=== PATIENT | male | born 1960 | race Caucasian/White ===

== ENCOUNTER 2018-03-15 01:06 | Inpatient (IN) | payer BC ==
[2018-03-15 01:34] LABS: HCT 42.2 % (39.0-53.0); HGB 14.7 gm/dL (13.0-17.5); MCH 30.5 pg (25.0-35.0); MCHC 34.9 g/dL (31.0-37.0); MCV 87.5 fL (80.0-100.0); Mean Platelet Volume 7.8; Platelet Count 114 k/uL (150-450); RBC 4.83 m/uL (4.30-5.90); RDW 13.6 % (11.5-15.5); WBC 3.3 k/uL (3.8-10.6)
--- NOTE | 2018-03-15 01:39 | ED ---
Chest Pain HPI - General Chief Complaint: Chest Pain Stated Complaint: chest pain Time Seen by Provider: 03/15/18 01:14 Source: patient Mode of arrival: ambulatory Limitations: no limitations - History of Present Illness MD Complaint: chest pain Onset/Timin -: week(s) Onset: during rest Pain Location: left chest Pain Radiation: back Severity: moderate Quality: other (Burning) Consistency: constant Improves With: nothing Worsens With: nothing Treatments Prior to Arrival: none - Related Data Previous Rx's Medication Instructions Recorded Acetaminophen Tab [Tylenol] 650 mg PO Q6HR PRN tab 03/17/18 Allergies Allergy/AdvReac Type Severity Reaction Status Date / Time No Known Allergies Allergy Verified 03/15/18 08:39 Review of Systems ROS Statement: Those systems with pertinent positive or pertinent negative responses have been documented in the HPI. ROS Other: All systems not noted in ROS Statement are negative. Constitutional: Denies: fever, chills Respiratory: Denies: cough, dyspnea, hemoptysis Cardiovascular: Reports: as per HPI, chest pain. Denies: palpitations, orthopnea, edema, syncope Gastrointestinal: Denies: abdominal pain, nausea, vomiting Musculoskeletal: Denies: back pain Skin: Denies: rash Neurological: Denies: headache, weakness, numbness EKG Findings - EKG Results: EKG: interpreted by TED VICENTE, sinus rhythm (Rate 72 bpm), normal axis, normal QRS, normal ST/T, no acute changes - [place], Pacemaker, Normal: Normal tracing: normal tracing Past Medical History Past Medical History: No Reported History History of Any Multi-Drug Resistant Organisms: None Reported Past Surgical History: No Surgical Hx Reported Past Psychological History: No Psychological Hx Reported Smoking Status: Never smoker Past Alcohol Use History: Daily Past Drug Use History: None Reported - Past Family History Father Additional Family Medical History / Comment(s): liver issue Mother Family Medical History: Cancer Additional Family Medical History / Comment(s): skin CA, kidney issues General Exam Limitations: no limitations General appearance: alert, in no apparent distress Head exam: Present: atraumatic, normocephalic Eye exam: Present: normal appearance. Absent: scleral icterus, conjunctival injection Respiratory exam: Present: normal lung sounds bilaterally. Absent: respiratory distress, wheezes, rales, rhonchi, stridor, chest wall tenderness Cardiovascular Exam: Present: regular rate, normal rhythm, normal heart sounds. Absent: systolic murmur, diastolic murmur, rubs, gallop GI/Abdominal exam: Present: soft. Absent: distended, tenderness, guarding, rebound, rigid, mass Extremities exam: Present: normal inspection, normal capillary refill. Absent: pedal edema, calf tenderness Back exam: Present: normal inspection. Absent: CVA tenderness (R), CVA tenderness (L) Skin exam: Present: warm, dry, intact, normal color. Absent: rash Course Vital Signs 03/15/18 03/15/18 03/15/18 01:08 02:18 03:03 Temperature 97.9 F 97.4 F L Pulse Rate 76 73 70 Pulse Rate [ Pulse Oximetery ] Respiratory 18 18 18 Rate Blood Pressure 133/79 122/83 114/78 Blood Pressure [Right Arm] O2 Sat by Pulse 95 99 99 Oximetry 03/15/18 04:00 Temperature 97.9 F Pulse Rate Pulse Rate [ 71 Pulse Oximetery ] Respiratory 16 Rate Blood Pressure Blood Pressure 128/80 [Right Arm] O2 Sat by Pulse 96 Oximetry Disposition Clinical Impression: Left adrenal mass, Chest pain, Mediastinal lymphadenopathy Disposition: ADMITTED IP TO THIS HOSP Condition: Good Is patient prescribed a controlled substance at d/c from ED?: No
[2018-03-15 01:45] LABS: ALT 33 U/L (21-72); AST 23 U/L (17-59); Alkaline Phosphatase 50 U/L (38-126); Anion Gap 14 mmol/L; Blood Urea Nitrogen 16 mg/dL (9-20); Calcium 8.8 mg/dL (8.4-10.2); Carbon Dioxide 23 mmol/L (22-30); Chloride 105 mmol/L (98-107); Glucose 92 mg/dL (74-99); Potassium 3.9 mmol/L (3.5-5.1); Sodium 142 mmol/L (137-145); Total Bilirubin 0.7 mg/dL (0.2-1.3); Total Protein 6.4 g/dL (6.3-8.2)
--- NOTE | 2018-03-15 01:52 | XR ---
EXAMINATION TYPE: XR chest 1V portable DATE OF EXAM: 03/15/2018 COMPARISON: NONE HISTORY: Chest pain TECHNIQUE: Single frontal view of the chest is obtained. FINDINGS: Heart and mediastinum are normal. Lungs are clear. Diaphragm is normal. There are chest le ads. IMPRESSION: Normal chest
[2018-03-15] MEDS ORDERED: RX INFO: IV CONTRAST WAS GIVEN 1 EACH MISC MISCELLANE PRN ×2 (01:55→09:33)
[2018-03-15 02:02] LABS: Lymphocytes # (M) 0.79 k/uL (1.0-4.8); Monocytes # (M) 0.46 k/uL (0-1.0); Neutrophils # (M) 2.05 k/uL (1.3-7.7); Neutrophils % (M) 62 %; Nucleated Red Blood Cells 0 /100 WBC (0-0); Total Cells Counted 100
--- NOTE | 2018-03-15 02:35 | CT ---
EXAMINATION TYPE: CT chest angio for PE DATE OF EXAM: 03/15/2018 COMPARISON: NONE HISTORY: chest pain; elevated D-dimer CT DLP: 448.50 mGycm Automated exposure control for dose reduction was used. CONTRAST: CT Chest for pulmonary embolism performed with with IV Contrast, patient injected with 80 mL of Isovu e 370. FINDINGS: There are 3-D post processed images. The lungs are clear of consolidation. There is no pleural effusion. There is normal contrast opacific ation of the pulmonary arteries. I see no filling defects. There is no evidence of aortic aneurysm or dissection. There is extensive mediastinal and bronchial adenopathy. There are numerous lymph nodes that measure up to 2.5 cm. There is no pericardial effusion. There is no pleural effusion. The bony thorax is inta ct. IMPRESSION: No evidence of pulmonary embolism. Extensive mediastinal and bronchial adenopathy raises the possibil ity of lymphoma. There is no evidence of any significant lung disease to suggest sarcoidosis.
[2018-03-15] MEDS ORDERED: NITROGLYCERIN SL TABS 0.4 MG TAB SUBLINGUAL PRN (03:06)
[2018-03-15] MEDS ORDERED: MORPHINE SULFATE 4 MG/ML SYRINGE IV PRN (03:40)
[2018-03-15 04:06] VITALS: BMI 29.5
[2018-03-15 08:25] LABS: Creatine Kinase 38 U/L (55-170)
[2018-03-15 08:36] LABS: Creatine Kinase MB 0.3 ng/mL (0.0-2.4); Troponin I <0.012 ng/mL (0.000-0.034)
[2018-03-15] MEDS ORDERED: ASPIRIN 325 MG TAB PO SCH (09:00)
[2018-03-15 11:50] LABS: Prothrombin Time 9.7 sec (9.0-12.0)
[2018-03-15] MEDS ORDERED: ONDANSETRON 4 MG/2 ML VIAL IVP PRN (11:58)
[2018-03-15] MEDS ORDERED: MELATONIN 3 MG TABLET PO PRN (11:58)
[2018-03-15] MEDS ORDERED: NALOXONE 0.4 MG/ML 1 ML VIAL IV PRN (11:58)
[2018-03-15] MEDS ORDERED: ACETAMINOPHEN TAB 325 MG TAB PO PRN (11:58)
[2018-03-15] MEDS ORDERED: ALPRAZolam 0.25 MG TAB PO PRN (11:58)
--- NOTE | 2018-03-15 12:10 | P.CRDCN ---
History of Present Illness Consult date: 03/15/18 History of present illness: Mr. Alaniz is a pleasant 58-year-old male with no significant past medical history. He denies history of coronary artery disease, hypertension, dyslipidemia or diabetes mellitus. We have been asked to see him in consultation for chest pain. He states he has had a pain that starts in the left mid-back region and radiates around to the left anterior chest wall. It feels like a strained muscle described as a dull ache. This has been going on for approximately 1 week, waxing and waning with no specific aggravating or alleviating factors. No radiation to arm, neck or jaw. No sob, palpitations, nausea, vomiting, diaphoresis, dizziness or exertional dyspnea. CT angio was performed in ED secondary to elevated D-dimer and reveals no evidence for PE, lungs clear consolidation, no evidence of aortic aneurysm or dissection, extensive mediastinal and bronchial adenopathy with numerous lymph nodes that measure up to 2.5 cm raising the possibility of lymphoma. EKG on arrival reveals normal sinus mechanism with no acute ST or T-wave abnormalities. Chest x-ray is negative for an acute cardiopulmonary process. Laboratory data reviewed, d-dimer 1.46, WBC 3.3, hemoglobin 14.7, platelets 114 , sodium 142, potassium 3.9, magnesium 2.0, cardiac enzymes negative 2. He takes no daily medications. Review of Systems At the time of my exam: CONSTITUTIONAL: Denies fever. Denies chills. EYES: Denies blurred vision. Denies vision changes. Denies eye pain. EARS, NOSE, MOUTH & THROAT: Denies headache. Denies sore throat. Denies ear pain. CARDIOVASCULAR: Denies chest pain. Denies shortness of breath. Denies orthopnea. Denies PND. Denies palpitations. RESPIRATORY: Denies cough. GASTROINTESTINAL: Denies abdominal pain. Denies diarrhea. Denies constipation. Denies nausea. Denies vomiting. MUSCULOSKELETAL: Denies myalgias. INTEGUMENTARY: Denies pruitis. Denies rash. NEUROLOGIC: Denies numbness. Denies tingling. Denies weakness. PSYCHIATRIC: Denies anxiety. Denies depression. ENDOCRINE: Denies fatigue. Denies weight change. Denies polydipsia. Denies polyurina. GENITOURINARY: Denies burning, hematuria or urgency with micturation. HEMATOLOGIC: Denies history of anemia. Denies bleeding. Past Medical History Past Medical History: No Reported History History of Any Multi-Drug Resistant Organisms: None Reported Past Surgical History: Tonsillectomy Smoking Status: Never smoker - Past Family History Father Additional Family Medical History / Comment(s): liver issue Mother Family Medical History: Cancer Additional Family Medical History / Comment(s): skin CA, kidney issues Medications and Allergies Home Medications Medication Instructions Recorded Confirmed Type No Known Home Medications [No 03/15/18 03/15/18 History Known Home Medications] Allergies Allergy/AdvReac Type Severity Reaction Status Date / Time No Known Allergies Allergy Verified 03/15/18 08:39 Physical Exam Vitals: Vital Signs Temp Pulse Pulse Resp BP BP Pulse Ox 03/15/18 07:59 97.6 F 71 16 110/62 96 03/15/18 04:00 97.9 F 71 16 128/80 96 03/15/18 03:03 97.4 F L 70 18 114/78 99 03/15/18 02:18 73 18 122/83 99 03/15/18 01:08 97.9 F 76 18 133/79 95 Intake and Output 03/14/18 03/15/18 03/15/18 22:59 06:59 14:59 Other: # Voids 1 Weight 90.7 kg Blood pressure 110/62 heart rate 71 afebrile maintaining oxygen saturation on room air GENERAL: This is a 58-year-old male in no apparent distress at the time of my examination. HEENT: Head is atraumatic, normocephalic. Pupils are equal, round. Sclerae anicteric. Conjunctivae are clear. Mucous membranes of the mouth are moist. Neck is supple. There is no jugular venous distention. No carotid bruit is heard. LUNGS: Clear to auscultation no wheezes, rales or rhonchi. No chest wall tenderness is noted on palpation or with deep breathing. HEART: Regular rate and rhythm without murmurs, rubs or gallops. S1 and S2 heard. ABDOMEN: Soft, nontender. Bowel sounds are heard. No organomegaly noted. EXTREMITIES: No evidence of peripheral edema and no calf tenderness noted. VASCULAR: Radial and dorsalis pedis pulses palpated, no evidence of clubbing. NEUROLOGIC: Patient is awake, alert and oriented x3. Results 03/15/18 01:16 03/15/18 01:16 Cardiac Enzymes 03/15/18 03/15/18 03/15/18 Range/Units 01:16 01:16 07:20 AST 23 (17-59) U/L CK-MB (CK-2) 0.3 (0.0-2.4) ng/mL Troponin I <0.012 <0.012 (0.000-0.034) ng/mL CBC 03/15/18 Range/Units 01:16 WBC 3.3 L (3.8-10.6) k/uL RBC 4.83 (4.30-5.90) m/uL Hgb 14.7 (13.0-17.5) gm/dL Hct 42.2 (39.0-53.0) % Plt Count 114 L (150-450) k/uL Comprehensive Metabolic Panel 03/15/18 Range/Units 01:16 Sodium 142 (137-145) mmol/L Potassium 3.9 (3.5-5.1) mmol/L Chloride 105 (98-107) mmol/L Carbon Dioxide 23 (22-30) mmol/L BUN 16 (9-20) mg/dL Creatinine 0.80 (0.66-1.25) mg/dL Glucose 92 (74-99) mg/dL Calcium 8.8 (8.4-10.2) mg/dL AST 23 (17-59) U/L ALT 33 (21-72) U/L Alkaline Phosphatase 50 (38-126) U/L Total Protein 6.4 (6.3-8.2) g/dL Albumin 4.0 (3.5-5.0) g/dL Current Medications Generic Name Dose Route Start Last Admin Trade Name Freq PRN Reason Stop Dose Admin Aspirin 325 mg 03/15/18 09:00 Aspirin PO DAILY LAUREANO Heparin Sodium (Porcine) 5,000 unit 03/15/18 08:00 Heparin SQ Q8HR [facility] Miscellaneous Information 1 each 03/15/18 01:55 03/15/18 02:19 Rx Info: Iv Contrast Was Given MISCELLANE 03/17/18 01:55 1 each DAILY PRN Administration Per Protocol Morphine Sulfate 4 mg 03/15/18 03:40 03/15/18 04:09 Morphine Sulfate (Inj) IV 4 mg Q4H PRN Administration Pain Nitroglycerin 0.4 mg 03/15/18 03:06 Nitrostat SUBLINGUAL Q5M PRN Chest Pain Intake and Output 03/14/18 03/15/18 03/15/18 22:59 06:59 14:59 Other: # Voids 1 Weight 90.7 kg 03/15/18 01:16 03/15/18 01:16 Assessment and Plan Assessment: ASSESSMENT 1. Chest pain, atypical. An acute coronary event has been ruled out with no EKG evidence of ischemia and negative cardiac enzymes. 2. Mediastinal and bronchial adenopathy PLAN Obtain 2D echocardiogram and doppler study to assess cardiac structure and function. Perform Cardiolyte stress test to assess for reversible cardiac ischemia. Ongoing medical management of lymphadenopathy. If stress testing is negative for reversible ischemia he is stable from a cardiac perspective. Thank you kindly for this consultation. Nurse Practitioner note has been reviewed, I agree with a documented findings and plan of care. Patient was seen and examined.
--- NOTE | 2018-03-15 12:29 | ECHOF ---
Referral Reason: MEASUREMENTS -------- HEIGHT: 175.3 cm WEIGHT: 90.3 kg BP: 110/62 IVSd: 1.3 cm (0.6 - 1.1) LVIDd: 3.4 cm (3.9 - 5.3) LVPWd: 1.4 cm (0.6 - 1.1) IVSs: 1.8 cm LVIDs: 2.0 cm LVPWs: 1.9 cm LAESV Index (A-L): 24.23 ml/m Ao Diam: 3.8 cm (2.0 - 3.7) AV Cusp: 2.4 cm (1.5 - 2.6) LA Diam: 3.5 cm (2.7 - 3.8) MV EXCURSION: 14.230 mm (> 18.000) MV EF SLOPE: 74 mm/s (70 - 150) EPSS: 0.7 cm MV E Corky: 0.62 m/s MV DecT: 202 ms MV A Corky: 0.65 m/s MV E/A Ratio: 0.96 RAP: 5.00 mmHg RVSP: 19.40 mmHg FINDINGS -------- Sinus rhythm. This was a technically good study. LV size, wall thickness and systolic function are normal, with an EF greater than 55%. The left ariadna tricular size is normal. There is mild concentric left ventricular hypertrophy. The right ventricle is normal in size. The left atrium is normal in size. The right atrium is normal in size. The aortic valve is trileaflet, and appears structurally normal. No aortic stenosis or regurgitation. The mitral valve is normal. There is trace mitral regurgitation. Trace tricuspid regurgitation present. The right ventricular systolic pressure, as measured by Dopp ler, is 19.40mmHg. There is no pulmonic regurgitation present. The aortic root is mildy dilated. Normal inferior vena cava with normal inspiratory collapse consistent with estimated right atrial pre ssure of 5 mmHg. There is no pericardial effusion. CONCLUSIONS -------- 1. Sinus rhythm. 2. This was a technically good study. 3. LV size, wall thickness and systolic function are normal, with an EF greater than 55%. 4. The left ventricular size is normal. 5. There is mild concentric left ventricular hypertrophy. 6. The left atrium is normal in size. 7. The aortic valve is trileaflet, and appears structurally normal. No aortic stenosis or regurgitati on. 8. There is trace mitral regurgitation. 9. Trace tricuspid regurgitation present. 10. The right ventricular systolic pressure, as measured by Doppler, is 19.40mmHg. 11. There is no pulmonic regurgitation present. 12. The aortic root is mildy dilated measuring 3.8 cm 13. Normal inferior vena cava with normal inspiratory collapse consistent with estimated right atrial pressure of 5 mmHg. 14. There is no pericardial effusion. RELISH MAKER: Audra Agee RDCS
[2018-03-15] MEDS: ASPIRIN 81 MG PO SCH (12:33)
--- NOTE | 2018-03-15 12:33 | NM ---
EXAMINATION TYPE: NM stress cardiolite complete DATE OF EXAM: 03/15/2018 COMPARISON: NONE HISTORY: Chest pain TECHNIQUE: After the intravenous administration of 10 mCi Tc 99m Sestamibi - Rest images obtained 45 minutes post injection. The patient exercised using a ANNA protocol and 1 minute prior to peak ex ercise was injected with 25 mCi Tc 99m Sestamibi - Stress images obtained 30 minutes post injection. FINDINGS: Targeted heart rate was achieved during performance of the study. Review of stress and rest SPECT jean claude ges demonstrates no distinct perfusion abnormality. The small defect in the lateral wall on the compu ter generated images is not reproduced on scintigraphic raw data Gated analysis shows normal wall mot ion with an estimated left ventricular ejection fraction of 58 %. TID is be 0.85. IMPRESSION: No scintigraphic evidence for reversible ischemia
[2018-03-15] MEDS: HEPARIN SODIUM,PORCINE 5,000 UNIT/ML 1 ML VIAL SQ SCH ×2 (12:34→16:44)
--- NOTE | 2018-03-15 13:28 | EST ---
EXERCISE STRESS DATE OF SERVICE: 03/15/2018 AGE: 58 SEX: Male HT: 69" WT: 199 pounds PROTOCOL: CARDIOLITE STAGE: III DURATION OF EXERCISE: 8 minutes HEART RATE REST: 85 BLOOD PRESSURE REST: 114/84 MAXIMUM HEART RATE ACHIEVED: 147 MAXIMUM BLOOD PRESSURE: 160/98 85% MPHR: 139 100% MPHR: 164 METS: 9.7 INDICATIONS: Chest pain. CLINICAL INFORMATION: Baseline rhythm is sinus mechanism, rate of 85, normal axis and intervals, poor R wave progression. Baseline blood pressure 114/84 mmHg. Patient exercise on Anshul protocol for 8 minutes reaching peak rate of 147 beats per minute, which is equal to 89% maximum predicted heart rate. Peak blood pressure was 160/98 mmHg. Test was terminated secondary to fatigue. There is no chest pain. Electrocardiograph monitoring revealed no evidence diagnostic ischemic ST deviation. Cardiolite was injected at peak exercise. CONCLUSION: 1. Good exercise tolerance with normal electrocardiograph response to exercise. 2. Nuclear images will be reported separately. MMODL / IJN: [id number] / KIA
--- NOTE | 2018-03-15 15:10 | P.CONS ---
History of Present Illness - Reason for Consult Consult date: 03/15/18 adreanal mass, medistinal adenopathy Requesting physician: Dino Moran - Chief Complaint LUQ/rib pain - History of Present Illness Mr. Alaniz is a very pleasant 58-year-old male with a unremarkable PMH who was experiencing what he called chest pain 1 week, on clarification pain was described to be localized to the left upper quadrant, lower rib area and straight through to the back, fairly constant, pain was worse when he was sitting, denied relationship to eating, ibuprofen worked for pain initially but , then it stopped helping, the pain was restricting his ability to be active, he denied shortness of breath, cough, dysphagia, voice changes, nausea, vomiting , dizziness, near syncopy, night sweats, lymph node swellings or weight loss, no recent illnesses. 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 Review of Systems 14 point review of systems is as stated in HPI Past Medical History Past Medical History: No Reported History History of Any Multi-Drug Resistant Organisms: None Reported Past Surgical History: Tonsillectomy Smoking Status: Never smoker - Past Family History Father Additional Family Medical History / Comment(s): liver issue Mother Family Medical History: Cancer Additional Family Medical History / Comment(s): skin CA, kidney issues Medications and Allergies Home Medications Medication Instructions Recorded Confirmed Type No Known Home Medications [No 03/15/18 03/15/18 History Known Home Medications] Allergies Allergy/AdvReac Type Severity Reaction Status Date / Time No Known Allergies Allergy Verified 03/15/18 08:39 Physical Exam Vitals: Vital Signs Temp Pulse Pulse Resp BP BP Pulse Ox 03/15/18 11:46 98 F 96 16 141/96 95 03/15/18 07:59 97.6 F 71 16 110/62 96 03/15/18 04:00 97.9 F 71 16 128/80 96 03/15/18 03:03 97.4 F L 70 18 114/78 99 03/15/18 02:18 73 18 122/83 99 03/15/18 01:08 97.9 F 76 18 133/79 95 Intake and Output 03/14/18 03/15/18 03/15/18 22:59 06:59 14:59 Intake Total 236 Balance 236 Intake: Oral 236 Other: # Voids 1 Weight 90.7 kg - Constitutional General appearance: average body habitus, cooperative, no acute distress - EENT Eyes: anicteric sclerae, EOMI, PERRLA, normal appearance ENT: hearing grossly normal, normal oropharynx - Neck Neck: no lymphadenopathy - Respiratory Respiratory: bilateral: CTA - Cardiovascular Rhythm: regular Heart sounds: normal: S1, S2 Abnormal Heart Sounds: no systolic murmur, no diastolic murmur, no rub, no S3 Gallop, no S4 Gallop, no click, no other leg Peripheral Edema: bilateral: None - Gastrointestinal General gastrointestinal: soft, tenderness Localized gastrointestinal: tender: LUQ (solid mass palpated) - Integumentary Integumentary: normal - Neurologic Neurologic: CNII-XII intact - Musculoskeletal Musculoskeletal: strength equal bilaterally - Psychiatric Psychiatric: A&O x's 3, appropriate affect, intact judgment & insight Results CBC & Chem 7: 03/15/18 01:16 03/15/18 01:16 Labs: Abnormal Lab Results - Last 24 Hours (Table) 03/15/18 03/15/18 03/15/18 Range/Units 01:16 01:16 07:20 WBC 3.3 L (3.8-10.6) k/uL Plt Count 114 L (150-450) k/uL Lymphocytes # (Manual) 0.79 L (1.0-4.8) k/uL D-Dimer 1.46 H (<0.60) mg/L FEU Lactate Dehydrogenase (313-618) U/L Total Creatine Kinase 38 L (55-170) U/L 03/15/18 Range/Units 07:20 WBC (3.8-10.6) k/uL Plt Count (150-450) k/uL Lymphocytes # (Manual) (1.0-4.8) k/uL D-Dimer (<0.60) mg/L FEU Lactate Dehydrogenase 810 H (313-618) U/L Total Creatine Kinase (55-170) U/L Chest x-ray: report reviewed CT scan - chest: report reviewed, image reviewed Assessment and Plan (1) Left adrenal mass Current Visit: Yes Status: Acute Priority: High Code(s): E27.9 - DISORDER OF ADRENAL GLAND, UNSPECIFIED SNOMED Code(s): 363062402 (2) Mediastinal lymphadenopathy Current Visit: Yes Status: Acute Priority: High Code(s): R59.0 - LOCALIZED ENLARGED LYMPH NODES SNOMED Code(s): 99196794 Plan: Dr. Olson discussed with patient concerning findings on CT including left adrenal mass and mediastinal lymphadenopathy. He was explained to patient and biopsy is necessary for tissue diagnosis as the findings could represent a primary adrenal malignancy, metastatic disease from another primary, possibly lymphoma and there is the possibility of metastatic disease or rare, but possible, benign condition. They verbalized understanding and are willing to proceed. Consult placed for Interventional Radiology and core biopsy. CT of the abdomen and pelvis ordered to complete imaging. Additional labs have been ordered for evaluation.
--- NOTE | 2018-03-15 17:10 | HP ---
HISTORY AND PHYSICAL DATE OF SERVICE: 03/15/18 PRESENTING COMPLAINT: Below left rib pain. HISTORY OF PRESENTING COMPLAINT: This is a very pleasant 58 -year-old patient of Dr. Brizuela. Unremarkable past medical history. The patient has been having pain and what he describes as below the ribcage going around and getting localized below the left rib. Has been coming on and off. The patient denies any fever. No chest pain or shortness of breath. The patient's pain became rather severe yesterday and decided to come in. CT scan of the chest with contrast showed multiple lymph nodes in the lungs, prominent. The patient is rather active and in fact works for [employer] and normally does not get any exertional chest pain or shortness of breath. Given there was a lower chest wall involvement, cardiology was consulted from the ER who did order a stress test. REVIEW OF SYSTEMS: Constitutional none. No weight loss. Appetite is fair. HEENT none. RESPIRATORY: None. Cardiovascular: No precordial pain. Gastrointestinal none. Genitourinary: None. Musculoskeletal: Some left lower ribcage pain. DERMATOLOGICAL, HEMATOLOGIC, LYMPHATIC: none. Psychiatry none. Neurological none. PAST MEDICAL HISTORY: None. SURGICAL HISTORY: Tonsillectomy. SOCIAL HISTORY: Has one drink a day and works for [employer]. Does not smoke. . FAMILY HISTORY: Of cancer, possibly liver. HOME MEDICATIONS: None. ALLERGIES: None. PHYSICAL EXAMINATION: Temperature 98, pulse 96, respiration 16, blood pressure 141/96, pulse ox 95% on room air. General appearance: Average built, sitting up, comfortable. Eyes: Pupils equal. Conjunctivae normal. HEENT: External appearance of nose and ears normal. Oral cavity normal. Neck JVD not raised. Mass not palpable. Respiratory effort lungs fair entry. Cardiovascular 1st and second sounds no edema. ABDOMEN: Soft, nontender. Liver and spleen not palpable. Lymphatics: No lymph nodes palpable in neck or axillae. Psychiatry: Alert and oriented x3. Mood and affect normal. Neurological: Pupils equal. Cranial nerves grossly intact. Power and sensation grossly intact. INVESTIGATIONS: White count 3.3, hemoglobin 14.7, platelets 114, decreased lymphocytes in the differential. Potassium 3.9, BUN 16, creatinine 0.80. LDH is 810. Troponin times two negative. 2D echocardiogram EF 55%. Cardiolite stress test, no evidence of ischemia. EKG normal sinus rhythm. ASSESSMENT: 1. Atypical chest pain, noncardiac sounding and there was a concern about a cardiac cause and hence cardiology was consulted. The stress test has come back negative. 2. Multiple mediastinal lymphadenopathy. Differential of course includes lymphoma for which oncology was consulted. PLAN: Patient's stress test was negative. The patient was seen by Dr. Olson's service. They have ordered interventional Radiology for core biopsy of the left renal mass and also CT abdomen and pelvis with contrast and some other workup for multiple myeloma including has been sent off including immunofixation. Copy to Dr. Brizuela. MMODL / IJN: [id number] /
[2018-03-16] MEDS: HEPARIN SODIUM,PORCINE 5,000 UNIT/ML 1 ML VIAL SQ SCH ×3 (01:46→15:36)
[2018-03-16 03:29] LABS: Cholesterol 85 mg/dL (<200); HDL Cholesterol 8 mg/dL (40-60); Triglycerides 344 mg/dL (<150)
[2018-03-16] MEDS: IOPAMIDOL-300 CONTRAST 30 ML VIAL (ORAL USE) PO PRN ×2 (08:31→09:33)
--- NOTE | 2018-03-16 09:54 | P.PN ---
Subjective Progress Note Date: 03/16/18 Mr. Alaniz is seen and examined this morning resting comfortably in bed with at the bedside. Stress echocardiogram performed yesterday negative for stress induced cardiac ischemia. Echocardiogram revealed a normal systolic function with ejection fraction 55%. No evidence of valvular heart disease. He has been seen in consultation by oncology and they are planning for a biopsy of a left adrenal mass. He continues to complain of discomfort in the left thoracic region. Denies shortness of breath, nausea, vomiting, diaphoresis, dizziness or palpitations. Telemetry tracings have been unremarkable. Blood pressure 142/80 heart rate 84 afebrile and maintaining oxygen saturation on room air. Objective - Vital Signs Vital signs: Vital Signs Temp 97.5 F L 03/16/18 07:30 Pulse 84 03/16/18 07:30 Resp 16 03/16/18 04:00 BP 142/80 03/16/18 07:30 Pulse Ox 93 L 03/16/18 07:30 Intake & Output 03/15/18 03/16/18 03/16/18 18:59 06:59 18:59 Intake Total 916 240 Balance 916 240 Intake: Oral 916 240 Other: # Voids 2 - Exam GENERAL: Well-appearing, well-nourished and in no acute distress. NECK: Supple without JVD or thyromegaly. LUNGS: Breath sounds clear to auscultation bilaterally. Respiration equal and unlabored. No wheezes, rales or rhonchi. HEART: Regular rate and rhythm without murmurs, rubs or gallops. S1 and S2 heard. EXTREMITIES: Normal range of motion, no edema. No clubbing or cyanosis. Peripheral pulses intact and strong. - Labs CBC & Chem 7: 03/15/18 01:16 03/15/18 01:16 Labs: Abnormal Lab Results - Last 24 Hours (Table) 03/15/18 03/15/18 Range/Units 01:16 07:20 Lactate Dehydrogenase 810 H (313-618) U/L Triglycerides 344 H (<150) mg/dL HDL Cholesterol 8 L (40-60) mg/dL Assessment and Plan Assessment: ASSESSMENT 1. Chest pain, atypical. An acute coronary event has been ruled out with no EKG evidence of ischemia and negative cardiac enzymes. 2. Mediastinal and bronchial adenopathy PLAN Stable from a cardiac perspective. Test results have been explained to the patient and his . Nurse Practitioner note has been reviewed, I agree with a documented findings and plan of care. Patient was seen and examined.
[2018-03-16] MEDS ORDERED: MORPHINE ORAL SOLN 10 MG/5 ML CUP PO PRN (10:03)
[2018-03-16] MEDS ORDERED: MORPHINE SULFATE 4 MG/ML SYRINGE IVP STA (10:44)
[2018-03-16] MEDS: ASPIRIN 81 MG PO SCH (11:25)
--- NOTE | 2018-03-16 13:24 | CT ---
EXAMINATION TYPE: CT abdomen wo con, CT abdomen pelvis w con DATE OF EXAM: 03/16/2018 HISTORY: Adrenal mass CT DLP: 571.54 (accession [id number]), 1440.01 (accession [id number]) mGycm. Automated Exposure Control for Dose Reduction was Utilized. TECHNIQUE: CT scan of the abdomen is performed with oral but without IV contrast. Follow-up CT scan of the abdomen and pelvis is performed with both oral and IV contrast. COMPARISON: CTA chest from yesterday. FINDINGS: Within the limitations of a non-contrast study, the following observations are made. LUNG BASES: There is partial visualization of known right hilar adenopathy from CT one day earlier. LIVER/GB: No significant abnormality is appreciated. PANCREAS: No significant abnormality is seen. SPLEEN: Spleen is enlarged in size measuring 14.5 cm long axis axial image 25. ADRENALS: There is redemonstration of markedly enlarged left adrenal mass that is oval in shape with some lobulated and ill-defined margins, Hounsfield units average 40-[address] one day earlier and 35-[address] today. Postcontrast images show enhancement up to 50-51 units. 15 minute delayed images show only washout down to 48 units. Mass measures approximately 10.3 x 5.1 cm series 4 axial i mage 29. Right adrenal gland is unremarkable. KIDNEYS: No significant abnormality is seen. BOWEL: The oral contrast nearly reaches level of hepatic flexure. Evaluation of distal bowel is thus slightly suboptimal. There is no suspicious small or large bowel dilatation. There is mild wall thick ening proximal to mid transverse colon. Sigmoid colonic diverticulosis is present without convincing CT evidence for acute diverticulitis. There is single prominent small bowel loop in the right mid abd omen with moderate eccentric wall thickening seen best series 8 image 53. GENITAL ORGANS: Prostate gland is slightly enlarged in size bulging on bladder base, Central zone massimo cifications are present. Underlying BPH is suspected. Correlate clinically. LYMPH NODES: No greater than 1cm abdominal or pelvic lymph nodes are appreciated. OSSEOUS STRUCTURES: Moderate disc space narrowing L4-L5 and L5-S1 levels is present. OTHER: No significant additional abnormality is seen. IMPRESSION: 1. Large left adrenal mass has Hounsfield units greater than 10 on noncontrast study, only mild postc ontrast enhancement without significant washout. Malignant etiology cannot be excluded. Correlate wit h same day biopsy results. 2. Splenomegaly noted. No suspicious adenopathy below diaphragm identified. 3. Possible mild colitis proximal to mid transverse colon versus product of poor distention. No bowel obstruction is seen. Single dilated small bowel loop in the right midabdomen with moderate eccentric wall thickening. Correlate clinically if there is been prior bowel surgery in this is site of reanas tomosis no distinct sutures are not clearly seen. Atypical mass or neoplasm is in differential.
[2018-03-16 16:02] LABS: Glucose,Whole Blood 90 mg/dL (75-99)
--- NOTE | 2018-03-16 16:33 | XR ---
EXAMINATION TYPE: XR chest 1V DATE OF EXAM: 03/16/2018 CLINICAL HISTORY: Shortness of breath. TECHNIQUE: Single AP portable upright view of the chest is obtained. COMPARISON: Chest x-ray and CTA chest from one day earlier. FINDINGS: Lungs are grossly clear without pleural effusion or pneumothorax seen bilaterally. Hilar p rominence and/or adenopathy is redemonstrated seen better on CT. Cardiac silhouette size is stable an d within normal limits. Osseous structures are intact. Contrast from recent CT is noted in bowel loop s in the visualized abdomen. IMPRESSION: No new suspicious acute pulmonary process.
[2018-03-16 16:45] LABS: HCT 44.5 % (39.0-53.0); HGB 15.1 gm/dL (13.0-17.5); MCV 88.3 fL (80.0-100.0); Mean Platelet Volume 7.7; Platelet Count 117 k/uL (150-450); RBC 5.04 m/uL (4.30-5.90); RDW 13.4 % (11.5-15.5); WBC 3.9 k/uL (3.8-10.6)
[2018-03-16 16:51] LABS: ALT 32 U/L (21-72); AST 23 U/L (17-59); Albumin 4.2 g/dL (3.5-5.0); Alkaline Phosphatase 43 U/L (38-126); Anion Gap 15 mmol/L; Blood Urea Nitrogen 15 mg/dL (9-20); Carbon Dioxide 26 mmol/L (22-30); Chloride 101 mmol/L (98-107); Glucose 108 mg/dL (74-99); Sodium 142 mmol/L (137-145); Total Bilirubin 1.3 mg/dL (0.2-1.3); Total Protein 6.7 g/dL (6.3-8.2)
[2018-03-16] MEDS ORDERED: MORPHINE SULFATE 4 MG/ML SYRINGE IVP PRN (17:08)
[2018-03-16] MEDS ORDERED: RX INFO: IV CONTRAST WAS GIVEN 1 EACH MISC MISCELLANE PRN (17:09)
[2018-03-16] MEDS: LACTATED RINGERS 1,000 ML IV SCH (17:27)
--- NOTE | 2018-03-16 17:50 | XR ---
EXAMINATION TYPE: XR abdomen 2V DATE OF EXAM: 03/16/2018 HISTORY: Pain. Technique: 3 views of the abdomen are submitted. Comparison: None. Findings: Residual intracolonic contrast. There is no convincing evidence of pneumoperitoneum. The Bowel gas pattern is nonspecific and nonobstructive. No sizable air-fluid levels are seen. No mass effects are noted. No renal calcifications are identified. IMPRESSION: 1. Nonspecific nonobstructive bowel gas pattern
[2018-03-16 17:57] LABS: Band Neutrophils % 1 %; Eosinophils # (M) 0.08 k/uL (0-0.7); Lymphocytes # (M) 0.66 k/uL (1.0-4.8); Metamyelocytes # (M) 0.04 k/uL (0); Metamyelocytes % 1 %; Monocytes # (M) 0.62 k/uL (0-1.0); Neutrophils % (M) 64 %; Nucleated Red Blood Cells 0 /100 WBC (0-0); Polychromasia Present; Promyelocytes # (M) 0.04 k/uL (0); Promyelocytes % 1 %; Total Cells Counted 200
--- NOTE | 2018-03-16 18:30 | CT ---
EXAMINATION TYPE: CT chest angio for PE DATE OF EXAM: 03/16/2018 COMPARISON: 03/15/2018 HISTORY: Back pain post Adrenal biopsy today CT DLP: 425.4 mGycm CONTRAST: CT chest with contrast and 3D reconstruction with MIP imaging is performed with IV Contrast, patient injected with 100 mL of Isovue 370. Contrast-enhanced CT of the chest was performed through the course of the pulmonary arteries with dipak g and mediastinal window settings submitted. 3D reconstruction with MIP imaging was also performed. PULMONARY ARTERIES: The pulmonary arteries and their major tributaries are patent. I do not see driss dence for sizable filling defect to suggest pulmonary embolic process. LUNGS: The lungs are clear and free of infiltrate. No evidence for atelectasis. No pulmonary nodule or mass is detected. No pleural effusion. MEDIASTINUM: Thoracic aorta is of normal caliber,however, evaluation is limited given timing of the contrast bolus. If there is concern for thoracic aortic pathology consider CLIF. Correlate clinicall y . The heart is not enlarged. No evidence for mediastinal mass. Mediastinal adenopathy. HILAR STRUCTURES: No evidence for mass. Stable hilar adenopathy. UPPER ABDOMEN: Partially imaged left adrenal mass. IMPRESSION: 1. No evidence for Pulmonary embolism at this time.
[2018-03-16] MEDS ORDERED: CALCIUM CARBONATE LIQUID 500 MG/5 ML CUP PO PRN (20:40)
[2018-03-17] MEDS: HEPARIN SODIUM,PORCINE 5,000 UNIT/ML 1 ML VIAL SQ SCH ×2 (02:02→08:40)
[2018-03-17] MEDS: LACTATED RINGERS 1,000 ML IV SCH ×2 (02:05→08:40)
--- NOTE | 2018-03-17 07:03 | PN ---
PROGRESS NOTE DATE OF SERVICE: 03/16/2018 PRESENTING COMPLAINT: Abdominal pain. INTERVAL HISTORY: This patient was seen by me yesterday evening. The patient presented with chest pain. Cardiac workup was negative. Patient was found to have multiple lymph nodes and enlarged adrenal gland. Patient had just come back from the biopsy of the adrenal gland and developed significant abdominal pain. There was no nausea, vomiting. Patient's vital signs essentially stable. The patient's was present. REVIEW OF SYSTEMS: Review of system done for constitutional, cardiovascular, GI, pulmonary; relevant findings as above. CURRENT MEDICATIONS: Current medications are reviewed. PHYSICAL EXAMINATION: On examination, temperature 97.6, pulse 77, respiratory 20, blood pressure 111/77, pulse ox 96% on room air. GENERAL APPEARANCE: Lying in bed, somewhat uncomfortable appearing. EYES: Pupils equal. Conjunctivae normal. The patient was not cold and clammy. HENT: External appearance of the nose and ears normal. Oral cavity normal. NECK: JVD not raised. Mass not palpable. RESPIRATORY: Effort normal. LUNGS: Clear. CARDIOVASCULAR: First and second sounds normal. No edema. ABDOMEN: Soft, minimal tenderness on the left side. No tenderness in the renal angle. No bruising . PSYCHIATRY: Alert and oriented x3. Mood and affect normal. INVESTIGATIONS: Abdominal x-ray did not show any free air. Chest CT was negative for PE. ASSESSMENT: 1. Multiple mediastinal lymphadenopathy with involvement of the adrenal gland, status post biopsy. 2. Patient had acute abdominal pain, probably gassiness pain. Pulmonary embolism was ruled out. No free air was noted. PLAN: Continue current medication and treatment plan. Later on, patient's nurse did check back again. The patient was doing much better and had settled down. Will follow. MMODL / IJN: [id number] /
[2018-03-17 08:30] VITALS: BP 106/73; PULSE 66; RESP 20; TEMP 97.5
[2018-03-17] MEDS: ASPIRIN 81 MG PO SCH (08:40)
[2018-03-17 09:35] LABS: Albumin 3.62 g/dL (3.80-4.90)
--- NOTE | 2018-03-18 07:19 | DS ---
DISCHARGE SUMMARY DATE OF ADMISSION: 03/15/18. DATE OF DISCHARGE: March 17, 2018. FINAL DIAGNOSES: Multiple mediastinal lymphadenopathy with involvement and a and a left adrenal gland mass. HOSPITAL COURSE: This patient presented with left abdominal pain, left lower chest pain. Initially seen by Cardiology who did a Cardiolite stress test that was unremarkable and 2-D echo was unremarkable. Chest CTA did not show any evidence of PE but did show extensive mediastinal and bronchial adenopathy. The patient was seen by interventional radiologist who did a biopsy of the left adrenal gland. Pathology was pending. Patient also seen by Dr. Olson who will follow up the patient in the office. The patient doing better today. PHYSICAL EXAMINATION: Lungs are clear. Cardiovascular 1st and second sounds are normal. ABDOMEN: Soft, nontender. CONSULTATION: Dr. Rodrigez from Cardiology and Dr. Olson from Oncology. DISCHARGE MEDICATIONS: Tylenol 650 mg q.6h p.r.n. FOLLOWUP: Follow up with Dr. Olson on April 06, 2018, follow Dr. Brizuela on March 24, 2018. Adrenal gland biopsy was done and the results of which are pending. Care was today discussed with the patient and and okayed by Oncology to be discharged. MMODL / IJN: [id number] /
--- NOTE | 2018-03-18 09:18 | CT ---
EXAMINATION TYPE: CT core biopsy adrenal gland DATE OF EXAM: 03/16/2018 HISTORY: Adrenal mass COMPARISON: CT dated 03/15/2018 Maximal barrier technique was utilized. The skin overlying a suitable path to the lesion was localiz ed using CT and the overlying skin was prepped and draped. Lidocaine used for local anesthesia. A s kin dyan made with a scalpel. Using CT guidance, access was gained to the lesion with a 17-gauge braulio de needle, coaxial passage of the 22-gauge and subsequently 18-gauge core biopsy needle performed. A spirated and core specimen submitted to cytology. 2 passes were performed in all. Following the pro cedure no immediate complications. The patient is discharged in stable condition. Hemostasis achie alex. IMPRESSION: SUCCESSFUL CT GUIDED CORE BIOPSY. PATHOLOGY PENDING. THIS PROCEDURE WAS PERFORMED BY THE EVER Shankar
== END 2018-03-17 14:30 | disposition home or self-care (01) | DRG 204 ==
LOC: EC 01:06 → 3OBS 03:06 → OBSVTOIN 14:50 → 5ONC 03-16 10:15
PROVIDERS: ADMIT Hospitalist; ATTEND Hospitalist
PROC: 0G923ZX Drainage of Left Adrenal Gland, Percutaneous Approach, Diagnostic (ICD-10-PCS; principal; 2018-03-17)
DX: R07.81 Pleurodynia (principal); R59.0 Localized enlarged lymph nodes; E27.9 Disorder of adrenal gland, unspecified; R79.1 Abnormal coagulation profile; Z90.89 Acquired absence of other organs; Z79.899 Other long term (current) drug therapy
CPT/HCPCS: 10022; 36415; 60699; 71045; 71275; 74019; 74150; 74177; 77012; 78452; 80053; 80061; 82550; 82553; 83615; 83735; 83883; 84165; 84484; 85025; 85379; 85610; 86334; 93005; 93017; 93306; 94760; 99285

== ENCOUNTER → 2018-03-26 | Outpatient (CLI) | payer BC ==
--- NOTE | 2018-03-29 12:07 | PE ---
Nuclear medicine PET/CT HISTORY: B-cell lymphoma, C 83.38, initial Patient received 13.5 mCi F-18 G intravenously in delayed scanning was performed from the skull base to the mid thighs. Localization and attenuation correction CT scan was performed. Exam is correlated prior CT chest 03/16/2018, CT abdomen pelvis 03/16/2018 Neck and chest: There is hypermetabolic uptake present involving the shotty mediastinal and hilar nod es, SUV values range approximately 5-7.4. No evident hilar or cervical adenopathy. No evident lung ma ss. Coronary artery calcifications are present. Heart is enlarged. Abdomen pelvis: The spleen is enlarged, there is some fluid present adjacent to the posterior spleen. Large left adrenal mass measures 10 cm in size, there is associated hypermetabolic uptake, SUV 32. T here is a loop of bowel present in the right lower quadrant as noted on CT with a thickened wall and abnormal hypermetabolic uptake, possible diverticulum or bowel with secondary involvement with SUV 20 . Suspect a retroperitoneal node on axial image 183, there is associated hypermetabolic uptake, SUV 2 1. Extensive calcified diverticula noted within the descending and sigmoid colon. Prostatic calcifications are present. Urinary bladder shows a thickened wall possibly due to chronic outlet obstruction. No pelvic adenopathy. Osseous structures: The right proximal humerus shows hypermetabolic uptake, SUV approximately 3.9. IMPRESSION: Findings compatible with patient's history of lymphoma in the distribution described. Spl enomegaly and additional findings above.
== END | disposition home or self-care (01) ==
LOC: RADPETMAIN 12:26
PROVIDERS: ATTEND Internal Medicine Hematology & Oncology
DX: C83.38 Diffuse large B-cell lymphoma, lymph nodes of multiple sites (principal); R16.1 Splenomegaly, not elsewhere classified
CPT/HCPCS: 78815; A9552

== ENCOUNTER → 2018-04-05 | Outpatient (CLI) | payer BC | LOC: RADECHMAIN 13:22 | PROVIDERS: ATTEND Internal Medicine Hematology & Oncology | DX: Z53.9 Procedure and treatment not carried out, unspecified reason (principal) ==

== ENCOUNTER 2018-04-08 05:42 | Day surgery (SDC) | payer BC ==
[2018-04-06 10:55] VITALS: BMI 28.8
[~2018-04-08 05:42] MED LIST: LACTATED RINGERS 1,000 ML IV SCH; Pre Op ABX Message 1 EACH MISC MISCELLANE ONE
[2018-04-08 06:16] VITALS: RESP 16; TEMP 97.2
[2018-04-08] MEDS ORDERED: LIDOCAINE 1% 20 ML VIAL (10MG/ML) FOR IV START INTRADERMA ONE (06:23)
[2018-04-08] MEDS ORDERED: ONDANSETRON 4 MG/2 ML VIAL IVP ONE (06:24)
[2018-04-08] MEDS ORDERED: DEXAMETHASONE SOD PHOS (MDV) 100 MG/10 ML VIAL IV ONE (06:24)
--- NOTE | 2018-04-08 06:29 | P.GSHP ---
History of Present Illness H&P Date: 04/08/18 CHIEF COMPLAINT: Lymphoma. HISTORY OF PRESENT ILLNESS: The patient is a 58-year-old male diagnosed with lymphoma. He needs a Mediport placement for chemotherapy. PAST MEDICAL HISTORY: See list PAST SURGICAL HISTORY: See list CURRENT MEDICATIONS: See list. ALLERGIES: See list. SOCIAL HISTORY: No active tobacco or alcohol use. FAMILY HISTORY: Noncontributory. REVIEW OF ORGAN SYSTEMS: CONSTITUTIONAL: No fevers or chills. PHYSICAL EXAMINATION: Vital signs: Stable GENERAL: Well developed and in no acute distress. Pleasant. HEENT: No sclera icterus. Extraocular movements grossly intact. Moist buccal mucosa. Head is atraumatic, normocephalic. Hears conversational speech. No nasal drainage. NECK: Supple without lymphadenopathy. No JV distention. CHEST: Non-labored respirations and equal bilateral excursions. CARDIOVASCULAR: Regular rate and rhythm. Palpable 2+ radial pulses. ABDOMEN: Nontender. MUSCULOSKELETAL: No clubbing, cyanosis or edema. NEUROLOGIC: No focal or lateralizing signs. PSYCH: Appropriate affect. Alert and oriented to person, place and time. ASSESSMENT: 1. Lymphoma. 2. Need for chemotherapeutic access. PLAN: 1. Agree with Port-A-Cath placement. Past Medical History Past Medical History: Cancer Additional Past Medical History / Comment(s): non-hodgkins lymphoma History of Any Multi-Drug Resistant Organisms: None Reported Past Surgical History: Tonsillectomy Additional Past Surgical History / Comment(s): colonoscopy Past Anesthesia/Blood Transfusion Reactions: No Reported Reaction Smoking Status: Never smoker - Past Family History Father Additional Family Medical History / Comment(s): liver issue Mother Family Medical History: Cancer Additional Family Medical History / Comment(s): skin CA, kidney issues Medications and Allergies Home Medications Medication Instructions Recorded Confirmed Type Acetaminophen Tab [Tylenol] 650 mg PO Q6HR PRN tab 03/17/18 04/08/18 Rx HYDROcodone/APAP 10-325MG [[place] 1 tab PO DAILY PRN 04/06/18 04/08/18 History 10-325] Allergies Allergy/AdvReac Type Severity Reaction Status Date / Time No Known Allergies Allergy Verified 04/06/18 10:49 Surgical - Exam Vital Signs Temp Pulse Resp BP Pulse Ox 97.2 F L 81 16 116/80 97 04/08/18 06:12 04/08/18 06:12 04/08/18 06:12 04/08/18 06:12 04/08/18 06:12
[2018-04-08] MEDS ORDERED: LIDOCAINE 1% INJ 10MG/ML (20 ML MDV) ONE (07:00)
[2018-04-08] MEDS ORDERED: ceFAZolin IN SWFI 2 GM/20 ML SYRINGE IVP ONE (07:00)
[2018-04-08] MEDS ORDERED: PROPOFOL 10 MG/ML 20 ML VIAL IV ONE (07:00)
[2018-04-08] MEDS ORDERED: MIDAZOLAM 2 MG/2 ML VIAL ONE (07:00)
[2018-04-08] MEDS ORDERED: fentaNYL (PF) 50 MCG/ML 2 ML AMP ONE (07:00)
[2018-04-08] MEDS ORDERED: HEPARIN SODIUM,PORCINE 100 UNIT/ML 5 ML VIAL IV ONE (07:27)
[2018-04-08] MEDS ORDERED: HEPARIN SODIUM,PORCINE 10,000 UNIT/ML 1 ML VIAL IV ONE (07:27)
[2018-04-08] MEDS ORDERED: BUPIVACAINE (PF) 0.5% 30 ML VIAL SQ ONE (07:28)
--- NOTE | 2018-04-08 07:55 | P.PCN ---
Date of Procedure: 04/08/18 Description of Procedure: SURGEON: INNA HILLS MD LAP GRINDER: None. PREOPERATIVE DIAGNOSES: 1. Non-Hodgkin's lymphoma 2. Need for chemotherapeutic access. POSTOPERATIVE DIAGNOSES: 1. Non-Hodgkin's lymphoma 2. Need for chemotherapeutic access. PROCEDURES PERFORMED: 1. Ultrasound guided central venous access of the right internal jugular venous vein. 2. Fluoroscopic guidance for central venous access right internal jugular vein, 1 second. 3. Placement of right internal jugular power port 6 Bengali by [employer]. ANESTHESIA: IV sedation with local. ESTIMATED BLOOD LOSS: 10 mL. SPECIMENS REMOVED: None. COMPLICATIONS: None. INDICATIONS: The patient is a 58-year-old male recently diagnosed with non-Hodgkin's lymphoma. He presents for chemotherapeutic access. Benefits and risks of surgical intervention were described including bleeding, infection, mechanical problems with his port. Informed consent was obtained. DESCRIPTION OR PROCEDURE: Patient was brought into the operating room, laid in supine position. After adequate IV sedation, the chest and right neck were prepped and draped in a standard sterile fashion including the shoulder with ChloraPrep. Timeout protocol was confirmed with the surgical team regarding the patient's name, procedure to be performed including preoperative medications for which she received IV antibiotics. Bilateral SCDs were placed. An ultrasound was used to capture views of the right internal jugular vein including right carotid artery, which was patent and without thrombus along its course. The right IJ was then localized using anesthetic for the skin. A 16 Bengali needle was used to access the IJ. A guidewire was advanced into the IJ with dark nonpulsatile venous blood. Two fingerbreadths distal to the clavicle, on the lateral third, a transverse 1.5 to 2 cm incision was deepened into the skin after localizing the skin. A pocket was created for the port. The port on the back table was flushed with heparinized saline and then attached to the catheter tubing. An adapter was fastened to the actual port site over the tubing. The port easily had fit snug into the pocket. A subcutaneous tunneler was placed along the open end of the tubing and brought out through the separate stab incision. Fluoroscopic guidance confirmed no kinking along the tubing and the port site. Next, the J-wire was exchanged for a catheter sheath for which the tubing was cut to 18 cm and then advanced through the catheter sheath. The Peel-away sheath was then removed and the tubing was secured at the junction of the superior vena cava as well as the right atrium. The tubing was found to be crossed however functional. This was all done under fluoroscopic guidance 1 second. Easy pullback as well as return and aspiration was obtained of the port site. The skin incision was closed using layers using 3-0 Vicryl for the subcu followed by 4-0 Monocryl in a running subcuticular fashion. At the stick site this was also reapproximated using 4-0 Monocryl. The incisions were covered with Optifoam, The skin was cleansed and liquid glue was applied. A total of 20 mL of local anesthetic was placed. At the end of the procedure, needle, sponge, and instrument count was verified correct by surgical assist. Heparin lock of 5 mL was placed. The patient was awoken and pain free and taken to the second stage postanesthesia care unit. The patient tolerated the procedure well. FINDINGS: 1. No thrombus encountered along the right carotid artery or internal jugular vein. 2. Access of the right internal jugular vein under ultrasound guidance. 3. Fluoroscopy of 1 second. Plan - Discharge Summary New Discharge Prescriptions: No Action Acetaminophen Tab [Tylenol] 650 mg PO Q6HR PRN tab PRN Reason: Mild Pain Or Fever > 100.5 HYDROcodone/APAP 10-325MG [[place] 10-325] 1 tab PO DAILY PRN PRN Reason: Pain Discharge Medication List Acetaminophen Tab [Tylenol] 650 mg PO Q6HR PRN tab 03/17/18 [Rx] HYDROcodone/APAP 10-325MG [[place] 10-325] 1 tab PO DAILY PRN 04/06/18 [History]
--- NOTE | 2018-04-08 08:26 | XR ---
EXAMINATION TYPE: XR chest 1V confirm line [facility] DATE OF EXAM: 04/08/2018 COMPARISON: 03/16/2018 INDICATION: Line placement TECHNIQUE: Single frontal view of the chest is obtained. FINDINGS: The heart size is normal. The pulmonary vasculature is normal. The lungs are clear. No pneumothorax is present. There is a port present on the right with the tip in the mid superior ariadna a cava region. IMPRESSION: 1. No pneumothorax post line placement. Catheter tip is in the region of the superior vena cava.
[2018-04-08 09:04] VITALS: BP 104/62; PULSE 78
--- NOTE | 2018-04-08 09:40 | FL ---
EXAMINATION TYPE: FL guided central line placemt HISTORY: Fluoroscopy time Impression: 1. Fluoroscopy support provided to the referring physician. 1 seconds of fluoroscopy time utilized.
== END 2018-04-08 09:09 | disposition home or self-care (01) ==
LOC: OR 05:42
PROVIDERS: ATTEND Surgery Plastic and Reconstructive Surgery
DX: C85.90 Non-Hodgkin lymphoma, unspecified, unspecified site (principal)
CPT/HCPCS: 77001; 36561; C1788; J2250; J1644; J1642; J2405; J2001; J3010; J1100; J2704; J0690

== ENCOUNTER → 2018-05-14 | Outpatient (CLI) | payer BC ==
--- NOTE | 2018-05-14 15:01 | PE ---
EXAMINATION TYPE: PET CT fusion skull to thigh DATE OF EXAM: 05/14/2018 COMPARISON: CT chest abdomen and pelvis March 16, 2018 HISTORY: Lymphoma initial diagnosis on biopsy April 15, 2018 with surgery on May 06 per patient. On c hemotherapy per patient. TECHNIQUE: Following the intravenous administration of 13.13 mCi of F-18 FDG, whole body images are performed from the skull base to the midthigh. Images are reviewed on the computer in the coronal, a xial, and sagittal planes. Reconstructed rotating images are created on independent workstation and reviewed on the computer. A noncontrast CT is performed in conjunction with the PET scan. SCAN: Initial Scan FINDINGS: MEDIASTINUM MEAN SUV: 1.47 LIVER MEAN SUV: 2.01 SKULL BASE AND NECK: No suspicious areas of hypermetabolic adenopathy are identified. CHEST, MEDIASTINUM, AND HILAR REGION: There are innumerable bilateral hilar and mediastinal hypermeta bolic slightly enlarged lymph nodes. Max SUV is right infrahilar/subcarinal level axial image 105, ma x SUV is 6.92. There is extension to the anterior superior mediastinum. No definitive supraclavicular hypermetabolic adenopathy or axillary adenopathy is seen. ABDOMEN AND PELVIS: There is redemonstration of left adrenal mass measuring roughly 4.5 x 2.1 cm axia l image 150, there is single focus of abnormal hypermetabolic uptake near anterior aspect axial image 148, max SUV is 4.84. No additional areas of suspicious hypermetabolic uptake are present. OSSEOUS STRUCTURES: Mild diffuse osseous uptake is identified presumed treatment response. No suspici ous areas of more focal abnormal increased hypermetabolic uptake is present. OTHER CT: There is right internal jugular Mediport catheter terminating in SVC. There is mild coronary artery calcification which is noted marker for coronary artery disease. Spleen remains mildly enlarged in size at 14.1 cm long axis axial image 142. Liver is normal in size. Some scattered diverticula are seen throughout the colon most prominent in the left and sigmoid colon . There is facet arthropathy lower lumbar spine. IMPRESSION: Abnormal thoracic adenopathy and left adrenal gland.
== END | disposition home or self-care (01) ==
LOC: RADPETMAIN 09:59
PROVIDERS: ATTEND Internal Medicine Hematology & Oncology
DX: C83.38 Diffuse large B-cell lymphoma, lymph nodes of multiple sites (principal); R93.5 Abnormal findings on diagnostic imaging of other abdominal regions, including retroperitoneum
CPT/HCPCS: 78815; A9552

== ENCOUNTER 2018-05-30 07:57 | Inpatient (IN) | payer BC ==
[2018-05-30] MEDS ORDERED: methylPREDNISolone SOD SUCCI 125 MG/2 ML VIAL IVP ONE (09:00)
[2018-05-30] MEDS ORDERED: diphenhydrAMINE 50 MG/ML 1 ML VIAL IVP ONE (09:00)
[2018-05-30] MEDS ORDERED: ACETAMINOPHEN TAB 325 MG TAB PO ONE (09:00)
[2018-05-30] MEDS: SODIUM CHLORIDE 0.9% 1,000 ML IV SCH ×2 (10:50→20:19)
[2018-05-30] MEDS: predniSONE 10 MG TAB PO SCH ×2 (10:51→19:57)
[2018-05-30] MEDS: predniSONE 50 MG TAB PO SCH ×2 (10:51→19:57)
[2018-05-30] MEDS ORDERED: riTUXimab 800 MG in SODIUM CHLORIDE 0.9% 500 ML IV ONE (12:00)
[2018-05-30 12:44] LABS: Anisocytosis Slight; Basophils # (A) 0.1 k/uL (0-0.2); Basophils % (A) 1 %; Eosinophils # (A) 0.1 k/uL (0-0.7); Eosinophils % (A) 1 %; HCT 41.5 % (39.0-53.0); HGB 14.1 gm/dL (13.0-17.5); Lymphocytes # (A) 0.6 k/uL (1.0-4.8); Lymphocytes % (A) 10 %; MCH 30.5 pg (25.0-35.0); MCHC 34.1 g/dL (31.0-37.0); MCV 89.4 fL (80.0-100.0); Mean Platelet Volume 8.2; Monocytes # (A) 0.6 k/uL (0-1.0); Monocytes % (A) 9 %; Neutrophils # (A) 4.6 k/uL (1.3-7.7); Neutrophils % (A) 76 %; Platelet Count 222 k/uL (150-450); Poikilocytosis Slight; RBC 4.64 m/uL (4.30-5.90); RDW 16.4 % (11.5-15.5); WBC 6.1 k/uL (3.8-10.6)
[2018-05-30 13:07] LABS: ALT 41 U/L (21-72); AST 24 U/L (17-59); Albumin 4.3 g/dL (3.5-5.0); Alkaline Phosphatase 49 U/L (38-126); Anion Gap 10 mmol/L; Blood Urea Nitrogen 12 mg/dL (9-20); Calcium 9.4 mg/dL (8.4-10.2); Carbon Dioxide 28 mmol/L (22-30); Chloride 103 mmol/L (98-107); Glucose 96 mg/dL (74-99); Potassium 4.5 mmol/L (3.5-5.1); Sodium 141 mmol/L (137-145); Total Bilirubin 0.4 mg/dL (0.2-1.3); Total Protein 6.8 g/dL (6.3-8.2)
--- NOTE | 2018-05-30 13:32 | P.HPIM ---
History of Present Illness H&P Date: 05/30/18 Chief Complaint: Diffuse Large B cell Lymphoma, admitted for high dose infusional chemo Mr Alaniz is a 58 yr old white male, initially seen in consult at [facility] on 03/15/18. The patient is fairly healthy at baseline, and had come into the ER complaining of "chest pain" in 1 week, progressive in nature. One further clarification the patient was actually described to be localized to the left upper quadrant and left lower rib cage area with penetration straight through to the back. The pain was quite constant and worsened while sitting. There were no other associated aggravating or relieving factors. on exam the patient was felt to have a palpable left upper quadrant mass. CT scan of the abdomen and pelvis had shown a markedly enlarged left adrenal mass, 10.3 x 5.1 cm. That appeared mild colon wall thickening proximal to the mid transverse colon. Splenomegaly was seen. CTA of the chest was negative for PE but showed some borderline mediastinal and hilar adenopathy. The patient underwent a CT-guided adrenal biopsy on 03/16/18. Fine-needle aspirate showed severely atypical cells consistent with diffuse large B-cell lymphoma. Core biopsy was also consistent with high-grade B-cell non-Hodgkin lymphoma consistent with diffuse large B-cell lymphoma. She was sent for "double hit" testing but material on the cell block was not enough to wish further testing was not possible. Patient had a PET scan on 03/26/18 revealing hypermetabolic uptake in shotty mediastinal and hilar nodes with SUV in the 5-7.4 range. 10 cm left adrenal mass had an SUV of 22. There was a loop of bowel in the right lower quadrant with thickened wall with SUV of 20. There was possibility of a retroperitoneal node with SUV of 21. Right proximal humerus shows uptake with SUV of 3.9. The patient was seen for his first office visit on 03/31/18. The pt thus appeared to have stage IV disease. 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 He decided for R -CHOP, with a plan for reevaluation after 2 cycles. He started chemo on 04/14/18 and is s/p 2 cycles. PET scan post cycle 2 showed a partial, suboptimal response. It was thus decided to change his chemo regimen to the infusional R - EPOCH. He is being admitted for C1 He denied any specific complaint, other than mild fatigue and constipation, the latter causing some irritation with his known hemorrhoids. Review of Systems Constitutional: Reports fatigue Eyes: denies blurred vision, denies pain Ears: deny: decreased hearing, ear discharge, earache, tinnitus Ears, nose, mouth and throat: Denies headache, Denies sore throat Cardiovascular: Denies chest pain, Denies shortness of breath Respiratory: Denies cough Gastrointestinal: Reports constipation, Denies abdominal pain, Denies diarrhea, Denies nausea, Denies vomiting Genitourinary: Reports as per HPI Musculoskeletal: Denies myalgias Integumentary: Denies pruritus, Denies rash Neurological: Denies numbness, Denies weakness Psychiatric: Denies anxiety, Denies depression Endocrine: Denies fatigue, Denies weight change Hematologic/Lymphatic: Reports as per HPI Past Medical History Past Medical History: Cancer Additional Past Medical History / Comment(s): non-hodgkins lymphoma History of Any Multi-Drug Resistant Organisms: None Reported Past Surgical History: Tonsillectomy Additional Past Surgical History / Comment(s): colonoscopy Past Anesthesia/Blood Transfusion Reactions: No Reported Reaction Smoking Status: Never smoker - Past Family History Father Additional Family Medical History / Comment(s): liver issue Mother Family Medical History: Cancer Additional Family Medical History / Comment(s): skin CA, kidney issues Medications and Allergies Home Medications Medication Instructions Recorded Confirmed Type No Known Home Medications 05/30/18 05/30/18 History Allergies Allergy/AdvReac Type Severity Reaction Status Date / Time No Known Allergies Allergy Verified 05/30/18 08:30 Physical Exam - Constitutional General appearance: no acute distress - EENT Eyes: EOMI, PERRLA ENT: hearing grossly normal, normal oropharynx - Neck Neck: no lymphadenopathy Thyroid: bilateral: normal size - Respiratory Respiratory: bilateral: CTA - Cardiovascular Rhythm: regular Heart sounds: normal: S1, S2 - Gastrointestinal General gastrointestinal: normal bowel sounds, soft - Integumentary Integumentary: normal - Neurologic Neurologic: CNII-XII intact - Musculoskeletal Musculoskeletal: strength equal bilaterally - Psychiatric Psychiatric: A&O x's 3, appropriate affect Results CBC & Chem 7: 05/30/18 12:27 05/30/18 12:27 Thrombosis Risk Factor Assmnt - DVT/VTE Prophylaxis DVT/VTE Prophylaxis: Pharmacologic Prophylaxis ordered Assessment and Plan (1) Diffuse large B cell lymphoma Narrative/Plan: Diagnostic and therapeutic circumstances so far have been described in the HPI. The patient tolerated 2 cycles of RCHOP well, and did have some improvement in symptoms. However PET scan did not show the desired optimal response. Therefore his chemotherapy regimen has been changed to the high-dose infusional REPO CH. He is being admitted for cycle 1 of the same. The patient has no major symptoms at this time and has a normal physical exam. Labs were reviewed and were normal. She will proceed with treatment per protocol. He'll be monitored with clinical exams, as well as serial labs, which have been ordered Current Visit: Yes Status: Acute Code(s): C83.30 - DIFFUSE LARGE B-CELL LYMPHOMA, UNSPECIFIED SITE SNOMED Code(s): 879735270 Plan: DVT prophylaxis
[2018-05-30] MEDS: ENOXAPARIN 40 MG/0.4 ML SYRINGE SQ SCH (14:56)
[2018-05-30] MEDS: FAMOTIDINE 20 MG/2 ML VIAL IVP SCH (19:57)
[2018-05-30] MEDS: ONDANSETRON 16 MG in SODIUM CHLORIDE 0.9% 50 ML IVPB SCH (20:19)
[2018-05-30] MEDS: SODIUM CHLORIDE 0.9% IV SCH ×2 (20:30)
[2018-05-30] MEDS: ETOPOSIDE 100 MG in SODIUM CHLORIDE 0.9% 500 ML IV SCH (20:30)
[2018-05-30] MEDS: VINCRISTINE SULFATE IV SCH (20:30)
[2018-05-30] MEDS: DOXORUBICIN HCL IV SCH (20:30)
[2018-05-31] MEDS: ACETAMINOPHEN TAB 325 MG TAB PO PRN (05:18)
[2018-05-31] MEDS: SODIUM CHLORIDE 0.9% 1,000 ML IV SCH ×3 (05:20→17:45)
[2018-05-31] MEDS: ONDANSETRON 4 MG/2 ML VIAL IVP PRN (06:16)
[2018-05-31 07:55] LABS: ALT 33 U/L (21-72); AST 22 U/L (17-59); Albumin 3.8 g/dL (3.5-5.0); Alkaline Phosphatase 37 U/L (38-126); Anion Gap 9 mmol/L; Blood Urea Nitrogen 10 mg/dL (9-20); Calcium 8.8 mg/dL (8.4-10.2); Carbon Dioxide 22 mmol/L (22-30); Chloride 109 mmol/L (98-107); Glucose 128 mg/dL (74-99); Potassium 4.6 mmol/L (3.5-5.1); Sodium 140 mmol/L (137-145); Total Bilirubin 0.3 mg/dL (0.2-1.3); Total Protein 6.1 g/dL (6.3-8.2)
[2018-05-31 07:58] LABS: Anisocytosis Slight; Basophils % (A) 0 %; Eosinophils % (A) 0 %; HCT 38.6 % (39.0-53.0); HGB 13.2 gm/dL (13.0-17.5); Lymphocytes # (A) 0.4 k/uL (1.0-4.8); Lymphocytes % (A) 4 %; MCH 31.2 pg (25.0-35.0); MCHC 34.2 g/dL (31.0-37.0); MCV 91.2 fL (80.0-100.0); Mean Platelet Volume 7.2; Monocytes # (A) 0.2 k/uL (0-1.0); Monocytes % (A) 2 %; Neutrophils # (A) 11.2 k/uL (1.3-7.7); Neutrophils % (A) 95 %; Platelet Count 213 k/uL (150-450); Poikilocytosis Slight; RBC 4.23 m/uL (4.30-5.90); RDW 16.7 % (11.5-15.5); WBC 11.8 k/uL (3.8-10.6)
[2018-05-31] MEDS: predniSONE 50 MG TAB PO SCH ×2 (09:52→21:55)
[2018-05-31] MEDS: ENOXAPARIN 40 MG/0.4 ML SYRINGE SQ SCH (09:52)
[2018-05-31] MEDS: predniSONE 10 MG TAB PO SCH ×2 (09:52→21:56)
[2018-05-31] MEDS: SALT AND SODA MOUTHWASH 1,000 ML PO SCH ×3 (12:24→20:56)
[2018-05-31] MEDS: ONDANSETRON 16 MG in SODIUM CHLORIDE 0.9% 50 ML IVPB SCH ×2 (12:27→21:57)
[2018-05-31] MEDS: FAMOTIDINE 20 MG/2 ML VIAL IVP SCH ×2 (12:27→21:56)
--- NOTE | 2018-05-31 17:03 | P.PN ---
Subjective Progress Note Date: 05/31/18 Principal diagnosis: Large B Cell Lymphoma Status Post Day One Of First cycle of R-EPOCH, No Acute complaints. No nausea or vomiting, fevers, or chills. Objective - Vital Signs Vital signs: Vital Signs Temp 97.9 F 05/31/18 15:50 Pulse 99 05/31/18 15:50 Resp 16 05/31/18 15:50 BP 134/91 05/31/18 15:50 Pulse Ox 93 L 05/31/18 15:50 Intake & Output 05/30/18 05/31/18 05/31/18 18:59 06:59 18:59 Intake Total 829.2 1858.4 1088.0 Balance 829.2 1858.4 1088.0 Weight 93 kg 94.5 kg Intake: Intake, IV Titration 829.2 1018.4 1088.0 Amount DOXOrubicin HCL 20 mg In 86.4 91.2 Sodium Chloride 0.9% 250 ml @ 10.833 mls/hr IV Q24H [facility] Rx#:[id number] Etoposide 100 mg In 166 179.2 Sodium Chloride 0.9% 500 ml @ 21.042 mls/hr IV Q24H [facility] Rx#:[id number] Ondansetron 16 mg In 50 Sodium Chloride 0.9% 50 ml @ 100 mls/hr IVPB Q24H [facility] Rx#:[id number] Sodium Chloride 0.9% 1, 300 700 800 000 ml @ 100 mls/hr IV . Q10H [facility] Rx#:[id number] riTUXimab 800 mg In 529.2 Sodium Chloride 0.9% 500 ml @ Titrate IV .Q0M [facility] Rx#:[id number] vinCRIStine SULFATE 0.8 16 17.6 mg In Sodium Chloride 0.9 % 50 ml @ 2.117 mls/hr IV Q24H [facility] Rx#:[id number] Oral 840 Other: Voiding Method Toilet Toilet Toilet # Voids 3 5 - Constitutional General appearance: Present: cooperative, no acute distress - EENT Eyes: Present: EOMI, PERRLA, dentition normal ENT: Present: NA/AT, normal oropharynx - Neck Details: Supple, Trachea [place] Neck: Present: normal ROM - Respiratory Respiratory: bilateral: CTA - Cardiovascular Rhythm: regular Heart sounds: normal: S1, S2 - Gastrointestinal General gastrointestinal: Present: normal bowel sounds, soft - Integumentary Integumentary: Present: normal - Neurologic Neurologic: Present: CNII-XII intact - Musculoskeletal Musculoskeletal: Present: gait normal, strength equal bilaterally - Psychiatric Psychiatric: Present: A&O x's 3, appropriate affect, intact judgment & insight - Labs CBC & Chem 7: 05/31/18 06:55 05/31/18 06:55 Labs: Abnormal Lab Results - Last 24 Hours (Table) 05/31/18 05/31/18 Range/Units 06:55 06:55 WBC 11.8 H (3.8-10.6) k/uL RBC 4.23 L (4.30-5.90) m/uL Hct 38.6 L (39.0-53.0) % RDW 16.7 H (11.5-15.5) % Neutrophils # 11.2 H (1.3-7.7) k/uL Lymphocytes # 0.4 L (1.0-4.8) k/uL Chloride 109 H (98-107) mmol/L Glucose 128 H (74-99) mg/dL Alkaline Phosphatase 37 L (38-126) U/L Total Protein 6.1 L (6.3-8.2) g/dL Assessment and Plan Plan: Assessment and Plan (1) Diffuse large B cell lymphoma Narrative/Plan: Diagnostic and therapeutic circumstances so far have been described in the HPI. The patient tolerated 2 cycles of RCHOP well, and did have some improvement in symptoms. However PET scan did not show the desired optimal response. Therefore his chemotherapy regimen has been changed to the high-dose infusional REPO CH. He is being admitted for cycle 1 of the same. The patient has no major symptoms at this time and has a normal physical exam. - Will continue to monitor daily CBC and CMP - Monitor for risk of infection. Tumor Lysis Current Visit: Yes Status: Acute Code(s): C83.30 - DIFFUSE LARGE B-CELL LYMPHOMA, UNSPECIFIED SITE SNOMED Code(s): 558584524
[2018-05-31] MEDS: ETOPOSIDE 100 MG in SODIUM CHLORIDE 0.9% 500 ML IV SCH (22:02)
[2018-05-31] MEDS: SODIUM CHLORIDE 0.9% IV SCH ×2 (22:03)
[2018-05-31] MEDS: VINCRISTINE SULFATE IV SCH (22:03)
[2018-05-31] MEDS: DOXORUBICIN HCL IV SCH (22:03)
[2018-06-01] MEDS: SALT AND SODA MOUTHWASH 1,000 ML PO SCH ×6 (00:16→21:09)
[2018-06-01] MEDS: SODIUM CHLORIDE 0.9% 1,000 ML IV SCH ×2 (05:15→22:29)
[2018-06-01] MEDS: ACETAMINOPHEN TAB 325 MG TAB PO PRN (05:44)
[2018-06-01] MEDS: ONDANSETRON 4 MG/2 ML VIAL IVP PRN ×2 (08:11→17:11)
[2018-06-01] MEDS: predniSONE 50 MG TAB PO SCH ×2 (08:12→21:05)
[2018-06-01] MEDS: predniSONE 10 MG TAB PO SCH ×2 (08:13→21:04)
[2018-06-01] MEDS: ENOXAPARIN 40 MG/0.4 ML SYRINGE SQ SCH (08:13)
[2018-06-01 08:30] LABS: Anisocytosis Slight; Basophils % (A) 0 %; Eosinophils # (A) 0.1 k/uL (0-0.7); Eosinophils % (A) 0 %; HCT 37.4 % (39.0-53.0); HGB 12.6 gm/dL (13.0-17.5); Lymphocytes # (A) 0.4 k/uL (1.0-4.8); Lymphocytes % (A) 2 %; MCH 30.8 pg (25.0-35.0); MCHC 33.7 g/dL (31.0-37.0); MCV 91.2 fL (80.0-100.0); Mean Platelet Volume 7.4; Monocytes # (A) 0.6 k/uL (0-1.0); Monocytes % (A) 3 %; Neutrophils # (A) 16.5 k/uL (1.3-7.7); Neutrophils % (A) 94 %; Platelet Count 200 k/uL (150-450); Poikilocytosis Slight; RBC 4.11 m/uL (4.30-5.90); RDW 16.7 % (11.5-15.5); WBC 17.6 k/uL (3.8-10.6)
[2018-06-01 08:45] LABS: ALT 33 U/L (21-72); AST 20 U/L (17-59); Albumin 3.4 g/dL (3.5-5.0); Alkaline Phosphatase 33 U/L (38-126); Anion Gap 9 mmol/L; Blood Urea Nitrogen 12 mg/dL (9-20); Calcium 8.6 mg/dL (8.4-10.2); Carbon Dioxide 24 mmol/L (22-30); Chloride 108 mmol/L (98-107); Glucose 114 mg/dL (74-99); Sodium 141 mmol/L (137-145); Total Bilirubin 0.2 mg/dL (0.2-1.3); Total Protein 5.6 g/dL (6.3-8.2)
--- NOTE | 2018-06-01 14:38 | P.PN ---
Subjective Progress Note Date: 06/01/18 Principal diagnosis: Large B Cell Lymphoma Status Post Day 2 Of First cycle of R-EPOCH, No Acute complaints. No nausea or vomiting, fevers, or chills. Gas pain, seems to feel better with passing flatulence. hard for him to take deep breath Objective - Vital Signs Vital signs: Vital Signs Temp 97.6 F 06/01/18 08:00 Pulse 85 06/01/18 08:00 Resp 16 06/01/18 08:00 BP 125/81 06/01/18 08:00 Pulse Ox 96 06/01/18 08:00 Intake & Output 05/31/18 06/01/18 06/01/18 18:59 06:59 18:59 Intake Total 1088.0 2819.3 Balance 1088.0 2819.3 Weight 95 kg Intake: IV 600 Sodium Chloride 0.9% 1, 600 000 ml @ 100 mls/hr IV . Q10H [facility] Rx#:[id number] Intake, IV Titration 1088.0 259.3 Amount DOXOrubicin HCL 20 mg In 91.2 68 Sodium Chloride 0.9% 250 ml @ 10.833 mls/hr IV Q24H [facility] Rx#:[id number] Etoposide 100 mg In 179.2 128.5 Sodium Chloride 0.9% 500 ml @ 21.042 mls/hr IV Q24H [facility] Rx#:[id number] Ondansetron 16 mg In 50 Sodium Chloride 0.9% 50 ml @ 100 mls/hr IVPB Q24H [facility] Rx#:[id number] Sodium Chloride 0.9% 1, 800 000 ml @ 100 mls/hr IV . Q10H [facility] Rx#:[id number] vinCRIStine SULFATE 0.8 17.6 12.8 mg In Sodium Chloride 0.9 % 50 ml @ 2.117 mls/hr IV Q24H [facility] Rx#:[id number] Oral 1960 Other: Voiding Method Toilet Toilet Toilet # Voids 5 2 - Constitutional General appearance: Present: cooperative, no acute distress - EENT Eyes: Present: EOMI, dentition normal ENT: Present: NA/AT, normal oropharynx - Neck Details: supple, trachea midline Neck: Present: normal ROM - Respiratory Respiratory: bilateral: CTA (No increased effort) - Cardiovascular Rhythm: regular Heart sounds: normal: S1, S2 - Gastrointestinal Gastrointestinal Comment(s): TEnderness to palpation upper diaphargmatic area. General gastrointestinal: Present: normal bowel sounds, soft, tenderness - Integumentary Integumentary: Present: normal - Neurologic Neurologic Comment(s): non focal deficits Neurologic: Present: CNII-XII intact - Musculoskeletal Musculoskeletal: Present: gait normal, generalized weakness, strength equal bilaterally - Psychiatric Psychiatric: Present: A&O x's 3, appropriate affect, intact judgment & insight - Labs CBC & Chem 7: 06/01/18 08:11 06/01/18 08:11 Labs: Abnormal Lab Results - Last 24 Hours (Table) 06/01/18 06/01/18 Range/Units 08:11 08:11 WBC 17.6 H (3.8-10.6) k/uL RBC 4.11 L (4.30-5.90) m/uL Hgb 12.6 L (13.0-17.5) gm/dL Hct 37.4 L (39.0-53.0) % RDW 16.7 H (11.5-15.5) % Neutrophils # 16.5 H (1.3-7.7) k/uL Lymphocytes # 0.4 L (1.0-4.8) k/uL Chloride 108 H (98-107) mmol/L Glucose 114 H (74-99) mg/dL Alkaline Phosphatase 33 L (38-126) U/L Total Protein 5.6 L (6.3-8.2) g/dL Albumin 3.4 L (3.5-5.0) g/dL Assessment and Plan Plan: Assessment and Plan (1) Diffuse large B cell lymphoma Narrative/Plan: Diagnostic and therapeutic circumstances so far have been described in the HPI. The patient tolerated 2 cycles of RCHOP well, and did have some improvement in symptoms. However PET scan did not show the desired optimal response. Therefore his chemotherapy regimen has been changed to the high-dose infusional R - EPOCH. He is being admitted for cycle 1 of the same. The patient has no major symptoms at this time and has a normal physical exam. - Will continue to monitor daily CBC and CMP - Monitor for risk of infection. Tumor Lysis - Day Two R-EPOCH Current Visit: Yes Status: Acute Code(s): C83.30 - DIFFUSE LARGE B-CELL LYMPHOMA, UNSPECIFIED SITE SNOMED Code(s): 715822521 (2)GI Discomfort: - Changed Pepcid to PPI BID - Vincristine will cause continpation with patients history of constipation and hemhorroids I will add Senna S BID and Miralax every am PRN - Simethicone Tabs PRN - Difficult to take deep breath and pain is 5/10 so will add PRN 5/325 [place] severe pain and obtain Acute Abdominal Series
[2018-06-01] MEDS ORDERED: SIMETHICONE 80 MG CHEWABLE PO PRN (15:16)
[2018-06-01] MEDS ORDERED: HYDROcodone/APAP 5-325MG 1 EACH TAB PO PRN (15:17)
--- NOTE | 2018-06-01 15:52 | XR ---
EXAMINATION TYPE: XR abdomen acute w cxr DATE OF EXAM: 06/01/2018 COMPARISON: 04/08/2018 HISTORY: Pain TECHNIQUE: Supine, upright, and left side down lateral decubitus views of the abdomen are obtained. FINDINGS: Mediport catheter is seen. Heart is prominent. Upper mediastinum is prominent but stable. N o acute consolidation. No pneumothorax. The bowel gas pattern nonspecific. There are couple prominent small bowel loops in the left abdomen. Calcifications the pelvis are likely vascular. IMPRESSION: Nonspecific abdomen. A few prominent small bowel loops in left abdomen could relate to an enteritis o r ileus correlate clinically.
[2018-06-01] MEDS: SENNOSIDES-DOCUSATE SODIUM 1 EACH TAB PO SCH (16:29)
[2018-06-01] MEDS: PANTOPRAZOLE 40 MG TABLET PO SCH (16:30)
[2018-06-01] MEDS: ONDANSETRON 16 MG in SODIUM CHLORIDE 0.9% 50 ML IVPB SCH (21:04)
[2018-06-01] MEDS: FAMOTIDINE 20 MG/2 ML VIAL IVP SCH (21:04)
[2018-06-01] MEDS: ETOPOSIDE 100 MG in SODIUM CHLORIDE 0.9% 500 ML IV SCH (22:28)
[2018-06-01] MEDS: SODIUM CHLORIDE 0.9% IV SCH ×2 (22:28)
[2018-06-01] MEDS: DOXORUBICIN HCL IV SCH (22:28)
[2018-06-01] MEDS: VINCRISTINE SULFATE IV SCH (22:28)
[2018-06-02] MEDS: SALT AND SODA MOUTHWASH 1,000 ML PO SCH ×7 (02:42→22:25)
[2018-06-02] MEDS: ONDANSETRON 4 MG/2 ML VIAL IVP PRN (03:28)
[2018-06-02 07:36] LABS: Anisocytosis Slight; Basophils % (A) 0 %; Eosinophils % (A) 0 %; HCT 36.7 % (39.0-53.0); HGB 12.6 gm/dL (13.0-17.5); Lymphocytes # (A) 0.3 k/uL (1.0-4.8); Lymphocytes % (A) 2 %; MCH 31.2 pg (25.0-35.0); MCHC 34.3 g/dL (31.0-37.0); MCV 90.9 fL (80.0-100.0); Monocytes # (A) 0.7 k/uL (0-1.0); Monocytes % (A) 4 %; Neutrophils # (A) 15.9 k/uL (1.3-7.7); Neutrophils % (A) 94 %; Platelet Count 202 k/uL (150-450); Poikilocytosis Slight; RBC 4.04 m/uL (4.30-5.90); RDW 16.6 % (11.5-15.5)
[2018-06-02 07:43] LABS: ALT 36 U/L (21-72); AST 18 U/L (17-59); Albumin 3.3 g/dL (3.5-5.0); Alkaline Phosphatase 27 U/L (38-126); Anion Gap 7 mmol/L; Blood Urea Nitrogen 13 mg/dL (9-20); Calcium 8.5 mg/dL (8.4-10.2); Carbon Dioxide 27 mmol/L (22-30); Chloride 107 mmol/L (98-107); Glucose 100 mg/dL (74-99); Potassium 4.1 mmol/L (3.5-5.1); Sodium 141 mmol/L (137-145); Total Bilirubin 0.4 mg/dL (0.2-1.3); Total Protein 5.4 g/dL (6.3-8.2); Uric Acid 5.9 mg/dL (3.5-8.5)
[2018-06-02] MEDS: SODIUM CHLORIDE 0.9% 1,000 ML IV SCH ×3 (09:41→17:37)
[2018-06-02] MEDS: ENOXAPARIN 40 MG/0.4 ML SYRINGE SQ SCH (09:43)
[2018-06-02] MEDS: predniSONE 10 MG TAB PO SCH ×2 (09:43→19:05)
[2018-06-02] MEDS: PANTOPRAZOLE 40 MG TABLET PO SCH (09:46)
[2018-06-02] MEDS: predniSONE 50 MG TAB PO SCH ×2 (09:49→19:05)
[2018-06-02] MEDS: POLYETHYLENE GLYCOL 3350 17 GM POWD.PACK PO SCH (09:49)
[2018-06-02] MEDS: SENNOSIDES-DOCUSATE SODIUM 1 EACH TAB PO SCH ×2 (09:50→19:05)
[2018-06-02] MEDS ORDERED: LORazepam 2 MG/ML INJ IV STA (10:34)
[2018-06-02] MEDS ORDERED: LORazepam 2 MG/ML INJ IV PRN (10:51)
[2018-06-02] MEDS ORDERED: HYDROmorphone 1 MG/ML 1 ML SYRINGE IM PRN (10:51)
[2018-06-02] MEDS ORDERED: PROCHLORPERAZINE 10 MG TAB PO PRN (10:57)
[2018-06-02] MEDS: PANTOPRAZOLE 40 MG/10 ML VIAL IVP SCH ×2 (12:10→22:17)
--- NOTE | 2018-06-02 12:33 | P.CONS ---
History of Present Illness - Reason for Consult Consult date: 06/02/18 Abdominal pain Requesting physician: Arnie Olson - History of Present Illness 58-year-old male with a history of B-cell lymphoma admitted for high-dose chemotherapy. Consult requested for abdominal pain. Patient states yesterday around noon he developed increased burning type pain in the upper abdomen extending down midline with bloatedness. Last bowel movement a few days ago. Intermittent burning without hematemesis hematochezia or melena. A few emesis. No history of peptic ulcer disease gastric or bowel surgeries. No history of EGD. Presently receiving intravenous chemo. White count 17. Hemoglobin 12.6. Platelet 202. No aspirin or NSAIDs but has been receiving high-dose steroids. Acute abdominal series nonspecific abdomen few prominent loops in the left abdomen could relate to an enteritis or ileus. Review of Systems Constitutional: Denies fever, chills, sweats, weight gain, or loss. HEENT: Negative for migraines, blurred vision or loss, earaches, drainage, tinnitus, oral mucosal lesions, dysphagia, or odynophagia. Cardiac: Negative for chest pain, arrhythmias, or palpitation. Respiratory: Negative for shortness of breath, hemoptysis, cough, or sputum production. Gastrointestinal: See HPI for pertinent findings. Genitourinary: Negative for hematuria, urgency, frequency, polyuria, dysuria, or penile discharge. Musculoskeletal: Negative for muscle aches, swelling, arthritis, and arthralgias. Neurologic: Negative for stroke or TIA. Endocrine: Negative for thyroid problems. Skin: Negative for rash or itching. Psychiatric: Negative history for depression and anxiety Past Medical History Past Medical History: Cancer Additional Past Medical History / Comment(s): non-hodgkins lymphoma History of Any Multi-Drug Resistant Organisms: None Reported Past Surgical History: Tonsillectomy Additional Past Surgical History / Comment(s): colonoscopy Past Anesthesia/Blood Transfusion Reactions: No Reported Reaction Smoking Status: Never smoker - Past Family History Father Additional Family Medical History / Comment(s): liver issue Mother Family Medical History: Cancer Additional Family Medical History / Comment(s): skin CA, kidney issues Medications and Allergies Home Medications Medication Instructions Recorded Confirmed Type No Known Home Medications 05/30/18 05/30/18 History Allergies Allergy/AdvReac Type Severity Reaction Status Date / Time No Known Allergies Allergy Verified 06/02/18 15:04 Physical Exam Vitals: Vital Signs Temp Pulse Resp BP Pulse Ox 06/02/18 08:12 98.1 F 87 16 98/66 96 06/02/18 01:44 97.4 F L 111 H 16 97/66 95 06/01/18 21:51 97.6 F 71 16 111/76 96 06/01/18 15:35 97.8 F 72 16 136/81 98 Intake and Output 06/01/18 06/02/18 06/02/18 22:59 06:59 14:59 Intake Total 837.6 1096.8 Balance 837.6 1096.8 Intake: IV 400 800 Sodium Chloride 0.9% 1, 400 800 000 ml @ 100 mls/hr IV . Q10H [facility] Rx#:[id number] Intake, IV Titration 197.6 296.8 Amount DOXOrubicin HCL 20 mg In 46.4 94.4 Sodium Chloride 0.9% 250 ml @ 10.833 mls/hr IV Q24H [facility] Rx#:[id number] Etoposide 100 mg In 92 184 Sodium Chloride 0.9% 500 ml @ 21.042 mls/hr IV Q24H [facility] Rx#:[id number] Ondansetron 16 mg In 50 Sodium Chloride 0.9% 50 ml @ 100 mls/hr IVPB Q24H [facility] Rx#:[id number] vinCRIStine SULFATE 0.8 9.2 18.4 mg In Sodium Chloride 0.9 % 50 ml @ 2.117 mls/hr IV Q24H [facility] Rx#:[id number] Oral 240 Other: Voiding Method Toilet Toilet Weight 95.5 kg General appearance: The patient is alert, oriented, in no acute distress. HET: Head is normocephalic and atraumatic. Pupils are equal and reactive. Oropharynx is clear without lesions. Neck: Supple without lymphadenopathy. Trachea midline. Heart: S1 S2. Regular rate and rhythm. Lungs: No crackles or wheezes are heard. Abdomen: Soft, some mild tenderness to the midepigastric midabdomen mildly bloated with bowel sounds. No peritoneal signs. No palpable organomegaly or masses. Extremities: Normal skin color and turgor. No cyanosis, rash, ulceration, clubbing, or edema. Radial and pedal pulses are 2/4 bilaterally. Neurological: No focal deficits. Strength and sensation are grossly intact. Results CBC & Chem 7: 06/02/18 07:04 06/02/18 07:04 Labs: Abnormal Lab Results - Last 24 Hours (Table) 06/02/18 06/02/18 Range/Units 07:04 07:04 WBC 17.0 H (3.8-10.6) k/uL RBC 4.04 L (4.30-5.90) m/uL Hgb 12.6 L (13.0-17.5) gm/dL Hct 36.7 L (39.0-53.0) % RDW 16.6 H (11.5-15.5) % Neutrophils # 15.9 H (1.3-7.7) k/uL Lymphocytes # 0.3 L (1.0-4.8) k/uL Glucose 100 H (74-99) mg/dL Alkaline Phosphatase 27 L (38-126) U/L Total Protein 5.4 L (6.3-8.2) g/dL Albumin 3.3 L (3.5-5.0) g/dL Abdominal x-ray: report reviewed (Dr. Martin) Assessment and Plan (1) Epigastric abdominal pain Narrative/Plan: Suspect gastritis possible esophagitis with recent usage of high-dose steroids Current Visit: Yes Status: Acute Code(s): R10.13 - EPIGASTRIC PAIN SNOMED Code(s): 96597159 (2) Diffuse large B cell lymphoma Current Visit: Yes Status: Acute Code(s): C83.30 - DIFFUSE LARGE B-CELL LYMPHOMA, UNSPECIFIED SITE SNOMED Code(s): 476157355 Plan: 1. Protonix 40 mg IV twice daily. 2. Carafate 1 g before meals 3 times a day. 3. Clear liquids as tolerated. 4. Daily stool softeners. 5. Inpatient upper endoscopy if clinical symptoms do not improve. We'll follow closely with you. Thank you for this kind referral and the opportunity to participate in the care of your patient. This consultation was discussed with Dr. Martin. The impression and plan of care have been directed as dictated.
--- NOTE | 2018-06-02 14:34 | P.PN ---
Subjective Progress Note Date: 06/02/18 Principal diagnosis: Large B Cell Lymphoma Status Post Day 3 Of First cycle of R-EPOCH On 06/01/18 he complained of mid epigastric pain, relieved with flatulence. He had not had a BM in 2 days and stated it was hard to take deep breath with pain. Yesterday we added a PPI with high dose Steroids, PRN Simethicone, Bowel regimen and obtained abdominal Series. The abdomen xray was nonspecific and showed possibility of enteritis versus ileus. He was re-evaluated yesterday and was complaining of nausea and vomiting as well. With uncertainty of an ileus he was placed on bowel rest with ok for minimal clear liquids. GI was consulted. TOday, 06/02/18, he has not improved. He is experiencing more nausea and vomiting and unable to hold anything down. PO Protonix has been changed to IV. Discussed with Dr. ribeiro and will stop IV Chemo until after a CT of abdomen and Consult with Surgery. He was unable to tolerate low dose norco for pain. Ativan IV (low dose 0.5mg) and Dilaudid (0.5mg) was ordered for him for nausea and pain. He was tearful during this mornings assessment. His at bedside. Will Await CT scan and surgical consult prior to proceeding with chemo at this time Objective - Vital Signs Vital signs: Vital Signs Temp 97.7 F 06/02/18 12:00 Pulse 83 06/02/18 12:00 Resp 14 06/02/18 12:00 BP 115/76 06/02/18 12:00 Pulse Ox 95 06/02/18 12:00 Intake & Output 06/01/18 06/02/18 06/02/18 18:59 06:59 18:59 Intake Total 1671.84 1934.4 Balance 1671.84 1934.4 Weight 95.5 kg Intake: IV 800 1200 Sodium Chloride 0.9% 1, 800 1200 000 ml @ 100 mls/hr IV . Q10H [facility] Rx#:[id number] Intake, IV Titration 271.84 494.4 Amount DOXOrubicin HCL 20 mg In 86.64 140.8 Sodium Chloride 0.9% 250 ml @ 10.833 mls/hr IV Q24H [facility] Rx#:[id number] Etoposide 100 mg In 168.3 276 Sodium Chloride 0.9% 500 ml @ 21.042 mls/hr IV Q24H [facility] Rx#:[id number] Ondansetron 16 mg In 50 Sodium Chloride 0.9% 50 ml @ 100 mls/hr IVPB Q24H [facility] Rx#:[id number] vinCRIStine SULFATE 0.8 16.9 27.6 mg In Sodium Chloride 0.9 % 50 ml @ 2.117 mls/hr IV Q24H [facility] Rx#:[id number] Oral 600 240 Other: Voiding Method Toilet Toilet Toilet # Voids 3 - Constitutional Constitutional Comment(s): Tearful and in pain this am General appearance: Present: cooperative, mild distress - EENT Eyes: Present: EOMI, dentition normal ENT: Present: NA/AT, normal oropharynx - Neck Details: supple, Trachea Midline Neck: Present: normal ROM - Respiratory Details: Short rapid breaths difficult to take full inhalation with pain Respiratory: bilateral: diminished (bibasilar) - Cardiovascular Heart rate: 106 Heart sounds: normal: S1, S2 - Gastrointestinal Gastrointestinal Comment(s): Patient knees up because of pain, abdomen is tender to palpate. General gastrointestinal: Present: decreased bowel sounds, tenderness - Integumentary Integumentary: Present: pale - Neurologic Neurologic Comment(s): No focal defects Neurologic: Present: CNII-XII intact - Musculoskeletal Musculoskeletal: Present: gait normal, generalized weakness, strength equal bilaterally - Psychiatric Psychiatric: Present: A&O x's 3, appropriate affect, intact judgment & insight - Labs CBC & Chem 7: 06/02/18 07:04 06/02/18 07:04 Labs: Abnormal Lab Results - Last 24 Hours (Table) 06/02/18 06/02/18 Range/Units 07:04 07:04 WBC 17.0 H (3.8-10.6) k/uL RBC 4.04 L (4.30-5.90) m/uL Hgb 12.6 L (13.0-17.5) gm/dL Hct 36.7 L (39.0-53.0) % RDW 16.6 H (11.5-15.5) % Neutrophils # 15.9 H (1.3-7.7) k/uL Lymphocytes # 0.3 L (1.0-4.8) k/uL Glucose 100 H (74-99) mg/dL Alkaline Phosphatase 27 L (38-126) U/L Total Protein 5.4 L (6.3-8.2) g/dL Albumin 3.3 L (3.5-5.0) g/dL Assessment and Plan Plan: Assessment and Plan (1) Diffuse large B cell lymphoma Narrative/Plan: Diagnostic and therapeutic circumstances so far have been described in the HPI. The patient tolerated 2 cycles of RCHOP well, and did have some improvement in symptoms. However PET scan did not show the desired optimal response. Therefore his chemotherapy regimen has been changed to the high-dose infusional R - EPOCH. He is being admitted for cycle 1 of the same. The patient has no major symptoms at this time and has a normal physical exam. - Will continue to monitor daily CBC and CMP - Monitor for risk of infection. Tumor Lysis - Day Two R-EPOCH - HOLD CHEMO AND evaluate acute abdominal pain and nausea prior to proceeding Current Visit: Yes Status: Acute Code(s): C83.30 - DIFFUSE LARGE B-CELL LYMPHOMA, UNSPECIFIED SITE SNOMED Code(s): 040697893 (2)GI Discomfort: - Acute Abdominal Series - 06/01/18 - non specific for gastritis versus ileus. He was placed on bowel rest and PPI was added, GI Consult - 06/02/18 pain worsened and now with associated nausea - Surgery consult placed and STat CT abdomen ordered, hold chemo until after surgical evaluation and CT results. Ativan IV x1 now for nausea and pain.
--- NOTE | 2018-06-02 14:41 | P.GSCN ---
History of Present Illness Consult date: 06/02/18 Reason for Consult: Abdominal pain History of present illness: Patient admitted for chemotherapy with a history of Hodgkin's lymphoma. We were consulted today because of increasing abdominal pain. Patient states the pain began yesterday around noon and has been increasing since that time. Abdominal x-rays were nonspecific. CAT scan does show small foci of pneumoperitoneum. He has had episodes of vomiting. Abdominal pain is diffuse. Currently white blood cell count 17. Platelets are in normal range. Previous radiologic studies show involvement we believe of the small intestine. Recent CAT scan does not show thickening of the small bowel however. Review of Systems The patient denies any acute changes in vision or hearing, no dysphagia or odynophagia, no chest pain or shortness of breath, no dysuria or hematuria, no headache, no runny nose, no rectal bleeding or melena, no unexplained weight loss Past Medical History Past Medical History: Cancer Additional Past Medical History / Comment(s): non-hodgkins lymphoma History of Any Multi-Drug Resistant Organisms: None Reported Past Surgical History: Tonsillectomy Additional Past Surgical History / Comment(s): colonoscopy Past Anesthesia/Blood Transfusion Reactions: No Reported Reaction Smoking Status: Never smoker - Past Family History Father Additional Family Medical History / Comment(s): liver issue Mother Family Medical History: Cancer Additional Family Medical History / Comment(s): skin CA, kidney issues Medications and Allergies Home Medications Medication Instructions Recorded Confirmed Type No Known Home Medications 05/30/18 05/30/18 History Allergies Allergy/AdvReac Type Severity Reaction Status Date / Time No Known Allergies Allergy Verified 05/30/18 08:30 Surgical - Exam Vital Signs Temp Pulse Resp BP Pulse Ox 96.7 F L 97 16 113/73 93 L 05/30/18 00:00 05/30/18 00:00 05/30/18 00:00 05/30/18 00:00 05/30/18 00:00 Physical exam: General: Well-developed, well-nourished HEENT: Normocephalic, sclerae nonicteric Abdomen: Mild distention, diffuse tenderness with rebound Extremities: No edema Neuro: Alert and oriented Results - Labs 06/02/18 07:04 06/02/18 07:04 Abnormal Lab Results - Last 24 Hours (Table) 06/02/18 06/02/18 Range/Units 07:04 07:04 WBC 17.0 H (3.8-10.6) k/uL RBC 4.04 L (4.30-5.90) m/uL Hgb 12.6 L (13.0-17.5) gm/dL Hct 36.7 L (39.0-53.0) % RDW 16.6 H (11.5-15.5) % Neutrophils # 15.9 H (1.3-7.7) k/uL Lymphocytes # 0.3 L (1.0-4.8) k/uL Glucose 100 H (74-99) mg/dL Alkaline Phosphatase 27 L (38-126) U/L Total Protein 5.4 L (6.3-8.2) g/dL Albumin 3.3 L (3.5-5.0) g/dL Diabetes panel 06/02/18 Range/Units 07:04 Sodium 141 (137-145) mmol/L Potassium 4.1 (3.5-5.1) mmol/L Chloride 107 (98-107) mmol/L Carbon Dioxide 27 (22-30) mmol/L BUN 13 (9-20) mg/dL Creatinine 0.78 (0.66-1.25) mg/dL Glucose 100 H (74-99) mg/dL Calcium 8.5 (8.4-10.2) mg/dL AST 18 (17-59) U/L ALT 36 (21-72) U/L Alkaline Phosphatase 27 L (38-126) U/L Total Protein 5.4 L (6.3-8.2) g/dL Albumin 3.3 L (3.5-5.0) g/dL Calcium panel 06/02/18 Range/Units 07:04 Calcium 8.5 (8.4-10.2) mg/dL Albumin 3.3 L (3.5-5.0) g/dL Pituitary panel 06/02/18 Range/Units 07:04 Sodium 141 (137-145) mmol/L Potassium 4.1 (3.5-5.1) mmol/L Chloride 107 (98-107) mmol/L Carbon Dioxide 27 (22-30) mmol/L BUN 13 (9-20) mg/dL Creatinine 0.78 (0.66-1.25) mg/dL Glucose 100 H (74-99) mg/dL Calcium 8.5 (8.4-10.2) mg/dL Adrenal panel 06/02/18 Range/Units 07:04 Sodium 141 (137-145) mmol/L Potassium 4.1 (3.5-5.1) mmol/L Chloride 107 (98-107) mmol/L Carbon Dioxide 27 (22-30) mmol/L BUN 13 (9-20) mg/dL Creatinine 0.78 (0.66-1.25) mg/dL Glucose 100 H (74-99) mg/dL Calcium 8.5 (8.4-10.2) mg/dL Total Bilirubin 0.4 (0.2-1.3) mg/dL AST 18 (17-59) U/L ALT 36 (21-72) U/L Alkaline Phosphatase 27 L (38-126) U/L Total Protein 5.4 L (6.3-8.2) g/dL Albumin 3.3 L (3.5-5.0) g/dL Assessment and Plan Assessment: 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 Other etiologies including diverticulitis and ulcer disease reviewed. Options discussed in detail with the patient. Plan at this time is to proceed with diagnostic laparoscopy to see if the site of small bowel perforation can be identified in which case a small bowel resection can take placed through a small incision. If we cannot identify the source of the perforation or if it is not mobile Will proceed with laparotomy. Need for probable bowel resection was discussed. Need for possible ostomy was also reviewed. Risks of bleeding, infection, leak, abscess, fistula, peritonitis, hernia, anesthesia related complications were reviewed. He understands and wishes to proceed.
[2018-06-02] MEDS: SODIUM CHLORIDE 0.9% IV SCH ×2 (15:00)
[2018-06-02] MEDS: DOXORUBICIN HCL IV SCH (15:00)
[2018-06-02] MEDS: ONDANSETRON 16 MG in SODIUM CHLORIDE 0.9% 50 ML IVPB SCH (15:00)
[2018-06-02] MEDS: ETOPOSIDE 100 MG in SODIUM CHLORIDE 0.9% 500 ML IV SCH (15:00)
[2018-06-02] MEDS: VINCRISTINE SULFATE IV SCH (15:00)
[2018-06-02] MEDS: SUCRALFATE 1 GM TAB PO SCH (15:01)
--- NOTE | 2018-06-02 15:09 | CT ---
EXAMINATION TYPE: CT abdomen pelvis w con DATE OF EXAM: 06/02/2018 COMPARISON: PET CT 05/14/2018 HISTORY: 58-year-old male persistent nausea TECHNIQUE: Contiguous axial scanning of the abdomen and pelvis following administration of 100 ml Iso geraldine 300 IV contrast. Delayed images through the kidneys and coronal/sagittal reconstructions perform ed. CT DLP: 1278.6 mGycm Automated exposure control for dose reduction was used. FINDINGS: Heart upper limits of normal in size. Some lymphadenopathy noted at the right infrahilar region measu ring 2.0 x 2.5 cm as seen on PET scan. Prominent dependent atelectasis at the basilar lower lobes. No pleural effusion. Liver mildly enlarged at 19.4 cm. No focal liver lesion. No biliary ductal dilatation. Portal venous system is patent. Gallbladder, right adrenal gland, kidneys, and pancreas appear within normal limits. Mild splenomegaly at 14.3 cm on axial series. Abnormal enlargement of the left adrenal gland redemonstrated measuring 2.5 x 5.1 cm, similar to 05/14. There are slight differences and the weight at the adrenal gland lesion is measured. Moderate stool in the ascending colon. Left side of the colon is collapsed. Mild left-sided colonic d iverticulosis. No pericolonic inflammatory change. Distal small bowel loops are collapsed. Dilated proximal to mid small bowel loops measuring up to 4.0 cm with air-fluid levels or dilated loo ps of bowel are present in the anterior upper to mid abdomen. Proximal bowel loops are nondilated. Poe ggestion of 2 transition points proximally and distally. Some mild wall thickening of some of the sma ll bowel loops and central mesenteric edema and some small foci of free intraperitoneal air noted her e. Trace foci of free air also noted anterior upper abdomen, axial images 18 and 19. Bladder partially distended. Prostate gland measures 5.0 cm wide. Mild pelvic free fluid. Pelvic phle bolith. Bones: Degenerative changes lower lumbar spine. IMPRESSION: 1. MID ABDOMINAL SMALL BOWEL LOOPS ARE DILATED UP TO 4.0 CM WITH AIR-FLUID LEVELS. THERE ARE 2 TRANSI TION POINTS WITH PROXIMAL AND DISTAL SMALL BOWEL LOOPS COLLAPSED. THESE FEATURES CAN BE SEEN WITH A C LOSED LOOP OBSTRUCTION. 2. SOME REACTIVE WALL THICKENING OF SOME OF THE INVOLVED SMALL BOWEL LOOPS. THERE IS MESENTERIC EDEMA , FREE FLUID, AND TRACE INTRAPERITONEAL FREE AIR SUGGESTING HOLLOW VISCUS PERFORATION. 3. KNOWN ABNORMAL NEOPLASTIC INVOLVEMENT OF THE LEFT ADRENAL GLAND AND PARTIALLY VISUALIZED RIGHT INF RAHILAR LYMPHADENOPATHY. Critical findings called to nurse Kern on 5-ONC at 3:04pm. Patient was already taken to the OR.
[2018-06-02] MEDS ORDERED: IV FLUID CONTINUATION 1,000 ML IV ONE (15:10)
[2018-06-02] MEDS ORDERED: fentaNYL (PF) 50 MCG/ML 2 ML AMP IV ONE (15:22)
[2018-06-02] MEDS ORDERED: PROPOFOL 10 MG/ML 20 ML VIAL IV ONE (15:32)
[2018-06-02] MEDS ORDERED: SUCCINYLCHOLINE CHLORIDE 100 MG/5 ML SYR IV ONE (15:32)
[2018-06-02] MEDS ORDERED: MIDAZOLAM 2 MG/2 ML VIAL ONE (15:32)
[2018-06-02] MEDS ORDERED: LIDOCAINE 1% INJ 10MG/ML (20 ML MDV) ONE (15:32)
[2018-06-02] MEDS ORDERED: PHENYLEPHRINE-0.9% NACL SYG 1 MG/10 ML SYRINGE ONE (15:32)
[2018-06-02] MEDS ORDERED: ROCURONIUM BROMIDE 10 MG/ML 10 ML VIAL IV ONE (15:32)
[2018-06-02] MEDS ORDERED: ePHEDrine SULFATE/0.9% NACL/PF 50 MG/5 ML SYRINGE IV ONE (15:32)
[2018-06-02] MEDS ORDERED: GLYCOPYRROLATE 0.2 MG/ML 2 ML VIAL ONE (15:32)
[2018-06-02] MEDS ORDERED: fentaNYL (PF) 50 MCG/ML 2 ML AMP ONE (15:32)
[2018-06-02] MEDS ORDERED: NEOSTIGMINE 1 MG/ML 10 ML VIAL ONE (15:32)
[2018-06-02] MEDS ORDERED: BUPIVACAIN-EPI 0.5%-1:200,000 30 ML VIAL SQ ONE ×2 (15:57)
[2018-06-02] MEDS ORDERED: SODIUM CHLORIDE 0.9% 50 ML with ceFAZolin 2,000 MG IV ONE ×2 (15:58)
[2018-06-02] MEDS ORDERED: metroNIDAZOLE-NS PMX 500 MG in SALINE 1 100ML.BAG IVPB STA (15:58)
[2018-06-02] MEDS ORDERED: LACTATED RINGERS 1,000 ML IV ONE (17:10)
[2018-06-02] MEDS: FAMOTIDINE 20 MG/2 ML VIAL IVP SCH (17:38)
--- NOTE | 2018-06-02 18:22 | P.OP ---
Date of Procedure: 06/02/18 Procedure(s) Performed: PREOPERATIVE DIAGNOSIS: Pneumoperitoneum POSTOPERATIVE DIAGNOSIS: Small bowel perforation PROCEDURE: Diagnostic laparoscopy with small bowel resection SURGEON: Nicol EBL: Minimal ANESTHESIA: General COMPLICATIONS: None OPERATIVE PROCEDURE: The patient was brought and placed on the operating table in the supine position. The patient was placed under general anesthesia. The abdomen was prepped and draped in the usual sterile fashion. A small vertical supraumbilical incision was made. The fascia was retracted anteriorly with Overton forceps. The Veress needle was advanced into the peritoneal cavity. The saline drop test was normal. Insufflation took place to 15 mmHg. A 5 mm trocar was then placed. An additional 5 mm suprapubic trocar was placed under direct visualization as well as a 5 mm left lower quadrant trocar under direct visualization. There was a small amount of seropurulent fluid in the peritoneal cavity. This was suctioned. The cecum and ascending and visualized portions of the transverse colon appeared normal. The terminal ileum was grasped and the bowel was run from the terminal ileum all the way to the ligament of Treitz. There was an adhesive band between the omentum and the small bowel creating a degree of small bowel obstruction with proximal small bowel dilation noted. When we got to the area of acute inflammatory changes there was noted to be a small less than 5 mm perforation of the bowel. The bowel was somewhat matted together in that area. No additional abnormalities throughout the small bowel was seen. The small bowel was grasped. The supraumbilical incision was lengthened. The fascia was divided. The small bowel was brought out through that incision site. The bowel was divided proximal and distal to that section using a linear 75 stapler. The mesentery was divided using the LigaSure device. As I inspected the bowel more distally there was one area of scarring from the adhesive band and I decided to remove that additional small section of small bowel. The proximal small bowel was somewhat edematous and slightly distended. The antimesenteric portion of the staple line was removed and the suction device was used to decompress a portion of the proximal small bowel. The antimesenteric portion of the distal small bowel table line was also removed. A [id number] anastomosis then took place using a linear 75 stapler. The defect was closed using a TX 60 device. A TX 60 device staple line was imbricated using interrupted 3-0 GI silk sutures. A 3 -0 GI silk crotch stitch was also placed. The area was then irrigated. No bleeding was seen. The midline fascia was reapproximated using a running #1 PDS suture. The skin was closed somewhat loosely using ramesh. Skin at the 5 mm trocar sites was closed using 4-0 Monocryl sutures. Sterile dressings were applied. DISPOSITION: Stable to recovery room
[2018-06-02] MEDS: HYDROmorphone 1 MG/ML 1 ML SYRINGE IVP PRN ×2 (19:08→22:31)
[2018-06-02] MEDS ORDERED: FOSAPREPITANT DIMEGLUMINE 150 MG in SODIUM CHLORIDE 0.9% 145 ML IV ONE (21:00)
[2018-06-02] MEDS: PIPERACILLIN-TAZOBACTAM 3.375 GM in DEXTROSE/WATER 1 50ML.BAG IVPB SCH (22:18)
[2018-06-03] MEDS: HYDROmorphone 1 MG/ML 1 ML SYRINGE IVP PRN ×6 (01:52→20:12)
[2018-06-03] MEDS: SALT AND SODA MOUTHWASH 1,000 ML PO SCH ×5 (01:53→20:34)
[2018-06-03] MEDS: SODIUM CHLORIDE 0.9% 1,000 ML IV SCH ×2 (01:53→12:06)
[2018-06-03] MEDS: SUCRALFATE 1 GM TAB PO SCH ×3 (01:53→15:59)
[2018-06-03 06:27] LABS: Anisocytosis Slight; Basophils % (A) 0 %; Eosinophils % (A) 0 %; HCT 35.9 % (39.0-53.0); HGB 12.1 gm/dL (13.0-17.5); Lymphocytes # (A) 0.3 k/uL (1.0-4.8); Lymphocytes % (A) 3 %; MCH 30.8 pg (25.0-35.0); MCHC 33.7 g/dL (31.0-37.0); MCV 91.5 fL (80.0-100.0); Monocytes # (A) 0.2 k/uL (0-1.0); Monocytes % (A) 2 %; Neutrophils # (A) 8.5 k/uL (1.3-7.7); Neutrophils % (A) 94 %; Platelet Count 157 k/uL (150-450); Poikilocytosis Slight; RBC 3.93 m/uL (4.30-5.90); RDW 16.3 % (11.5-15.5)
[2018-06-03 06:40] LABS: ALT 31 U/L (21-72); AST 15 U/L (17-59); Alkaline Phosphatase 26 U/L (38-126); Anion Gap 7 mmol/L; Blood Urea Nitrogen 12 mg/dL (9-20); Calcium 7.9 mg/dL (8.4-10.2); Carbon Dioxide 25 mmol/L (22-30); Chloride 102 mmol/L (98-107); Glucose 92 mg/dL (74-99); Potassium 3.5 mmol/L (3.5-5.1); Sodium 134 mmol/L (137-145); Total Bilirubin 0.7 mg/dL (0.2-1.3); Total Protein 5.1 g/dL (6.3-8.2)
[2018-06-03] MEDS: predniSONE 50 MG TAB PO SCH ×2 (08:05→20:34)
[2018-06-03] MEDS: POLYETHYLENE GLYCOL 3350 17 GM POWD.PACK PO SCH (08:05)
[2018-06-03] MEDS: predniSONE 10 MG TAB PO SCH ×2 (08:06→20:34)
[2018-06-03] MEDS: SENNOSIDES-DOCUSATE SODIUM 1 EACH TAB PO SCH (08:06)
[2018-06-03] MEDS: PIPERACILLIN-TAZOBACTAM 3.375 GM in DEXTROSE/WATER 1 50ML.BAG IVPB SCH ×2 (09:18→15:55)
--- NOTE | 2018-06-03 09:23 | P.CRDCN ---
History of Present Illness Consult date: 06/03/18 Requesting physician: Arnie Olson Consult reason: atrial fibrillation Chief complaint: Large B-cell lymphoma History of present illness: This is a pleasant 58-year-old gentleman with history of diffuse large B-cell lymphoma, he was admitted to the hospital for high-dose infusional chemotherapy. Patient had initially been admitted to the hospital in March of this year with symptoms of left upper quadrant pain, he was noted to have a mass , CT of the abdomen and pelvis revealed a markedly enlarged left adrenal mass. Splenomegaly was also noted, no PE at that time, borderline mediastinal and hilar adenopathy noted. He underwent a CT-guided adrenal biopsy following that which revealed severely atypical cells consistent with diffuse large B-cell lymphoma, core biopsy was also consistent with high-grade B-cell non-Hodgkin's lymphoma, consistent with diffuse large B-cell lymphoma. Patient then went for a PET scan which revealed hypermetabolic uptake and mediastinotomy on hilar, 10 cm left adrenal mass, loop of bowel in the right lower quadrant with significant. He was diagnosed with stage IV disease. He was admitted to the hospital on this occasion for high-dose infusional chemo. While in the hospital , patient developed significant abdominal pain and was seen in consultation by surgery. CAT scan showed small foci of pneumoperitoneum. The patient subsequently underwent diagnostic laparoscopic with small bowel resection by Dr. bull. On the , admission here patient was noted to have atrial fibrillation on his initial EKG and for this reason a cardiology consultation have been requested. Repeat EKG was performed which showed a normal sinus rhythm and patient continues to be in a normal sinus rhythm at this time. Patient denies any history of coronary artery disease, no hyperlipidemia, no diabetes, no hypertension. Blood pressure 128/80 with a heart rate in the 90s this morning, 94% on 3 L of oxygen. He is afebrile. Patient does currently have an NG tube in place. White blood cell count this morning 9.0, hemoglobin 12.1, platelet count 157. Sodium 134, potassium 3.5, BUN 12, creatinine 0.7. AST 15, ALT 31, alk phos 26. Examination this morning, patient states he generally just does not feel well. He does NG tube placed. Past Medical History Past Medical History: Cancer Additional Past Medical History / Comment(s): non-hodgkins lymphoma History of Any Multi-Drug Resistant Organisms: None Reported Past Surgical History: Tonsillectomy Additional Past Surgical History / Comment(s): colonoscopy Past Anesthesia/Blood Transfusion Reactions: No Reported Reaction Smoking Status: Never smoker - Past Family History Father Additional Family Medical History / Comment(s): liver issue Mother Family Medical History: Cancer Additional Family Medical History / Comment(s): skin CA, kidney issues Medications and Allergies Home Medications Medication Instructions Recorded Confirmed Type No Known Home Medications 05/30/18 05/30/18 History Allergies Allergy/AdvReac Type Severity Reaction Status Date / Time No Known Allergies Allergy Verified 06/02/18 15:04 Physical Exam Vitals: Vital Signs Temp Pulse Pulse Pulse Resp BP Pulse Ox 06/03/18 04:00 98.0 F 100 18 129/89 94 L 06/03/18 00:00 100 18 06/02/18 22:53 98.1 F 100 18 118/80 94 L 06/02/18 19:53 98.2 F 90 16 126/75 93 L 06/02/18 19:52 98.0 F 95 16 117/80 92 L 06/02/18 18:30 92 16 125/78 93 L 06/02/18 18:15 87 16 124/79 97 06/02/18 18:00 88 16 130/86 99 06/02/18 17:45 97 16 128/78 100 06/02/18 17:29 97.3 F L 83 24 117/72 97 06/02/18 15:08 97.8 F 109 H 16 117/82 97 06/02/18 12:00 97.7 F 83 14 115/76 95 Intake and Output 06/02/18 06/03/18 06/03/18 22:59 06:59 14:59 Intake Total 1950 Output Total 595 150 Balance 1355 -150 Intake: IV 1500 Intake, IV Titration 450 Amount Piperacillin-Tazobactam 3 50 .375 gm In Dextrose/Water 1 50ml.bag @ 12.5 mls/hr IVPB Q8HR [facility] Rx#: [id number] Sodium Chloride 0.9% 1, 400 000 ml @ 100 mls/hr IV . Q10H [facility] Rx#:[id number] Output: Urine 575 150 Estimated Blood Loss 20 Other: Voiding Method Indwelling Catheter Weight 99 kg PHYSICAL EXAMINATION: GENERAL: 58-year-old gentleman in no acute distress at the time of my examination HEENT: Head is atraumatic, normocephalic. Pupils equal, round. Sclera anicteric. Conjunctiva are clear. Mucous membranes of the mouth are moist. Neck is supple. NG tube in place There is no elevated jugular venous pressure. No carotid bruit is heard. HEART EXAMINATION: Heart S1, S2 normal. No murmur or gallop heard. CHEST EXAMINATION: Lungs are clear to auscultation and precussion. No chest wall tenderness is noted on palpation or with deep breathing. ABDOMEN: Distended, generalized tenderness . Bowel sounds are absent . No organomegaly noted. EXTREMITIES: 2+ peripheral pulses with trace evidence of peripheral edema noted in his bilateral feet , no calf tenderness noted. NEUROLOGIC patient is awake, alert and oriented X3. . Results 06/03/18 05:55 06/03/18 05:55 Cardiac Enzymes 06/02/18 06/03/18 Range/Units 07:04 05:55 AST 15 L (17-59) U/L Lactate Dehydrogenase 482 (313-618) U/L CBC 06/03/18 Range/Units 05:55 WBC 9.0 (3.8-10.6) k/uL RBC 3.93 L (4.30-5.90) m/uL Hgb 12.1 L (13.0-17.5) gm/dL Hct 35.9 L (39.0-53.0) % Plt Count 157 (150-450) k/uL Comprehensive Metabolic Panel 06/03/18 Range/Units 05:55 Sodium 134 L (137-145) mmol/L Potassium 3.5 (3.5-5.1) mmol/L Chloride 102 (98-107) mmol/L Carbon Dioxide 25 (22-30) mmol/L BUN 12 (9-20) mg/dL Creatinine 0.70 (0.66-1.25) mg/dL Glucose 92 (74-99) mg/dL Calcium 7.9 L (8.4-10.2) mg/dL AST 15 L (17-59) U/L ALT 31 (21-72) U/L Alkaline Phosphatase 26 L (38-126) U/L Total Protein 5.1 L (6.3-8.2) g/dL Albumin 3.0 L (3.5-5.0) g/dL Current Medications Generic Name Dose Route Start Last Admin Trade Name Freq PRN Reason Stop Dose Admin Acetaminophen 650 mg 05/31/18 04:53 06/01/18 05:44 Tylenol Tab PO 650 mg Q4HR PRN Administration Fever and/ or Pain Hydrocodone Bitart/Acetaminophen 1 each 06/01/18 15:17 06/01/18 16:34 Hale 5-325 PO 1 each Q6HR PRN Administration MODERATE Pain Enoxaparin Sodium 40 mg 05/30/18 13:45 06/02/18 09:43 Lovenox SQ 40 mg DAILY [facility] Administration Famotidine 20 mg 05/31/18 19:00 06/02/18 17:38 Pepcid IVP 06/03/18 19:01 Not Given Q24H [facility] Hydromorphone HCl 0.5 mg 06/02/18 10:51 Dilaudid IM Q6HR PRN SEVERE Pain Hydromorphone HCl 1 mg 06/02/18 19:04 06/03/18 06:21 Dilaudid IVP 1 mg Q2HR PRN Administration Pain Sodium Chloride 1,000 mls @ 100 mls/hr 05/30/18 09:00 06/03/18 01:53 Saline 0.9% IV 100 mls/hr .Q10H [facility] Administration Etoposide 100 mg/ Sodium 505 mls @ 21.042 mls/hr 05/30/18 16:00 06/02/18 15: 00 Chloride IV 06/03/18 15:59 Not Given Q24H [facility] Doxorubicin HCl 20 mg/ Sodium 260 mls @ 10.833 mls/hr 05/30/18 16:00 15:00 Chloride IV 06/03/18 15:59 Not Given Q24H [facility] Vincristine Sulfate 0.8 mg/ 50.8 mls @ 2.117 mls/hr 05/30/18 16:00 06/02/18 15:00 Sodium Chloride IV 06/03/18 15:59 Not Given Q24H [facility] Cyclophosphamide 1,600 mg/ 580 mls @ 1,160 mls/hr 06/03/18 16:00 Sodium Chloride IV 06/03/18 16:29 ONCE ONE Ondansetron HCl 16 mg/ Sodium 58 mls @ 100 mls/hr 05/31/18 17:00 06/02/18 15: 00 Chloride IVPB 06/03/18 17:35 Not Given Q24H [facility] Piperacillin/Tazobactam/ 50 mls @ 12.5 mls/hr 06/03/18 00:00 06/02/18 22:18 Dextrose 3.375 gm/ IV Solution IVPB 12.5 mls/hr Q8HR [facility] Administration Lorazepam 0.5 mg 06/02/18 10:51 Ativan IV Q6HR PRN Anxiety Ondansetron HCl 8 mg 06/02/18 10:57 Zofran IVP Q8HR PRN Nausea Pantoprazole Sodium 40 mg 06/02/18 11:00 06/02/18 22:17 Protonix IVP 40 mg BID [facility] Administration Polyethylene Glycol 17 gm 06/02/18 09:00 06/03/18 08:05 Miralax PO Not Given DAILY [facility] Prednisone 100 mg 05/30/18 09:00 06/03/18 08:05 PO 06/03/18 21:01 Not Given BID [facility] Prednisone 30 mg 05/30/18 09:00 06/03/18 08:06 PO 06/03/18 21:01 Not Given BID [facility] Prochlorperazine Maleate 10 mg 06/02/18 10:57 Compazine PO Q6HR PRN Nausea And Vomiting Senna/Docusate Sodium 1 each 06/01/18 21:00 06/03/18 08:06 Senokot-S PO Not Given BID [facility] Simethicone 80 mg 06/01/18 15:16 06/01/18 17:10 Mylicon Chew PO 80 mg QID PRN Administration Bloating Sodium Bicarbonate 5 ml 05/31/18 12:00 06/03/18 08:06 PO Not Given Q4HR [facility] Sucralfate 1 gm 06/02/18 17:30 06/03/18 01:53 Carafate PO Not Given AC-TID [facility] Intake and Output 06/02/18 06/03/18 06/03/18 22:59 06:59 14:59 Intake Total 1950 Output Total 595 150 Balance 1355 -150 Intake: IV 1500 Intake, IV Titration 450 Amount Piperacillin-Tazobactam 3 50 .375 gm In Dextrose/Water 1 50ml.bag @ 12.5 mls/hr IVPB Q8HR [facility] Rx#: [id number] Sodium Chloride 0.9% 1, 400 000 ml @ 100 mls/hr IV . Q10H [facility] Rx#:[id number] Output: Urine 575 150 Estimated Blood Loss 20 Other: Voiding Method Indwelling Catheter Weight 99 kg 06/03/18 05:55 06/03/18 05:55 EKG Interpretations (text) Initial EKG showed atrial fibrillation with moderately rapid ventricular response, subsequent EKG shows a normal sinus rhythm. Assessment and Plan Plan: Assessment and plan #1 paroxysmal atrial fibrillation, patient in normal sinus rhythm. Patient appears to have had just one brief episode of A. fib. #2 status post diagnostic laparoscopy with small bowel resection #3 diffuse large B-cell lymphoma Plan We will replace the patient's potassium. Obtain echocardiogram with Doppler study. Check free T4 and TSH level. Further recommendations to follow. DNP note has been reviewed, I agree with a documented findings and plan of care. Patient was seen and examined.
[2018-06-03] MEDS: PANTOPRAZOLE 40 MG/10 ML VIAL IVP SCH ×2 (09:43→20:34)
[2018-06-03] MEDS: ENOXAPARIN 40 MG/0.4 ML SYRINGE SQ SCH (09:43)
--- NOTE | 2018-06-03 09:45 | ECHOF ---
Referral Reason:New afib MEASUREMENTS -------- HEIGHT: 175.3 cm WEIGHT: 98.9 kg BP: 129/89 IVSd: 1.2 cm (0.6 - 1.1) LVIDd: 3.4 cm (3.9 - 5.3) LVPWd: 1.2 cm (0.6 - 1.1) IVSs: 1.7 cm LVIDs: 2.1 cm LVPWs: 1.7 cm Ao Diam: 3.8 cm (2.0 - 3.7) AV Cusp: 2.4 cm (1.5 - 2.6) LA Diam: 3.7 cm (2.7 - 3.8) MV EXCURSION: 16.659 mm (> 18.000) MV EF SLOPE: 79 mm/s (70 - 150) EPSS: 1.1 cm MV E Corky: 0.70 m/s MV DecT: 183 ms MV A Corky: 0.89 m/s MV E/A Ratio: 0.79 RAP: 5.00 mmHg RVSP: 24.79 mmHg FINDINGS -------- Sinus rhythm. This was a technically good study. The left ventricular size is normal. There is mild concentric left ventricular hypertrophy. Overa ll left ventricular systolic function is normal with, an EF between 55 - 60 %. The right ventricle is normal in size and function. The left atrium is normal in size. The right atrium is normal in size. The aortic valve is trileaflet, and appears structurally normal. No aortic stenosis or regurgitation. There is trace mitral regurgitation. Trace tricuspid regurgitation present. The right ventricular systolic pressure, as measured by Dopp ler, is 24.79mmHg. Pulmonic valve appears structurally normal. The aortic root is dilated measuring 3.8cm CONCLUSIONS -------- 1. Sinus rhythm. 2. This was a technically good study. 3. The left ventricular size is normal. 4. There is mild concentric left ventricular hypertrophy. 5. Overall left ventricular systolic function is normal with, an EF between 55 - 60 %. 6. The right ventricle is normal in size and function. 7. The left atrium is normal in size. 8. The right atrium is normal in size. 9. The aortic valve is trileaflet, and appears structurally normal. No aortic stenosis or regurgitati on. 10. There is trace mitral regurgitation. 11. Trace tricuspid regurgitation present. 12. The right ventricular systolic pressure, as measured by Doppler, is 24.79mmHg. 13. Pulmonic valve appears structurally normal. 14. The aortic root is dilated measuring 3.8 cm INFORMATION SYSTEMS SECURITY OFFICER: Audra Agee RDCS
--- NOTE | 2018-06-03 10:02 | P.PN ---
Subjective Progress Note Date: 06/03/18 Principal diagnosis: Perforated small bowel History of B-cell lymphoma admitted for high-dose chemotherapy receiving high- dose steroids developed worsening abdominal pain yesterday CT reported free air status post exploratory laparotomy with small bowel resection. Developed A. fib with RVR. Afebrile. Chemotherapy presently on hold. White count 9. Hemoglobin 12.1. Objective - Vital Signs Vital signs: Vital Signs Temp 98.5 F 06/03/18 08:00 Pulse 95 06/03/18 08:00 Resp 18 06/03/18 08:00 BP 143/99 06/03/18 08:00 Pulse Ox 95 06/03/18 08:00 Intake & Output 06/02/18 06/03/18 06/03/18 18:59 06:59 18:59 Intake Total 2485.5 450 Output Total 295 450 Balance 2190.5 0 Weight 99 kg Intake: IV 2300 Sodium Chloride 0.9% 1, 800 000 ml @ 100 mls/hr IV . Q10H [facility] Rx#:[id number] Intake, IV Titration 185.5 450 Amount DOXOrubicin HCL 20 mg In 59 Sodium Chloride 0.9% 250 ml @ 10.833 mls/hr IV Q24H [facility] Rx#:[id number] Etoposide 100 mg In 115 Sodium Chloride 0.9% 500 ml @ 21.042 mls/hr IV Q24H [facility] Rx#:[id number] Piperacillin-Tazobactam 3 50 .375 gm In Dextrose/Water 1 50ml.bag @ 12.5 mls/hr IVPB Q8HR [facility] Rx#: [id number] Sodium Chloride 0.9% 1, 400 000 ml @ 100 mls/hr IV . Q10H [facility] Rx#:[id number] vinCRIStine SULFATE 0.8 11.5 mg In Sodium Chloride 0.9 % 50 ml @ 2.117 mls/hr IV Q24H [facility] Rx#:[id number] Output: Urine 275 450 Estimated Blood Loss 20 Other: Voiding Method Toilet Indwelling Catheter - Exam General appearance: The patient is alert, oriented, in no acute distress. HET: Head is normocephalic and atraumatic. Pupils are equal and reactive. Oropharynx is clear without lesions. NG tube bilious fluid. Neck: Supple without lymphadenopathy. Trachea midline. Heart: S1 S2. Regular rate and rhythm. Lungs: No crackles or wheezes are heard. Abdomen: Soft, incisional tenderness surgical dressings clean with hypoactive bowel sounds. No peritoneal signs. No palpable organomegaly or masses. Extremities: Normal skin color and turgor. No cyanosis, rash, ulceration, clubbing, or edema. Radial and pedal pulses are 2/4 bilaterally. Neurological: No focal deficits. Strength and sensation are grossly intact. - Labs CBC & Chem 7: 06/03/18 05:55 06/03/18 05:55 Labs: Abnormal Lab Results - Last 24 Hours (Table) 06/03/18 06/03/18 Range/Units 05:55 05:55 RBC 3.93 L (4.30-5.90) m/uL Hgb 12.1 L (13.0-17.5) gm/dL Hct 35.9 L (39.0-53.0) % RDW 16.3 H (11.5-15.5) % Neutrophils # 8.5 H (1.3-7.7) k/uL Lymphocytes # 0.3 L (1.0-4.8) k/uL Sodium 134 L (137-145) mmol/L Calcium 7.9 L (8.4-10.2) mg/dL AST 15 L (17-59) U/L Alkaline Phosphatase 26 L (38-126) U/L Total Protein 5.1 L (6.3-8.2) g/dL Albumin 3.0 L (3.5-5.0) g/dL Assessment and Plan (1) Epigastric abdominal pain Current Visit: Yes Status: Acute Code(s): R10.13 - EPIGASTRIC PAIN SNOMED Code(s): 24276725 (2) Diffuse large B cell lymphoma Current Visit: Yes Status: Acute Code(s): C83.30 - DIFFUSE LARGE B-CELL LYMPHOMA, UNSPECIFIED SITE SNOMED Code(s): 704859999 (3) Pneumoperitoneum Current Visit: Yes Status: Acute Code(s): K66.8 - OTHER SPECIFIED DISORDERS OF PERITONEUM SNOMED Code(s): 18953598 (4) S/P exploratory laparotomy Current Visit: Yes Status: Acute Code(s): Z98.890 - OTHER SPECIFIED POSTPROCEDURAL STATES SNOMED Code(s): 218543592 Plan: 1. GI prophylaxis. Supportive measures. We'll defer to general surgery for further recommendations. Will follow as needed. Assessment and plan a care discussed with Dr. Martin
--- NOTE | 2018-06-03 11:09 | P.PN ---
Subjective Progress Note Date: 06/03/18 Principal diagnosis: Large B Cell Lymphoma Status Post Day 3 Of First cycle of R-EPOCH On 06/01/18 he complained of mid epigastric pain, relieved with flatulence. He had not had a BM in 2 days and stated it was hard to take deep breath with pain. Yesterday we added a PPI with high dose Steroids, PRN Simethicone, Bowel regimen and obtained abdominal Series. The abdomen xray was nonspecific and showed possibility of enteritis versus ileus. He was re-evaluated yesterday and was complaining of nausea and vomiting as well. With uncertainty of an ileus he was placed on bowel rest with ok for minimal clear liquids. GI was consulted. On 06/02/18, he had not improved. He was experiencing nausea and vomiting and unable to hold anything down. PO Protonix has been changed to IV. Discussed with Dr. ribeiro and will stop IV Chemo until after a CT of abdomen and Consult with Surgery. He was unable to tolerate low dose norco for pain. Ativan IV (low dose 0.5mg) and Dilaudid (0.5mg) was ordered for him for nausea and pain. He was tearful during this mornings assessment. His at bedside. Will Await CT scan and surgical consult prior to proceeding with chemo at this time CT of the abdomen was concerning for small bowel obstruction, mesenteric edema, free fluid, and trace of intraperitoneal free air suggestive of hollow viscus perforation, Mr. Alaniz was taken to surgery. Per surgical note there was an adhesive band between the omentum and the small bowel creating a degree of small bowel obstruction with proximal small bowel dilation noted. The area of acute inflammatory changes was noted to be a small less than 5 mm perforation of the bowel. He is now status post diagnostic larparoscopic small bowel resection. During this time he has also developed atrial fibrillation RVR. He is resting comfortably, recovering from surgical intervention. Cardiology has been consulted regarding new onset atrial fibrillation. Objective - Vital Signs Vital signs: Vital Signs Temp 98.5 F 06/03/18 08:00 Pulse 95 06/03/18 08:00 Resp 18 06/03/18 08:00 BP 143/99 06/03/18 08:00 Pulse Ox 95 06/03/18 08:00 Intake & Output 06/02/18 06/03/18 06/03/18 18:59 06:59 18:59 Intake Total 2485.5 450 Output Total 295 450 Balance 2190.5 0 Weight 99 kg Intake: IV 2300 Sodium Chloride 0.9% 1, 800 000 ml @ 100 mls/hr IV . Q10H [facility] Rx#:[id number] Intake, IV Titration 185.5 450 Amount DOXOrubicin HCL 20 mg In 59 Sodium Chloride 0.9% 250 ml @ 10.833 mls/hr IV Q24H [facility] Rx#:[id number] Etoposide 100 mg In 115 Sodium Chloride 0.9% 500 ml @ 21.042 mls/hr IV Q24H [facility] Rx#:[id number] Piperacillin-Tazobactam 3 50 .375 gm In Dextrose/Water 1 50ml.bag @ 12.5 mls/hr IVPB Q8HR [facility] Rx#: [id number] Sodium Chloride 0.9% 1, 400 000 ml @ 100 mls/hr IV . Q10H [facility] Rx#:[id number] vinCRIStine SULFATE 0.8 11.5 mg In Sodium Chloride 0.9 % 50 ml @ 2.117 mls/hr IV Q24H [facility] Rx#:[id number] Output: Urine 275 450 Estimated Blood Loss 20 Other: Voiding Method Toilet Indwelling Catheter Indwelling Catheter - Constitutional General appearance: Present: cooperative, no acute distress - EENT EENT Comment(s): NG tube LIS Eyes: Present: EOMI, PERRLA, dentition normal ENT: Present: NA/AT, normal oropharynx - Neck Details: supple, Trachea Midline Neck: Present: normal ROM - Respiratory Respiratory: bilateral: CTA (No increased effort) - Cardiovascular Details: New onset Afib with RVR Rhythm: irregularly irregular - Gastrointestinal Gastrointestinal Comment(s): Evidence of surgerical intervention, Dressing CDI General gastrointestinal: Present: soft - Integumentary Integumentary: Present: normal - Neurologic Neurologic Comment(s): No focal Defects Neurologic: Present: CNII-XII intact - Musculoskeletal Musculoskeletal: Present: generalized weakness, strength equal bilaterally - Psychiatric Psychiatric: Present: A&O x's 3, appropriate affect, intact judgment & insight - Labs CBC & Chem 7: 06/03/18 05:55 06/03/18 05:55 Labs: Abnormal Lab Results - Last 24 Hours (Table) 06/03/18 06/03/18 Range/Units 05:55 05:55 RBC 3.93 L (4.30-5.90) m/uL Hgb 12.1 L (13.0-17.5) gm/dL Hct 35.9 L (39.0-53.0) % RDW 16.3 H (11.5-15.5) % Neutrophils # 8.5 H (1.3-7.7) k/uL Lymphocytes # 0.3 L (1.0-4.8) k/uL Sodium 134 L (137-145) mmol/L Calcium 7.9 L (8.4-10.2) mg/dL AST 15 L (17-59) U/L Alkaline Phosphatase 26 L (38-126) U/L Total Protein 5.1 L (6.3-8.2) g/dL Albumin 3.0 L (3.5-5.0) g/dL Assessment and Plan Plan: Assessment and Plan (1) Diffuse large B cell lymphoma Narrative/Plan: Diagnostic and therapeutic circumstances so far have been described in the HPI. The patient tolerated 2 cycles of RCHOP well, and did have some improvement in symptoms. However PET scan did not show the desired optimal response. Therefore his chemotherapy regimen has been changed to the high-dose infusional R - EPOCH. He is being admitted for cycle 1 of the same. The patient has no major symptoms at this time and has a normal physical exam. - Will continue to monitor daily CBC and CMP - Monitor for risk of infection. Tumor Lysis - Day Two R-EPOCH - HOLD CHEMO AND evaluate acute abdominal pain and nausea prior to proceeding - Continue to Hold Chemotherapy to allow time to recover from recent surgery, will need clearance from surgery prior to proceeding, likely 3-4 weeks Current Visit: Yes Status: Acute Code(s): C83.30 - DIFFUSE LARGE B-CELL LYMPHOMA, UNSPECIFIED SITE SNOMED Code(s): 125900637 (2)GI Discomfort: - Acute Abdominal Series - 06/01/18 - non specific for gastritis versus ileus. He was placed on bowel rest and PPI was added, GI Consult - 06/02/18 pain worsened and now with associated nausea - Surgery consult placed and STAT CT abdomen ordered, Chemo on hold - Small Bowel Obstruction with concern for perforation identified and patient taken to surgery on 06/02/18 - Continue dilaudid and ativan prn - Discontinue bowel stimulants and restart bowel protocol per surgery team (3)Small Bowel Obstruction with Small Perforation: - Status Post Diagnostic Laparoscopy with Small Bowel Resection (4) New Onset Atrial Fibrillation with RVR - Cardiology Consulted.
[2018-06-03 11:50] LABS: Glucose,Whole Blood 98 mg/dL (75-99)
[2018-06-03] MEDS: ONDANSETRON 4 MG/2 ML VIAL IVP PRN (12:05)
--- NOTE | 2018-06-03 14:17 | P.PN ---
Subjective Progress Note Date: 06/03/18 Principal diagnosis: Intestinal perforation Patient doing better today. He states his pain is better than it was preoperatively yesterday. Mild tachycardia. White blood cell count 9. No flatus. Nasogastric tube bilious. Objective - Vital Signs Vital signs: Vital Signs Temp 98.1 F 06/03/18 11:28 Pulse 101 H 06/03/18 11:46 Resp 16 06/03/18 11:28 BP 146/102 06/03/18 11:28 Pulse Ox 95 06/03/18 11:28 Intake & Output 06/02/18 06/03/18 06/03/18 18:59 06:59 18:59 Intake Total 2485.5 450 Output Total 295 450 80 Balance 2190.5 0 -80 Weight 99 kg Intake: IV 2300 Sodium Chloride 0.9% 1, 800 000 ml @ 100 mls/hr IV . Q10H [facility] Rx#:[id number] Intake, IV Titration 185.5 450 Amount DOXOrubicin HCL 20 mg In 59 Sodium Chloride 0.9% 250 ml @ 10.833 mls/hr IV Q24H [facility] Rx#:[id number] Etoposide 100 mg In 115 Sodium Chloride 0.9% 500 ml @ 21.042 mls/hr IV Q24H [facility] Rx#:[id number] Piperacillin-Tazobactam 3 50 .375 gm In Dextrose/Water 1 50ml.bag @ 12.5 mls/hr IVPB Q8HR [facility] Rx#: [id number] Sodium Chloride 0.9% 1, 400 000 ml @ 100 mls/hr IV . Q10H [facility] Rx#:[id number] vinCRIStine SULFATE 0.8 11.5 mg In Sodium Chloride 0.9 % 50 ml @ 2.117 mls/hr IV Q24H [facility] Rx#:[id number] Output: Gastric Drainage 80 Urine 275 450 Estimated Blood Loss 20 Other: Voiding Method Toilet Indwelling Catheter Indwelling Catheter - Exam Abdomen: Soft, mild distention, mild incisional tenderness, dressings clean and dry - Labs CBC & Chem 7: 06/03/18 05:55 06/03/18 05:55 Labs: Abnormal Lab Results - Last 24 Hours (Table) 06/03/18 06/03/18 Range/Units 05:55 05:55 RBC 3.93 L (4.30-5.90) m/uL Hgb 12.1 L (13.0-17.5) gm/dL Hct 35.9 L (39.0-53.0) % RDW 16.3 H (11.5-15.5) % Neutrophils # 8.5 H (1.3-7.7) k/uL Lymphocytes # 0.3 L (1.0-4.8) k/uL Sodium 134 L (137-145) mmol/L Calcium 7.9 L (8.4-10.2) mg/dL AST 15 L (17-59) U/L Alkaline Phosphatase 26 L (38-126) U/L Total Protein 5.1 L (6.3-8.2) g/dL Albumin 3.0 L (3.5-5.0) g/dL Assessment and Plan (1) Small bowel perforation Narrative/Plan: Patient doing better today. Continue antibiotics. Await infectious disease evaluation. Continue nothing by mouth. Current Visit: Yes Status: Acute Code(s): K63.1 - PERFORATION OF INTESTINE ( NONTRAUMATIC) SNOMED Code(s): 825016621
[2018-06-03] MEDS: ONDANSETRON 16 MG in SODIUM CHLORIDE 0.9% 50 ML IVPB SCH (15:58)
[2018-06-03] MEDS ORDERED: CYCLOPHOSPHAMIDE IV ONE (16:00)
[2018-06-03] MEDS ORDERED: SODIUM CHLORIDE 0.9% IV ONE (16:00)
[2018-06-03 16:59] LABS: Glucose,Whole Blood 89 mg/dL (75-99)
[2018-06-03] MEDS: FAMOTIDINE 20 MG/2 ML VIAL IVP SCH (17:17)
[2018-06-03 21:10] LABS: Glucose,Whole Blood 91 mg/dL (75-99)
[2018-06-04] MEDS: SODIUM CHLORIDE 0.9% 1,000 ML IV SCH ×3 (00:15→20:30)
[2018-06-04] MEDS: SALT AND SODA MOUTHWASH 1,000 ML PO SCH ×7 (00:15→23:16)
[2018-06-04] MEDS: PIPERACILLIN-TAZOBACTAM 3.375 GM in DEXTROSE/WATER 1 50ML.BAG IVPB SCH ×4 (00:17→23:16)
--- NOTE | 2018-06-04 01:35 | CONS ---
CONSULTATION DATE OF SERVICE: 06/03/2018. REASON FOR CONSULTATION: Perforated bowel. HISTORY OF PRESENT ILLNESS: The patient is a 58-year-old male with a past medical history significant for diffuse large B-cell lymphoma diagnosed 03/15/2018. The patient has been admitted to the hospital 05/30/2018 for induction of high dose chemotherapy. The patient was started on chemotherapy. The patient did not have any abdominal pain or any fever on admission. However, on June 01 the patient started having abdominal pain. Pain has been mostly in the epigastric area, described to be more of a sharp in nature. At times, colicky with intensity almost 7 to 8/10. The patient has been nauseated and an episode of vomiting but no diarrhea or any constipation. For the same reason, the patient did have an acute abdominal series completed which shows nonspecific abdomen. A few prominent small bowel loops in the left abdomen could relate to either enteritis or ileus. Subsequently, the next day with the pain persistent, a CT of abdominal and pelvis was performed which shows mild abdominal small bowel loops are dilated up to 4 cm. An air-fluid level to wall thickening of some of the involved small bowel loops. The patient subsequently has been seen by General Surgery. The patient was taken to the OR the same evening that is last night. The patient did have diagnostic laparoscopy. The patient did have small bowel perforation. The patient is status post resection of the portion of small bowel and anterior anastomosis. The patient who has been afebrile, did have elevated white count. No oral ulcer. The patient was started on Zosyn. Infectious Disease was consulted for further recommendations regarding antibiotic therapy. REVIEW OF SYSTEMS: Constitutional: Positive for weakness but no high-grade fever. Eyes: No complaint. ENT no complaint. Respiratory: No complaint. Cardiovascular no complaint. ENT no complaint. Genitourinary: No complaint. Gastrointestinal: As per HPI. Musculoskeletal no complaint. Integumentary: No complaint. Psychological no complaint. Endocrine no complaint. Neurologic no complaint. PAST MEDICAL HISTORY: Significant for diffuse large B-cell lymphoma. PAST SURGICAL HISTORY: Tonsillectomy, colonoscopy and biopsy. SOCIAL HISTORY: No history of smoking, drinking or drug use. FAMILY HISTORY: Mother with history of skin cancer and kidney issues. ALLERGIES: No known drug allergies. MEDICATIONS: Include the patient is currently on Tylenol, [place], Lovenox, Dilaudid, Ativan, and Zofran, Protonix, Zosyn, MiraLAX, Omeprazole, sodium bicarbonate and Carafate. EXAMINATION: Blood pressure is 134/87 with a pulse of 96, temperature 97. He is 97% on 3 L nasal cannula. General description is a middle-aged male lying in bed in no distress. No tachypnea or accessory muscles of respiration use. HEENT: Shows pallor with no scleral icterus. Oral mucosal membranes are dry and no significant erythema or thrush. Neck: Trachea central. No thyromegaly. Lungs unlabored breathing. Clear to auscultation anteriorly. No wheeze or crackles. Heart S1, S2. Regular rate and rhythm. ABDOMEN: Soft, mildly distended. Minimal tenderness. No guarding or rigidity. EXTREMITIES: No edema of the feet. SKIN examination: No rash or mass palpable. Neurological: Patient is awake, alert, and oriented x3. Mood and affect normal. LABS: Hemoglobin is 12.1, white count 10696, BUN of 12, creatinine 0.70. Liver enzymes are normal. No cultures. DIAGNOSTIC IMPRESSION AND PLAN: Patient with secondary peritonitis from perforation of the small bowel. Status post laparoscopic resection of the perforated bowel and anastomosis. The likely organism need to cover enteric gram-negative both aerobes and anaerobes. PLAN: 1. Zosyn 3.375 g IV Q 8 hours. 2. If the patient spikes any fever, or any change in clinical condition, to re- culture him and adjust antibiotic further. 3. We will follow his clinical condition and cultures to further adjust medication if needed. Thank you for this consultation. We will follow this patient along with you. MMODL / IJN: [id number] /
[2018-06-04] MEDS: HYDROmorphone 1 MG/ML 1 ML SYRINGE IVP PRN ×8 (01:44→23:27)
[2018-06-04 06:02] LABS: Glucose,Whole Blood 85 mg/dL (75-99)
[2018-06-04] MEDS: SUCRALFATE 1 GM TAB PO SCH ×4 (06:03→14:06)
[2018-06-04 06:47] LABS: ALT 29 U/L (21-72); AST 13 U/L (17-59); Albumin 2.8 g/dL (3.5-5.0); Alkaline Phosphatase 24 U/L (38-126); Anion Gap 9 mmol/L; Basophils % (A) 0 %; Blood Urea Nitrogen 12 mg/dL (9-20); Calcium 7.7 mg/dL (8.4-10.2); Carbon Dioxide 26 mmol/L (22-30); Chloride 99 mmol/L (98-107); Eosinophils # (A) 0.1 k/uL (0-0.7); Eosinophils % (A) 2 %; Glucose 76 mg/dL (74-99); HCT 35.5 % (39.0-53.0); HGB 12.1 gm/dL (13.0-17.5); Lymphocytes # (A) 0.3 k/uL (1.0-4.8); Lymphocytes % (A) 3 %; MCH 30.1 pg (25.0-35.0); MCV 88.6 fL (80.0-100.0); Monocytes # (A) 0.1 k/uL (0-1.0); Monocytes % (A) 1 %; Neutrophils # (A) 7.1 k/uL (1.3-7.7); Neutrophils % (A) 93 %; Platelet Count 159 k/uL (150-450); Poikilocytosis Slight; Potassium 3.5 mmol/L (3.5-5.1); RBC 4.01 m/uL (4.30-5.90); RDW 15.8 % (11.5-15.5); Sodium 134 mmol/L (137-145); Total Bilirubin 1.1 mg/dL (0.2-1.3); Total Protein 4.8 g/dL (6.3-8.2); WBC 7.6 k/uL (3.8-10.6)
[2018-06-04] MEDS: POLYETHYLENE GLYCOL 3350 17 GM POWD.PACK PO SCH (07:36)
[2018-06-04] MEDS: ENOXAPARIN 40 MG/0.4 ML SYRINGE SQ SCH (09:04)
[2018-06-04] MEDS: PANTOPRAZOLE 40 MG/10 ML VIAL IVP SCH ×2 (09:05→21:16)
--- NOTE | 2018-06-04 09:59 | P.PN ---
Subjective Progress Note Date: 06/04/18 Principal diagnosis: Intestinal perforation Patient doing fairly well. He is complaining of hiccups and some belching. Still having abdominal discomfort with movement. He states his pain is "definitely" improved from preoperatively. No bowel function. No tachycardia. White blood cell count normal. He is afebrile. Objective - Vital Signs Vital signs: Vital Signs Temp 98.6 F 06/04/18 08:00 Pulse 91 06/04/18 08:00 Resp 18 06/04/18 08:00 BP 133/84 06/04/18 08:00 Pulse Ox 97 06/04/18 08:00 Intake & Output 06/03/18 06/04/18 06/04/18 18:59 06:59 18:59 Intake Total 0 Output Total 150 420 Balance -150 -420 Weight 99.1 kg Intake: Oral 0 Output: Gastric Drainage 150 120 Urine 300 Other: Voiding Method Indwelling Catheter Indwelling Catheter Indwelling Catheter - Exam Abdomen: Soft, mild distention, mild diffuse tenderness increased at incision site, incisions clean and dry - Labs CBC & Chem 7: 06/04/18 05:40 06/04/18 05:40 Labs: Abnormal Lab Results - Last 24 Hours (Table) 06/04/18 06/04/18 Range/Units 05:40 05:40 RBC 4.01 L (4.30-5.90) m/uL Hgb 12.1 L (13.0-17.5) gm/dL Hct 35.5 L (39.0-53.0) % RDW 15.8 H (11.5-15.5) % Lymphocytes # 0.3 L (1.0-4.8) k/uL Sodium 134 L (137-145) mmol/L Calcium 7.7 L (8.4-10.2) mg/dL AST 13 L (17-59) U/L Alkaline Phosphatase 24 L (38-126) U/L Total Protein 4.8 L (6.3-8.2) g/dL Albumin 2.8 L (3.5-5.0) g/dL Assessment and Plan (1) Small bowel perforation Narrative/Plan: Continue nasogastric tube and bowel rest. Continue IV antibiotics. Ambulate. Will follow. Current Visit: Yes Status: Acute Code(s): K63.1 - PERFORATION OF INTESTINE ( NONTRAUMATIC) SNOMED Code(s): 511318013
[2018-06-04 11:59] LABS: Glucose,Whole Blood 81 mg/dL (75-99)
--- NOTE | 2018-06-04 14:35 | P.PN ---
Subjective Progress Note Date: 06/04/18 Principal diagnosis: Large B Cell Lymphoma Status Post intestinal perforation and repair NG tube in place, complaints of hiccups this am, nausea. Pain improved from previously. Chemo will remain on hold. Objective - Vital Signs Vital signs: Vital Signs Temp 97.2 F L 06/04/18 11:24 Pulse 94 06/04/18 11:24 Resp 18 06/04/18 11:24 BP 129/80 06/04/18 11:24 Pulse Ox 95 06/04/18 11:24 Intake & Output 06/03/18 06/04/18 06/04/18 18:59 06:59 18:59 Intake Total 0 Output Total 150 420 600 Balance -150 -420 -600 Weight 99.1 kg Intake: Oral 0 Output: Gastric Drainage 150 120 Urine 300 600 Other: Voiding Method Indwelling Catheter Indwelling Catheter Indwelling Catheter - Constitutional General appearance: Present: cooperative, no acute distress - EENT EENT Comment(s): NG tube to LIS Eyes: Present: EOMI, dentition normal ENT: Present: NA/AT, normal oropharynx - Neck Details: supple, trachea midline Neck: Present: normal ROM - Respiratory Respiratory: bilateral: CTA (No increased effort) - Cardiovascular Rhythm: regular Heart sounds: normal: S1, S2 - Gastrointestinal General gastrointestinal: Present: absent bowel sounds - Integumentary Integumentary: Present: pale - Neurologic Neurologic Comment(s): no focal defects Neurologic: Present: CNII-XII intact - Musculoskeletal Musculoskeletal: Present: generalized weakness, strength equal bilaterally - Psychiatric Psychiatric: Present: A&O x's 3, appropriate affect, intact judgment & insight - Labs CBC & Chem 7: 06/04/18 05:40 06/04/18 05:40 Labs: Abnormal Lab Results - Last 24 Hours (Table) 06/04/18 06/04/18 Range/Units 05:40 05:40 RBC 4.01 L (4.30-5.90) m/uL Hgb 12.1 L (13.0-17.5) gm/dL Hct 35.5 L (39.0-53.0) % RDW 15.8 H (11.5-15.5) % Lymphocytes # 0.3 L (1.0-4.8) k/uL Sodium 134 L (137-145) mmol/L Calcium 7.7 L (8.4-10.2) mg/dL AST 13 L (17-59) U/L Alkaline Phosphatase 24 L (38-126) U/L Total Protein 4.8 L (6.3-8.2) g/dL Albumin 2.8 L (3.5-5.0) g/dL Assessment and Plan Plan: Assessment and Plan (1) Diffuse large B cell lymphoma Narrative/Plan: Diagnostic and therapeutic circumstances so far have been described in the HPI. The patient tolerated 2 cycles of RCHOP well, and did have some improvement in symptoms. However PET scan did not show the desired optimal response. Therefore his chemotherapy regimen has been changed to the high-dose infusional R - EPOCH. He is being admitted for cycle 1 of the same. The patient has no major symptoms at this time and has a normal physical exam. - Will continue to monitor daily CBC and CMP - Monitor for risk of infection. Tumor Lysis - Day Two R-EPOCH - HOLD CHEMO AND evaluate acute abdominal pain and nausea prior to proceeding - Continue to Hold Chemotherapy to allow time to recover from recent surgery, will need clearance from surgery prior to proceeding, likely 3-4 weeks Current Visit: Yes Status: Acute Code(s): C83.30 - DIFFUSE LARGE B-CELL LYMPHOMA, UNSPECIFIED SITE SNOMED Code(s): 626207319 (2)GI Discomfort Secondary to Intestinal Perforation: - Acute Abdominal Series - 06/01/18 - non specific for gastritis versus ileus. He was placed on bowel rest and PPI was added, GI Consult - 06/02/18 pain worsened and now with associated nausea - Surgery consult placed and STAT CT abdomen ordered, Chemo on hold - Small Bowel Obstruction with concern for perforation identified and patient taken to surgery on 06/02/18 - Continue dilaudid and ativan prn - Discontinue bowel stimulants and restart bowel protocol per surgery team (3)Small Bowel Obstruction with Small Perforation: - Status Post Diagnostic Laparoscopy with Small Bowel Resection - NG Tube to LIS and Bowel rest continued per surgery (4) New Onset Atrial Fibrillation with RVR - Cardiology Following Delicia Fuentes [employer] Medical Oncology
[2018-06-04 17:28] LABS: Glucose,Whole Blood 82 mg/dL (75-99)
--- NOTE | 2018-06-04 19:12 | PN ---
PROGRESS NOTE DATE OF SERVICE: 06/04/2018 REASON FOR FOLLOWUP: Secondary peritonitis from perforated small bowel. INTERVAL HISTORY: The patient is afebrile. His abdominal pain is currently controlled with pain medication. Still has the NG in. No nausea, no vomiting and did not have any bowel movement or passing any gas. EXAMINATION: Blood pressure 124/84 with a pulse of 88, temperature is 97.6. He is 96% on 3L nasal cannula. General description is a middle-aged male lying in bed in no distress. RESPIRATORY SYSTEM: Unlabored breathing. Clear to auscultation anteriorly. HEART: S1, S2. Regular rate and rhythm. ABDOMEN: Soft. Incision is currently intact with no evidence of any redness. Mildly distended. No guarding, rigidity. EXTREMITIES: No edema of feet. LABS: Hemoglobin is 12.9, white count 7.6, BUN of 12, creatinine 0.69. DIAGNOSTIC IMPRESSION AND PLAN: Patient with secondary peritonitis from perforated small-bowel, status post resection of the perforated portion of anastomosis. The patient is currently covered with Zosyn, will be continued while watching his clinical course and culture closely. Continue with supportive care. MMODL / IJN: [id number] /
--- NOTE | 2018-06-04 20:42 | PN ---
PROGRESS NOTE This patient has a history of B-cell lymphoma. Patient while in the hospital, developed acute perforated bowel and underwent surgery. Patient had a brief episode of atrial fibrillation. Currently patient is in normal sinus rhythm, without any respiratory distress. Blood pressure is 124/84 mmHg. Respiratory rate is 18, first and second heart sounds are normal. Lungs are fairly clear to auscultation and percussion. We will start the patient on metoprolol 25 mg b.i.d. MMODL / IJN: [id number] /
[2018-06-04 20:56] LABS: Glucose,Whole Blood 86 mg/dL (75-99)
[2018-06-04] MEDS: METOPROLOL TARTRATE 25 MG TAB PO SCH (21:11)
[2018-06-05] MEDS: HYDROmorphone 1 MG/ML 1 ML SYRINGE IVP PRN ×6 (02:48→17:33)
[2018-06-05] MEDS: SALT AND SODA MOUTHWASH 1,000 ML PO SCH ×5 (03:19→20:09)
[2018-06-05] MEDS: SODIUM CHLORIDE 0.9% 1,000 ML IV SCH ×2 (04:24→13:20)
[2018-06-05 05:57] LABS: Glucose,Whole Blood 84 mg/dL (75-99)
[2018-06-05] MEDS: SUCRALFATE 1 GM TAB PO SCH ×3 (06:08→13:20)
[2018-06-05 06:41] LABS: Basophils % (A) 0 %; Eosinophils # (A) 0.2 k/uL (0-0.7); Eosinophils % (A) 2 %; HCT 36.5 % (39.0-53.0); HGB 12.5 gm/dL (13.0-17.5); Lymphocytes # (A) 0.2 k/uL (1.0-4.8); Lymphocytes % (A) 3 %; MCH 30.5 pg (25.0-35.0); MCHC 34.2 g/dL (31.0-37.0); MCV 89.2 fL (80.0-100.0); Mean Platelet Volume 7.3; Monocytes # (A) 0.1 k/uL (0-1.0); Monocytes % (A) 1 %; Neutrophils # (A) 7.8 k/uL (1.3-7.7); Neutrophils % (A) 93 %; Platelet Count 167 k/uL (150-450); Poikilocytosis Slight; RBC 4.09 m/uL (4.30-5.90); RDW 15.7 % (11.5-15.5); WBC 8.4 k/uL (3.8-10.6)
[2018-06-05 06:56] LABS: ALT 26 U/L (21-72); AST 13 U/L (17-59); Albumin 2.7 g/dL (3.5-5.0); Alkaline Phosphatase 24 U/L (38-126); Anion Gap 8 mmol/L; Blood Urea Nitrogen 11 mg/dL (9-20); Calcium 7.9 mg/dL (8.4-10.2); Carbon Dioxide 25 mmol/L (22-30); Chloride 99 mmol/L (98-107); Glucose 82 mg/dL (74-99); Potassium 3.7 mmol/L (3.5-5.1); Sodium 132 mmol/L (137-145); Total Protein 4.9 g/dL (6.3-8.2)
[2018-06-05] MEDS: METOPROLOL TARTRATE 25 MG TAB PO SCH ×2 (08:22→20:09)
[2018-06-05] MEDS: POLYETHYLENE GLYCOL 3350 17 GM POWD.PACK PO SCH (08:23)
[2018-06-05] MEDS: PANTOPRAZOLE 40 MG/10 ML VIAL IVP SCH ×2 (08:25→20:09)
[2018-06-05] MEDS: ENOXAPARIN 40 MG/0.4 ML SYRINGE SQ SCH (08:25)
[2018-06-05] MEDS: PIPERACILLIN-TAZOBACTAM 3.375 GM in DEXTROSE/WATER 1 50ML.BAG IVPB SCH ×2 (08:48→17:33)
--- NOTE | 2018-06-05 09:41 | P.PN ---
Subjective Progress Note Date: 06/05/18 Principal diagnosis: Intestinal perforation Patient is doing better today. He was ambulating yesterday. agree that he is doing much better than preoperatively and yesterday. No flatus or bowel movement. Nasogastric tube ileus. White blood cell count 8.4. He is afebrile. Heart rate this morning 102. Objective - Vital Signs Vital signs: Vital Signs Temp 97.8 F 06/05/18 08:00 Pulse 102 H 06/05/18 08:00 Resp 18 06/05/18 08:00 BP 131/88 06/05/18 08:00 Pulse Ox 95 06/05/18 08:00 Intake & Output 06/04/18 06/05/18 06/05/18 18:59 06:59 18:59 Output Total 600 725 Balance -600 -725 Weight 90 kg Output: Gastric Drainage 175 Urine 600 550 Other: Voiding Method Indwelling Catheter Indwelling Catheter Indwelling Catheter - Exam Abdomen: Soft, mild distention, mild tenderness diffusely increased around the incision site, incision clean and dry - Labs CBC & Chem 7: 06/05/18 05:46 06/05/18 05:46 Labs: Abnormal Lab Results - Last 24 Hours (Table) 06/05/18 06/05/18 Range/Units 05:46 05:46 RBC 4.09 L (4.30-5.90) m/uL Hgb 12.5 L (13.0-17.5) gm/dL Hct 36.5 L (39.0-53.0) % RDW 15.7 H (11.5-15.5) % Neutrophils # 7.8 H (1.3-7.7) k/uL Lymphocytes # 0.2 L (1.0-4.8) k/uL Sodium 132 L (137-145) mmol/L Creatinine 0.60 L (0.66-1.25) mg/dL Calcium 7.9 L (8.4-10.2) mg/dL AST 13 L (17-59) U/L Alkaline Phosphatase 24 L (38-126) U/L Total Protein 4.9 L (6.3-8.2) g/dL Albumin 2.7 L (3.5-5.0) g/dL Assessment and Plan (1) Small bowel perforation Narrative/Plan: Keep nothing by mouth with nasogastric tube to suction. Continue IV antibiotics. Increase activity. Possibly remove Gibbs catheter today. Current Visit: Yes Status: Acute Code(s): K63.1 - PERFORATION OF INTESTINE ( NONTRAUMATIC) SNOMED Code(s): 187400871
[2018-06-05 11:46] LABS: Glucose,Whole Blood 84 mg/dL (75-99)
--- NOTE | 2018-06-05 12:14 | P.PN ---
Subjective Progress Note Date: 06/05/18 Principal diagnosis: Large B Cell Lymphoma Status Post intestinal perforation and repair NG tube in place,up in chair, complaints of increasing abdominal swelling and lower extremity swelling Objective - Vital Signs Vital signs: Vital Signs Temp 97.8 F 06/05/18 08:00 Pulse 102 H 06/05/18 08:00 Resp 18 06/05/18 08:00 BP 131/88 06/05/18 08:00 Pulse Ox 95 06/05/18 08:00 Intake & Output 06/04/18 06/05/18 06/05/18 18:59 06:59 18:59 Output Total 600 725 Balance -600 -725 Weight 90 kg Output: Gastric Drainage 175 Urine 600 550 Other: Voiding Method Indwelling Catheter Indwelling Catheter Indwelling Catheter - Exam NG tube LIS - Constitutional General appearance: Present: cooperative, no acute distress - EENT Eyes: Present: EOMI, dentition normal ENT: Present: NA/AT, normal oropharynx - Neck Details: Supple trachea midlline Neck: Present: normal ROM - Respiratory Respiratory: bilateral: CTA (no increase in respiratory status ) - Cardiovascular Heart rate: 102 Rhythm: regular Heart sounds: normal: S1, S2 - Peripheral edema foot Peripheral Edema: bilateral: 1+ leg Peripheral Edema: bilateral: 1+ - Gastrointestinal General gastrointestinal: Present: distended, soft, tenderness - Neurologic Neurologic Comment(s): no focal defects Neurologic: Present: CNII-XII intact - Musculoskeletal Musculoskeletal: Present: gait normal, generalized weakness, strength equal bilaterally - Psychiatric Psychiatric: Present: A&O x's 3, appropriate affect, intact judgment & insight - Labs CBC & Chem 7: 06/05/18 05:46 06/05/18 05:46 Labs: Abnormal Lab Results - Last 24 Hours (Table) 06/05/18 06/05/18 Range/Units 05:46 05:46 RBC 4.09 L (4.30-5.90) m/uL Hgb 12.5 L (13.0-17.5) gm/dL Hct 36.5 L (39.0-53.0) % RDW 15.7 H (11.5-15.5) % Neutrophils # 7.8 H (1.3-7.7) k/uL Lymphocytes # 0.2 L (1.0-4.8) k/uL Sodium 132 L (137-145) mmol/L Creatinine 0.60 L (0.66-1.25) mg/dL Calcium 7.9 L (8.4-10.2) mg/dL AST 13 L (17-59) U/L Alkaline Phosphatase 24 L (38-126) U/L Total Protein 4.9 L (6.3-8.2) g/dL Albumin 2.7 L (3.5-5.0) g/dL Assessment and Plan Plan: Assessment and Plan (1) Diffuse large B cell lymphoma Narrative/Plan: Diagnostic and therapeutic circumstances so far have been described in the HPI. The patient tolerated 2 cycles of RCHOP well, and did have some improvement in symptoms. However PET scan did not show the desired optimal response. Therefore his chemotherapy regimen has been changed to the high-dose infusional R - EPOCH. He is being admitted for cycle 1 of the same. The patient has no major symptoms at this time and has a normal physical exam. - Will continue to monitor daily CBC and CMP - Monitor for risk of infection. Tumor Lysis - Received 2 and half days of R-EPOCH - HOLD CHEMO AND evaluate acute abdominal pain and nausea prior to proceeding - Continue to Hold Chemotherapy to allow time to recover from recent surgery, will need clearance from surgery prior to proceeding, likely 3-4 weeks - Add granix per Dr garrett Current Visit: Yes Status: Acute Code(s): C83.30 - DIFFUSE LARGE B-CELL LYMPHOMA, UNSPECIFIED SITE SNOMED Code(s): 787602976 (2)GI Discomfort Secondary to Intestinal Perforation: - Acute Abdominal Series - 06/01/18 - non specific for gastritis versus ileus. He was placed on bowel rest and PPI was added, GI Consult - 06/02/18 pain worsened and now with associated nausea - Surgery consult placed and STAT CT abdomen ordered, Chemo on hold - Small Bowel Obstruction with concern for perforation identified and patient taken to surgery on 06/02/18 - Continue dilaudid and ativan prn - Discontinue bowel stimulants and restart bowel protocol per surgery team (3)Small Bowel Obstruction with Small Perforation: - Status Post Diagnostic Laparoscopy with Small Bowel Resection - NG Tube to LIS and Bowel rest continued per surgery (4) New Onset Atrial Fibrillation with RVR - Cardiology Following Delicia Fuentes [employer] Medical Oncology
[2018-06-05 16:41] LABS: Glucose,Whole Blood 92 mg/dL (75-99)
[2018-06-05] MEDS: ONDANSETRON 4 MG/2 ML VIAL IVP PRN (20:08)
[2018-06-05] MEDS: ACETAMINOPHEN TAB 325 MG TAB PO PRN (20:09)
[2018-06-05 21:03] LABS: Glucose,Whole Blood 111 mg/dL (75-99)
--- NOTE | 2018-06-05 23:16 | PN ---
PROGRESS NOTE DATE OF SERVICE: 06/05/2018. REASON FOR FOLLOWUP: Secondary peritonitis from perforated small bowel. INTERVAL HISTORY: The patient is afebrile. He is currently feeling better. Breathing comfortably. Pain is currently controlled with pain medication. Still has the NG and has not passed any gas. EXAMINATION: Blood pressure 137/81 with a pulse of 107, temperature 97.2, he is 94% on room air. General description is a middle-aged male lying in bed in no distress. RESPIRATORY SYSTEM: Unlabored breathing. Clear to auscultation anteriorly. HEART: S1, S2. Regular rate and rhythm. ABDOMEN: Soft, mildly distended. No guarding or rigidity. EXTREMITIES: No edema of the feet. LABS: Hemoglobin is 12.5, white count 8.4, BUN of 11, creatinine 0.60. DIAGNOSTIC IMPRESSION AND PLAN: Patient with secondary peritonitis in a patient who did have a small bowel perforation status post operative repair, currently afebrile. White count is normal. We will keep the patient on Zosyn. Waiting for resumption of his oral activity, to transition to oral antibiotics. Continue supportive care. MMODL / IJN: [id number] /
[2018-06-06] MEDS: SALT AND SODA MOUTHWASH 1,000 ML PO SCH ×6 (00:57→21:45)
[2018-06-06] MEDS: PIPERACILLIN-TAZOBACTAM 3.375 GM in DEXTROSE/WATER 1 50ML.BAG IVPB SCH ×3 (00:57→17:12)
[2018-06-06] MEDS: SODIUM CHLORIDE 0.9% 1,000 ML IV SCH ×3 (00:58→20:36)
[2018-06-06 06:18] LABS: Glucose,Whole Blood 103 mg/dL (75-99)
[2018-06-06 06:35] LABS: Basophils % (A) 0 %; Eosinophils # (A) 0.3 k/uL (0-0.7); Eosinophils % (A) 4 %; HCT 35.8 % (39.0-53.0); HGB 12.3 gm/dL (13.0-17.5); Lymphocytes # (A) 0.2 k/uL (1.0-4.8); Lymphocytes % (A) 3 %; MCH 29.9 pg (25.0-35.0); MCHC 34.3 g/dL (31.0-37.0); Mean Platelet Volume 7.5; Monocytes # (A) 0.1 k/uL (0-1.0); Monocytes % (A) 2 %; Neutrophils # (A) 7.3 k/uL (1.3-7.7); Neutrophils % (A) 92 %; Platelet Count 196 k/uL (150-450); RBC 4.11 m/uL (4.30-5.90); RDW 14.9 % (11.5-15.5); WBC 7.9 k/uL (3.8-10.6)
[2018-06-06 06:38] LABS: Anion Gap 6 mmol/L; Blood Urea Nitrogen 11 mg/dL (9-20); Carbon Dioxide 29 mmol/L (22-30); Chloride 99 mmol/L (98-107); Glucose 100 mg/dL (74-99); Potassium 3.5 mmol/L (3.5-5.1); Sodium 134 mmol/L (137-145)
[2018-06-06] MEDS: SUCRALFATE 1 GM TAB PO SCH ×3 (08:00→16:56)
[2018-06-06] MEDS: POLYETHYLENE GLYCOL 3350 17 GM POWD.PACK PO SCH (08:01)
[2018-06-06] MEDS: METOPROLOL TARTRATE 25 MG TAB PO SCH ×2 (08:30→20:35)
[2018-06-06] MEDS: PANTOPRAZOLE 40 MG/10 ML VIAL IVP SCH ×2 (08:30→20:36)
[2018-06-06] MEDS: ENOXAPARIN 40 MG/0.4 ML SYRINGE SQ SCH (08:31)
[2018-06-06] MEDS: FILGRASTIM-SNDZ 480 MCG/0.8 ML SYRINGE SQ SCH (08:31)
[2018-06-06 11:10] LABS: Glucose,Whole Blood 101 mg/dL (75-99)
--- NOTE | 2018-06-06 11:56 | P.PN ---
Subjective Progress Note Date: 06/06/18 Principal diagnosis: Large B Cell Lymphoma Status Post intestinal perforation and repair NG tube in place,up in chair, Still not passing gas or BM, NG tube is currently clamped and he denies nausea Objective - Vital Signs Vital signs: Vital Signs Temp 98 F 06/06/18 04:00 Pulse 103 H 06/06/18 04:00 Resp 18 06/06/18 04:00 BP 125/58 06/06/18 04:00 Pulse Ox 100 06/06/18 04:00 Intake & Output 06/05/18 06/06/18 06/06/18 18:59 06:59 18:59 Intake Total 530 Output Total 1000 200 Balance -1000 330 Weight 92.7 kg 92.7 kg Intake: Oral 530 Output: Urine 1000 200 Other: Voiding Method Indwelling Catheter Urinal # Voids 2 - Exam NG tube Clamped - Constitutional General appearance: Present: cooperative, no acute distress - EENT Eyes: Present: EOMI, dentition normal ENT: Present: NA/AT, normal oropharynx - Neck Details: Supple, Trachea midline Neck: Present: normal ROM - Respiratory Respiratory: bilateral: CTA (No increased Respiratory Effort) - Cardiovascular Heart rate: 108 Rhythm: regular - Peripheral edema leg Peripheral Edema: bilateral: Trace - Gastrointestinal General gastrointestinal: Present: distended, normal bowel sounds, soft - Integumentary Integumentary: Present: pale - Neurologic Neurologic Comment(s): No focal Defects Neurologic: Present: CNII-XII intact - Musculoskeletal Musculoskeletal: Present: gait normal, generalized weakness, strength equal bilaterally - Psychiatric Psychiatric: Present: A&O x's 3, appropriate affect, intact judgment & insight - Labs CBC & Chem 7: 06/06/18 06:08 06/06/18 06:08 Labs: Abnormal Lab Results - Last 24 Hours (Table) 06/05/18 06/06/18 06/06/18 Range/Units 21:01 06:08 06:08 RBC 4.11 L (4.30-5.90) m/uL Hgb 12.3 L (13.0-17.5) gm/dL Hct 35.8 L (39.0-53.0) % Lymphocytes # 0.2 L (1.0-4.8) k/uL Sodium 134 L (137-145) mmol/L Creatinine 0.60 L (0.66-1.25) mg/dL Glucose 100 H (74-99) mg/dL POC Glucose (mg/dL) 111 H (75-99) mg/dL Calcium 8.0 L (8.4-10.2) mg/dL 06/06/18 06/06/18 Range/Units 06:17 11:08 RBC (4.30-5.90) m/uL Hgb (13.0-17.5) gm/dL Hct (39.0-53.0) % Lymphocytes # (1.0-4.8) k/uL Sodium (137-145) mmol/L Creatinine (0.66-1.25) mg/dL Glucose (74-99) mg/dL POC Glucose (mg/dL) 103 H 101 H (75-99) mg/dL Calcium (8.4-10.2) mg/dL Assessment and Plan Plan: Assessment and Plan (1) Diffuse large B cell lymphoma Narrative/Plan: Diagnostic and therapeutic circumstances so far have been described in the HPI. The patient tolerated 2 cycles of RCHOP well, and did have some improvement in symptoms. However PET scan did not show the desired optimal response. Therefore his chemotherapy regimen has been changed to the high-dose infusional R - EPOCH. He is being admitted for cycle 1 of the same. The patient has no major symptoms at this time and has a normal physical exam. - Will continue to monitor daily CBC and CMP - Monitor for risk of infection. Tumor Lysis - Received 2 and half days of R-EPOCH - HOLD CHEMO AND evaluate acute abdominal pain and nausea prior to proceeding - Continue to Hold Chemotherapy to allow time to recover from recent surgery, will need clearance from surgery prior to proceeding, likely 3-4 weeks - Add granix daily per Dr garrett Current Visit: Yes Status: Acute Code(s): C83.30 - DIFFUSE LARGE B-CELL LYMPHOMA, UNSPECIFIED SITE SNOMED Code(s): 507591378 (2)GI Discomfort Secondary to Intestinal Perforation: - Acute Abdominal Series - 06/01/18 - non specific for gastritis versus ileus. He was placed on bowel rest and PPI was added, GI Consult - 06/02/18 pain worsened and now with associated nausea - Surgery consult placed and STAT CT abdomen ordered, Chemo on hold - Small Bowel Obstruction with concern for perforation identified and patient taken to surgery on 06/02/18 - Continue dilaudid and ativan prn - Discontinue bowel stimulants and restart bowel protocol per surgery team - NG tube, Surgery management (3)Small Bowel Obstruction with Small Perforation: - Status Post Diagnostic Laparoscopy with Small Bowel Resection - NG Tube to LIS and Bowel rest continued per surgery (4) New Onset Atrial Fibrillation with RVR - Cardiology Following Delicia Fuentes [employer] Medical Oncology
[2018-06-06] MEDS: ONDANSETRON 4 MG/2 ML VIAL IVP PRN (12:40)
--- NOTE | 2018-06-06 14:38 | P.PN ---
Subjective Progress Note Date: 06/06/18 Principal diagnosis: Intestinal perforation Patient doing better today. He states he is now feeling some of the side effects from the recent chemotherapy treatment. He says he feels flulike symptoms with mild nausea and generalized malaise. He does have soreness in his throat from the nasogastric tube. He says his abdominal pain is improving daily. He is not taking any pain medicine since yesterday afternoon at 4 PM. He is afebrile. Mild tachycardia. White blood cell count 7.9. Objective - Vital Signs Vital signs: Vital Signs Temp 97.0 F L 06/06/18 12:00 Pulse 98 06/06/18 12:00 Resp 16 06/06/18 12:00 BP 125/79 06/06/18 12:00 Pulse Ox 93 L 06/06/18 12:00 Intake & Output 06/05/18 06/06/18 06/06/18 18:59 06:59 18:59 Intake Total 530 Output Total 1000 200 Balance -1000 330 Weight 92.7 kg 92.7 kg Intake: Oral 530 Output: Urine 1000 200 Other: Voiding Method Indwelling Catheter Urinal Urinal # Voids 2 1 - Exam Abdomen: Soft, mild distention, mild incisional tenderness, incisions clean and dry, bowel sounds sluggish - Labs CBC & Chem 7: 06/06/18 06:08 06/06/18 06:08 Labs: Abnormal Lab Results - Last 24 Hours (Table) 06/05/18 06/06/18 06/06/18 Range/Units 21:01 06:08 06:08 RBC 4.11 L (4.30-5.90) m/uL Hgb 12.3 L (13.0-17.5) gm/dL Hct 35.8 L (39.0-53.0) % Lymphocytes # 0.2 L (1.0-4.8) k/uL Sodium 134 L (137-145) mmol/L Creatinine 0.60 L (0.66-1.25) mg/dL Glucose 100 H (74-99) mg/dL POC Glucose (mg/dL) 111 H (75-99) mg/dL Calcium 8.0 L (8.4-10.2) mg/dL 06/06/18 06/06/18 Range/Units 06:17 11:08 RBC (4.30-5.90) m/uL Hgb (13.0-17.5) gm/dL Hct (39.0-53.0) % Lymphocytes # (1.0-4.8) k/uL Sodium (137-145) mmol/L Creatinine (0.66-1.25) mg/dL Glucose (74-99) mg/dL POC Glucose (mg/dL) 103 H 101 H (75-99) mg/dL Calcium (8.4-10.2) mg/dL Assessment and Plan (1) Small bowel perforation Narrative/Plan: Continue antibiotics. Keep nasogastric tube. Hopefully can remove nasogastric tube tomorrow. Increase activity. Current Visit: Yes Status: Acute Code(s): K63.1 - PERFORATION OF INTESTINE ( NONTRAUMATIC) SNOMED Code(s): 596125371
[2018-06-06 16:59] LABS: Glucose,Whole Blood 84 mg/dL (75-99)
[2018-06-06 21:06] LABS: Glucose,Whole Blood 81 mg/dL (75-99)
--- NOTE | 2018-06-06 23:32 | PN ---
PROGRESS NOTE DATE OF SERVICE: 06/06/2018 REASON FOR FOLLOWUP: Secondary peritonitis from perforated small bowel. INTERVAL HISTORY: The patient is currently afebrile. He has been breathing comfortably. Denies significant chest pain or cough. Abdominal pain is currently controlled. He has not been passing any gas. NG is still in. Hemodynamically stable. PHYSICAL EXAMINATION: Blood pressure is 108/58 with a pulse of 108, temperature 96.9. He is 93% on room air. General description is a middle-aged male lying in bed in no distress. RESPIRATORY SYSTEM: Unlabored breathing. Clear to auscultation anteriorly. HEART: S1, S2. Regular rate and rhythm. ABDOMEN: Soft. Bowel sounds positive. EXTREMITIES: No edema of the feet. LABS: Hemoglobin is 12.3, white count of 7.9, BUN of 11, creatinine 0.60. DIAGNOSTIC IMPRESSION AND PLAN: Patient with secondary peritonitis from perforated small bowel, status post resection and anastomosis. Patient seems to be currently clinically improving. Afebrile. White count normal. He is currently on Zosyn. Waiting for resumption of his oral to transition to oral antibiotics. Continue with supportive care. MMODL / IJN: [id number] /
[2018-06-07] MEDS: PIPERACILLIN-TAZOBACTAM 3.375 GM in DEXTROSE/WATER 1 50ML.BAG IVPB SCH ×4 (00:15→23:48)
[2018-06-07] MEDS: SALT AND SODA MOUTHWASH 1,000 ML PO SCH ×8 (00:25→23:48)
[2018-06-07] MEDS: ONDANSETRON 4 MG/2 ML VIAL IVP PRN ×2 (01:05→17:27)
[2018-06-07 02:16] LABS: Glucose,Whole Blood 82 mg/dL (75-99)
[2018-06-07] MEDS: SODIUM CHLORIDE 0.9% 1,000 ML IV SCH ×2 (06:08→09:11)
[2018-06-07 06:12] LABS: Glucose,Whole Blood 85 mg/dL (75-99)
[2018-06-07 06:45] LABS: Anion Gap 13 mmol/L; Blood Urea Nitrogen 10 mg/dL (9-20); Calcium 8.1 mg/dL (8.4-10.2); Carbon Dioxide 24 mmol/L (22-30); Chloride 100 mmol/L (98-107); Glucose 75 mg/dL (74-99); Potassium 3.6 mmol/L (3.5-5.1); Sodium 137 mmol/L (137-145)
[2018-06-07 07:22] LABS: Basophils % (A) 0 %; Eosinophils # (A) 0.2 k/uL (0-0.7); Eosinophils % (A) 1 %; HCT 36.5 % (39.0-53.0); HGB 12.2 gm/dL (13.0-17.5); Lymphocytes # (A) 0.3 k/uL (1.0-4.8); Lymphocytes % (A) 2 %; MCH 29.8 pg (25.0-35.0); MCHC 33.3 g/dL (31.0-37.0); MCV 89.4 fL (80.0-100.0); Mean Platelet Volume 7.4; Monocytes # (A) 0.2 k/uL (0-1.0); Monocytes % (A) 1 %; Neutrophils % (A) 96 %; Platelet Count 185 k/uL (150-450); RBC 4.08 m/uL (4.30-5.90); RDW 15.4 % (11.5-15.5); WBC 19.8 k/uL (3.8-10.6)
[2018-06-07] MEDS: SUCRALFATE 1 GM TAB PO SCH ×3 (09:07→15:52)
[2018-06-07] MEDS: ENOXAPARIN 40 MG/0.4 ML SYRINGE SQ SCH (09:08)
[2018-06-07] MEDS: METOPROLOL TARTRATE 25 MG TAB PO SCH ×2 (09:10→20:43)
[2018-06-07] MEDS: PANTOPRAZOLE 40 MG/10 ML VIAL IVP SCH ×2 (09:10→20:40)
[2018-06-07] MEDS: POLYETHYLENE GLYCOL 3350 17 GM POWD.PACK PO SCH (09:10)
[2018-06-07 12:01] LABS: Glucose,Whole Blood 88 mg/dL (75-99)
[2018-06-07] MEDS: FILGRASTIM-SNDZ 480 MCG/0.8 ML SYRINGE SQ SCH (12:05)
--- NOTE | 2018-06-07 12:07 | P.PN ---
Subjective Progress Note Date: 06/07/18 Principal diagnosis: Large B Cell Lymphoma Status Post intestinal perforation and repair NG tube has been removed, he has not had BM but is tolerating jello without nausea and passing flatulence. He states he can feel it is close. at bedside, they would like to review PET scan in more detail and expectations moving forward. Objective - Vital Signs Vital signs: Vital Signs Temp 96.6 F L 06/07/18 08:00 Pulse 107 H 06/07/18 08:00 Resp 18 06/07/18 08:00 BP 114/84 06/07/18 08:00 Pulse Ox 92 L 06/07/18 08:00 Intake & Output 06/06/18 06/07/18 06/07/18 18:59 06:59 18:59 Intake Total 640 250 Output Total 950 Balance -310 250 Weight 92.7 kg Intake: IV 640 250 Sodium Chloride 0.9% 1, 640 250 000 ml @ 100 mls/hr IV . Q10H [facility]O Rx#:[id number] Output: Gastric Drainage 950 Other: Voiding Method Urinal Toilet # Voids 1 - Exam NG tube has been removed - Constitutional General appearance: Present: cooperative, no acute distress - EENT Eyes: Present: EOMI, PERRLA, dentition normal ENT: Present: NA/AT, thrush - Neck Details: Supple, Trachea midline Neck: Present: normal ROM - Respiratory Respiratory: bilateral: CTA (No increase in respiratory effort) - Cardiovascular Heart rate: 108 Rhythm: irregularly irregular - Peripheral edema foot Peripheral Edema: bilateral: Trace (dorsal foot trace edema) - Gastrointestinal General gastrointestinal: Present: decreased bowel sounds, soft, tenderness - Integumentary Integumentary: Present: normal - Neurologic Neurologic Comment(s): No focal Defects Neurologic: Present: CNII-XII intact - Musculoskeletal Musculoskeletal: Present: generalized weakness, strength equal bilaterally - Psychiatric Psychiatric: Present: A&O x's 3, appropriate affect, intact judgment & insight - Labs CBC & Chem 7: 06/07/18 05:39 06/07/18 05:39 Labs: Abnormal Lab Results - Last 24 Hours (Table) 06/07/18 06/07/18 Range/Units 05:39 05:39 WBC 19.8 H (3.8-10.6) k/uL RBC 4.08 L (4.30-5.90) m/uL Hgb 12.2 L (13.0-17.5) gm/dL Hct 36.5 L (39.0-53.0) % Neutrophils # 19.0 H (1.3-7.7) k/uL Lymphocytes # 0.3 L (1.0-4.8) k/uL Calcium 8.1 L (8.4-10.2) mg/dL Assessment and Plan Plan: Assessment and Plan (1) Diffuse large B cell lymphoma Narrative/Plan: Diagnostic and therapeutic circumstances so far have been described in the HPI. The patient tolerated 2 cycles of RCHOP well, and did have some improvement in symptoms. However PET scan did not show the desired optimal response. Therefore his chemotherapy regimen has been changed to the high-dose infusional R - EPOCH. He is being admitted for cycle 1 of the same. The patient has no major symptoms at this time and has a normal physical exam. - Will continue to monitor daily CBC and CMP - Monitor for risk of infection. Tumor Lysis - Received 2 and half days of R-EPOCH - HOLD CHEMO AND evaluate acute abdominal pain and nausea prior to proceeding - Continue to Hold Chemotherapy to allow time to recover from recent surgery, will need clearance from surgery prior to proceeding, likely 3-4 weeks - WBC increased 19, will hold [place] stimulating factor Current Visit: Yes Status: Acute Code(s): C83.30 - DIFFUSE LARGE B-CELL LYMPHOMA, UNSPECIFIED SITE SNOMED Code(s): 984065890 (2)GI Discomfort Secondary to Intestinal Perforation: - Acute Abdominal Series - 06/01/18 - non specific for gastritis versus ileus. He was placed on bowel rest and PPI was added, GI Consult - 06/02/18 pain worsened and now with associated nausea - Surgery consult placed and STAT CT abdomen ordered, Chemo on hold - Small Bowel Obstruction with concern for perforation identified and patient taken to surgery on 06/02/18 - Continue dilaudid and ativan prn - Discontinue bowel stimulants and restart bowel protocol per surgery team - NG tube removed and patient overall improving and recovery well after surgery (3)Small Bowel Obstruction with Small Perforation: - Status Post Diagnostic Laparoscopy with Small Bowel Resection - NG Tube removed, surgery following. (4) New Onset Atrial Fibrillation with RVR - Cardiology Following (5) Oral Candiasis - Add Nystatin Delicia Fuentes NP Medical Oncology
[2018-06-07] MEDS: NYSTATIN 100,000 UNIT/ML SUSP 500,000 UNIT/5 ML CUP PO SCH ×3 (15:53→20:30)
[2018-06-07 17:04] LABS: Glucose,Whole Blood 114 mg/dL (75-99)
--- NOTE | 2018-06-07 17:35 | P.PN ---
Subjective Progress Note Date: 06/07/18 Principal diagnosis: Intestinal perforation In doing better today. Passing flatus. Says his pain is improved. He is ambulating. He was having some throat pain still so nystatin was ordered. White blood cell count is elevated today and patient still has mild tachycardia. Patient was receiving CSF stimulation. Objective - Vital Signs Vital signs: Vital Signs Temp 96.6 F L 06/07/18 08:00 Pulse 104 H 06/07/18 16:00 Resp 18 06/07/18 16:00 BP 116/83 06/07/18 16:00 Pulse Ox 93 L 06/07/18 16:00 Intake & Output 06/06/18 06/07/18 06/07/18 18:59 06:59 18:59 Intake Total 640 370 Output Total 950 Balance -310 370 Weight 92.7 kg Intake: IV 640 250 Sodium Chloride 0.9% 1, 640 250 000 ml @ 100 mls/hr IV . Q10H [facility]O Rx#:[id number] Oral 120 Output: Gastric Drainage 950 Other: Voiding Method Urinal Toilet # Voids 1 1 - Exam Abdomen: Soft, mild distention, mild diffuse tenderness, incisions clean and dry - Labs CBC & Chem 7: 06/07/18 05:39 06/07/18 05:39 Labs: Abnormal Lab Results - Last 24 Hours (Table) 06/07/18 06/07/18 06/07/18 Range/Units 05:39 05:39 16:19 WBC 19.8 H (3.8-10.6) k/uL RBC 4.08 L (4.30-5.90) m/uL Hgb 12.2 L (13.0-17.5) gm/dL Hct 36.5 L (39.0-53.0) % Neutrophils # 19.0 H (1.3-7.7) k/uL Lymphocytes # 0.3 L (1.0-4.8) k/uL POC Glucose (mg/dL) 114 H (75-99) mg/dL Calcium 8.1 L (8.4-10.2) mg/dL Assessment and Plan (1) Small bowel perforation Narrative/Plan: Continue clear liquids. Ambulate. Patient requesting the shower which is reasonable at this point. We'll reevaluate tomorrow regarding advancing diet. Current Visit: Yes Status: Acute Code(s): K63.1 - PERFORATION OF INTESTINE ( NONTRAUMATIC) SNOMED Code(s): 000600206
[2018-06-07 20:47] LABS: Glucose,Whole Blood 140 mg/dL (75-99)
[2018-06-08] MEDS: ONDANSETRON 4 MG/2 ML VIAL IVP PRN ×2 (03:02→11:01)
[2018-06-08] MEDS: SODIUM CHLORIDE 0.9% 1,000 ML IV SCH ×3 (03:02→23:39)
[2018-06-08] MEDS: SALT AND SODA MOUTHWASH 1,000 ML PO SCH ×6 (05:44→23:41)
[2018-06-08 05:51] LABS: Glucose,Whole Blood 99 mg/dL (75-99)
--- NOTE | 2018-06-08 06:10 | PN ---
PROGRESS NOTE DATE OF SERVICE: 06/07/2018 REASON FOR FOLLOWUP: Secondary peritonitis from a perforated small bowel. INTERVAL HISTORY: The patient is afebrile. He has been passing gas. His NG has been discontinued. Denies significant chest pain or shortness of breath or cough. Some discomfort after he had breakfast this morning. PHYSICAL EXAMINATION: On examination, blood pressure 133/85 with a pulse of 106, temperature 97. He is 93% on room air. General description is a middle-aged male lying in bed in no distress. RESPIRATORY SYSTEM: Unlabored breathing, clear to auscultation anteriorly. HEART: S1, S2. Regular rate and rhythm. ABDOMEN: Soft. Mild distention. No guarding or rigidity. LABS: Hemoglobin is 12.2 with white count 19.8. BUN of 10, creatinine 0.71. DIAGNOSTIC IMPRESSION AND PLAN: Patient with secondary peritonitis from a perforated small bowel, status post operative repair for the same. Patient at this time covered with Zosyn, with jump in white count. Will monitor very closely. If further jump in the white count or any fever to re-culture and adjust antibiotic further. Continue supportive care. MMODL / IJN: [id number] /
[2018-06-08 06:42] LABS: Basophils % (A) 0 %; Eosinophils # (A) 0.1 k/uL (0-0.7); Eosinophils % (A) 1 %; HCT 37.5 % (39.0-53.0); HGB 12.8 gm/dL (13.0-17.5); Lymphocytes # (A) 0.4 k/uL (1.0-4.8); Lymphocytes % (A) 2 %; MCH 30.1 pg (25.0-35.0); MCHC 34.2 g/dL (31.0-37.0); MCV 87.7 fL (80.0-100.0); Mean Platelet Volume 7.4; Monocytes # (A) 0.4 k/uL (0-1.0); Monocytes % (A) 2 %; Neutrophils # (A) 19.8 k/uL (1.3-7.7); Neutrophils % (A) 95 %; Platelet Count 215 k/uL (150-450); RBC 4.27 m/uL (4.30-5.90); RDW 15.1 % (11.5-15.5); WBC 20.8 k/uL (3.8-10.6)
[2018-06-08 07:04] LABS: Anion Gap 9 mmol/L; Blood Urea Nitrogen 8 mg/dL (9-20); Calcium 8.2 mg/dL (8.4-10.2); Carbon Dioxide 26 mmol/L (22-30); Chloride 102 mmol/L (98-107); Glucose 89 mg/dL (74-99); Potassium 3.3 mmol/L (3.5-5.1); Sodium 137 mmol/L (137-145)
[2018-06-08] MEDS: NYSTATIN 100,000 UNIT/ML SUSP 500,000 UNIT/5 ML CUP PO SCH ×4 (07:59→20:37)
[2018-06-08] MEDS: SUCRALFATE 1 GM TAB PO SCH ×3 (07:59→18:28)
[2018-06-08] MEDS: ENOXAPARIN 40 MG/0.4 ML SYRINGE SQ SCH (07:59)
[2018-06-08] MEDS: METOPROLOL TARTRATE 25 MG TAB PO SCH ×2 (07:59→20:41)
[2018-06-08] MEDS: PANTOPRAZOLE 40 MG/10 ML VIAL IVP SCH ×2 (07:59→20:35)
[2018-06-08] MEDS: PIPERACILLIN-TAZOBACTAM 3.375 GM in DEXTROSE/WATER 1 50ML.BAG IVPB SCH ×3 (07:59→23:38)
[2018-06-08] MEDS: POLYETHYLENE GLYCOL 3350 17 GM POWD.PACK PO SCH (08:00)
--- NOTE | 2018-06-08 09:40 | P.PN ---
Subjective Progress Note Date: 06/08/18 Principal diagnosis: Intestinal perforation Patient had an episode of vomiting last night. Complaining of some nausea today. Still with mild abdominal discomfort. Somewhat tachypneic this morning and tachycardia persists. White blood cell count at 20 now. He did have a bowel movement this morning and is continuing to pass flatus. Objective - Vital Signs Vital signs: Vital Signs Temp 97.3 F L 06/08/18 03:16 Pulse 102 H 06/08/18 03:16 Resp 26 H 06/08/18 03:17 BP 131/86 06/08/18 03:16 Pulse Ox 93 L 06/08/18 03:16 Intake & Output 06/07/18 06/08/18 06/08/18 18:59 06:59 18:59 Intake Total 490 710 0 Balance 490 710 0 Weight 92.5 kg Intake: IV 250 660 Sodium Chloride 0.9% 1, 250 660 000 ml @ 100 mls/hr IV . Q10H [facility]O Rx#:[id number] Intake, IV Titration 50 Amount Piperacillin-Tazobactam 3 50 .375 gm In Dextrose/Water 1 50ml.bag @ 12.5 mls/hr IVPB Q8HR [facility]ANO Rx#: [id number] Oral 240 0 Other: Voiding Method Toilet # Voids 1 - Exam Abdomen: Soft, mild distention, mild diffuse tenderness, incision clean and dry - Labs CBC & Chem 7: 06/08/18 05:55 06/08/18 05:55 Labs: Abnormal Lab Results - Last 24 Hours (Table) 06/07/18 06/07/18 06/08/18 Range/Units 16:19 20:45 05:55 WBC 20.8 H (3.8-10.6) k/uL RBC 4.27 L (4.30-5.90) m/uL Hgb 12.8 L (13.0-17.5) gm/dL Hct 37.5 L (39.0-53.0) % Neutrophils # 19.8 H (1.3-7.7) k/uL Lymphocytes # 0.4 L (1.0-4.8) k/uL Potassium (3.5-5.1) mmol/L BUN (9-20) mg/dL Creatinine (0.66-1.25) mg/dL POC Glucose (mg/dL) 114 H 140 H (75-99) mg/dL Calcium (8.4-10.2) mg/dL 06/08/18 Range/Units 05:55 WBC (3.8-10.6) k/uL RBC (4.30-5.90) m/uL Hgb (13.0-17.5) gm/dL Hct (39.0-53.0) % Neutrophils # (1.3-7.7) k/uL Lymphocytes # (1.0-4.8) k/uL Potassium 3.3 L (3.5-5.1) mmol/L BUN 8 L (9-20) mg/dL Creatinine 0.63 L (0.66-1.25) mg/dL POC Glucose (mg/dL) (75-99) mg/dL Calcium 8.2 L (8.4-10.2) mg/dL Assessment and Plan (1) Small bowel perforation Narrative/Plan: Patient's tachycardia tachypnea and leukocytosis may be on the basis of recent chemotherapy and bone marrow stimulation medications. Underlying anastomotic leak cannot be completely excluded however and the patient is high risk for that type of process. Case was discussed with oncology. We'll proceed with CT abdomen and pelvis today. We'll follow closely. Current Visit: Yes Status: Acute Code(s): K63.1 - PERFORATION OF INTESTINE ( NONTRAUMATIC) SNOMED Code(s): 452997955
[2018-06-08] MEDS ORDERED: IOPAMIDOL-300 CONTRAST 30 ML VIAL (ORAL USE) PO ONE (10:00)
[2018-06-08] MEDS: METOCLOPRAMIDE 5 MG/ML 2 ML VIAL IVP SCH ×3 (11:09→23:38)
[2018-06-08 11:37] LABS: Glucose,Whole Blood 118 mg/dL (75-99)
--- NOTE | 2018-06-08 13:16 | PN ---
PROGRESS NOTE DATE OF SERVICE: 06/08/2018. REASON FOR FOLLOWUP: Secondary peritonitis from a small-bowel leak. INTERVAL HISTORY: The patient is afebrile. He has been breathing comfortably. Denies significant chest pain or shortness of breath or cough. The patient did have some abdominal discomfort, mostly in the lower abdominal area. Moreover, dull aching pain, more 5/10. Did have an episode of vomiting last night. Did have a bowel movement this morning with no blood or mucus in it and no urinary symptoms. PHYSICAL EXAMINATION: Blood pressure is 115/92 with a pulse of 90, temperature 96.9. He is 95% on room air. General description is a middle-aged male, up in the chair in no distress. RESPIRATORY SYSTEM: Unlabored breathing, clear to auscultation anteriorly. HEART: S1, S2. Regular rate and rhythm. ABDOMEN: Soft, slightly distended. Minimal lower abdominal area. No guarding or rigidity. EXTREMITIES: No edema of the feet. LABS: BUN of 8, creatinine 0.63 with a white count of 20,000. DIAGNOSTIC IMPRESSION AND PLAN: Patient with secondary peritonitis from a small bowel leak, status post resection and anastomosis, now with abdominal pain and worsening of his white count. Blood cultures will be repeated. A CT of the abdomen and pelvis has been ordered that will be followed. Adjustment on antibiotic for the elevation of the clinical response as well as CAT scan report. Continue to watch him closely. Continue supportive care. MMODL / IJN: [id number] /
--- NOTE | 2018-06-08 13:36 | CT ---
EXAMINATION TYPE: CT abdomen pelvis w con DATE OF EXAM: 06/08/2018 COMPARISON: CT abdomen and pelvis from [address] May 14, 2018 HISTORY: Pain post small bowel resection. CT DLP: 1023.9 mGycm, Automated Exposure Control for Dose Reduction was Utilized. CONTRAST: CT scan of the abdomen and pelvis is performed without oral but with IV Contrast, patient injected wi th 100 mL of Isovue 300. FINDINGS: LUNG BASES: There is partial visualization of known right infrahilar adenopathy axial image 1 redemon strated. Dependent atelectasis in both bases is redemonstrated. LIVER/GB: Liver size is stable and felt upper limits of normal. PANCREAS: No significant abnormality is seen. SPLEEN: Stable mild splenomegaly at 14.3 cm long axis axial image 25. ADRENALS: Heterogeneous ill-defined thickening left adrenal gland is redemonstrated not significantly changed from priors. KIDNEYS: Nondependent air in bladder is presumed product of recent catheterization for surgery. BOWEL: Stomach is poorly distended and thus suboptimally evaluated currently. There is no suspicious dilatation of duodenal sweep. Ligament of Treitz is abnormal as fourth portion of duodenum does not a scend to same level of gastric antrum slightly more prominent versus prior presumed postsurgical. The re are nondistended fluid-filled small bowel loops in the right abdomen. There are surgical sutures s een in mid to lower fluid-filled small bowel loops. Small bowel loops in the mid to left abdomen are fluid-filled and abnormally dilated measuring up to 4.1 cm coronal image 18. These are felt proximal to the sutures. There is still prominent fluid-filled small bowel felt distal to the sutures. There i s persistent mesenteric edema and fluid. There are diverticula scattered throughout the colon most pr ominent in the left and sigmoid colon. Transition point not clearly identified. PROSTATE/SEMINAL VESICLES: Stable mild prominence to prostate gland with central zone calcifications. Few scattered pelvic phleboliths are redemonstrated. LYMPH NODES: No greater than 1cm abdominal or pelvic lymph nodes are appreciated. OSSEOUS STRUCTURES: Moderate to advanced disc space narrowing L4-L5 level redemonstrated. Mild to mod erate disc space narrowing and vacuum disc phenomenon L5-S1 level. OTHER: Slightly more prominent small to moderate amount free fluid in pelvis axial image 79. IMPRESSION: Postsurgical change from partial bowel resection and re-anastomosis. Persistent fluid niurka led dilated small bowel in the left and central abdomen is present and even more prominent versus herber or. This is overall nonspecific bowel gas pattern. Focal postoperative ileus versus recurrent develop ing small bowel obstruction is in differential. At minimum progress radiographs and/or CT monitoring is advised.
[2018-06-08] MEDS ORDERED: Potassium Replacement Protocol 1 EACH MISC MISCELLANE PRN (15:05)
--- NOTE | 2018-06-08 15:41 | P.PN ---
Subjective Progress Note Date: 06/08/18 Principal diagnosis: Large B Cell Lymphoma Status Post intestinal perforation and repair NG tube has been removed,he did move bowels small amount, although WBC increasing (was receiving [place] stimulating factor - Discontinued 06/07/18) and abdominal pain with some increased distention. CT abdomen completed today and possible concern for recurring SBO versus post-operative ileus. Surgery is following and managing. Objective - Vital Signs Vital signs: Vital Signs Temp 96.9 F L 06/08/18 11:54 Pulse 98 06/08/18 11:54 Resp 16 06/08/18 11:54 BP 115/92 06/08/18 11:54 Pulse Ox 95 06/08/18 11:54 Intake & Output 06/07/18 06/08/18 06/08/18 18:59 06:59 18:59 Intake Total 490 710 120 Balance 490 710 120 Weight 92.5 kg 92.5 kg Intake: IV 250 660 Sodium Chloride 0.9% 1, 250 660 000 ml @ 100 mls/hr IV . Q10H [facility] Rx#:[id number] Intake, IV Titration 50 Amount Piperacillin-Tazobactam 3 50 .375 gm In Dextrose/Water 1 50ml.bag @ 12.5 mls/hr IVPB Q8HR [facility] Rx#: [id number] Oral 240 120 Other: Voiding Method Toilet Toilet # Voids 1 2 - Exam NG tube has been removed - Constitutional General appearance: Present: cooperative, no acute distress - EENT Eyes: Present: EOMI, PERRLA, dentition normal ENT: Present: NA/AT, normal oropharynx - Neck Details: Supple, trachea midline Neck: Present: normal ROM - Respiratory Respiratory: bilateral: CTA (no increased effort) - Cardiovascular Rhythm: regular Heart sounds: normal: S1, S2 - Peripheral edema foot Peripheral Edema: bilateral: Trace - Gastrointestinal Gastrointestinal Comment(s): Incision CDI General gastrointestinal: Present: distended, soft, tenderness - Integumentary Integumentary: Present: pale - Neurologic Neurologic Comment(s): no focal defects Neurologic: Present: CNII-XII intact - Musculoskeletal Musculoskeletal: Present: generalized weakness, strength equal bilaterally - Labs CBC & Chem 7: 06/08/18 05:55 06/08/18 05:55 Labs: Abnormal Lab Results - Last 24 Hours (Table) 06/07/18 06/07/18 06/08/18 Range/Units 16:19 20:45 05:55 WBC 20.8 H (3.8-10.6) k/uL RBC 4.27 L (4.30-5.90) m/uL Hgb 12.8 L (13.0-17.5) gm/dL Hct 37.5 L (39.0-53.0) % Neutrophils # 19.8 H (1.3-7.7) k/uL Lymphocytes # 0.4 L (1.0-4.8) k/uL Potassium (3.5-5.1) mmol/L BUN (9-20) mg/dL Creatinine (0.66-1.25) mg/dL POC Glucose (mg/dL) 114 H 140 H (75-99) mg/dL Calcium (8.4-10.2) mg/dL 06/08/18 06/08/18 Range/Units 05:55 11:21 WBC (3.8-10.6) k/uL RBC (4.30-5.90) m/uL Hgb (13.0-17.5) gm/dL Hct (39.0-53.0) % Neutrophils # (1.3-7.7) k/uL Lymphocytes # (1.0-4.8) k/uL Potassium 3.3 L (3.5-5.1) mmol/L BUN 8 L (9-20) mg/dL Creatinine 0.63 L (0.66-1.25) mg/dL POC Glucose (mg/dL) 118 H (75-99) mg/dL Calcium 8.2 L (8.4-10.2) mg/dL Assessment and Plan Plan: Assessment and Plan (1) Diffuse large B cell lymphoma Narrative/Plan: Diagnostic and therapeutic circumstances so far have been described in the HPI. The patient tolerated 2 cycles of RCHOP well, and did have some improvement in symptoms. However PET scan did not show the desired optimal response. Therefore his chemotherapy regimen has been changed to the high-dose infusional R - EPOCH. He is being admitted for cycle 1 of the same. The patient has no major symptoms at this time and has a normal physical exam. - Will continue to monitor daily CBC and CMP - Monitor for risk of infection. Tumor Lysis - Received 2 and half days of R-EPOCH - HOLD CHEMO AND evaluate acute abdominal pain and nausea prior to proceeding - Continue to Hold Chemotherapy to allow time to recover from recent surgery, will need clearance from surgery prior to proceeding, likely 3-4 weeks Current Visit: Yes Status: Acute Code(s): C83.30 - DIFFUSE LARGE B-CELL LYMPHOMA, UNSPECIFIED SITE SNOMED Code(s): 714269226 (2)GI Discomfort Secondary to Intestinal Perforation: - Acute Abdominal Series - 06/01/18 - non specific for gastritis versus ileus. He was placed on bowel rest and PPI was added, GI Consult - 06/02/18 pain worsened and now with associated nausea - Surgery consult placed and STAT CT abdomen ordered, Chemo on hold - Small Bowel Obstruction with concern for perforation identified and patient taken to surgery on 06/02/18 - Continue dilaudid and ativan prn - Discontinue bowel stimulants and restart bowel protocol per surgery team - NG tube removed and patient overall improving and recovery well after surgery - 06/08/18 - CT Abdomen for increasing abdominal pain and distention completed by surgery and possible concern for post-operative ileus versus recurring SBO, Surgery to manage. May repeat CT in am per surgery recs. (3)Small Bowel Obstruction with Small Perforation: - Status Post Diagnostic Laparoscopy with Small Bowel Resection - NG Tube removed, surgery following. (4) New Onset Atrial Fibrillation with RVR - Cardiology Following (5) Oral Candiasis - Improving on Nystatin Physician Attestation: I have completed the [facility] and physical of this patient and agree with above dictation by heber beaulieu NP. dictated as a scribe Heber Beaulieu NP Medical Oncology
[2018-06-08] MEDS ORDERED: MVI, ADULT NO.4 WITH VIT K 10 ML, TRACE (CONC-1ML/DOSE) 1 ML in AMINO ACID 5%-D15W+LYTE... IV SCH ×3 (16:00)
[2018-06-08 16:05] LABS: Ionized Calcium 4.6 mg/dL (4.5-5.3)
[2018-06-08 16:15] LABS: Magnesium 1.9 mg/dL (1.6-2.3); Phosphorus 3.1 mg/dL (2.5-4.5)
[2018-06-08] MEDS: FAT EMULSION 20% 250 ML IV SCH (17:23)
[2018-06-08] MEDS: POTASSIUM CHLORIDE 20 MEQ in WATER FOR INJECTION 1 100ML.BAG IVPB SCH ×2 (18:09→20:36)
[2018-06-08] MEDS: INSULIN ASPART 100 UNIT/ML 1 ML 10 ML VIAL SQ SCH (18:26)
[2018-06-08 23:59] LABS: Glucose,Whole Blood 112 mg/dL (75-99)
[2018-06-09] MEDS: INSULIN ASPART 100 UNIT/ML 1 ML 10 ML VIAL SQ SCH ×5 (00:06→23:00)
[2018-06-09] MEDS: SALT AND SODA MOUTHWASH 1,000 ML PO SCH ×6 (05:32→23:04)
[2018-06-09] MEDS: METOCLOPRAMIDE 5 MG/ML 2 ML VIAL IVP SCH ×4 (05:44→23:12)
[2018-06-09] MEDS: SUCRALFATE 1 GM TAB PO SCH ×3 (05:46→17:37)
[2018-06-09 05:58] LABS: Glucose,Whole Blood 132 mg/dL (75-99)
[2018-06-09 06:13] LABS: Anion Gap 5 mmol/L; Blood Urea Nitrogen 3 mg/dL (9-20); Calcium 7.8 mg/dL (8.4-10.2); Carbon Dioxide 28 mmol/L (22-30); Chloride 108 mmol/L (98-107); Glucose 99 mg/dL (74-99); Phosphorus 3.8 mg/dL (2.5-4.5); Potassium 3.1 mmol/L (3.5-5.1); Sodium 141 mmol/L (137-145)
[2018-06-09] MEDS: POLYETHYLENE GLYCOL 3350 17 GM POWD.PACK PO SCH (08:29)
[2018-06-09] MEDS: NYSTATIN 100,000 UNIT/ML SUSP 500,000 UNIT/5 ML CUP PO SCH ×4 (08:29→21:03)
[2018-06-09] MEDS: PIPERACILLIN-TAZOBACTAM 3.375 GM in DEXTROSE/WATER 1 50ML.BAG IVPB SCH ×3 (08:29→23:01)
[2018-06-09] MEDS: METOPROLOL TARTRATE 25 MG TAB PO SCH ×2 (08:30→21:03)
[2018-06-09] MEDS: PANTOPRAZOLE 40 MG/10 ML VIAL IVP SCH ×2 (08:30→21:03)
[2018-06-09] MEDS: ENOXAPARIN 40 MG/0.4 ML SYRINGE SQ SCH (08:30)
[2018-06-09] MEDS: SODIUM CHLORIDE 0.9% 1,000 ML IV SCH ×2 (08:32→17:41)
[2018-06-09] MEDS ORDERED: Potassium Replacement Protocol 1 EACH MISC MISCELLANE PRN (10:04)
[2018-06-09 10:57] LABS: Basophils % (A) 0 %; Eosinophils # (A) 0.2 k/uL (0-0.7); Eosinophils % (A) 2 %; HCT 34.2 % (39.0-53.0); HGB 11.3 gm/dL (13.0-17.5); Lymphocytes # (A) 0.3 k/uL (1.0-4.8); Lymphocytes % (A) 3 %; MCH 29.8 pg (25.0-35.0); MCV 90.2 fL (80.0-100.0); Mean Platelet Volume 8.1; Monocytes # (A) 0.3 k/uL (0-1.0); Monocytes % (A) 3 %; Neutrophils % (A) 91 %; Platelet Count 179 k/uL (150-450); RDW 15.4 % (11.5-15.5); WBC 9.9 k/uL (3.8-10.6)
[2018-06-09] MEDS ORDERED: POTASSIUM CHLORIDE 20 MEQ in WATER FOR INJECTION 1 100ML.BAG IVPB SCH (11:00)
[2018-06-09 11:56] LABS: Glucose,Whole Blood 106 mg/dL (75-99)
[2018-06-09] MEDS ORDERED: POTASSIUM CHLORIDE 2 MEQ/ML 20 ML VIAL IVPB SCH (12:00)
[2018-06-09] MEDS: POTASSIUM CHLORIDE 20 MEQ in WATER FOR INJECTION 1 100ML.BAG IVPB SCH ×3 (12:23→16:16)
--- NOTE | 2018-06-09 13:05 | P.PN ---
Subjective Progress Note Date: 06/09/18 Principal diagnosis: Large B Cell Lymphoma Status Post intestinal perforation and repair He is feeling better today. No nausea or vomiting, still on clear liquids. White count has improved. Potassium has decreased, supp ordered and magnesium level ordered. Objective - Vital Signs Vital signs: Vital Signs Temp 97.0 F L 06/09/18 08:00 Pulse 82 06/09/18 08:00 Resp 16 06/09/18 08:00 BP 108/64 06/09/18 08:00 Pulse Ox 96 06/09/18 08:00 Intake & Output 06/08/18 06/09/18 06/09/18 18:59 06:59 18:59 Intake Total 420 1456.4 2980 Output Total 3 1 Balance 420 1453.4 2979 Weight 92.5 kg 92.3 kg Intake: IV 800 800 Sodium Chloride 0.9% 1, 800 800 000 ml @ 100 mls/hr IV . Q10H [facility] Rx#:[id number] Intake, IV Titration 656.4 940 Amount Amino Acid 5%-D15w+Lytes* 600 E* 1,000 ml @ 80 mls/hr IV .BY DURATION [facility] Rx#: [id number] Fat Emulsion 20% 250 ml @ 166.4 20.833 mls/hr IV Q24H [facility] Rx#:[id number] Mvi, Adult No.4 with Vit 240 240 K 10 ml Trace (Conc-1Ml/ Dose) 1 ml In Amino Acid 5%-D15w+Lytes*E* 1,000 ml @ 30 mls/hr IV .Q24H [facility] Rx#:[id number] Piperacillin-Tazobactam 3 50 100 .375 gm In Dextrose/Water 1 50ml.bag @ 12.5 mls/hr IVPB Q8HR [facility] Rx#: [id number] Potassium Chloride 20 meq 200 In Water For Injection 1 100ml.bag @ 50 mls/hr IVPB Q2H [facility] Rx#: [id number] Oral 420 1240 Output: Stool 3 1 Other: Voiding Method Toilet Toilet Toilet # Voids 3 2 - Constitutional General appearance: Present: cooperative, no acute distress - EENT Eyes: Present: EOMI, dentition normal, normal appearance ENT: Present: NA/AT, normal oropharynx - Neck Details: supple, Trachea midline Neck: Present: normal ROM - Respiratory Details: No increased respiratory effort Respiratory: bilateral: CTA - Cardiovascular Rhythm: regular Heart sounds: normal: S1, S2 - Gastrointestinal General gastrointestinal: Present: normal bowel sounds, soft, tenderness - Integumentary Integumentary: Present: normal - Neurologic Neurologic Comment(s): no focal defects Neurologic: Present: CNII-XII intact - Musculoskeletal Musculoskeletal: Present: gait normal, generalized weakness, strength equal bilaterally - Psychiatric Psychiatric: Present: A&O x's 3, appropriate affect, intact judgment & insight - Labs CBC & Chem 7: 06/09/18 05:28 06/09/18 05:28 Labs: Abnormal Lab Results - Last 24 Hours (Table) 06/08/18 06/08/18 06/09/18 Range/Units 15:35 23:57 05:28 RBC (4.30-5.90) m/uL Hgb (13.0-17.5) gm/dL Hct (39.0-53.0) % Neutrophils # (1.3-7.7) k/uL Lymphocytes # (1.0-4.8) k/uL Potassium 3.1 L (3.5-5.1) mmol/L Chloride 108 H (98-107) mmol/L BUN 3 L (9-20) mg/dL POC Glucose (mg/dL) 112 H (75-99) mg/dL Calcium 7.8 L (8.4-10.2) mg/dL Albumin 3.0 L (3.5-5.0) g/dL 06/09/18 06/09/18 06/09/18 Range/Units 05:28 05:57 11:50 RBC 3.80 L (4.30-5.90) m/uL Hgb 11.3 L (13.0-17.5) gm/dL Hct 34.2 L (39.0-53.0) % Neutrophils # 9.0 H (1.3-7.7) k/uL Lymphocytes # 0.3 L (1.0-4.8) k/uL Potassium (3.5-5.1) mmol/L Chloride (98-107) mmol/L BUN (9-20) mg/dL POC Glucose (mg/dL) 132 H 106 H (75-99) mg/dL Calcium (8.4-10.2) mg/dL Albumin (3.5-5.0) g/dL Microbiology - Last 24 Hours (Table) 06/08/18 08:38 Blood Culture - Preliminary Blood No Growth after 24 hours 06/08/18 08:42 Blood Culture - Preliminary Blood No Growth after 24 hours - Imaging and Cardiology CT scan - abdomen: report reviewed Assessment and Plan Plan: Assessment and Plan (1) Diffuse large B cell lymphoma Narrative/Plan: Diagnostic and therapeutic circumstances so far have been described in the HPI. The patient tolerated 2 cycles of RCHOP well, and did have some improvement in symptoms. However PET scan did not show the desired optimal response. Therefore his chemotherapy regimen has been changed to the high-dose infusional R - EPOCH. He is being admitted for cycle 1 of the same. The patient has no major symptoms at this time and has a normal physical exam. - Will continue to monitor daily CBC and CMP - Monitor for risk of infection. Tumor Lysis - Received 2 and half days of R-EPOCH - HOLD CHEMO AND evaluate acute abdominal pain and nausea prior to proceeding - Continue to Hold Chemotherapy to allow time to recover from recent surgery, will need clearance from surgery prior to proceeding, likely 3-4 weeks Current Visit: Yes Status: Acute Code(s): C83.30 - DIFFUSE LARGE B-CELL LYMPHOMA, UNSPECIFIED SITE SNOMED Code(s): 789214874 (2)GI Discomfort Secondary to Intestinal Perforation: - Acute Abdominal Series - 06/01/18 - non specific for gastritis versus ileus. He was placed on bowel rest and PPI was added, GI Consult - 06/02/18 pain worsened and now with associated nausea - Surgery consult placed and STAT CT abdomen ordered, Chemo on hold - Small Bowel Obstruction with concern for perforation identified and patient taken to surgery on 06/02/18 - Continue dilaudid and ativan prn - Discontinue bowel stimulants and restart bowel protocol per surgery team - NG tube removed and patient overall improving and recovery well after surgery - 06/08/18 - CT Abdomen for increasing abdominal pain and distention completed by surgery and possible concern for post-operative ileus versus recurring SBO, Surgery to manage. May repeat CT in am per surgery recs. 06/09/18 - Improved today and WBC is improved. (3)Small Bowel Obstruction with Small Perforation: - Status Post Diagnostic Laparoscopy with Small Bowel Resection - NG Tube removed, surgery following. (4) New Onset Atrial Fibrillation with RVR - Cardiology Following (5) Oral Candiasis - Improving on Nystatin (6) Hypokalemia: - Supp KCL 20meq x3 tody and check magnesium Delicia Fuentes NP Medical Oncology
--- NOTE | 2018-06-09 14:45 | P.PN ---
Subjective Progress Note Date: 06/09/18 Principal diagnosis: Intestinal perforation Patient doing well today. He has had 6 bowel movements since yesterday. Becoming more formed. Denies nausea or vomiting. Tolerating clears. Minimal pain. Objective - Vital Signs Vital signs: Vital Signs Temp 97.0 F L 06/09/18 12:00 Pulse 88 06/09/18 12:00 Resp 14 06/09/18 12:00 BP 128/68 06/09/18 12:00 Pulse Ox 97 06/09/18 12:00 Intake & Output 06/08/18 06/09/18 06/09/18 18:59 06:59 18:59 Intake Total 420 1456.4 3180 Output Total 3 2 Balance 420 1453.4 3178 Weight 92.5 kg 92.3 kg Intake: IV 800 800 Sodium Chloride 0.9% 1, 800 800 000 ml @ 100 mls/hr IV . Q10H [facility] Rx#:[id number] Intake, IV Titration 656.4 940 Amount Amino Acid 5%-D15w+Lytes* 600 E* 1,000 ml @ 80 mls/hr IV .BY DURATION [facility] Rx#: [id number] Fat Emulsion 20% 250 ml @ 166.4 20.833 mls/hr IV Q24H [facility] Rx#:[id number] Mvi, Adult No.4 with Vit 240 240 K 10 ml Trace (Conc-1Ml/ Dose) 1 ml In Amino Acid 5%-D15w+Lytes*E* 1,000 ml @ 30 mls/hr IV .Q24H [facility] Rx#:[id number] Piperacillin-Tazobactam 3 50 100 .375 gm In Dextrose/Water 1 50ml.bag @ 12.5 mls/hr IVPB Q8HR [facility] Rx#: [id number] Potassium Chloride 20 meq 200 In Water For Injection 1 100ml.bag @ 50 mls/hr IVPB Q2H [facility] Rx#: [id number] Oral 420 1440 Output: Stool 3 2 Other: Voiding Method Toilet Toilet Toilet # Voids 3 2 - Exam Abdomen: Soft, nondistended, mild incisional tenderness - Labs CBC & Chem 7: 06/09/18 05:28 06/09/18 05:28 Labs: Abnormal Lab Results - Last 24 Hours (Table) 06/08/18 06/08/18 06/09/18 Range/Units 15:35 23:57 05:28 RBC (4.30-5.90) m/uL Hgb (13.0-17.5) gm/dL Hct (39.0-53.0) % Neutrophils # (1.3-7.7) k/uL Lymphocytes # (1.0-4.8) k/uL Potassium 3.1 L (3.5-5.1) mmol/L Chloride 108 H (98-107) mmol/L BUN 3 L (9-20) mg/dL POC Glucose (mg/dL) 112 H (75-99) mg/dL Calcium 7.8 L (8.4-10.2) mg/dL Albumin 3.0 L (3.5-5.0) g/dL 06/09/18 06/09/18 06/09/18 Range/Units 05:28 05:57 11:50 RBC 3.80 L (4.30-5.90) m/uL Hgb 11.3 L (13.0-17.5) gm/dL Hct 34.2 L (39.0-53.0) % Neutrophils # 9.0 H (1.3-7.7) k/uL Lymphocytes # 0.3 L (1.0-4.8) k/uL Potassium (3.5-5.1) mmol/L Chloride (98-107) mmol/L BUN (9-20) mg/dL POC Glucose (mg/dL) 132 H 106 H (75-99) mg/dL Calcium (8.4-10.2) mg/dL Albumin (3.5-5.0) g/dL Microbiology - Last 24 Hours (Table) 06/08/18 08:38 Blood Culture - Preliminary Blood No Growth after 24 hours 06/08/18 08:42 Blood Culture - Preliminary Blood No Growth after 24 hours Assessment and Plan (1) Small bowel perforation Narrative/Plan: CAT scan from yesterday was reviewed. Questionable PSBO although the patient clinically does not appear to be having any issues with bowel motility currently. No evidence of leak on CAT scan from recent anastomosis. Continue advancing diet. Possible discharge tomorrow. Current Visit: Yes Status: Acute Code(s): K63.1 - PERFORATION OF INTESTINE ( NONTRAUMATIC) SNOMED Code(s): 891636070
--- NOTE | 2018-06-09 15:38 | PN ---
PROGRESS NOTE DATE OF SERVICE: 06/09/2018. REASON FOR FOLLOWUP: Secondary peritonitis. INTERVAL HISTORY: The patient is currently afebrile. He denies having any nausea or vomiting. His abdominal pain has slightly eased off. He continues to have bowel movement and is passing gas. Denies any chest pain or shortness of breath or cough. EXAMINATION: Blood pressure 128/60 with a pulse of 88, temperature 97. He is 97% on room air. General description is a middle aged male up in the chair in no distress. RESPIRATORY SYSTEM: Unlabored breathing. Clear to auscultation anteriorly. HEART: S1, S2. Regular. ABDOMEN: Soft, no guarding or rigidity. LABS: Hemoglobin 11.2, white count 9.8. BUN of 3, creatinine 0.66. Blood culture obtained yesterday has been negative. CT was suggestive of possible ileus, but no leak. DIAGNOSTIC IMPRESSION AND PLAN: Patient with secondary peritonitis from a small-bowel perforation status post surgical repair of the same. Now with worsening of the white count for which the patient did have a CT completed which was negative for any leak. The patient has some ileus and is being managed by surgical team. His white count has normalized as of this morning and blood culture negative. We will keep the patient on Zosyn at this point. Monitor his clinical course closely. Continue supportive care. MMODL / IJN: [id number] /
[2018-06-09 16:50] LABS: Glucose,Whole Blood 106 mg/dL (75-99)
[2018-06-09] MEDS: 1: MVI, ADULT NO.4 WITH VIT K 10 ML, TRACE (CONC-1ML/DOSE) 1 ML in AMINO ACID 5%-D15W+LY IV SCH ×3 (17:48)
[2018-06-09] MEDS: FAT EMULSION 20% 250 ML IV SCH (17:55)
[2018-06-09 23:11] LABS: Glucose,Whole Blood 105 mg/dL (75-99)
[2018-06-10] MEDS: 1: MVI, ADULT NO.4 WITH VIT K 10 ML, TRACE (CONC-1ML/DOSE) 1 ML in AMINO ACID 5%-D15W+LY IV SCH ×3 (04:40)
[2018-06-10] MEDS: SALT AND SODA MOUTHWASH 1,000 ML PO SCH ×3 (04:46→12:26)
[2018-06-10] MEDS: SODIUM CHLORIDE 0.9% 1,000 ML IV SCH ×2 (04:47→16:05)
[2018-06-10 05:47] LABS: Glucose,Whole Blood 114 mg/dL (75-99)
[2018-06-10 05:58] LABS: Basophils % (A) 1 %; Eosinophils # (A) 0.1 k/uL (0-0.7); Eosinophils % (A) 3 %; HCT 32.3 % (39.0-53.0); Lymphocytes # (A) 0.4 k/uL (1.0-4.8); Lymphocytes % (A) 9 %; MCH 30.3 pg (25.0-35.0); MCHC 34.2 g/dL (31.0-37.0); MCV 88.6 fL (80.0-100.0); Mean Platelet Volume 9.8; Monocytes # (A) 0.3 k/uL (0-1.0); Monocytes % (A) 7 %; Neutrophils # (A) 3.2 k/uL (1.3-7.7); Neutrophils % (A) 78 %; Platelet Count 158 k/uL (150-450); Poikilocytosis Slight; RBC 3.64 m/uL (4.30-5.90); RDW 15.3 % (11.5-15.5); WBC 4.1 k/uL (3.8-10.6)
[2018-06-10] MEDS: INSULIN ASPART 100 UNIT/ML 1 ML 10 ML VIAL SQ SCH ×2 (06:03→12:19)
[2018-06-10] MEDS: METOCLOPRAMIDE 5 MG/ML 2 ML VIAL IVP SCH ×2 (06:08→12:25)
[2018-06-10] MEDS: SUCRALFATE 1 GM TAB PO SCH ×2 (06:08→12:24)
[2018-06-10 06:13] LABS: ALT 38 U/L (21-72); AST 19 U/L (17-59); Albumin 2.6 g/dL (3.5-5.0); Alkaline Phosphatase 32 U/L (38-126); Anion Gap 5 mmol/L; Blood Urea Nitrogen <2 mg/dL (9-20); Calcium 7.8 mg/dL (8.4-10.2); Carbon Dioxide 27 mmol/L (22-30); Chloride 108 mmol/L (98-107); Glucose 108 mg/dL (74-99); Magnesium 1.9 mg/dL (1.6-2.3); Phosphorus 3.9 mg/dL (2.5-4.5); Potassium 3.1 mmol/L (3.5-5.1); Sodium 140 mmol/L (137-145); Total Bilirubin 0.3 mg/dL (0.2-1.3); Total Protein 4.7 g/dL (6.3-8.2)
[2018-06-10] MEDS ORDERED: Potassium Replacement Protocol 1 EACH MISC MISCELLANE PRN (06:39)
[2018-06-10] MEDS: POLYETHYLENE GLYCOL 3350 17 GM POWD.PACK PO SCH (09:36)
[2018-06-10] MEDS: POTASSIUM CHLORIDE ER 20 MEQ TAB.ER PO SCH ×2 (09:36→11:31)
[2018-06-10] MEDS: PANTOPRAZOLE 40 MG/10 ML VIAL IVP SCH (09:36)
[2018-06-10] MEDS: PIPERACILLIN-TAZOBACTAM 3.375 GM in DEXTROSE/WATER 1 50ML.BAG IVPB SCH (09:36)
[2018-06-10] MEDS: METOPROLOL TARTRATE 25 MG TAB PO SCH (09:36)
[2018-06-10] MEDS: ENOXAPARIN 40 MG/0.4 ML SYRINGE SQ SCH (09:36)
[2018-06-10] MEDS: NYSTATIN 100,000 UNIT/ML SUSP 500,000 UNIT/5 ML CUP PO SCH ×2 (09:37→12:27)
[2018-06-10 10:11] VITALS: RESP 16
--- NOTE | 2018-06-10 10:43 | P.PN ---
Subjective Progress Note Date: 06/10/18 Principal diagnosis: Intestinal perforation Patient doing well today. No pain at this time. Tolerating diet. Multiple stools soft and semi-formed. No nausea. Objective - Vital Signs Vital signs: Vital Signs Temp 96.8 F L 06/10/18 08:00 Pulse 86 06/10/18 08:00 Resp 16 06/10/18 08:00 BP 121/81 06/10/18 08:00 Pulse Ox 95 06/10/18 08:00 Intake & Output 06/09/18 06/10/18 06/10/18 18:59 06:59 18:59 Intake Total 5120 1090 860 Output Total 3 2 1 Balance 5117 1088 859 Weight 92.2 kg Intake: IV 1500 Sodium Chloride 0.9% 1, 1500 000 ml @ 100 mls/hr IV . Q10H [facility] Rx#:[id number] Intake, IV Titration 1500 1090 Amount Amino Acid 5%-D15w+Lytes* 600 E* 1,000 ml @ 80 mls/hr IV .BY DURATION [facility] Rx#: [id number] Mvi, Adult No.4 with Vit 450 240 K 10 ml Trace (Conc-1Ml/ Dose) 1 ml In Amino Acid 5%-D15w+Lytes*E* 1,000 ml @ 30 mls/hr IV .Q24H [facility] Rx#:[id number] Piperacillin-Tazobactam 3 150 50 .375 gm In Dextrose/Water 1 50ml.bag @ 12.5 mls/hr IVPB Q8HR [facility] Rx#: [id number] Potassium Chloride 20 meq 300 In Water For Injection 1 100ml.bag @ 50 mls/hr IVPB Q2H [facility] Rx#: [id number] Sodium Chloride 0.9% 1, 800 000 ml @ 100 mls/hr IV . Q10H [facility] Rx#:[id number] Oral 2120 860 Output: Stool 3 2 1 Other: Voiding Method Toilet Toilet Toilet # Voids 2 - Exam Abdomen: Soft, nondistended, incision clean and dry, minimal incisional tenderness - Labs CBC & Chem 7: 06/10/18 05:47 06/10/18 05:47 Labs: Abnormal Lab Results - Last 24 Hours (Table) 06/09/18 06/09/18 06/09/18 Range/Units 05:28 11:50 16:18 RBC 3.80 L (4.30-5.90) m/uL Hgb 11.3 L (13.0-17.5) gm/dL Hct 34.2 L (39.0-53.0) % Neutrophils # 9.0 H (1.3-7.7) k/uL Lymphocytes # 0.3 L (1.0-4.8) k/uL Potassium (3.5-5.1) mmol/L Chloride (98-107) mmol/L BUN (9-20) mg/dL Creatinine (0.66-1.25) mg/dL Glucose (74-99) mg/dL POC Glucose (mg/dL) 106 H 106 H (75-99) mg/dL Calcium (8.4-10.2) mg/dL Alkaline Phosphatase (38-126) U/L Total Protein (6.3-8.2) g/dL Albumin (3.5-5.0) g/dL 06/09/18 06/10/18 06/10/18 Range/Units 23:00 05:45 05:47 RBC (4.30-5.90) m/uL Hgb (13.0-17.5) gm/dL Hct (39.0-53.0) % Neutrophils # (1.3-7.7) k/uL Lymphocytes # (1.0-4.8) k/uL Potassium 3.1 L (3.5-5.1) mmol/L Chloride 108 H (98-107) mmol/L BUN <2 L (9-20) mg/dL Creatinine 0.60 L (0.66-1.25) mg/dL Glucose 108 H (74-99) mg/dL POC Glucose (mg/dL) 105 H 114 H (75-99) mg/dL Calcium 7.8 L (8.4-10.2) mg/dL Alkaline Phosphatase 32 L (38-126) U/L Total Protein 4.7 L (6.3-8.2) g/dL Albumin 2.6 L (3.5-5.0) g/dL 06/10/18 Range/Units 05:47 RBC 3.64 L (4.30-5.90) m/uL Hgb 11.0 L (13.0-17.5) gm/dL Hct 32.3 L (39.0-53.0) % Neutrophils # (1.3-7.7) k/uL Lymphocytes # 0.4 L (1.0-4.8) k/uL Potassium (3.5-5.1) mmol/L Chloride (98-107) mmol/L BUN (9-20) mg/dL Creatinine (0.66-1.25) mg/dL Glucose (74-99) mg/dL POC Glucose (mg/dL) (75-99) mg/dL Calcium (8.4-10.2) mg/dL Alkaline Phosphatase (38-126) U/L Total Protein (6.3-8.2) g/dL Albumin (3.5-5.0) g/dL Microbiology - Last 24 Hours (Table) 06/08/18 08:38 Blood Culture - Preliminary Blood No Growth after 24 hours 06/08/18 08:42 Blood Culture - Preliminary Blood No Growth after 24 hours Assessment and Plan (1) Small bowel perforation Narrative/Plan: Continue advancing diet slowly. May discharge from my standpoint. Patient is quite anxious to go home. Follow-up one week. Current Visit: Yes Status: Acute Code(s): K63.1 - PERFORATION OF INTESTINE ( NONTRAUMATIC) SNOMED Code(s): 492694332
[2018-06-10 12:17] LABS: Glucose,Whole Blood 92 mg/dL (75-99)
[2018-06-10 12:59] VITALS: BP 125/77; PULSE 74; TEMP 97
[2018-06-10] MEDS ORDERED: POTASSIUM CHLORIDE 20 MEQ in WATER FOR INJECTION 1 100ML.BAG IVPB SCH (13:00)
--- NOTE | 2018-06-10 13:40 | P.DS ---
Providers Date of admission: 05/30/18 07:57 Expected date of discharge: 06/10/18 Attending physician: Arnie Olson Consults: 06/02/18 10:49 Consult Physician Routine Consulting Provider: Ever Camarena Consult Reason/Comments: concerning ileus ?obs Do you want consulting provider notified?: Yes 06/02/18 20:02 Consult Physician Routine Consulting Provider: Racheal Rodrigez Consult Reason/Comments: Afib. Do you want consulting provider notified?: Yes, Notify in am 06/03/18 12:41 Consult Physician Routine Consulting Provider: Marissa Villalobos Consult Reason/Comments: Bowel perforation Do you want consulting provider notified?: Yes 06/06/18 08:51 Consult Physician Routine Consulting Provider: Stas Strickland Consult Reason/Comments: MEDICAL MANAGEMENT Do you want consulting provider notified?: Yes Primary care physician: [facility] Course: Subjective Progress Note Date: 06/09/18 Principal diagnosis: Mr Alaniz is a 58 yr old white male, initially seen in consult at [facility] on 03/15/18. The patient is fairly healthy at baseline, and had come into the ER complaining of "chest pain" in 1 week, progressive in nature. One further clarification the patient was actually described to be localized to the left upper quadrant and left lower rib cage area with penetration straight through to the back. The pain was quite constant and worsened while sitting. There were no other associated aggravating or relieving factors. on exam the patient was felt to have a palpable left upper quadrant mass. CT scan of the abdomen and pelvis had shown a markedly enlarged left adrenal mass, 10.3 x 5.1 cm. That appeared mild colon wall thickening proximal to the mid transverse colon. Splenomegaly was seen. CTA of the chest was negative for PE but showed some borderline mediastinal and hilar adenopathy. The patient underwent a CT-guided adrenal biopsy on 03/16/18. Fine-needle aspirate showed severely atypical cells consistent with diffuse large B-cell lymphoma. Core biopsy was also consistent with high-grade B-cell non-Hodgkin lymphoma consistent with diffuse large B-cell lymphoma. She was sent for "double hit" testing but material on the cell block was not enough to wish further testing was not possible. Patient had a PET scan on 03/26/18 revealing hypermetabolic uptake in shotty mediastinal and hilar nodes with SUV in the 5-7.4 range. 10 cm left adrenal mass had an SUV of 22. There was a loop of bowel in the right lower quadrant with thickened wall with SUV of 20. There was possibility of a retroperitoneal node with SUV of 21. Right proximal humerus shows uptake with SUV of 3.9. The patient was seen for his first office visit on 03/31/18. The pt thus appeared to have stage IV disease. 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 He decided for R -CHOP, with a plan for reevaluation after 2 cycles. He started chemo on 04/14/18 and is s/p 2 cycles. PET scan post cycle 2 showed a partial, suboptimal response. It was thus decided to change his chemo regimen to the infusional R - EPOCH. He is being admitted for C1 He denied any specific complaint, other than mild fatigue and constipation, the latter causing some irritation with his known hemorrhoids. Large B Cell Lymphoma Status Post intestinal perforation and repair He is feeling better today. No nausea or vomiting, still on clear liquids. White count has improved. Potassium has decreased, supp ordered and magnesium level ordered. Objective - Vital Signs Vital signs: 06/08/18 06/09/18 06/09/18 18:59 06:59 18:59 Intake Total 420 1456.4 2980 Output Total 3 1 Balance 420 1453.4 2979 Weight 92.5 kg 92.3 kg Intake: IV 800 800 Sodium Chloride 0.9% 1, 800 800 000 ml @ 100 mls/hr IV . Q10H [facility] Rx#:[id number] Intake, IV Titration 656.4 940 Amount Amino Acid 5%-D15w+Lytes* 600 E* 1,000 ml @ 80 mls/hr IV .BY DURATION [facility] Rx#: [id number] Fat Emulsion 20% 250 ml @ 166.4 20.833 mls/hr IV Q24H [facility] Rx#:[id number] Mvi, Adult No.4 with Vit 240 240 K 10 ml Trace (Conc-1Ml/ Dose) 1 ml In Amino Acid 5%-D15w+Lytes*E* 1,000 ml @ 30 mls/hr IV .Q24H [facility] Rx#:[id number] Piperacillin-Tazobactam 3 50 100 .375 gm In Dextrose/Water 1 50ml.bag @ 12.5 mls/hr IVPB Q8HR [facility] Rx#: [id number] Potassium Chloride 20 meq 200 In Water For Injection 1 100ml.bag @ 50 mls/hr IVPB Q2H [facility] Rx#: [id number] Oral 420 1240 Output: Stool 3 1 Other: Voiding Method Toilet Toilet Toilet # Voids 3 2 - Constitutional General appearance: Present: cooperative, no acute distress - EENT Eyes: Present: EOMI, dentition normal, normal appearance ENT: Present: NA/AT, normal oropharynx - Neck Details: supple, Trachea midline Neck: Present: normal ROM - Respiratory Details: No increased respiratory effort Respiratory: bilateral: CTA - Cardiovascular Rhythm: regular Heart sounds: normal: S1, S2 - Gastrointestinal General gastrointestinal: Present: normal bowel sounds, soft, tenderness - Integumentary Integumentary: Present: normal - Neurologic Neurologic Comment(s): no focal defects Neurologic: Present: CNII-XII intact - Musculoskeletal Musculoskeletal: Present: gait normal, generalized weakness, strength equal bilaterally - Psychiatric Psychiatric: Present: A&O x's 3, appropriate affect, intact judgment & insight - Labs CBC & Chem 7: Assessment and Plan (1) Diffuse large B cell lymphoma Narrative/Plan: Diagnostic and therapeutic circumstances so far have been described in the HPI. The patient tolerated 2 cycles of RCHOP well, and did have some improvement in symptoms. However PET scan did not show the desired optimal response. Therefore his chemotherapy regimen has been changed to the high-dose infusional R - EPOCH. He is being admitted for cycle 1 of the same. The patient has no major symptoms at this time and has a normal physical exam. - Will continue to monitor daily CBC and CMP - Monitor for risk of infection. Tumor Lysis - Received 2 and half days of R-EPOCH - HOLD CHEMO AND evaluate acute abdominal pain and nausea prior to proceeding - Continue to Hold Chemotherapy to allow time to recover from recent surgery, will need clearance from surgery prior to proceeding, likely 3-4 weeks Current Visit: Yes Status: Acute Code(s): C83.30 - DIFFUSE LARGE B-CELL LYMPHOMA, UNSPECIFIED SITE SNOMED Code(s): 403433004 (2)GI Discomfort Secondary to Intestinal Perforation: - Acute Abdominal Series - 06/01/18 - non specific for gastritis versus ileus. He was placed on bowel rest and PPI was added, GI Consult - 06/02/18 pain worsened and now with associated nausea - Surgery consult placed and STAT CT abdomen ordered, Chemo on hold - Small Bowel Obstruction with concern for perforation identified and patient taken to surgery on 06/02/18 - Continue dilaudid and ativan prn - Discontinue bowel stimulants and restart bowel protocol per surgery team - NG tube removed and patient overall improving and recovery well after surgery - 06/08/18 - CT Abdomen for increasing abdominal pain and distention completed by surgery and possible concern for post-operative ileus versus recurring SBO, Surgery to manage. May repeat CT in am per surgery recs. 06/09/18 - Improved today and WBC is improved. 06/10/18 WBC 4 (3)Small Bowel Obstruction with Small Perforation: - Status Post Diagnostic Laparoscopy with Small Bowel Resection - NG Tube removed, surgery following. (4) New Onset Atrial Fibrillation with RVR - Cardiology Following (5) Oral Candiasis - Improving on Nystatin (6) Hypokalemia: - Supp KCL 20meq x3 tody and check magnesium DISPO - PLAN - I have discussed this case with Dr. Camarena. We will discharge today as he is controlled in pain, no nausea or vomiting and having bowel movements. He will follow-up with Me on Wednesday in office to have CBC check and possible [place] stimulating factor with him receiving 2 days of his chemotherapy he may benefit from the extra protection against infection if his white count countinues to drop more. He has a follow-up scheduled with Dr. Olson on 06/20/18. I will discharge home on potassium daily till follow-up Delicia Fuentes NP Medical Oncology Pertinent Studies: CBC and CMP monitored closely, CT abdomen showed perforation of bowel. Procedures: Exploratory Lap with Bowel Perforation Repair Patient Condition at Discharge: Fair Plan - Discharge Summary Discharge Rx Participant: No New Discharge Prescriptions: New Acetaminophen Tab [Tylenol] 650 mg PO Q4HR PRN tab PRN Reason: Fever And/ Or Pain HYDROcodone/APAP 5-325MG [[place] 5-325] 1 each PO Q6HR PRN tab PRN Reason: MODERATE Pain Insulin Aspart [NovoLOG (formulary)] 0 unit SQ Q6HR vial Metoprolol Tartrate [Lopressor] 25 mg PO BID tab Nystatin 100,000 Unit/ml Susp [Mycostatin Oral Susp] 500,000 unit PO QID # 300 ml Ondansetron HCl [Zofran] 4 mg PO Q6HR #45 tablet Polyethylene Glycol 3350 [Miralax] 17 gm PO DAILY PRN 30 Days #1 bottle PRN Reason: Constipation Potassium Chloride ER [K-Dur 20] 20 meq PO DAILY #10 tab Amoxic-Pot Clav 875-125Mg [Augmentin 875-125] 1 tab PO Q12HR #10 tablet Discharge Medication List Acetaminophen Tab [Tylenol] 650 mg PO Q4HR PRN tab 06/10/18 [Rx] Amoxic-Pot Clav 875-125Mg [Augmentin 875-125] 1 tab PO Q12HR #10 tablet [Rx] HYDROcodone/APAP 5-325MG [[place] 5-325] 1 each PO Q6HR PRN tab 06/10/18 [Rx] Insulin Aspart [NovoLOG (formulary)] 0 unit SQ Q6HR vial 06/10/18 [Rx] Metoprolol Tartrate [Lopressor] 25 mg PO BID tab 06/10/18 [Rx] Nystatin 100,000 Unit/ml Susp [Mycostatin Oral Susp] 500,000 unit PO QID #300 ml 06/10/18 [Rx] Ondansetron HCl [Zofran] 4 mg PO Q6HR #45 tablet 06/10/18 [Rx] Polyethylene Glycol 3350 [Miralax] 17 gm PO DAILY PRN 30 Days #1 bottle [Rx] Potassium Chloride ER [K-Dur 20] 20 meq PO DAILY #10 tab 06/10/18 [Rx] Follow up Appointment(s)/Referral(s): Ever Camarena MD [Medical Doctor] - 06/16/18 9:15 am () Arnie Olson MD [STAFF PHYSICIAN] - 06/20/18 9:00 am (Wednesday) Delicia Fuentes ANPBC [Nurse Practitioner] - 3 Days (Office is closed. Please call to schedule appointment) Tiburcio Brizuela MD [Primary Care Provider] - 06/15/18 12:30 pm (Wednesday) Patient Instructions/Handouts: Non-Hodgkin Lymphoma (DC), Bowel Resection (DC) , Perforated Bowel (DC) Activity/Diet/Wound Care/Special Instructions: See Delicia Fuentes SITE LEASING AGENT in office early next week for CBC check and possible Granix (white blood cell shot) Regular diet as tolerated Activity as tolerated Call if Fevers, Chills, Vomiting, Uncontrolled Diarrhea Call if increased pain, redness at incision site, or rash. Care Plan Goals (MU): Recovery from Surgery and then resume chemotherapy for non-hodgkins Lymphoma when cleared by surgery. Discharge Disposition: HOME SELF-CARE
[2018-06-10] MEDS ORDERED: POTASSIUM CHLORIDE 2 MEQ/ML 20 ML VIAL IVPB SCH (14:00)
--- NOTE | 2018-06-10 14:15 | PN ---
PROGRESS NOTE DATE OF SERVICE: 06/10/2018. REASON FOR FOLLOWUP: Secondary peritonitis from perforated small intestine. INTERVAL HISTORY: The patient is afebrile. He is currently feeling better. Breathing comfortably. Denies significant chest pain. No cough. Has been tolerating a clear liquid diet. No nausea, vomiting. Did have a bowel movement. EXAMINATION: Blood pressure 125/77 with a pulse of 74. Temperature 97. He is 99% on room air. General description is a middle aged male up in the chair in no distress. RESPIRATORY SYSTEM: Unlabored breathing. Clear to auscultation anteriorly. HEART: S1, S2. Regular rate and rhythm. ABDOMEN: Soft, no tenderness. LABS: White count 4.1, hemoglobin is 11, creatinine 0.60. DIAGNOSTIC IMPRESSION AND PLAN: Patient with secondary peritonitis from perforated small intestine, status post repair of the same. The patient is currently afebrile. White count is normal. Blood culture has been negative. He did have recent CT. Did not show any anastomosis leak. The patient got short course of oral Augmentin to finish a course of therapy with close outpatient followup. MMODL / IJN: [id number] /
[2018-06-10 15:04] VITALS: BMI 29.9
== END 2018-06-10 15:58 | disposition home or self-care (01) | DRG 826 ==
LOC: 5ONC 07:57 → 6SEL 06-02 18:10
PROVIDERS: ADMIT Internal Medicine Hematology & Oncology; ATTEND Internal Medicine Hematology & Oncology
PROC: 3E03305 Introduction of Other Antineoplastic into Peripheral Vein, Percutaneous Approach (ICD-10-PCS; principal; 2018-05-30)
PROC: 0DB80ZZ Excision of Small Intestine, Open Approach (ICD-10-PCS; 2018-06-02)
DX: Z51.11 Encounter for antineoplastic chemotherapy (principal); E88.3 Tumor lysis syndrome; K63.1 Perforation of intestine (nontraumatic); K65.9 Peritonitis, unspecified; C83.30 Diffuse large B-cell lymphoma, unspecified site; B37.0 Candidal stomatitis; K56.609 Unspecified intestinal obstruction, unspecified as to partial versus complete obstruction; E27.9 Disorder of adrenal gland, unspecified; E87.6 Hypokalemia; I48.0 Paroxysmal atrial fibrillation; K64.9 Unspecified hemorrhoids; K66.8 Other specified disorders of peritoneum
CPT/HCPCS: 74022; 74177; 80048; 80053; 82040; 82330; 83615; 83735; 84100; 84132; 84443; 84478; 84550; 85025; 87040; 88307; 88309; 93005; 93306

== ENCOUNTER 2018-07-05 08:06 | Inpatient (IN) | payer BC ==
[2018-07-05] MEDS: SODIUM CHLORIDE 0.9% 1,000 ML IV SCH ×3 (09:23→19:19)
[2018-07-05 09:36] LABS: Basophils % (A) 2 %; Eosinophils # (A) 0.2 k/uL (0-0.7); Eosinophils % (A) 7 %; HCT 40.6 % (39.0-53.0); HGB 13.1 gm/dL (13.0-17.5); Lymphocytes # (A) 0.5 k/uL (1.0-4.8); Lymphocytes % (A) 21 %; MCH 28.9 pg (25.0-35.0); MCHC 32.3 g/dL (31.0-37.0); MCV 89.3 fL (80.0-100.0); Mean Platelet Volume 7.6; Monocytes # (A) 0.4 k/uL (0-1.0); Monocytes % (A) 15 %; Neutrophils # (A) 1.4 k/uL (1.3-7.7); Neutrophils % (A) 52 %; Platelet Count 160 k/uL (150-450); Poikilocytosis Slight; RBC 4.55 m/uL (4.30-5.90); RDW 14.6 % (11.5-15.5); WBC 2.6 k/uL (3.8-10.6)
[2018-07-05 09:42] LABS: ALT 37 U/L (21-72); AST 21 U/L (17-59); Albumin 3.8 g/dL (3.5-5.0); Alkaline Phosphatase 44 U/L (38-126); Anion Gap 7 mmol/L; Blood Urea Nitrogen 11 mg/dL (9-20); Calcium 8.6 mg/dL (8.4-10.2); Carbon Dioxide 27 mmol/L (22-30); Chloride 108 mmol/L (98-107); Glucose 93 mg/dL (74-99); Potassium 3.6 mmol/L (3.5-5.1); Sodium 142 mmol/L (137-145); Total Bilirubin 0.6 mg/dL (0.2-1.3); Total Protein 6.2 g/dL (6.3-8.2)
[2018-07-05] MEDS: methylPREDNISolone SOD SUCCI 125 MG/2 ML VIAL IV ONE ×2 (11:53→11:54)
[2018-07-05] MEDS ORDERED: ACETAMINOPHEN TAB 325 MG TAB PO ONE (12:00)
[2018-07-05] MEDS ORDERED: diphenhydrAMINE 50 MG/ML 1 ML VIAL IVP ONE (12:00)
[2018-07-05] MEDS: predniSONE 50 MG TAB PO SCH ×2 (12:10→20:12)
[2018-07-05] MEDS: predniSONE 20 MG TAB PO SCH ×2 (12:10→20:12)
[2018-07-05] MEDS: FAMOTIDINE 20 MG/2 ML VIAL IV SCH (15:38)
[2018-07-05] MEDS: ONDANSETRON 16 MG in SODIUM CHLORIDE 0.9% 50 ML IVPB SCH (15:38)
[2018-07-05] MEDS: VINCRISTINE SULFATE IV SCH (16:46)
[2018-07-05] MEDS: ETOPOSIDE 100 MG in SODIUM CHLORIDE 0.9% 500 ML IV SCH (16:46)
[2018-07-05] MEDS: SODIUM CHLORIDE 0.9% IV SCH ×2 (16:46→16:47)
[2018-07-05] MEDS: DOXORUBICIN HCL IV SCH (16:47)
--- NOTE | 2018-07-05 17:19 | P.HPIM ---
History of Present Illness H&P Date: 07/05/18 Chief Complaint: Cycle 2 of R-EPOCH Mr Alaniz is a 58 yr old white male, initially seen in consult at [facility] on 03/15/18. The patient is fairly healthy at baseline, and had come into the ER complaining of "chest pain" in 1 week, progressive in nature. One further clarification the patient was actually described to be localized to the left upper quadrant and left lower rib cage area with penetration straight through to the back. The pain was quite constant and worsened while sitting. There were no other associated aggravating or relieving factors. on exam the patient was felt to have a palpable left upper quadrant mass. CT scan of the abdomen and pelvis had shown a markedly enlarged left adrenal mass, 10.3 x 5.1 cm. That appeared mild colon wall thickening proximal to the mid transverse colon. Splenomegaly was seen. CTA of the chest was negative for PE but showed some borderline mediastinal and hilar adenopathy. The patient underwent a CT-guided adrenal biopsy on 03/16/18. Fine-needle aspirate showed severely atypical cells consistent with diffuse large B-cell lymphoma. Core biopsy was also consistent with high-grade B-cell non-Hodgkin lymphoma consistent with diffuse large B-cell lymphoma. She was sent for "double hit" testing but material on the cell block was not enough to wish further testing was not possible. Patient had a PET scan on 03/26/18 revealing hypermetabolic uptake in shotty mediastinal and hilar nodes with SUV in the 5-7.4 range. 10 cm left adrenal mass had an SUV of 22. There was a loop of bowel in the right lower quadrant with thickened wall with SUV of 20. There was possibility of a retroperitoneal node with SUV of 21. Right proximal humerus shows uptake with SUV of 3.9. The patient was seen for his first office visit on 03/31/18. The pt thus appeared to have stage IV disease. 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 He decided for R -CHOP, with a plan for reevaluation after 2 cycles. He started chemo on 04/14/18 and is s/p 2 cycles. PET scan post cycle 2 showed a partial, suboptimal response. It was thus decided to change his chemo regimen to the infusional R - EPOCH. His first cycle was complicated by a Small Bowel perforation which required immediate surgical repair and recovery. Patient has now recovered and here for cycle 2. He overall is feeling good. No acute complaints. Review of Systems A 14 point review of systems assessed and completed and all negative except HPI Past Medical History Past Medical History: Cancer Additional Past Medical History / Comment(s): non-hodgkins lymphoma History of Any Multi-Drug Resistant Organisms: None Reported Past Surgical History: Bowel Resection, Tonsillectomy Additional Past Surgical History / Comment(s): MEDIPORT INSERTION. BOWEL RESECTION D/T CANCER. Past Anesthesia/Blood Transfusion Reactions: No Reported Reaction Past Psychological History: No Psychological Hx Reported Smoking Status: Never smoker Past Alcohol Use History: None Reported Past Drug Use History: None Reported - Past Family History Father Additional Family Medical History / Comment(s): liver issue Mother Family Medical History: Cancer Additional Family Medical History / Comment(s): skin CA, kidney issues Medications and Allergies Home Medications Medication Instructions Recorded Confirmed Type Polyethylene Glycol 3350 [Miralax] 17 gm PO DAILY PRN 30 Days #1 06/10/18 Rx bottle HYDROcodone/APAP 5-325MG [[place] 1 tab PO Q6HR PRN 07/05/18 07/05/18 History 5-325] Ondansetron HCl [Zofran] 4 mg PO Q6HR PRN 07/05/18 07/05/18 History Allergies Allergy/AdvReac Type Severity Reaction Status Date / Time No Known Allergies Allergy Verified 07/05/18 10:11 Physical Exam Vitals: Vital Signs Temp Pulse Resp BP Pulse Ox 07/05/18 16:47 97.6 F 77 18 135/85 96 07/05/18 12:00 97.5 F L 18 133/95 98 Intake and Output 07/05/18 07/05/18 07/05/18 06:59 14:59 22:59 Intake Total 273.267 301.733 Balance 273.267 301.733 Intake: Intake, IV Titration 273.267 301.733 Amount riTUXimab 750 mg In 273.267 301.733 Sodium Chloride 0.9% 500 ml @ Titrate IV .Q0M ONE Rx#:[id number] Other: # Voids 1 - Constitutional General appearance: Present: cooperative, no acute distress - EENT Eyes: Present: EOMI, dentition normal, normal appearance ENT: Present: NA/AT, normal oropharynx - Neck Details: supple, Trachea midline Neck: Present: normal ROM - Respiratory Details: No increased respiratory effort Respiratory: bilateral: CTA - Cardiovascular Rhythm: regular Heart sounds: normal: S1, S2 - Gastrointestinal General gastrointestinal: Present: normal bowel sounds, soft, tenderness - Integumentary Integumentary: Present: normal - Neurologic Neurologic Comment(s): no focal defects Neurologic: Present: CNII-XII intact - Musculoskeletal Musculoskeletal: Present: gait normal, generalized weakness, strength equal bilaterally - Psychiatric Psychiatric: Present: A&O x's 3, appropriate affect, intact judgment & insight Results CBC & Chem 7: 07/05/18 09:20 07/05/18 09:20 Labs: Abnormal Lab Results - Last 24 Hours (Table) 07/05/18 07/05/18 Range/Units 09:20 09:20 WBC 2.6 L (3.8-10.6) k/uL Lymphocytes # 0.5 L (1.0-4.8) k/uL Chloride 108 H (98-107) mmol/L Creatinine 0.64 L (0.66-1.25) mg/dL Total Protein 6.2 L (6.3-8.2) g/dL Thrombosis Risk Factor Assmnt - DVT/VTE Prophylaxis DVT/VTE Prophylaxis: Pharmacologic Prophylaxis ordered - Choose All That Apply Each Factor Represents 1 point: Age 41-60 years, History of prior major surgery (<1month), Obesity (BMI >25) Other Risk Factors: Yes Each Risk Factor Represents 2 Points: Malignancy Thrombosis Risk Factor Assessment Total Risk Factor Score: 5 Thrombosis Risk Factor Assessment Level: High Risk Assessment and Plan Plan: Assessment and Plan (1) Diffuse large B cell lymphoma Narrative/Plan: Diagnostic and therapeutic circumstances so far have been described in the HPI. The patient tolerated 2 cycles of RCHOP well, and did have some improvement in symptoms. However PET scan did not show the desired optimal response. Therefore his chemotherapy regimen has been changed to the high-dose infusional R - EPOCH. He is being admitted for cycle 2 of the same. Current Visit: Yes Status: Acute Code(s): C83.30 - DIFFUSE LARGE B-CELL LYMPHOMA, UNSPECIFIED SITE SNOMED Code(s): 187838265 (2)Recent Small Bowel Intestinal Perforation and Repair: Resolved - Acute Abdominal Series - 06/01/18 - non specific for gastritis versus ileus. He was placed on bowel rest and PPI was added, GI Consult - 06/02/18 pain worsened and now with associated nausea - Surgery consult placed and STAT CT abdomen ordered, Chemo on hold - Small Bowel Obstruction with concern for perforation identified and patient taken to surgery on 06/02/18 - Last Chemotherapy Interrupted secondary to this, patient has now recovered and healed (3) New Onset Atrial Fibrillation with RVR last Admission - Likely was secondary to complicating perforation and surgery, will monitor with telemetry during chemotherapy PPI and VTE Prophylaxis Plan for Neulasta after completion of chemotherapy in office Physician Attestation: I have completed the full history and physical of this patient and agree with above dictation by Delicia Fuentes NP. Dictated as a scribe
[2018-07-05] MEDS: PANTOPRAZOLE 40 MG TABLET PO SCH (17:46)
[2018-07-05] MEDS: SALT AND SODA MOUTHWASH 1,000 ML PO SCH ×2 (17:46→20:11)
--- NOTE | 2018-07-05 23:54 | CONS ---
CONSULTATION DATE OF CONSULTATION: 07/05/2018 REASON FOR CONSULTATION: Medical management requested by Dr. Olson. CONSULTATION: This is a very pleasant 58-year-old patient who was here in March of this year and was then diagnosed to have a left atrial mass and a biopsy did show diffuse large B-cell lymphoma and staging was done to stage IV. The patient was initially given regime of R- CHOP and subsequently patient had a bowel perforation and surgical repair was carried out by Dr. Camarena about 4 weeks ago. The patient is now admitted for chemotherapy. For now, the regime is R-EPOCH. The patient's at the bedside. Denies any nausea, vomiting. Appetite is fair. No urinary or GI symptoms. No mouth ulcers. No skin rash. REVIEW OF SYSTEM: CONSTITUTIONAL: Tired. HEENT: None. RESPIRATORY: None. CARDIOVASCULAR: None. GASTROINTESTINAL: None. GENITOURINARY: None. MUSCULOSKELETAL: None. DERMATOLOGICAL: None. HEMATOLOGIC: None. LYMPHATIC: None. PSYCHIATRY: None. NEUROLOGICAL: None. PAST MEDICAL HISTORY: Of diffuse large B-cell lymphoma. PAST SURGICAL HISTORY: Bowel resection, tonsillectomy, Mediport. SOCIAL HISTORY: No smoking. Alcohol: 1 drink a day, . FAMILY HISTORY: Cancer, type unknown. HOME MEDICATIONS: 1. MiraLAX 17 g p.o. daily p.r.n. 2. Zofran 4 mg every 6 hours p.r.n. 3. [place] 5 one tablet every 6 hours p.r.n. ALLERGIES: None. EXAMINATION: Temperature 97.7, pulse 87, respirations 18, blood pressure 131/91, pulse ox 96% on room air. GENERAL APPEARANCE: Average built, sitting up, comfortable. EYES: Pupils equal. Conjunctivae normal. HEENT: External nose and ears normal. Oral cavity normal. NECK: JVD not raised. Mass not palpable. RESPIRATORY: Effort normal. LUNGS: Fair air entry. CARDIOVASCULAR: First and second sounds normal. No edema. ABDOMEN: Soft, nontender. Liver and spleen not palpable. LYMPHATIC: No lymph node palpable in neck or axillae. PSYCHIATRY: Alert and oriented x3. Mood and affect normal. NEUROLOGICAL: Pupils equal. Conjunctivae grossly intact. Power and sensation grossly intact. INVESTIGATIONS: White count 2.6, hemoglobin 13.1. Potassium 3.6, chloride 108. ASSESSMENT: 1. Diffuse large B-cell lymphoma, undergoing chemotherapy which is the R-EPOCH regime. 2. Hyperchloremia. 3. Leukopenia, likely from chemotherapy. PLAN: Continue current medication and treatment plan. The patient is also on the Lovenox for DVT prophylaxis. The patient has been walking around in the room. Also getting Protonix for GI prophylaxis and getting IV fluids. Care was discussed with the patient and . Thank you, Dr. Olson. Will follow along with you. HARISH / SUYAPAN: [id number] /
[2018-07-06] MEDS: SODIUM CHLORIDE 0.9% 1,000 ML IV SCH (04:51)
[2018-07-06] MEDS: ONDANSETRON 8 MG in SODIUM CHLORIDE 0.9% 50 ML IVPB PRN (05:18)
[2018-07-06] MEDS: predniSONE 20 MG TAB PO SCH ×2 (08:19→20:34)
[2018-07-06] MEDS: ENOXAPARIN 40 MG/0.4 ML SYRINGE SQ SCH (08:19)
[2018-07-06] MEDS: PANTOPRAZOLE 40 MG TABLET PO SCH ×2 (08:19→17:42)
[2018-07-06] MEDS: predniSONE 50 MG TAB PO SCH ×2 (08:19→20:34)
[2018-07-06] MEDS: SALT AND SODA MOUTHWASH 1,000 ML PO SCH ×4 (08:20→20:36)
[2018-07-06 08:40] LABS: Basophils % (A) 0 %; Eosinophils % (A) 0 %; HCT 40.7 % (39.0-53.0); HGB 13.4 gm/dL (13.0-17.5); Lymphocytes # (A) 0.4 k/uL (1.0-4.8); Lymphocytes % (A) 5 %; MCH 29.1 pg (25.0-35.0); MCHC 32.9 g/dL (31.0-37.0); MCV 88.7 fL (80.0-100.0); Mean Platelet Volume 7.3; Monocytes # (A) 0.2 k/uL (0-1.0); Monocytes % (A) 2 %; Neutrophils # (A) 7.7 k/uL (1.3-7.7); Neutrophils % (A) 92 %; Platelet Count 178 k/uL (150-450); RBC 4.59 m/uL (4.30-5.90); RDW 14.3 % (11.5-15.5); WBC 8.4 k/uL (3.8-10.6)
[2018-07-06 08:53] LABS: ALT 37 U/L (21-72); AST 20 U/L (17-59); Albumin 3.7 g/dL (3.5-5.0); Alkaline Phosphatase 35 U/L (38-126); Anion Gap 7 mmol/L; Blood Urea Nitrogen 8 mg/dL (9-20); Calcium 8.9 mg/dL (8.4-10.2); Carbon Dioxide 24 mmol/L (22-30); Chloride 109 mmol/L (98-107); Glucose 117 mg/dL (74-99); Potassium 4.1 mmol/L (3.5-5.1); Sodium 140 mmol/L (137-145); Total Bilirubin 0.7 mg/dL (0.2-1.3); Total Protein 6.1 g/dL (6.3-8.2)
[2018-07-06] MEDS: ACETAMINOPHEN TAB 325 MG TAB PO PRN ×2 (09:32→17:43)
[2018-07-06] MEDS: ONDANSETRON 16 MG in SODIUM CHLORIDE 0.9% 50 ML IVPB SCH (17:09)
[2018-07-06] MEDS: FAMOTIDINE 20 MG/2 ML VIAL IV SCH (17:10)
--- NOTE | 2018-07-06 17:15 | P.PN ---
Subjective Progress Note Date: 07/06/18 Principal diagnosis: Lymphoma Feeling overall goo. No nausea,vomiting, diarrhea, constipation, GERD or pain. He does have a dry patch under left eye, ?contact dermatitis. Itchy Objective - Vital Signs Vital signs: Vital Signs Temp 97.6 F 07/06/18 16:15 Pulse 83 07/06/18 16:15 Resp 18 07/06/18 16:15 BP 130/80 07/06/18 16:15 Pulse Ox 97 07/06/18 16:15 Intake & Output 07/05/18 07/06/18 07/06/18 18:59 06:59 18:59 Intake Total 575.153 679 2341 Balance 575.743 708 1626 Weight 86.183 kg Intake: Intake, IV Titration 434.092 2246 Amount DOXOrubicin HCL 20 mg In 80 Sodium Chloride 0.9% 250 ml @ 10.833 mls/hr IV Q24H [facility] Rx#:[id number] Etoposide 100 mg In 160 Sodium Chloride 0.9% 500 ml @ 21.042 mls/hr IV Q24H [facility] Rx#:[id number] Sodium Chloride 0.9% 1, 800 000 ml @ 100 mls/hr IV . Q10H [facility] Rx#:[id number] riTUXimab 750 mg In 575.000 Sodium Chloride 0.9% 500 ml @ Titrate IV .Q0M [facility] Rx#:[id number] vinCRIStine SULFATE 0.8 18 mg In Sodium Chloride 0.9 % 50 ml @ 2.117 mls/hr IV Q24H [facility] Rx#:[id number] Oral 670 Other: # Voids 1 3 - Exam - Constitutional General appearance: Present: cooperative, no acute distress - EENT Eyes: Present: EOMI, dentition normal, normal appearance ENT: Present: NA/AT, normal oropharynx - Neck Details: supple, Trachea midline Neck: Present: normal ROM - Respiratory Details: No increased respiratory effort Respiratory: bilateral: CTA - Cardiovascular Rhythm: regular Heart sounds: normal: S1, S2 - Gastrointestinal General gastrointestinal: Present: normal bowel sounds, soft, tenderness - Integumentary Integumentary: Present: normal - Neurologic Neurologic Comment(s): no focal defects Neurologic: Present: CNII-XII intact - Musculoskeletal Musculoskeletal: Present: gait normal, generalized weakness, strength equal bilaterally - Psychiatric Psychiatric: Present: A&O x's 3, appropriate affect, intact judgment & insight - Labs CBC & Chem 7: 07/06/18 07:59 07/06/18 07:59 Labs: Abnormal Lab Results - Last 24 Hours (Table) 07/06/18 07/06/18 Range/Units 07:59 07:59 Lymphocytes # 0.4 L (1.0-4.8) k/uL Chloride 109 H (98-107) mmol/L BUN 8 L (9-20) mg/dL Creatinine 0.65 L (0.66-1.25) mg/dL Glucose 117 H (74-99) mg/dL Alkaline Phosphatase 35 L (38-126) U/L Total Protein 6.1 L (6.3-8.2) g/dL Assessment and Plan Plan: Assessment and Plan (1) Diffuse large B cell lymphoma Narrative/Plan: Diagnostic and therapeutic circumstances so far have been described in the HPI. The patient tolerated 2 cycles of RCHOP well, and did have some improvement in symptoms. However PET scan did not show the desired optimal response. Therefore his chemotherapy regimen has been changed to the high-dose infusional R - EPOCH. He is being admitted for cycle 2 of the same. Current Visit: Yes Status: Acute Code(s): C83.30 - DIFFUSE LARGE B-CELL LYMPHOMA, UNSPECIFIED SITE SNOMED Code(s): 381316859 (2)Recent Small Bowel Intestinal Perforation and Repair: Resolved - Acute Abdominal Series - 06/01/18 - non specific for gastritis versus ileus. He was placed on bowel rest and PPI was added, GI Consult - 06/02/18 pain worsened and now with associated nausea - Surgery consult placed and STAT CT abdomen ordered, Chemo on hold - Small Bowel Obstruction with concern for perforation identified and patient taken to surgery on 06/02/18 - Last Chemotherapy Interrupted secondary to this, patient has now recovered and healed (3) New Onset Atrial Fibrillation with RVR last Admission - Likely was secondary to complicating perforation and surgery, will monitor with telemetry during chemotherapy PPI and VTE Prophylaxis Triamacolone to skin rash under eye - contact dermatitis Plan for Neulasta after completion of chemotherapy in office
[2018-07-06] MEDS: VINCRISTINE SULFATE IV SCH (19:51)
[2018-07-06] MEDS: SODIUM CHLORIDE 0.9% IV SCH ×2 (19:51→19:52)
[2018-07-06] MEDS: DOXORUBICIN HCL IV SCH (19:52)
[2018-07-06] MEDS: ETOPOSIDE 100 MG in SODIUM CHLORIDE 0.9% 500 ML IV SCH (19:53)
[2018-07-06] MEDS: TRIAMCINOLONE ACET 0.1% OINTMENT 15 GM TUBE TOPICAL SCH (20:34)
--- NOTE | 2018-07-06 20:38 | PN ---
PROGRESS NOTE DATE OF SERVICE: 07/06/2018 PRESENTING COMPLAINT: Tired. INTERVAL HISTORY: This is a patient with diffuse large B-cell lymphoma who is currently getting R-EPOCH regimen of chemotherapy. He had slight nausea earlier today. No mouth ulcers. No diarrhea. No fever. No chills. Did get up and walk around the room. REVIEW OF SYSTEMS: Done for constitutional, cardiovascular, GI, pulmonary; relevant findings as above. CURRENT MEDICATIONS: Reviewed. They include cyclophosphamide, doxorubicin, etoposide, Zofran, prednisone, bicarbonate and vincristine. PHYSICAL EXAMINATION: Temperature 97.6, pulse 83, respiration 18, blood pressure 130/80, pulse ox 97% on room air. GENERAL APPEARANCE: Propped up in bed, awake. EYES: Pupils equal. Conjunctivae normal. HEENT: External appearance of nose and ears normal. Oral cavity normal. NECK: JVD not raised. Mass not palpable. RESPIRATORY: Effort normal. Lungs are clear. CARDIOVASCULAR: First and second sounds normal. No edema. ABDOMEN: Soft, non-tender. Liver and spleen not palpable. PSYCHIATRY: Alert and oriented x3. Mood and affect normal. INVESTIGATIONS: White count 8.4, hemoglobin 13.4, potassium 4.1, BUN 8, creatinine 0.65. ASSESSMENT: 1. Diffuse large B-cell lymphoma, undergoing chemotherapy, which is R-EPOCH regimen. 2. Nausea as a side effect of chemotherapy. Responding to antiemetics. 3. Hyperchloremia. 4. Leukopenia, likely from chemotherapy. PLAN: Continue current medication and treatment plan. Care was discussed with the patient. Will follow. MMODL / IJN: [id number] /
[2018-07-07] MEDS: SODIUM CHLORIDE 0.9% 1,000 ML IV SCH ×4 (01:04→19:24)
[2018-07-07 07:46] LABS: Basophils % (A) 0 %; Eosinophils % (A) 0 %; HCT 39.3 % (39.0-53.0); HGB 12.8 gm/dL (13.0-17.5); Lymphocytes # (A) 0.3 k/uL (1.0-4.8); Lymphocytes % (A) 3 %; MCHC 32.5 g/dL (31.0-37.0); MCV 89.3 fL (80.0-100.0); Mean Platelet Volume 7.2; Monocytes # (A) 0.4 k/uL (0-1.0); Monocytes % (A) 4 %; Neutrophils # (A) 9.4 k/uL (1.3-7.7); Neutrophils % (A) 93 %; Platelet Count 160 k/uL (150-450); RDW 14.4 % (11.5-15.5); WBC 10.1 k/uL (3.8-10.6)
[2018-07-07 08:06] LABS: ALT 33 U/L (21-72); AST 17 U/L (17-59); Albumin 3.4 g/dL (3.5-5.0); Alkaline Phosphatase 30 U/L (38-126); Anion Gap 9 mmol/L; Blood Urea Nitrogen 9 mg/dL (9-20); Calcium 8.7 mg/dL (8.4-10.2); Carbon Dioxide 23 mmol/L (22-30); Chloride 109 mmol/L (98-107); Glucose 114 mg/dL (74-99); Potassium 3.8 mmol/L (3.5-5.1); Sodium 141 mmol/L (137-145); Total Bilirubin 0.5 mg/dL (0.2-1.3); Total Protein 5.7 g/dL (6.3-8.2)
[2018-07-07] MEDS: PANTOPRAZOLE 40 MG TABLET PO SCH ×2 (08:54→17:05)
[2018-07-07] MEDS: predniSONE 20 MG TAB PO SCH ×2 (08:54→23:36)
[2018-07-07] MEDS: ENOXAPARIN 40 MG/0.4 ML SYRINGE SQ SCH (08:55)
[2018-07-07] MEDS: SALT AND SODA MOUTHWASH 1,000 ML PO SCH ×4 (08:55→23:36)
[2018-07-07] MEDS: predniSONE 50 MG TAB PO SCH ×2 (08:55→23:34)
[2018-07-07] MEDS: TRIAMCINOLONE ACET 0.1% OINTMENT 15 GM TUBE TOPICAL SCH ×2 (08:56→23:37)
[2018-07-07] MEDS: ONDANSETRON 8 MG in SODIUM CHLORIDE 0.9% 50 ML IVPB PRN (11:15)
--- NOTE | 2018-07-07 18:18 | P.PN ---
Subjective Progress Note Date: 07/07/18 Principal diagnosis: Lymphoma Feeling overall ok, he is nauseated today during follow-up. No constipation, diarrhea, bleeding Objective - Vital Signs Vital signs: Vital Signs Temp 97.7 F 07/07/18 16:00 Pulse 59 L 07/07/18 16:00 Resp 18 07/07/18 16:00 BP 142/88 07/07/18 16:00 Pulse Ox 97 07/07/18 16:00 Intake & Output 07/06/18 07/07/18 07/07/18 18:59 06:59 18:59 Intake Total 8064 408 3905.4 Balance 4499 261 9645.4 Weight 86.183 kg Intake: Intake, IV Titration 1058 1070.4 Amount DOXOrubicin HCL 20 mg In 80 84.8 Sodium Chloride 0.9% 250 ml @ 10.833 mls/hr IV Q24H [facility] Rx#:[id number] Etoposide 100 mg In 160 168.8 Sodium Chloride 0.9% 500 ml @ 21.042 mls/hr IV Q24H [facility] Rx#:[id number] Ondansetron 8 mg In 50 Sodium Chloride 0.9% 50 ml @ 100 mls/hr IVPB BID PRN Rx#:[id number] Sodium Chloride 0.9% 1, 800 750 000 ml @ 100 mls/hr IV . Q10H [facility] Rx#:[id number] vinCRIStine SULFATE 0.8 18 16.8 mg In Sodium Chloride 0.9 % 50 ml @ 2.117 mls/hr IV Q24H [facility] Rx#:[id number] Oral 250 Other: # Voids 1 - Exam - Constitutional General appearance: Present: cooperative, no acute distress - EENT Eyes: Present: EOMI, dentition normal, normal appearance ENT: Present: NA/AT, normal oropharynx - Neck Details: supple, Trachea midline Neck: Present: normal ROM - Respiratory Details: No increased respiratory effort Respiratory: bilateral: CTA - Cardiovascular Rhythm: regular Heart sounds: normal: S1, S2 - Gastrointestinal General gastrointestinal: Present: normal bowel sounds, soft, tenderness - Integumentary Integumentary: Present: normal - Neurologic Neurologic Comment(s): no focal defects Neurologic: Present: CNII-XII intact - Musculoskeletal Musculoskeletal: Present: gait normal, generalized weakness, strength equal bilaterally - Psychiatric Psychiatric: Present: A&O x's 3, appropriate affect, intact judgment & insight - Labs CBC & Chem 7: 07/07/18 07:07 07/07/18 07:07 Labs: Abnormal Lab Results - Last 24 Hours (Table) 07/07/18 07/07/18 Range/Units 07:07 07:07 Hgb 12.8 L (13.0-17.5) gm/dL Neutrophils # 9.4 H (1.3-7.7) k/uL Lymphocytes # 0.3 L (1.0-4.8) k/uL Chloride 109 H (98-107) mmol/L Creatinine 0.63 L (0.66-1.25) mg/dL Glucose 114 H (74-99) mg/dL Alkaline Phosphatase 30 L (38-126) U/L Total Protein 5.7 L (6.3-8.2) g/dL Albumin 3.4 L (3.5-5.0) g/dL Assessment and Plan Plan: Assessment and Plan (1) Diffuse large B cell lymphoma Narrative/Plan: Diagnostic and therapeutic circumstances so far have been described in the HPI. The patient tolerated 2 cycles of RCHOP well, and did have some improvement in symptoms. However PET scan did not show the desired optimal response. Therefore his chemotherapy regimen has been changed to the high-dose infusional R - EPOCH. He is being admitted for cycle 2 of the same. - Symptom management and supportive care to continue Day 3 of 5 Current Visit: Yes Status: Acute Code(s): C83.30 - DIFFUSE LARGE B-CELL LYMPHOMA, UNSPECIFIED SITE SNOMED Code(s): 152595789 (2)Recent Small Bowel Intestinal Perforation and Repair: Resolved - Acute Abdominal Series - 06/01/18 - non specific for gastritis versus ileus. He was placed on bowel rest and PPI was added, GI Consult - 06/02/18 pain worsened and now with associated nausea - Surgery consult placed and STAT CT abdomen ordered, Chemo on hold - Small Bowel Obstruction with concern for perforation identified and patient taken to surgery on 06/02/18 - Last Chemotherapy Interrupted secondary to this, patient has now recovered and healed (3) New Onset Atrial Fibrillation with RVR last Admission - Likely was secondary to complicating perforation and surgery, will monitor with telemetry during chemotherapy PPI and VTE Prophylaxis Triamacolone to skin rash under eye - contact dermatitis Plan for Neulasta after completion of chemotherapy in office
[2018-07-07] MEDS: FAMOTIDINE 20 MG/2 ML VIAL IV SCH (19:20)
[2018-07-07] MEDS: ONDANSETRON 16 MG in SODIUM CHLORIDE 0.9% 50 ML IVPB SCH (19:20)
[2018-07-07] MEDS: SODIUM CHLORIDE 0.9% IV SCH ×2 (19:21→19:22)
[2018-07-07] MEDS: DOXORUBICIN HCL IV SCH (19:21)
[2018-07-07] MEDS: ETOPOSIDE 100 MG in SODIUM CHLORIDE 0.9% 500 ML IV SCH (19:22)
[2018-07-07] MEDS: VINCRISTINE SULFATE IV SCH (19:22)
[2018-07-07] MEDS: PROCHLORPERAZINE 10 MG TAB PO PRN (20:42)
[2018-07-07] MEDS: SENNOSIDES-DOCUSATE SODIUM 1 EACH TAB PO SCH (23:33)
[2018-07-08] MEDS: PROCHLORPERAZINE 10 MG TAB PO PRN ×2 (03:35→08:12)
[2018-07-08] MEDS: SODIUM CHLORIDE 0.9% 1,000 ML IV SCH ×3 (06:25→20:40)
[2018-07-08 07:52] LABS: ALT 28 U/L (21-72); AST 14 U/L (17-59); Alkaline Phosphatase 25 U/L (38-126); Anion Gap 8 mmol/L; Blood Urea Nitrogen 11 mg/dL (9-20); Calcium 8.5 mg/dL (8.4-10.2); Carbon Dioxide 25 mmol/L (22-30); Chloride 108 mmol/L (98-107); Glucose 103 mg/dL (74-99); Potassium 3.1 mmol/L (3.5-5.1); Sodium 141 mmol/L (137-145); Total Bilirubin 0.7 mg/dL (0.2-1.3); Total Protein 5.2 g/dL (6.3-8.2)
[2018-07-08 07:54] LABS: Basophils % (A) 0 %; Eosinophils % (A) 0 %; HCT 36.3 % (39.0-53.0); Lymphocytes # (A) 0.4 k/uL (1.0-4.8); Lymphocytes % (A) 8 %; MCH 29.1 pg (25.0-35.0); MCHC 33.1 g/dL (31.0-37.0); MCV 87.9 fL (80.0-100.0); Mean Platelet Volume 7.6; Monocytes # (A) 0.3 k/uL (0-1.0); Monocytes % (A) 6 %; Neutrophils # (A) 4.6 k/uL (1.3-7.7); Neutrophils % (A) 85 %; Platelet Count 132 k/uL (150-450); RBC 4.12 m/uL (4.30-5.90); RDW 14.2 % (11.5-15.5); WBC 5.4 k/uL (3.8-10.6)
[2018-07-08] MEDS: PANTOPRAZOLE 40 MG TABLET PO SCH ×2 (08:11→18:08)
[2018-07-08] MEDS: POLYETHYLENE GLYCOL 3350 17 GM POWD.PACK PO SCH (08:12)
[2018-07-08] MEDS: ENOXAPARIN 40 MG/0.4 ML SYRINGE SQ SCH (08:12)
[2018-07-08] MEDS: SALT AND SODA MOUTHWASH 1,000 ML PO SCH ×4 (08:12→20:42)
[2018-07-08] MEDS: TRIAMCINOLONE ACET 0.1% OINTMENT 15 GM TUBE TOPICAL SCH ×2 (08:31→20:41)
[2018-07-08] MEDS: ONDANSETRON 8 MG in SODIUM CHLORIDE 0.9% 50 ML IVPB PRN (10:16)
[2018-07-08] MEDS: POTASSIUM CHLORIDE 20 MEQ in WATER FOR INJECTION 1 100ML.BAG IVPB SCH ×3 (11:12→15:25)
[2018-07-08] MEDS ORDERED: POTASSIUM CHLORIDE 2 MEQ/ML 20 ML VIAL IVPB SCH (12:00)
[2018-07-08] MEDS: predniSONE 50 MG TAB PO SCH ×2 (13:17→16:32)
[2018-07-08] MEDS: predniSONE 20 MG TAB PO SCH ×2 (13:17→16:33)
[2018-07-08] MEDS: ACETAMINOPHEN TAB 325 MG TAB PO PRN (15:24)
[2018-07-08] MEDS: LORazepam 2 MG/ML INJ IV PRN (15:29)
[2018-07-08] MEDS: METOCLOPRAMIDE 5 MG/ML 2 ML VIAL IVP SCH (18:08)
--- NOTE | 2018-07-08 18:57 | P.PN ---
Subjective Progress Note Date: 07/08/18 Principal diagnosis: Lymphoma Feeling overall ok, he has not moved bowels, he is very nauseated and had elesis x3 yesterday. Ativan gave good relief and he was able to walk halls. Objective - Vital Signs Vital signs: Vital Signs Temp 97.6 F 07/08/18 15:33 Pulse 62 07/08/18 15:33 Resp 14 07/08/18 15:33 BP 115/84 07/08/18 15:33 Pulse Ox 95 07/08/18 15:33 Intake & Output 07/07/18 07/08/18 07/08/18 18:59 06:59 18:59 Intake Total 1070.4 1560 Output Total 60 Balance 1070.4 1500 Intake: Intake, IV Titration 1070.4 1200 Amount DOXOrubicin HCL 20 mg In 84.8 Sodium Chloride 0.9% 250 ml @ 10.833 mls/hr IV Q24H [facility] Rx#:[id number] Etoposide 100 mg In 168.8 Sodium Chloride 0.9% 500 ml @ 21.042 mls/hr IV Q24H [facility] Rx#:[id number] Ondansetron 8 mg In 50 Sodium Chloride 0.9% 50 ml @ 100 mls/hr IVPB BID PRN Rx#:[id number] Sodium Chloride 0.9% 1, 750 1200 000 ml @ 100 mls/hr IV . Q10H [facility] Rx#:[id number] vinCRIStine SULFATE 0.8 16.8 mg In Sodium Chloride 0.9 % 50 ml @ 2.117 mls/hr IV Q24H [facility] Rx#:[id number] Oral 360 Output: Emesis 60 Other: # Voids 2 2 - Exam - Constitutional General appearance: Present: cooperative, no acute distress - EENT Eyes: Present: EOMI, dentition normal, normal appearance ENT: Present: NA/AT, normal oropharynx - Neck Details: supple, Trachea midline Neck: Present: normal ROM - Respiratory Details: No increased respiratory effort Respiratory: bilateral: CTA - Cardiovascular Rhythm: regular Heart sounds: normal: S1, S2 - Gastrointestinal General gastrointestinal: Present: normal bowel sounds, soft, tenderness - Integumentary Integumentary: Present: normal - Neurologic Neurologic Comment(s): no focal defects Neurologic: Present: CNII-XII intact - Musculoskeletal Musculoskeletal: Present: gait normal, generalized weakness, strength equal bilaterally - Psychiatric Psychiatric: Present: A&O x's 3, appropriate affect, intact judgment & insight - Labs CBC & Chem 7: 07/08/18 07:02 07/08/18 07:02 Labs: Abnormal Lab Results - Last 24 Hours (Table) 07/08/18 07/08/18 Range/Units 07:02 07:02 RBC 4.12 L (4.30-5.90) m/uL Hgb 12.0 L (13.0-17.5) gm/dL Hct 36.3 L (39.0-53.0) % Plt Count 132 L (150-450) k/uL Lymphocytes # 0.4 L (1.0-4.8) k/uL Potassium 3.1 L (3.5-5.1) mmol/L Chloride 108 H (98-107) mmol/L Glucose 103 H (74-99) mg/dL AST 14 L (17-59) U/L Alkaline Phosphatase 25 L (38-126) U/L Total Protein 5.2 L (6.3-8.2) g/dL Albumin 3.0 L (3.5-5.0) g/dL Assessment and Plan Plan: Assessment and Plan (1) Diffuse large B cell lymphoma Narrative/Plan: Diagnostic and therapeutic circumstances so far have been described in the HPI. The patient tolerated 2 cycles of RCHOP well, and did have some improvement in symptoms. However PET scan did not show the desired optimal response. Therefore his chemotherapy regimen has been changed to the high-dose infusional R - EPOCH. He is being admitted for cycle 2 of the same. - Symptom management and supportive care to continue Day 4 of 5 Current Visit: Yes Status: Acute Code(s): C83.30 - DIFFUSE LARGE B-CELL LYMPHOMA, UNSPECIFIED SITE SNOMED Code(s): 575000667 (2)Recent Small Bowel Intestinal Perforation and Repair: Resolved - Acute Abdominal Series - 06/01/18 - non specific for gastritis versus ileus. He was placed on bowel rest and PPI was added, GI Consult - 06/02/18 pain worsened and now with associated nausea - Surgery consult placed and STAT CT abdomen ordered, Chemo on hold - Small Bowel Obstruction with concern for perforation identified and patient taken to surgery on 06/02/18 - Last Chemotherapy Interrupted secondary to this, patient has now recovered and healed (3) New Onset Atrial Fibrillation with RVR last Admission - Likely was secondary to complicating perforation and surgery, will monitor with telemetry during chemotherapy (4) Chemo induced nausea and vomiting - not controlled - Ativan 0.5mg po q6 prn - Reglan ATC - Flate plate abdomen - Bowel regimen senna s and miralax - lactulose PRN PPI and VTE Prophylaxis Triamacolone to skin rash under eye - contact dermatitis Plan for Neulasta after completion of chemotherapy in office
[2018-07-08] MEDS ORDERED: LACTULOSE 20 GM/30 ML CUP PO PRN (18:58)
--- NOTE | 2018-07-08 20:32 | XR ---
EXAMINATION TYPE: XR abdomen acute w cxr DATE OF EXAM: 07/08/2018 COMPARISON: 06/01/2018 HISTORY: Nausea and vomiting TECHNIQUE: Chest x-ray with supine and upright abdomen. FINDINGS: Heart and mediastinum are normal. Lungs are clear. Diaphragm is normal. Bowel gas pattern is normal. There is no sign of intestinal obstruction or pneumoperitoneum. Fecal pattern is normal. There is no evidence of a mass. There is right central venous catheter with tip in the superior vena cava. There are no pathologic calcifications over the kidneys. IMPRESSION: Normal chest. Nonacute abdomen.
[2018-07-08] MEDS: FAMOTIDINE 20 MG/2 ML VIAL IV SCH (20:41)
[2018-07-08] MEDS: SENNOSIDES-DOCUSATE SODIUM 1 EACH TAB PO SCH (20:41)
[2018-07-08] MEDS: ONDANSETRON 16 MG in SODIUM CHLORIDE 0.9% 50 ML IVPB SCH (20:52)
--- NOTE | 2018-07-08 21:43 | PN ---
PROGRESS NOTE DATE OF SERVICE: 07/08/2018 PRESENTING COMPLAINT: Nausea. INTERVAL HISTORY: This is a patient with diffuse large B-cell lymphoma. He is currently getting R-EPOCH regimen of chemotherapy. He had significant nausea today. Appetite dwindled. He was feeling queasy, upset in his stomach. No diarrhea. Feels tired and rundown. REVIEW OF SYSTEMS: Done for constitutional, cardiovascular, GI, pulmonary; relevant findings as above. CURRENT MEDICATIONS: Reviewed. They include cyclophosphamide, doxorubicin, etoposide, Zofran, prednisone, bicarbonate, vincristine, and Compazine was added. PHYSICAL EXAMINATION: Temperature 97.7, pulse 55, respiration 18, blood pressure 135/83, pulse ox 97% on room air. GENERAL APPEARANCE: Lying in bed, somewhat tired-appearing. EYES: Pupils equal. Conjunctivae normal. HEENT: External appearance of nose and ears normal. Oral cavity normal. NECK: JVD not raised. Mass not palpable. RESPIRATORY: Effort normal. Lungs are clear. CARDIOVASCULAR: First and second sounds normal. No edema. ABDOMEN: Soft, non-tender. Liver and spleen not palpable. PSYCHIATRY: Alert and oriented x3. Mood and affect normal. INVESTIGATIONS: White count 5.4, hemoglobin 12, potassium 3.1, BUN 11, creatinine 0.73, albumin 3. ASSESSMENT: 1. Diffuse large B-cell lymphoma, undergoing chemotherapy which is R-EPOCH regimen. 2. Worsening nausea as a side effect of chemotherapy. 3. Hypochloremia. 4. Hypokalemia. 5. Hypoalbuminemia, probably an acute phase reactant. 6. Dyspepsia, likely a side effect of chemotherapy. PLAN: Continue current medication and treatment plan. Patient is given Compazine and also put on Reglan IV q.6, getting IV fluids. Care was discussed with the patient. Will increase the Pepcid to 20 mg b.i.d. MMODL / IJN: [id number] /
[2018-07-08] MEDS: SODIUM CHLORIDE 0.9% IV SCH ×2 (21:51)
[2018-07-08] MEDS: VINCRISTINE SULFATE IV SCH (21:51)
[2018-07-08] MEDS: DOXORUBICIN HCL IV SCH (21:51)
[2018-07-08] MEDS: ETOPOSIDE 100 MG in SODIUM CHLORIDE 0.9% 500 ML IV SCH (21:51)
[2018-07-09] MEDS: METOCLOPRAMIDE 5 MG/ML 2 ML VIAL IVP SCH ×4 (00:26→17:41)
[2018-07-09] MEDS: SODIUM CHLORIDE 0.9% 1,000 ML IV SCH ×2 (06:18→23:35)
[2018-07-09 07:08] LABS: Basophils % (A) 0 %; Eosinophils % (A) 1 %; HCT 38.7 % (39.0-53.0); HGB 13.3 gm/dL (13.0-17.5); Lymphocytes # (A) 0.4 k/uL (1.0-4.8); Lymphocytes % (A) 8 %; MCH 29.6 pg (25.0-35.0); MCHC 34.4 g/dL (31.0-37.0); MCV 85.9 fL (80.0-100.0); Mean Platelet Volume 7.2; Monocytes # (A) 0.1 k/uL (0-1.0); Monocytes % (A) 2 %; Neutrophils # (A) 3.7 k/uL (1.3-7.7); Neutrophils % (A) 88 %; Platelet Count 146 k/uL (150-450); RDW 13.8 % (11.5-15.5); WBC 4.2 k/uL (3.8-10.6)
[2018-07-09 07:21] LABS: ALT 31 U/L (21-72); AST 21 U/L (17-59); Albumin 3.4 g/dL (3.5-5.0); Alkaline Phosphatase 27 U/L (38-126); Anion Gap 8 mmol/L; Blood Urea Nitrogen 13 mg/dL (9-20); Calcium 8.6 mg/dL (8.4-10.2); Carbon Dioxide 25 mmol/L (22-30); Chloride 107 mmol/L (98-107); Glucose 109 mg/dL (74-99); Potassium 3.8 mmol/L (3.5-5.1); Sodium 140 mmol/L (137-145); Total Bilirubin 1.3 mg/dL (0.2-1.3); Total Protein 5.8 g/dL (6.3-8.2)
[2018-07-09] MEDS: LORazepam 2 MG/ML INJ IV PRN (08:57)
[2018-07-09] MEDS: predniSONE 20 MG TAB PO SCH ×2 (09:06→21:49)
[2018-07-09] MEDS: predniSONE 50 MG TAB PO SCH ×2 (09:06→21:50)
[2018-07-09] MEDS: ENOXAPARIN 40 MG/0.4 ML SYRINGE SQ SCH (09:07)
[2018-07-09] MEDS: PANTOPRAZOLE 40 MG TABLET PO SCH ×2 (09:07→17:18)
[2018-07-09] MEDS: POLYETHYLENE GLYCOL 3350 17 GM POWD.PACK PO SCH (09:07)
[2018-07-09] MEDS: SALT AND SODA MOUTHWASH 1,000 ML PO SCH ×4 (09:07→23:35)
[2018-07-09] MEDS: TRIAMCINOLONE ACET 0.1% OINTMENT 15 GM TUBE TOPICAL SCH ×2 (12:19→21:53)
--- NOTE | 2018-07-09 13:47 | P.DS ---
Providers Date of admission: 07/05/18 08:06 Expected date of discharge: 07/09/18 Attending physician: Arnie Olson Consults: 07/05/18 08:42 Consult Physician Routine Consulting Provider: Stas Strickland Consult Reason/Comments: medical management Do you want consulting provider notified?: Yes Placement Type Exists?: Yes Primary care physician: Stated None Hospital Course: Lymphoma Feeling overall ok, he has not moved bowels, he is very nauseated and had elesis x3 yesterday. Ativan gave good relief and he was able to walk halls. Objective - Vital Signs Vital signs: Vital Signs Temp 97.6 F 07/08/18 15:33 Pulse 62 07/08/18 15:33 Resp 14 07/08/18 15:33 BP 115/84 07/08/18 15:33 Pulse Ox 95 07/08/18 15:33 Intake & Output 07/07/18 07/08/18 07/08/18 18:59 06:59 18:59 Intake Total 1070.4 1560 Output Total 60 Balance 1070.4 1500 Intake: Intake, IV Titration 1070.4 1200 Amount DOXOrubicin HCL 20 mg In 84.8 Sodium Chloride 0.9% 250 ml @ 10.833 mls/hr IV Q24H [facility] Rx#:[id number] Etoposide 100 mg In 168.8 Sodium Chloride 0.9% 500 ml @ 21.042 mls/hr IV Q24H [facility] Rx#:[id number] Ondansetron 8 mg In 50 Sodium Chloride 0.9% 50 ml @ 100 mls/hr IVPB BID PRN Rx#:[id number] Sodium Chloride 0.9% 1, 750 1200 000 ml @ 100 mls/hr IV . Q10H [facility] Rx#:[id number] vinCRIStine SULFATE 0.8 16.8 mg In Sodium Chloride 0.9 % 50 ml @ 2.117 mls/hr IV Q24H [facility] Rx#:[id number] Oral 360 Output: Emesis 60 Other: # Voids 2 2 - Exam - Constitutional General appearance: Present: cooperative, no acute distress - EENT Eyes: Present: EOMI, dentition normal, normal appearance ENT: Present: NA/AT, normal oropharynx - Neck Details: supple, Trachea midline Neck: Present: normal ROM - Respiratory Details: No increased respiratory effort Respiratory: bilateral: CTA - Cardiovascular Rhythm: regular Heart sounds: normal: S1, S2 - Gastrointestinal General gastrointestinal: Present: normal bowel sounds, soft, tenderness - Integumentary Integumentary: Present: normal - Neurologic Neurologic Comment(s): no focal defects Neurologic: Present: CNII-XII intact - Musculoskeletal Musculoskeletal: Present: gait normal, generalized weakness, strength equal bilaterally - Psychiatric Psychiatric: Present: A&O x's 3, appropriate affect, intact judgment & insight - Labs CBC & Chem 7: 07/08/18 07:02 07/08/18 07:02 Labs: Abnormal Lab Results - Last 24 Hours (Table) 07/08/18 07/08/18 Range/Units 07:02 07:02 RBC 4.12 L (4.30-5.90) m/uL Hgb 12.0 L (13.0-17.5) gm/dL Hct 36.3 L (39.0-53.0) % Plt Count 132 L (150-450) k/uL Lymphocytes # 0.4 L (1.0-4.8) k/uL Potassium 3.1 L (3.5-5.1) mmol/L Chloride 108 H (98-107) mmol/L Glucose 103 H (74-99) mg/dL AST 14 L (17-59) U/L Alkaline Phosphatase 25 L (38-126) U/L Total Protein 5.2 L (6.3-8.2) g/dL Albumin 3.0 L (3.5-5.0) g/dL Assessment and Plan (1) Diffuse large B cell lymphoma Narrative/Plan: Diagnostic and therapeutic circumstances so far have been described in the HPI. The patient tolerated 2 cycles of RCHOP well, and did have some improvement in symptoms. However PET scan did not show the desired optimal response. Therefore his chemotherapy regimen has been changed to the high-dose infusional R - EPOCH. He is being admitted for cycle 2 of the same. - Symptom management and supportive care to continue Day 5 of 5 Current Visit: Yes Status: Acute Code(s): C83.30 - DIFFUSE LARGE B-CELL LYMPHOMA, UNSPECIFIED SITE SNOMED Code(s): 869957970 (2)Recent Small Bowel Intestinal Perforation and Repair: Resolved - Acute Abdominal Series - 06/01/18 - non specific for gastritis versus ileus. He was placed on bowel rest and PPI was added, GI Consult - 06/02/18 pain worsened and now with associated nausea - Surgery consult placed and STAT CT abdomen ordered, Chemo on hold - Small Bowel Obstruction with concern for perforation identified and patient taken to surgery on 06/02/18 - Last Chemotherapy Interrupted secondary to this, patient has now recovered and healed (3) New Onset Atrial Fibrillation with RVR last Admission - Likely was secondary to complicating perforation and surgery, will monitor with telemetry during chemotherapy (4) Chemo induced nausea and vomiting - Resolved - Ativan 0.5mg po q6 prn - Send home with Prescription PPI and VTE Prophylaxis Triamacolone to skin rash under eye - contact dermatitis Plan for Neulasta after completion of chemotherapy in office Discharge on Acyclovir and Nystatin Swish and Spit He had Bowel Movement on 07/08/18 Pertinent Studies: Abdominal Imaging Negative Patient Condition at Discharge: Good Plan - Discharge Summary Discharge Rx Participant: No New Discharge Prescriptions: New LORazepam [Ativan] 0.5 mg PO TID PRN 3 Days #9 tab PRN Reason: Nausea Acetaminophen Tab [Tylenol] 650 mg PO Q4HR PRN tab PRN Reason: Fever And/ Or Pain Polyethylene Glycol 3350 [Miralax] 17 gm PO DAILY PRN #1 bottle PRN Reason: Constipation Sennosides-Docusate Sodium [Senokot-S] 2 each PO HS #60 tab Triamcinolone 0.1% Ointment [Kenalog 0.1% Ointment] 1 applic TOPICAL BID #1 tube Acyclovir [Zovirax] 400 mg PO BID #60 tab Nystatin 100,000 Unit/ml Susp [Mycostatin Oral Susp] 5 ml PO QID #300 ml Continue Polyethylene Glycol 3350 [Miralax] 17 gm PO DAILY PRN 30 Days #1 bottle PRN Reason: Constipation HYDROcodone/APAP 5-325MG [[place] 5-325] 1 tab PO Q6HR PRN PRN Reason: MODERATE Pain Ondansetron HCl [Zofran] 4 mg PO Q6HR PRN PRN Reason: Nausea Discharge Medication List Polyethylene Glycol 3350 [Miralax] 17 gm PO DAILY PRN 30 Days #1 bottle [Rx] HYDROcodone/APAP 5-325MG [[place] 5-325] 1 tab PO Q6HR PRN 07/05/18 [History] Ondansetron HCl [Zofran] 4 mg PO Q6HR PRN 07/05/18 [History] Acetaminophen Tab [Tylenol] 650 mg PO Q4HR PRN tab 07/09/18 [Rx] Acyclovir [Zovirax] 400 mg PO BID #60 tab 07/09/18 [Rx] LORazepam [Ativan] 0.5 mg PO TID PRN 3 Days #9 tab 07/09/18 [Rx] Nystatin 100,000 Unit/ml Susp [Mycostatin Oral Susp] 5 ml PO QID #300 ml [Rx] Polyethylene Glycol 3350 [Miralax] 17 gm PO DAILY PRN #1 bottle 07/09/18 [Rx] Sennosides-Docusate Sodium [Senokot-S] 2 each PO HS #60 tab 07/09/18 [Rx] Triamcinolone 0.1% Ointment [Kenalog 0.1% Ointment] 1 applic TOPICAL BID #1 tube 07/09/18 [Rx] Follow up Appointment(s)/Referral(s): Delicia Fuentes, RAYNA [Nurse Practitioner] - 07/11/18 10:45 am (this appointment is for Christopher at [address] [place] [address], not at [facility]. ) Activity/Diet/Wound Care/Special Instructions: Acyclovir is to prevent shingles when your immune system goes down, you will take twice a day every day
[2018-07-09] MEDS: ACETAMINOPHEN TAB 325 MG TAB PO PRN (17:26)
[2018-07-09] MEDS ORDERED: SODIUM CHLORIDE 0.9% IV ONE (21:00)
[2018-07-09] MEDS ORDERED: CYCLOPHOSPHAMIDE IV ONE (21:00)
[2018-07-09] MEDS: ONDANSETRON 16 MG in SODIUM CHLORIDE 0.9% 50 ML IVPB SCH (21:46)
[2018-07-09] MEDS: FAMOTIDINE 20 MG/2 ML VIAL IV SCH (21:50)
[2018-07-09] MEDS: SENNOSIDES-DOCUSATE SODIUM 1 EACH TAB PO SCH (21:51)
[2018-07-09] MEDS ORDERED: NYSTATIN 100,000 UNIT/ML SUSP 500,000 UNIT/5 ML CUP PO SCH (22:00)
[2018-07-09 22:28] VITALS: BP 142/83; PULSE 84; RESP 16; TEMP 97.9
--- NOTE | 2018-07-10 04:11 | PN ---
PROGRESS NOTE DATE OF SERVICE: 07/09/2018 PRESENTING COMPLAINT: Tired. INTERVAL HISTORY: This is a patient with diffuse large B-cell lymphoma, getting his chemotherapy. Feels better. Did tolerate a diet. Was out of bed. The patient will finish his chemotherapy this evening. No diarrhea. No mouth sores. REVIEW OF SYSTEMS: Done for constitutional, cardiovascular, GI, pulmonary and findings as above. CURRENT MEDICATIONS: Reviewed. PHYSICAL EXAMINATION: Examination temperature 98.2, pulse 97, respirations 18, blood pressure 130/70, pulse pulse ox 99 percent on room air. GENERAL: Lying in bed, awake. EYES: Pupils equal, conjunctivae normal. HEENT: External appearance of nose and ears normal. Oral cavity normal. NECK: JVD not raised. Mass not palpable. Respiratory effort. LUNGS: Clear. CARDIOVASCULAR: First and second sounds normal. No edema. ABDOMEN: Soft, nontender. Liver and spleen not palpable. PSYCHIATRY: Alert and oriented x3. Mood and affect normal. INVESTIGATIONS: White count 4.2, hemoglobin 13.3, potassium 3.8. ASSESSMENT: 1. Diffuse large B-cell lymphoma, undergoing chemotherapy, which is R-EPOCH regimen. 2. Nausea, side effect of chemotherapy, better. 3. Hypochloremia, better. 4. Hyperkalemia, improved. 5. Hypoalbuminemia, probably an acute phase reactant. 6. , likely side effect of chemotherapy, now improved. PLAN: Patient overall doing better. Dr. Olson's team is possibly planning to discharge the patient later today. MMCONNIEL / SUYAPAN: [id number] /
== END 2018-07-09 23:38 | disposition home or self-care (01) | DRG 847 ==
LOC: 5ONC 08:06
PROVIDERS: ADMIT Internal Medicine Hematology & Oncology; ATTEND Internal Medicine Hematology & Oncology
DX: Z51.11 Encounter for antineoplastic chemotherapy (principal); C83.39 Diffuse large B-cell lymphoma, extranodal and solid organ sites; I48.91 Unspecified atrial fibrillation; L25.9 Unspecified contact dermatitis, unspecified cause; E66.9 Obesity, unspecified; Z98.890 Other specified postprocedural states; E87.6 Hypokalemia; E87.8 Other disorders of electrolyte and fluid balance, not elsewhere classified; E88.09 Other disorders of plasma-protein metabolism, not elsewhere classified; Z68.28 Body mass index [BMI] 28.0-28.9, adult
CPT/HCPCS: 74022; 80053; 83735; 85025; 93005

== ENCOUNTER 2018-07-26 08:20 | Inpatient (IN) | payer BC ==
[2018-07-26] MEDS ORDERED: ONDANSETRON 16 MG in SODIUM CHLORIDE 0.9% 50 ML IVPB SCH (09:00)
[2018-07-26] MEDS ORDERED: FAMOTIDINE 20 MG/2 ML VIAL IV SCH (09:00)
[2018-07-26] MEDS ORDERED: methylPREDNISolone SOD SUCCI 125 MG/2 ML VIAL IV ONE (09:00)
[2018-07-26] MEDS ORDERED: diphenhydrAMINE 50 MG/ML 1 ML VIAL IVP ONE (09:00)
[2018-07-26] MEDS ORDERED: ACETAMINOPHEN TAB 325 MG TAB PO ONE (09:00)
[2018-07-26 09:39] LABS: HCT 39.5 % (39.0-53.0); HGB 13.1 gm/dL (13.0-17.5); MCH 29.1 pg (25.0-35.0); MCHC 33.2 g/dL (31.0-37.0); MCV 87.6 fL (80.0-100.0); RBC 4.51 m/uL (4.30-5.90); WBC 6.8 k/uL (3.8-10.6)
[2018-07-26 09:40] LABS: Basophils # (A) 0.1 k/uL (0-0.2); Basophils % (A) 1 %; Eosinophils % (A) 0 %; Lymphocytes # (A) 0.5 k/uL (1.0-4.8); Lymphocytes % (A) 8 %; Mean Platelet Volume 7.2; Monocytes # (A) 0.6 k/uL (0-1.0); Monocytes % (A) 9 %; Neutrophils # (A) 5.4 k/uL (1.3-7.7); Neutrophils % (A) 80 %; Platelet Count 228 k/uL (150-450); Poikilocytosis Slight
[2018-07-26 09:49] LABS: ALT 27 U/L (21-72); AST 19 U/L (17-59); Albumin 3.7 g/dL (3.5-5.0); Alkaline Phosphatase 74 U/L (38-126); Anion Gap 8 mmol/L; Blood Urea Nitrogen 10 mg/dL (9-20); Calcium 8.5 mg/dL (8.4-10.2); Carbon Dioxide 25 mmol/L (22-30); Chloride 110 mmol/L (98-107); Glucose 99 mg/dL (74-99); Potassium 4.2 mmol/L (3.5-5.1); Sodium 143 mmol/L (137-145); Total Bilirubin 0.4 mg/dL (0.2-1.3); Total Protein 6.3 g/dL (6.3-8.2)
[2018-07-26] MEDS: ALPRAZolam 0.25 MG TAB PO PRN ×3 (10:17→23:16)
[2018-07-26] MEDS: SODIUM CHLORIDE 0.9% 1,000 ML IV SCH ×2 (10:17→20:37)
[2018-07-26] MEDS: predniSONE 50 MG TAB PO SCH ×2 (11:05→20:51)
[2018-07-26] MEDS: predniSONE 20 MG TAB PO SCH ×2 (11:05→20:52)
--- NOTE | 2018-07-26 16:07 | P.CONS ---
History of Present Illness - Reason for Consult Consult date: 07/26/18 Medical management Requesting physician: Arnie Olson - Chief Complaint Medical management - History of Present Illness 58-year-old male with PMH of diffuse large B cell lymphoma is a direct admission under Dr. Olson for his chemotherapy. His cancer was diagnosed in 2017 when he presented to [facility] complaining of chest pain. Imaging showed an enlarged left adrenal mass, diffuse large B-cell lymphoma was confirmed on biopsy. His course was complicated with small bowel perforation which was repaired by surgery. The patient appears to be stage IV disease. Patient was initially started on R CHOP, completed 2 cycles with PET scan showing less than ideal results. Chemotherapy had then been switched to R- EPOCK. Patient was seen and examined. No acute events overnight. Patient has no complaints at this time. He denies any headaches, lower extremity edema, vomiting, fever, cough, chest pain, shortness of breath, changes in urination or bowel habits. He does endorse occasional nausea and a decreased appetite, relates this to his chemotherapy. He denies any numbness, weakness or tingling. Review of Systems All systems: negative Past Medical History Past Medical History: Cancer Additional Past Medical History / Comment(s): 03/15/18 pt had chest pain/found L adrenal mass-work up showed diffuse large B cell lymphoma/high grade Bcell nonhodgkins lymphoma-started chemo 04/14/18-2 cycles/unsatifactory improvement- changed chemo regime, pt had new onset Afib RVR and bowel perforation with surgery, chemo causes nausea and vomiting but pt states recently appetite has improved and he is back to weight baseline. History of Any Multi-Drug Resistant Organisms: None Reported Past Surgical History: Bowel Resection, Tonsillectomy Additional Past Surgical History / Comment(s): CAT SCAN GUIDED L ADRENAL GLAND BIOPSY/CORE BIOPSY, MEDIPORT INSERTION, 06/21/18 BOWEL RESECTION D/T CANCER. Past Anesthesia/Blood Transfusion Reactions: No Reported Reaction Smoking Status: Never smoker - Past Family History Father Additional Family Medical History / Comment(s): Father of liver disease at the age of 75yrs. Mother Family Medical History: Cancer, Renal Disease Additional Family Medical History / Comment(s): Mother had skin CA, kidney disease. Mother is 87yrs old. Medications and Allergies Home Medications Medication Instructions Recorded Confirmed Type Ondansetron HCl [Zofran] 4 mg PO Q4H PRN 07/05/18 07/26/18 History Acyclovir [Zovirax] 400 mg PO BID #60 tab 07/09/18 07/26/18 Rx Allopurinol [Zyloprim] 300 mg PO DAILY 07/26/18 07/26/18 History HYDROcodone/APAP 10-325MG [[place] 1 tab PO HS PRN 07/26/18 07/26/18 History 10-325] LORazepam [Ativan] 0.5 mg PO Q6H PRN 07/26/18 07/26/18 History Levofloxacin [Levaquin] 500 mg PO DAILY 07/26/18 07/26/18 History Potassium Chloride [Klor-Con 20] 20 meq PO BID 07/26/18 07/26/18 History Prochlorperazine [Compazine] 10 mg PO Q6H PRN 07/26/18 07/26/18 History Sennosides-Docusate Sodium 2 tab PO HS 07/26/18 07/26/18 History [Senokot-S] Sucralfate [Carafate] 1 gm PO ACHS 07/26/18 07/26/18 History Triderm 0.1% Cream 1 applic TOPICAL BID 07/26/18 07/26/18 History predniSONE 100 mg PO DIRECTED 07/26/18 07/26/18 History Allergies Allergy/AdvReac Type Severity Reaction Status Date / Time No Known Allergies Allergy Verified 07/26/18 08:54 Physical Exam Vitals: Vital Signs Temp Pulse Resp BP Pulse Ox 07/26/18 12:01 97.8 F 87 18 117/80 95 Intake and Output 07/26/18 07/26/18 07/26/18 06:59 14:59 22:59 Intake Total 740.074 Balance 740.074 Intake: Intake, IV Titration 740.074 Amount Sodium Chloride 0.9% 1, 400 000 ml @ 100 mls/hr IV . Q10H [facility] Rx#:[id number] riTUXimab 750 mg In 340.074 Sodium Chloride 0.9% 500 ml @ Titrate IV .Q0M [facility] Rx#:[id number] Other: Weight 88.11 kg General: [non toxic], [no distress], [appears at stated age] Derm: [warm], [dry] Head: [atraumatic], [normocephalic], [symmetric] Eyes: [EOMI], [no lid lag], [anicteric sclera] Mouth: [no lip lesion], [mucus membranes moist] Cardiovascular: [S1S2 reg], [no murmur], [DP pulses BL palpable] Lungs: [CTA bilateral], [no rhonchi, no rales] , [no accessory muscle use] Abdominal: [soft], [ nontender to palpation], [no guarding], [no appreciable organomegaly] Ext: [no gross muscle atrophy], [no edema], [no contractures] Psych: [Alert], [oriented], [appropriate affect] Results CBC & Chem 7: 07/26/18 08:51 07/26/18 08:51 Labs: Abnormal Lab Results - Last 24 Hours (Table) 07/26/18 07/26/18 Range/Units 08:51 08:51 RDW 16.0 H (11.5-15.5) % Lymphocytes # 0.5 L (1.0-4.8) k/uL Chloride 110 H (98-107) mmol/L Creatinine 0.65 L (0.66-1.25) mg/dL Assessment and Plan Assessment: Assessment and Plan 1. Diffuse large B-cell lymphoma: Oncology on board. Here for infusion of R- EPOCH. Xanax 0.25 mg PO QID PRN, Pepcid 20 mg IV QD, Zofran 9 mg IV scheduled/ PRN, Prednisone scheduled for nausea and vomiting. FU Oncology plans 2. Hyperchloremia: Likely from IVF. FU BMP in the AM 3. DVT/GI Prophylaxis: Lovenox 40 mg SUBCUT QD. Pepcid 20 mg IV QD.
[2018-07-26] MEDS: DOXORUBICIN HCL IV SCH (16:41)
[2018-07-26] MEDS: ETOPOSIDE 100 MG in SODIUM CHLORIDE 0.9% 500 ML IV SCH (16:41)
[2018-07-26] MEDS: SODIUM CHLORIDE 0.9% IV SCH ×2 (16:41)
[2018-07-26] MEDS: VINCRISTINE SULFATE IV SCH (16:41)
[2018-07-26] MEDS ORDERED: SENNOSIDES-DOCUSATE SODIUM 1 EACH TAB PO STA (19:37)
[2018-07-26] MEDS ORDERED: ONDANSETRON 4 MG/2 ML VIAL IVP PRN (19:37)
[2018-07-26] MEDS ORDERED: HYDROcodone/APAP 10-325MG 1 EACH TAB PO PRN (20:27)
--- NOTE | 2018-07-26 20:27 | P.HPIM ---
History of Present Illness H&P Date: 07/26/18 Chief Complaint: Timed Chemotherapy Mr Alaniz is a 58 yr old white male, initially seen in consult at [facility] on 03/15/18. The patient is fairly healthy at baseline, and had come into the ER complaining of "chest pain" in 1 week, progressive in nature. One further clarification the patient was actually described to be localized to the left upper quadrant and left lower rib cage area with penetration straight through to the back. The pain was quite constant and worsened while sitting. There were no other associated aggravating or relieving factors. on exam the patient was felt to have a palpable left upper quadrant mass. CT scan of the abdomen and pelvis had shown a markedly enlarged left adrenal mass, 10.3 x 5.1 cm. That appeared mild colon wall thickening proximal to the mid transverse colon. Splenomegaly was seen. CTA of the chest was negative for PE but showed some borderline mediastinal and hilar adenopathy. The patient underwent a CT-guided adrenal biopsy on 03/16/18. Fine-needle aspirate showed severely atypical cells consistent with diffuse large B-cell lymphoma. Core biopsy was also consistent with high-grade B-cell non-Hodgkin lymphoma consistent with diffuse large B-cell lymphoma. She was sent for "double hit" testing but material on the cell block was not enough to wish further testing was not possible. Patient had a PET scan on 03/26/18 revealing hypermetabolic uptake in shotty mediastinal and hilar nodes with SUV in the 5-7.4 range. 10 cm left adrenal mass had an SUV of 22. There was a loop of bowel in the right lower quadrant with thickened wall with SUV of 20. There was possibility of a retroperitoneal node with SUV of 21. Right proximal humerus shows uptake with SUV of 3.9. The patient was seen for his first office visit on 03/31/18. The pt thus appeared to have stage IV disease. 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 He decided for R -CHOP, with a plan for reevaluation after 2 cycles. He started chemo on 04/14/18 and is s/p 2 cycles. PET scan post cycle 2 showed a partial, suboptimal response. It was thus decided to change his chemo regimen to the infusional R - EPOCH. His first cycle was complicated by a Small Bowel perforation which required immediate surgical repair and recovery. Patient has now recovered and here for cycle 3. He overall is feeling good. No acute complaints. His first cycle was complicated with bowel perforation and repair, therefore he did not receive his full cycle one. Today is cycle 3 (although the second full cycle he will receive). His is very anxious today. His nausea was difficult to control last chemotherapy, ativan did help but he feels he had worsening headaches from it. Review of Systems A 14 point review of system is assessed and completed and all negative except HPI. Past Medical History Past Medical History: Cancer Additional Past Medical History / Comment(s): 03/15/18 pt had chest pain/found L adrenal mass-work up showed diffuse large B cell lymphoma/high grade Bcell nonhodgkins lymphoma-started chemo 04/14/18-2 cycles/unsatifactory improvement- changed chemo regime, pt had new onset Afib RVR and bowel perforation with surgery, chemo causes nausea and vomiting but pt states recently appetite has improved and he is back to weight baseline. History of Any Multi-Drug Resistant Organisms: None Reported Past Surgical History: Bowel Resection, Tonsillectomy Additional Past Surgical History / Comment(s): CAT SCAN GUIDED L ADRENAL GLAND BIOPSY/CORE BIOPSY, MEDIPORT INSERTION, 06/21/18 BOWEL RESECTION D/T CANCER. Past Anesthesia/Blood Transfusion Reactions: No Reported Reaction Smoking Status: Never smoker - Past Family History Father Additional Family Medical History / Comment(s): Father of liver disease at the age of 75yrs. Mother Family Medical History: Cancer, Renal Disease Additional Family Medical History / Comment(s): Mother had skin CA, kidney disease. Mother is 87yrs old. Medications and Allergies Home Medications Medication Instructions Recorded Confirmed Type Ondansetron HCl [Zofran] 4 mg PO Q4H PRN 07/05/18 07/26/18 History Acyclovir [Zovirax] 400 mg PO BID #60 tab 07/09/18 07/26/18 Rx Allopurinol [Zyloprim] 300 mg PO DAILY 07/26/18 07/26/18 History HYDROcodone/APAP 10-325MG [[place] 1 tab PO HS PRN 07/26/18 07/26/18 History 10-325] LORazepam [Ativan] 0.5 mg PO Q6H PRN 07/26/18 07/26/18 History Levofloxacin [Levaquin] 500 mg PO DAILY 07/26/18 07/26/18 History Potassium Chloride [Klor-Con 20] 20 meq PO BID 07/26/18 07/26/18 History Prochlorperazine [Compazine] 10 mg PO Q6H PRN 07/26/18 07/26/18 History Sennosides-Docusate Sodium 2 tab PO HS 07/26/18 07/26/18 History [Senokot-S] Sucralfate [Carafate] 1 gm PO ACHS 07/26/18 07/26/18 History Triderm 0.1% Cream 1 applic TOPICAL BID 07/26/18 07/26/18 History predniSONE 100 mg PO DIRECTED 07/26/18 07/26/18 History Allergies Allergy/AdvReac Type Severity Reaction Status Date / Time No Known Allergies Allergy Verified 07/26/18 08:54 Physical Exam Vitals: Vital Signs Temp Pulse Resp BP Pulse Ox 07/26/18 12:01 97.8 F 87 18 117/80 95 Intake and Output 07/26/18 07/26/18 07/26/18 06:59 14:59 22:59 Intake Total 740.074 Balance 740.074 Intake: Intake, IV Titration 740.074 Amount Sodium Chloride 0.9% 1, 400 000 ml @ 100 mls/hr IV . Q10H [facility] Rx#:[id number] riTUXimab 750 mg In 340.074 Sodium Chloride 0.9% 500 ml @ Titrate IV .Q0M [facility] Rx#:[id number] Other: Weight 88.11 kg Constitutional General appearance: Present: cooperative, no acute distress - EENT Eyes: Present: EOMI, dentition normal, normal appearance ENT: Present: NA/AT, normal oropharynx - Neck Details: supple, Trachea midline Neck: Present: normal ROM - Respiratory Details: No increased respiratory effort Respiratory: bilateral: CTA - Cardiovascular Rhythm: regular Heart sounds: normal: S1, S2 - Gastrointestinal General gastrointestinal: Present: normal bowel sounds, soft, tenderness - Integumentary Integumentary: Present: normal - Neurologic Neurologic Comment(s): no focal defects Neurologic: Present: CNII-XII intact - Musculoskeletal Musculoskeletal: Present: gait normal, generalized weakness, strength equal bilaterally - Psychiatric Psychiatric: Present: A&O x's 3, appropriate affect, intact judgment & insight Results CBC & Chem 7: 07/26/18 08:51 07/26/18 08:51 Labs: Abnormal Lab Results - Last 24 Hours (Table) 07/26/18 07/26/18 Range/Units 08:51 08:51 RDW 16.0 H (11.5-15.5) % Lymphocytes # 0.5 L (1.0-4.8) k/uL Chloride 110 H (98-107) mmol/L Creatinine 0.65 L (0.66-1.25) mg/dL Thrombosis Risk Factor Assmnt - DVT/VTE Prophylaxis DVT/VTE Prophylaxis: Pharmacologic Prophylaxis ordered - Choose All That Apply Any of the Below Risk Factors Present?: Yes Each Factor Represents 1 point: Age 41-60 years, Obesity (BMI >25) Other Risk Factors: No Each Risk Factor Represents 2 Points: Malignancy Other congenital or acquired thrombophilia - If yes, enter type in comment: No Thrombosis Risk Factor Assessment Total Risk Factor Score: 4 Thrombosis Risk Factor Assessment Level: Moderate Risk Assessment and Plan Plan: Assessment and Plan (1) Diffuse large B cell lymphoma Narrative/Plan: Diagnostic and therapeutic circumstances so far have been described in the HPI. - The patient tolerated 2 cycles of RCHOP well, and did have some improvement in symptoms. However PET scan did not show the desired optimal response. Therefore his chemotherapy regimen has been changed to the high-dose infusional R - EPOCH. He is being admitted for cycle 3 of the same. - CBC and CMP Daily Current Visit: Yes Status: Acute Code(s): C83.30 - DIFFUSE LARGE B-CELL LYMPHOMA, UNSPECIFIED SITE SNOMED Code(s): 757038542 (2)Recent Small Bowel Intestinal Perforation and Repair: Resolved - Acute Abdominal Series - 06/01/18 - non specific for gastritis versus ileus. He was placed on bowel rest and PPI was added, GI Consult - 06/02/18 pain worsened and now with associated nausea - Surgery consult placed and STAT CT abdomen ordered, Chemo on hold - Small Bowel Obstruction with concern for perforation identified and patient taken to surgery on 06/02/18 - Cycle one of Chemotherapy Interrupted secondary to this, patient has now recovered and healed (3) New Onset Atrial Fibrillation with RVR Cycle one Admission - Likely was secondary to complicating perforation and surgery, will monitor with telemetry during chemotherapy (4)Chemotherapy induced Constipation - Add Senna-s every Night (5)Chemo Induced Nausea and Vomiting Last Cycle - Zofran PRN - Xanax PRN (seems to work best as much of his anxiety is related to anticipatory nausea) - Control Constipation (6) Situational Anxiety related to inpatient chemotherapy - Xanax PRN PPI and VTE Prophylaxis Plan for Neulasta after completion of chemotherapy in office
[2018-07-26] MEDS: PANTOPRAZOLE 40 MG TABLET PO SCH (20:51)
[2018-07-26] MEDS: DRONABINOL 2.5 MG CAP PO SCH (21:53)
[2018-07-27] MEDS: SODIUM CHLORIDE 0.9% 1,000 ML IV SCH ×2 (06:09→17:01)
[2018-07-27] MEDS: ALPRAZolam 0.25 MG TAB PO PRN ×2 (07:17→13:33)
[2018-07-27] MEDS: ENOXAPARIN 40 MG/0.4 ML SYRINGE SQ SCH (07:18)
[2018-07-27] MEDS: predniSONE 50 MG TAB PO SCH ×2 (07:18→22:24)
[2018-07-27] MEDS: predniSONE 20 MG TAB PO SCH ×2 (07:18→22:24)
[2018-07-27] MEDS: DRONABINOL 2.5 MG CAP PO SCH ×2 (07:18→17:00)
[2018-07-27] MEDS: PANTOPRAZOLE 40 MG TABLET PO SCH ×2 (07:20→17:01)
--- NOTE | 2018-07-27 08:25 | P.PN ---
Subjective Progress Note Date: 07/27/18 Principal diagnosis: Medical management Patient was seen and examined. No acute events overnight. Patient requesting Tylenol for headaches. He has no other complaints today. He denies any fever, chills, nausea, vomiting, cough, chest pain, shortness of breath, changes in urination or bowel habits. Objective - Vital Signs Vital signs: Vital Signs Temp 97.5 F L 07/27/18 04:00 Pulse 94 07/27/18 04:00 Resp 16 07/27/18 04:00 BP 130/84 07/27/18 04:00 Pulse Ox 93 L 07/27/18 04:00 Intake & Output 07/26/18 07/27/18 07/27/18 18:59 06:59 18:59 Intake Total 799.993 8598.2 Balance 059.008 6409.2 Weight 88.11 kg 92 kg Intake: IV 800 Sodium Chloride 0.9% 1, 800 000 ml @ 100 mls/hr IV . Q10H [facility] Rx#:[id number] Intake, IV Titration 740.074 611.2 Amount DOXOrubicin HCL 20 mg In 94.4 Sodium Chloride 0.9% 250 ml @ 10.833 mls/hr IV Q24H [facility] Rx#:[id number] Etoposide 100 mg In 199.2 Sodium Chloride 0.9% 500 ml @ 21.042 mls/hr IV Q24H [facility] Rx#:[id number] Sodium Chloride 0.9% 1, 400 300 000 ml @ 100 mls/hr IV . Q10H [facility] Rx#:[id number] riTUXimab 750 mg In 340.074 Sodium Chloride 0.9% 500 ml @ Titrate IV .Q0M [facility] Rx#:[id number] vinCRIStine SULFATE 0.8 17.6 mg In Sodium Chloride 0.9 % 50 ml @ 2.117 mls/hr IV Q24H [facility] Rx#:[id number] Other: Voiding Method Toilet Toilet - Exam General: [non toxic], [no distress], [appears at stated age] Derm: [warm], [dry] Head: [atraumatic], [normocephalic], [symmetric] Eyes: [EOMI], [no lid lag], [anicteric sclera] Mouth: [no lip lesion], [mucus membranes moist] Cardiovascular: [S1S2 reg], [no murmur], [DP pulses BL palpable] Lungs: [CTA bilateral], [no rhonchi, no rales] , [no accessory muscle use] Abdominal: [soft], [ nontender to palpation], [no guarding], [no appreciable organomegaly] Ext: [no gross muscle atrophy], [no edema], [no contractures] Psych: [Alert], [oriented], [appropriate affect] - Labs CBC & Chem 7: 07/26/18 08:51 07/26/18 08:51 Labs: Abnormal Lab Results - Last 24 Hours (Table) 07/26/18 07/26/18 Range/Units 08:51 08:51 RDW 16.0 H (11.5-15.5) % Lymphocytes # 0.5 L (1.0-4.8) k/uL Chloride 110 H (98-107) mmol/L Creatinine 0.65 L (0.66-1.25) mg/dL Assessment and Plan Assessment: Assessment and Plan 1. Diffuse large B-cell lymphoma: Oncology on board. Here for infusion of R- EPOCH. Xanax 0.25 mg PO QID PRN, Pepcid 20 mg IV QD, Zofran 9 mg IV scheduled/ PRN, Prednisone scheduled for nausea and vomiting. FU Oncology plans 2. Hyperchloremia: Likely from IVF. FU BMP in the AM 3. DVT/GI Prophylaxis: Lovenox 40 mg SUBCUT QD. Pepcid 20 mg IV QD.
[2018-07-27] MEDS: ACETAMINOPHEN TAB 325 MG TAB PO PRN (13:34)
[2018-07-27] MEDS: ONDANSETRON 16 MG in SODIUM CHLORIDE 0.9% 50 ML IVPB SCH (17:00)
[2018-07-27] MEDS: FAMOTIDINE 20 MG/2 ML VIAL IV SCH (17:01)
--- NOTE | 2018-07-27 17:08 | P.PN ---
Subjective Progress Note Date: 07/27/18 The patient denies any new complaints, other than intermittent nausea, well controlled with antiemetics. No overt vomiting. Appetite is maintained. No history of fever/chills/abdominal pain/diarrhea. Objective - Vital Signs Vital signs: Vital Signs Temp 97.5 F L 07/27/18 16:00 Pulse 100 07/27/18 16:00 Resp 18 07/27/18 16:00 BP 141/90 07/27/18 16:00 Pulse Ox 95 07/27/18 16:00 Intake & Output 07/26/18 07/27/18 07/27/18 18:59 06:59 18:59 Intake Total 075.947 2418.2 800 Balance 017.671 3532.2 800 Weight 88.11 kg 92 kg Intake: IV 800 800 Sodium Chloride 0.9% 1, 800 800 000 ml @ 100 mls/hr IV . Q10H [facility] Rx#:[id number] Intake, IV Titration 740.074 611.2 Amount DOXOrubicin HCL 20 mg In 94.4 Sodium Chloride 0.9% 250 ml @ 10.833 mls/hr IV Q24H [facility] Rx#:[id number] Etoposide 100 mg In 199.2 Sodium Chloride 0.9% 500 ml @ 21.042 mls/hr IV Q24H [facility] Rx#:[id number] Sodium Chloride 0.9% 1, 400 300 000 ml @ 100 mls/hr IV . Q10H [facility] Rx#:[id number] riTUXimab 750 mg In 340.074 Sodium Chloride 0.9% 500 ml @ Titrate IV .Q0M [facility] Rx#:[id number] vinCRIStine SULFATE 0.8 17.6 mg In Sodium Chloride 0.9 % 50 ml @ 2.117 mls/hr IV Q24H [facility] Rx#:[id number] Other: Voiding Method Toilet Toilet - Constitutional General appearance: Present: no acute distress - EENT Eyes: Present: EOMI ENT: Present: normal oropharynx - Respiratory Respiratory: bilateral: CTA - Cardiovascular Rhythm: regular Heart sounds: normal: S1, S2 - Gastrointestinal General gastrointestinal: Present: normal bowel sounds, soft - Integumentary Integumentary: Present: normal - Neurologic Neurologic: Present: CNII-XII intact - Musculoskeletal Musculoskeletal: Present: strength equal bilaterally - Psychiatric Psychiatric: Present: A&O x's 3, appropriate affect - Labs CBC & Chem 7: 07/26/18 08:51 07/26/18 08:51 Assessment and Plan (1) Diffuse large B cell lymphoma Narrative/Plan: The patient is on day #2 of his R-EPO CH high-dose infusional regimen. He is tolerating treatment well so far. He has some nausea which is controlled with when necessary antiemetics. Clinical exam, as well as lab S active. Continue chemotherapy. Continue to monitor Current Visit: No Status: Acute Code(s): C83.30 - DIFFUSE LARGE B-CELL LYMPHOMA, UNSPECIFIED SITE SNOMED Code(s): 421960149 Plan: internal medicine following for medical management
[2018-07-27] MEDS: SODIUM CHLORIDE 0.9% IV SCH ×2 (17:39→17:40)
[2018-07-27] MEDS: VINCRISTINE SULFATE IV SCH (17:39)
[2018-07-27] MEDS: DOXORUBICIN HCL IV SCH (17:40)
[2018-07-27] MEDS: ETOPOSIDE 100 MG in SODIUM CHLORIDE 0.9% 500 ML IV SCH (17:40)
[2018-07-27 19:18] LABS: Basophils % (A) 0 %; Eosinophils # (A) 0.1 k/uL (0-0.7); Eosinophils % (A) 0 %; HCT 37.5 % (39.0-53.0); HGB 12.3 gm/dL (13.0-17.5); Lymphocytes # (A) 0.4 k/uL (1.0-4.8); Lymphocytes % (A) 2 %; MCH 28.5 pg (25.0-35.0); MCHC 32.9 g/dL (31.0-37.0); MCV 86.5 fL (80.0-100.0); Monocytes # (A) 0.9 k/uL (0-1.0); Monocytes % (A) 4 %; Neutrophils # (A) 22.1 k/uL (1.3-7.7); Neutrophils % (A) 94 %; Platelet Count 234 k/uL (150-450); RBC 4.33 m/uL (4.30-5.90); RDW 15.7 % (11.5-15.5); WBC 23.6 k/uL (3.8-10.6)
[2018-07-27 19:28] LABS: ALT 22 U/L (21-72); AST 18 U/L (17-59); Albumin 3.4 g/dL (3.5-5.0); Alkaline Phosphatase 58 U/L (38-126); Anion Gap 7 mmol/L; Blood Urea Nitrogen 9 mg/dL (9-20); Calcium 8.5 mg/dL (8.4-10.2); Carbon Dioxide 21 mmol/L (22-30); Chloride 112 mmol/L (98-107); Glucose 175 mg/dL (74-99); Potassium 3.6 mmol/L (3.5-5.1); Sodium 140 mmol/L (137-145); Total Bilirubin 0.3 mg/dL (0.2-1.3); Total Protein 5.8 g/dL (6.3-8.2)
--- NOTE | 2018-07-27 21:12 | P.PN ---
Progress Note - Text Progress Note Date: 07/27/18 notified by RN , due to elevated white count no signs and symptoms of focal infection ' afebrile , stable vital signs most likely reactive due to steroids continue to monitor for now
[2018-07-28] MEDS: ALPRAZolam 0.25 MG TAB PO PRN ×3 (00:37→17:38)
[2018-07-28] MEDS: SODIUM CHLORIDE 0.9% 1,000 ML IV SCH ×3 (03:38→22:48)
[2018-07-28] MEDS: DRONABINOL 2.5 MG CAP PO SCH ×2 (07:39→17:29)
[2018-07-28] MEDS: ACETAMINOPHEN TAB 325 MG TAB PO PRN ×2 (07:39→15:09)
[2018-07-28] MEDS: ENOXAPARIN 40 MG/0.4 ML SYRINGE SQ SCH (07:40)
[2018-07-28] MEDS: PANTOPRAZOLE 40 MG TABLET PO SCH ×2 (07:40→17:29)
[2018-07-28 07:41] LABS: Anisocytosis Slight; Basophils % (A) 0 %; Eosinophils % (A) 0 %; HCT 36.1 % (39.0-53.0); HGB 12.1 gm/dL (13.0-17.5); Lymphocytes # (A) 0.3 k/uL (1.0-4.8); Lymphocytes % (A) 2 %; MCH 29.1 pg (25.0-35.0); MCHC 33.5 g/dL (31.0-37.0); MCV 86.8 fL (80.0-100.0); Mean Platelet Volume 7.6; Monocytes # (A) 0.6 k/uL (0-1.0); Monocytes % (A) 3 %; Neutrophils # (A) 18.1 k/uL (1.3-7.7); Neutrophils % (A) 95 %; Platelet Count 218 k/uL (150-450); RBC 4.15 m/uL (4.30-5.90)
[2018-07-28] MEDS: predniSONE 50 MG TAB PO SCH ×2 (07:42→20:25)
[2018-07-28] MEDS: predniSONE 20 MG TAB PO SCH ×2 (07:42→20:25)
[2018-07-28 08:04] LABS: ALT 22 U/L (21-72); AST 16 U/L (17-59); Albumin 3.1 g/dL (3.5-5.0); Alkaline Phosphatase 34 U/L (38-126); Anion Gap 8 mmol/L; Blood Urea Nitrogen 9 mg/dL (9-20); Calcium 8.2 mg/dL (8.4-10.2); Carbon Dioxide 22 mmol/L (22-30); Chloride 113 mmol/L (98-107); Glucose 139 mg/dL (74-99); Potassium 3.8 mmol/L (3.5-5.1); Sodium 143 mmol/L (137-145); Total Bilirubin 0.3 mg/dL (0.2-1.3); Total Protein 5.4 g/dL (6.3-8.2)
[2018-07-28] MEDS: ONDANSETRON 8 MG in SODIUM CHLORIDE 0.9% 50 ML IVPB PRN (10:15)
[2018-07-28] MEDS: PROCHLORPERAZINE 10 MG TAB PO PRN (10:15)
--- NOTE | 2018-07-28 12:21 | P.PN ---
Subjective Progress Note Date: 07/28/18 Patient is complaining of mild nausea today otherwise has no complaints denies chest pain shortness of breath or abdominal pain Objective - Vital Signs Vital signs: Vital Signs Temp 97.5 F L 07/28/18 07:59 Pulse 86 07/28/18 07:59 Resp 14 07/28/18 07:59 BP 133/87 07/28/18 07:59 Pulse Ox 96 07/28/18 07:59 Intake & Output 07/27/18 07/28/18 07/28/18 18:59 06:59 18:59 Intake Total 800 1150 Balance 800 1150 Weight 94.5 kg Intake: IV 800 900 Sodium Chloride 0.9% 1, 800 900 000 ml @ 100 mls/hr IV . Q10H [facility] Rx#:[id number] Oral 250 Other: Voiding Method Toilet Toilet Toilet # Voids 2 - Exam Constitutional: No acute distress, conversant, pleasant Eyes: Anicteric sclerae, moist conjunctiva, no lid-lag, PERRLA ENMT: NC/AT,Oropharynx clear, no erythema, exudates Neck:Supple, FROM, no masses, or JVD, No carotid bruits; No thyromegaly Lungs: Clear to auscultation, Clear to percussion, Normal respiratory effort, no accessory muscle use Cardiovascular: Heart regular in rate and rhythm, No murmurs, gallops, or rubs no peripheral edema Abdominal: Soft Nontender, nom distended, no guarding, no rebound or rigidity, Normoactive bowel sounds No hepatomegaly, No splenomegaly, No palpable mass No abdominal wall hernia noted Skin: Normal temperature, tone, texture, turgor, No induration No subcutaneous nodules, No rash, lesions, No ulcers Extremities:No digital cyanosis No clubbing, Pedal pulses intact and symmetrical Radial pulses intact and symmetrical Normal gait and station, No calf tenderness Psychiatric: Alert and oriented to person, place and time, Appropriate affect Intact judgement Neuro: Muscles Strength 5/5 in all 4 extremities, Sensation to light touch grossly present throughout, Cranial nerves II-XII grossly intact. No focal sensory deficits - Labs CBC & Chem 7: 07/28/18 07:15 07/28/18 07:15 Labs: Abnormal Lab Results - Last 24 Hours (Table) 07/27/18 07/27/18 07/28/18 Range/Units 19:07 19:07 07:15 WBC 23.6 H 19.0 H (3.8-10.6) k/uL RBC 4.15 L (4.30-5.90) m/uL Hgb 12.3 L 12.1 L (13.0-17.5) gm/dL Hct 37.5 L 36.1 L (39.0-53.0) % RDW 15.7 H 16.0 H (11.5-15.5) % Neutrophils # 22.1 H 18.1 H (1.3-7.7) k/uL Lymphocytes # 0.4 L 0.3 L (1.0-4.8) k/uL Chloride 112 H (98-107) mmol/L Carbon Dioxide 21 L (22-30) mmol/L Creatinine 0.56 L (0.66-1.25) mg/dL Glucose 175 H (74-99) mg/dL Calcium (8.4-10.2) mg/dL AST (17-59) U/L Alkaline Phosphatase (38-126) U/L Total Protein 5.8 L (6.3-8.2) g/dL Albumin 3.4 L (3.5-5.0) g/dL 07/28/18 Range/Units 07:15 WBC (3.8-10.6) k/uL RBC (4.30-5.90) m/uL Hgb (13.0-17.5) gm/dL Hct (39.0-53.0) % RDW (11.5-15.5) % Neutrophils # (1.3-7.7) k/uL Lymphocytes # (1.0-4.8) k/uL Chloride 113 H (98-107) mmol/L Carbon Dioxide (22-30) mmol/L Creatinine 0.60 L (0.66-1.25) mg/dL Glucose 139 H (74-99) mg/dL Calcium 8.2 L (8.4-10.2) mg/dL AST 16 L (17-59) U/L Alkaline Phosphatase 34 L (38-126) U/L Total Protein 5.4 L (6.3-8.2) g/dL Albumin 3.1 L (3.5-5.0) g/dL Assessment and Plan (1) Leukocytosis Narrative/Plan: * Likely steroid-induced patient afebrile * Currently on high-dose steroids as part of his chemo regimen Current Visit: Yes Status: Acute Code(s): D72.829 - ELEVATED WHITE BLOOD CELL COUNT, UNSPECIFIED SNOMED Code(s): 814443095 (2) Diffuse large B cell lymphoma Narrative/Plan: * Oncology on board. Here for infusion of R-EPO CH on day #2 . Xanax 0.25 mg PO QID PRN, Pepcid 20 mg IV QD, Zofran 9 mg IV scheduled/PRN, Prednisone scheduled * antiemetics for nausea and vomiting. FU Oncology plan Current Visit: No Status: Acute Code(s): C83.30 - DIFFUSE LARGE B-CELL LYMPHOMA, UNSPECIFIED SITE SNOMED Code(s): 824386166
--- NOTE | 2018-07-28 16:23 | P.PN ---
Subjective Progress Note Date: 07/28/18 The patient again complained of some nausea, overall mild, easily controlled with antiemetics. No history of any fevers/chills/diarrhea/abdominal pain. Appetite is reasonable. Objective - Vital Signs Vital signs: Vital Signs Temp 97.6 F 07/28/18 12:00 Pulse 69 07/28/18 12:00 Resp 18 07/28/18 12:00 BP 134/86 07/28/18 12:00 Pulse Ox 95 07/28/18 12:00 Intake & Output 07/27/18 07/28/18 07/28/18 18:59 06:59 18:59 Intake Total 800 1150 1092 Balance 800 1150 1092 Weight 94.5 kg Intake: IV 800 900 800 Sodium Chloride 0.9% 1, 800 900 800 000 ml @ 100 mls/hr IV . Q10H [facility] Rx#:[id number] Intake, IV Titration 292 Amount DOXOrubicin HCL 20 mg In 96 Sodium Chloride 0.9% 250 ml @ 10.833 mls/hr IV Q24H [facility] Rx#:[id number] Etoposide 100 mg In 176 Sodium Chloride 0.9% 500 ml @ 21.042 mls/hr IV Q24H [facility] Rx#:[id number] vinCRIStine SULFATE 0.8 20 mg In Sodium Chloride 0.9 % 50 ml @ 2.117 mls/hr IV Q24H [facility] Rx#:[id number] Oral 250 Other: Voiding Method Toilet Toilet Toilet # Voids 2 - Constitutional General appearance: Present: no acute distress - EENT Eyes: Present: EOMI ENT: Present: normal oropharynx - Respiratory Respiratory: bilateral: CTA - Cardiovascular Rhythm: regular Heart sounds: normal: S1, S2 - Gastrointestinal General gastrointestinal: Present: normal bowel sounds, soft - Integumentary Integumentary: Present: normal - Neurologic Neurologic: Present: CNII-XII intact - Musculoskeletal Musculoskeletal: Present: generalized weakness, strength equal bilaterally - Psychiatric Psychiatric: Present: A&O x's 3, appropriate affect - Labs CBC & Chem 7: 07/28/18 07:15 07/28/18 07:15 Labs: Abnormal Lab Results - Last 24 Hours (Table) 07/27/18 07/27/18 07/28/18 Range/Units 19:07 19:07 07:15 WBC 23.6 H 19.0 H (3.8-10.6) k/uL RBC 4.15 L (4.30-5.90) m/uL Hgb 12.3 L 12.1 L (13.0-17.5) gm/dL Hct 37.5 L 36.1 L (39.0-53.0) % RDW 15.7 H 16.0 H (11.5-15.5) % Neutrophils # 22.1 H 18.1 H (1.3-7.7) k/uL Lymphocytes # 0.4 L 0.3 L (1.0-4.8) k/uL Chloride 112 H (98-107) mmol/L Carbon Dioxide 21 L (22-30) mmol/L Creatinine 0.56 L (0.66-1.25) mg/dL Glucose 175 H (74-99) mg/dL Calcium (8.4-10.2) mg/dL AST (17-59) U/L Alkaline Phosphatase (38-126) U/L Total Protein 5.8 L (6.3-8.2) g/dL Albumin 3.4 L (3.5-5.0) g/dL 07/28/ Range/Units 07:15 WBC (3.8-10.6) k/uL RBC (4.30-5.90) m/uL Hgb (13.0-17.5) gm/dL Hct (39.0-53.0) % RDW (11.5-15.5) % Neutrophils # (1.3-7.7) k/uL Lymphocytes # (1.0-4.8) k/uL Chloride 113 H (98-107) mmol/L Carbon Dioxide (22-30) mmol/L Creatinine 0.60 L (0.66-1.25) mg/dL Glucose 139 H (74-99) mg/dL Calcium 8.2 L (8.4-10.2) mg/dL AST 16 L (17-59) U/L Alkaline Phosphatase 34 L (38-126) U/L Total Protein 5.4 L (6.3-8.2) g/dL Albumin 3.1 L (3.5-5.0) g/dL Assessment and Plan (1) Diffuse large B cell lymphoma Narrative/Plan: The patient is on day #3 of his high-dose infusional chemotherapy regimen. He is tolerating treatment well without any untoward side effects. Physical exam and labs are satisfactory. Continue treatment per protocol. Continue to monitor with physical exam and labs. Current Visit: No Status: Acute Code(s): C83.30 - DIFFUSE LARGE B-CELL LYMPHOMA, UNSPECIFIED SITE SNOMED Code(s): 300483718
[2018-07-28] MEDS: ONDANSETRON 16 MG in SODIUM CHLORIDE 0.9% 50 ML IVPB SCH (17:29)
[2018-07-28] MEDS: FAMOTIDINE 20 MG/2 ML VIAL IV SCH (17:30)
[2018-07-28] MEDS: DOXORUBICIN HCL IV SCH (18:11)
[2018-07-28] MEDS: SODIUM CHLORIDE 0.9% IV SCH ×2 (18:11→18:13)
[2018-07-28] MEDS: ETOPOSIDE 100 MG in SODIUM CHLORIDE 0.9% 500 ML IV SCH (18:12)
[2018-07-28] MEDS: VINCRISTINE SULFATE IV SCH (18:13)
[2018-07-29] MEDS: ALPRAZolam 0.25 MG TAB PO PRN ×4 (01:04→20:06)
[2018-07-29 08:01] LABS: Anisocytosis Slight; Basophils % (A) 0 %; Eosinophils % (A) 0 %; Lymphocytes # (A) 0.2 k/uL (1.0-4.8); Lymphocytes % (A) 2 %; MCH 29.4 pg (25.0-35.0); MCHC 33.3 g/dL (31.0-37.0); MCV 88.4 fL (80.0-100.0); Mean Platelet Volume 7.2; Monocytes # (A) 0.3 k/uL (0-1.0); Monocytes % (A) 3 %; Neutrophils % (A) 94 %; Platelet Count 188 k/uL (150-450); RBC 4.07 m/uL (4.30-5.90); RDW 16.4 % (11.5-15.5); WBC 10.6 k/uL (3.8-10.6)
[2018-07-29] MEDS: SODIUM CHLORIDE 0.9% 1,000 ML IV SCH ×2 (08:04→18:11)
[2018-07-29] MEDS: PANTOPRAZOLE 40 MG TABLET PO SCH ×2 (08:05→19:21)
[2018-07-29] MEDS: DRONABINOL 2.5 MG CAP PO SCH ×2 (08:05→19:20)
[2018-07-29] MEDS: predniSONE 20 MG TAB PO SCH ×2 (08:06→19:21)
[2018-07-29] MEDS: predniSONE 50 MG TAB PO SCH ×2 (08:06→19:21)
[2018-07-29] MEDS: ENOXAPARIN 40 MG/0.4 ML SYRINGE SQ SCH (08:06)
[2018-07-29 08:26] LABS: ALT 28 U/L (21-72); AST 19 U/L (17-59); Albumin 3.1 g/dL (3.5-5.0); Alkaline Phosphatase 29 U/L (38-126); Anion Gap 9 mmol/L; Blood Urea Nitrogen 9 mg/dL (9-20); Calcium 8.1 mg/dL (8.4-10.2); Carbon Dioxide 22 mmol/L (22-30); Chloride 109 mmol/L (98-107); Glucose 118 mg/dL (74-99); Potassium 3.6 mmol/L (3.5-5.1); Sodium 140 mmol/L (137-145); Total Bilirubin 0.6 mg/dL (0.2-1.3); Total Protein 5.3 g/dL (6.3-8.2)
[2018-07-29] MEDS: ONDANSETRON 8 MG in SODIUM CHLORIDE 0.9% 50 ML IVPB PRN (09:47)
[2018-07-29] MEDS: PROCHLORPERAZINE 10 MG TAB PO PRN ×2 (09:47→16:54)
--- NOTE | 2018-07-29 10:31 | P.PN ---
Subjective Progress Note Date: 07/29/18 Patient is complaining of increased nausea today compared to yesterday, waiting on a dose of Zofran otherwise has no complaints denies chest pain shortness of breath or abdominal pain Objective - Vital Signs Vital signs: Vital Signs Temp 96.7 F L 07/29/18 07:57 Pulse 52 L 07/29/18 07:57 Resp 20 07/29/18 07:57 BP 128/75 07/29/18 07:57 Pulse Ox 95 07/29/18 07:57 Intake & Output 07/28/18 07/29/18 07/29/18 18:59 06:59 18:59 Intake Total 1092 2080 Balance 1092 2080 Weight 94.5 kg Intake: IV 800 900 Sodium Chloride 0.9% 1, 800 900 000 ml @ 100 mls/hr IV . Q10H [facility] Rx#:[id number] Intake, IV Titration 292 Amount DOXOrubicin HCL 20 mg In 96 Sodium Chloride 0.9% 250 ml @ 10.833 mls/hr IV Q24H [facility] Rx#:[id number] Etoposide 100 mg In 176 Sodium Chloride 0.9% 500 ml @ 21.042 mls/hr IV Q24H [facility] Rx#:[id number] vinCRIStine SULFATE 0.8 20 mg In Sodium Chloride 0.9 % 50 ml @ 2.117 mls/hr IV Q24H [facility] Rx#:[id number] Oral 1180 Other: Voiding Method Toilet Toilet Toilet # Voids 2 - Exam Constitutional: No acute distress, conversant, pleasant Eyes: Anicteric sclerae, moist conjunctiva, no lid-lag, PERRLA ENMT: NC/AT,Oropharynx clear, no erythema, exudates Neck:Supple, FROM, no masses, or JVD, No carotid bruits; No thyromegaly Lungs: Clear to auscultation, Clear to percussion, Normal respiratory effort, no accessory muscle use Cardiovascular: Heart regular in rate and rhythm, No murmurs, gallops, or rubs no peripheral edema Abdominal: Soft Nontender, nom distended, no guarding, no rebound or rigidity, Normoactive bowel sounds No hepatomegaly, No splenomegaly, No palpable mass No abdominal wall hernia noted Skin: Normal temperature, tone, texture, turgor, No induration No subcutaneous nodules, No rash, lesions, No ulcers Extremities:No digital cyanosis No clubbing, Pedal pulses intact and symmetrical Radial pulses intact and symmetrical Normal gait and station, No calf tenderness Psychiatric: Alert and oriented to person, place and time, Appropriate affect Intact judgement Neuro: Muscles Strength 5/5 in all 4 extremities, Sensation to light touch grossly present throughout, Cranial nerves II-XII grossly intact. No focal sensory deficits - Labs CBC & Chem 7: 07/29/18 06:48 07/29/18 06:48 Labs: Abnormal Lab Results - Last 24 Hours (Table) 07/29/18 07/29/18 Range/Units 06:48 06:48 RBC 4.07 L (4.30-5.90) m/uL Hgb 12.0 L (13.0-17.5) gm/dL Hct 36.0 L (39.0-53.0) % RDW 16.4 H (11.5-15.5) % Neutrophils # 10.0 H (1.3-7.7) k/uL Lymphocytes # 0.2 L (1.0-4.8) k/uL Chloride 109 H (98-107) mmol/L Creatinine 0.60 L (0.66-1.25) mg/dL Glucose 118 H (74-99) mg/dL Calcium 8.1 L (8.4-10.2) mg/dL Alkaline Phosphatase 29 L (38-126) U/L Total Protein 5.3 L (6.3-8.2) g/dL Albumin 3.1 L (3.5-5.0) g/dL Assessment and Plan (1) Diffuse large B cell lymphoma Narrative/Plan: * Oncology on board. Here for infusion of R-EPO CH on day #3 . Xanax 0.25 mg PO QID PRN, Pepcid 20 mg IV QD, Zofran 9 mg IV scheduled/PRN, Prednisone scheduled * antiemetics for nausea and vomiting. FU Oncology plan Current Visit: No Status: Acute Code(s): C83.30 - DIFFUSE LARGE B-CELL LYMPHOMA, UNSPECIFIED SITE SNOMED Code(s): 303659284 (2) Leukocytosis Narrative/Plan: * Likely steroid-induced patient afebrile * Currently on high-dose steroids as part of his chemo regimen Current Visit: Yes Status: Resolved Code(s): D72.829 - ELEVATED WHITE BLOOD CELL COUNT, UNSPECIFIED SNOMED Code(s): 330783281
[2018-07-29] MEDS: ACETAMINOPHEN TAB 325 MG TAB PO PRN (15:07)
[2018-07-29] MEDS: ONDANSETRON 16 MG in SODIUM CHLORIDE 0.9% 50 ML IVPB SCH (19:09)
[2018-07-29] MEDS: FAMOTIDINE 20 MG/2 ML VIAL IV SCH (19:11)
[2018-07-29] MEDS: DOXORUBICIN HCL IV SCH (19:20)
[2018-07-29] MEDS: SODIUM CHLORIDE 0.9% IV SCH ×2 (19:20)
[2018-07-29] MEDS: VINCRISTINE SULFATE IV SCH (19:20)
[2018-07-29] MEDS: ETOPOSIDE 100 MG in SODIUM CHLORIDE 0.9% 500 ML IV SCH (19:20)
--- NOTE | 2018-07-29 22:12 | P.PN ---
Subjective Progress Note Date: 07/29/18 the patient continues to complain of some nausea off and on, again controlled well with antiemetics. He is on day #4 of his protocol. He denies any fevers/ chills/overt vomiting/diarrhea/mouth sores. Appetite is fair. No history of abdominal pain, or change in bowel habits Objective - Vital Signs Vital signs: Vital Signs Temp 96.8 F L 07/29/18 19:39 Pulse 59 L 07/29/18 19:39 Resp 16 07/29/18 19:39 BP 121/73 07/29/18 19:39 Pulse Ox 96 07/29/18 19:39 Intake & Output 07/29/18 07/29/18 07/30/18 06:59 18:59 06:59 Intake Total 2080 1071.2 Balance 0 1071.2 Weight 94.5 kg Intake: IV 900 800 Sodium Chloride 0.9% 1, 900 800 000 ml @ 100 mls/hr IV . Q10H [facility] Rx#:[id number] Intake, IV Titration 271.2 Amount DOXOrubicin HCL 20 mg In 86.4 Sodium Chloride 0.9% 250 ml @ 10.833 mls/hr IV Q24H [facility] Rx#:[id number] Etoposide 100 mg In 168 Sodium Chloride 0.9% 500 ml @ 21.042 mls/hr IV Q24H [facility] Rx#:[id number] vinCRIStine SULFATE 0.8 16.8 mg In Sodium Chloride 0.9 % 50 ml @ 2.117 mls/hr IV Q24H [facility] Rx#:[id number] Oral 1180 Other: Voiding Method Toilet Toilet Toilet # Voids 2 - Constitutional General appearance: Present: no acute distress - EENT Eyes: Present: EOMI ENT: Present: hearing grossly normal, normal oropharynx - Respiratory Respiratory: bilateral: CTA - Cardiovascular Rhythm: regular Heart sounds: normal: S1, S2 - Gastrointestinal General gastrointestinal: Present: normal bowel sounds, soft - Integumentary Integumentary: Present: normal - Neurologic Neurologic: Present: CNII-XII intact - Musculoskeletal Musculoskeletal: Present: strength equal bilaterally - Psychiatric Psychiatric: Present: A&O x's 3, appropriate affect - Labs CBC & Chem 7: 07/29/18 06:48 07/29/18 06:48 Labs: Abnormal Lab Results - Last 24 Hours (Table) 07/29/18 07/29/18 Range/Units 06:48 06:48 RBC 4.07 L (4.30-5.90) m/uL Hgb 12.0 L (13.0-17.5) gm/dL Hct 36.0 L (39.0-53.0) % RDW 16.4 H (11.5-15.5) % Neutrophils # 10.0 H (1.3-7.7) k/uL Lymphocytes # 0.2 L (1.0-4.8) k/uL Chloride 109 H (98-107) mmol/L Creatinine 0.60 L (0.66-1.25) mg/dL Glucose 118 H (74-99) mg/dL Calcium 8.1 L (8.4-10.2) mg/dL Alkaline Phosphatase 29 L (38-126) U/L Total Protein 5.3 L (6.3-8.2) g/dL Albumin 3.1 L (3.5-5.0) g/dL Assessment and Plan (1) Diffuse large B cell lymphoma Narrative/Plan: the patient is currently on day #4 of 4 high-dose infusional chemotherapy with the R-EPO CH regimen. He is tolerating treatment well, other than some nausea which is controlled with medications. Physical exam and labs continued to be satisfactory. Continue monitoring with clinical exams and labs Current Visit: No Status: Acute Code(s): C83.30 - DIFFUSE LARGE B-CELL LYMPHOMA, UNSPECIFIED SITE SNOMED Code(s): 919137319 Plan: no evidence of any new abdominal complaints.
[2018-07-30] MEDS: ALPRAZolam 0.25 MG TAB PO PRN ×2 (04:18→11:17)
[2018-07-30] MEDS: SODIUM CHLORIDE 0.9% 1,000 ML IV SCH ×2 (06:04→17:22)
[2018-07-30 07:39] LABS: Anisocytosis Slight; Basophils % (A) 0 %; Eosinophils % (A) 1 %; HCT 35.6 % (39.0-53.0); HGB 11.8 gm/dL (13.0-17.5); Lymphocytes # (A) 0.2 k/uL (1.0-4.8); Lymphocytes % (A) 4 %; MCV 87.9 fL (80.0-100.0); Monocytes # (A) 0.2 k/uL (0-1.0); Monocytes % (A) 4 %; Neutrophils # (A) 4.9 k/uL (1.3-7.7); Neutrophils % (A) 92 %; Platelet Count 187 k/uL (150-450); RBC 4.05 m/uL (4.30-5.90); RDW 16.2 % (11.5-15.5); WBC 5.3 k/uL (3.8-10.6)
[2018-07-30 07:58] LABS: ALT 30 U/L (21-72); AST 14 U/L (17-59); Albumin 2.9 g/dL (3.5-5.0); Alkaline Phosphatase 27 U/L (38-126); Anion Gap 4 mmol/L; Blood Urea Nitrogen 10 mg/dL (9-20); Calcium 8.3 mg/dL (8.4-10.2); Carbon Dioxide 28 mmol/L (22-30); Chloride 107 mmol/L (98-107); Glucose 101 mg/dL (74-99); Potassium 3.7 mmol/L (3.5-5.1); Sodium 139 mmol/L (137-145); Total Bilirubin 0.8 mg/dL (0.2-1.3); Total Protein 5.2 g/dL (6.3-8.2)
[2018-07-30 08:10] VITALS: RESP 22
[2018-07-30] MEDS: ENOXAPARIN 40 MG/0.4 ML SYRINGE SQ SCH (08:19)
[2018-07-30] MEDS: PANTOPRAZOLE 40 MG TABLET PO SCH ×2 (08:19→17:21)
[2018-07-30] MEDS: predniSONE 20 MG TAB PO SCH ×2 (08:19→19:07)
[2018-07-30] MEDS: DRONABINOL 2.5 MG CAP PO SCH ×2 (08:19→17:21)
[2018-07-30] MEDS: predniSONE 50 MG TAB PO SCH ×2 (08:19→19:07)
[2018-07-30] MEDS: PROCHLORPERAZINE 10 MG TAB PO PRN (11:37)
--- NOTE | 2018-07-30 12:09 | P.DS ---
Providers Date of admission: 07/26/18 08:20 Expected date of discharge: 07/31/18 Attending physician: Arnie Olson Consults: 07/26/18 09:13 Consult Physician Routine Consulting Provider: Stas Strickland Consult Reason/Comments: medical management Do you want consulting provider notified?: Yes Primary care physician: Stated None - Discharge Diagnosis(es) (1) Lymphoma Current Visit: Yes Status: Acute (2) Diffuse large B cell lymphoma Current Visit: No Status: Acute Hospital Course: onstitutional General appearance: Present: cooperative, no acute distress - EENT Eyes: Present: EOMI, dentition normal, normal appearance ENT: Present: NA/AT, normal oropharynx - Neck Details: supple, Trachea midline Neck: Present: normal ROM - Respiratory Details: No increased respiratory effort Respiratory: bilateral: CTA - Cardiovascular Rhythm: regular Heart sounds: normal: S1, S2 - Gastrointestinal General gastrointestinal: Present: normal bowel sounds, soft, tenderness - Integumentary Integumentary: Present: normal - Neurologic Neurologic Comment(s): no focal defects Neurologic: Present: CNII-XII intact - Musculoskeletal Musculoskeletal: Present: gait normal, generalized weakness, strength equal bilaterally - Psychiatric Psychiatric: Present: A&O x's 3, appropriate affect, intact judgment & insight Assessment and Plan (1) Diffuse large B cell lymphoma Narrative/Plan: Diagnostic and therapeutic circumstances so far have been described in the HPI. - The patient tolerated 2 cycles of RCHOP well, and did have some improvement in symptoms. However PET scan did not show the desired optimal response. Therefore his chemotherapy regimen has been changed to the high-dose infusional R - EPOCH. He is being admitted for cycle 3 of the same. - CBC and CMP Daily Current Visit: Yes Status: Acute Code(s): C83.30 - DIFFUSE LARGE B-CELL LYMPHOMA, UNSPECIFIED SITE SNOMED Code(s): 246651012 (2)Recent Small Bowel Intestinal Perforation and Repair: Resolved - Acute Abdominal Series - 06/01/18 - non specific for gastritis versus ileus. He was placed on bowel rest and PPI was added, GI Consult - 06/02/18 pain worsened and now with associated nausea - Surgery consult placed and STAT CT abdomen ordered, Chemo on hold - Small Bowel Obstruction with concern for perforation identified and patient taken to surgery on 06/02/18 - Cycle one of Chemotherapy Interrupted secondary to this, patient has now recovered and healed (3) New Onset Atrial Fibrillation with RVR Cycle one Admission - Likely was secondary to complicating perforation and surgery, will monitor with telemetry during chemotherapy (4)Chemotherapy induced Constipation - Add Senna-s every Night (5)Chemo Induced Nausea and Vomiting Last Cycle - Zofran PRN - Xanax PRN (seems to work best as much of his anxiety is related to anticipatory nausea) - Control Constipation - Add marinol 5mg po BID (Start with 2.5mg as 5mg sometimes causes more fatigue ) - Prescription for Marinol and Xanax has been provided at discharge. MAPS completed and Opiod agreement managed through Dr. [place] office - [place] Presciption also priovided at discharge. (6) Situational Anxiety related to inpatient chemotherapy - Xanax PRN PPI and VTE Prophylaxis throughout hospitalization Plan for Neulasta after completion of chemotherapy in office on August 01@ 11am Pertinent Studies: CBC and CMP monitored Procedures: Timed Chemotherapy with cycle 3 of R-EPOCH Patient Condition at Discharge: Fair Plan - Discharge Summary Discharge Rx Participant: No New Discharge Prescriptions: New ALPRAZolam [Xanax] 0.25 mg PO QID PRN #60 tab PRN Reason: nausea and anxiety Dronabinol [Marinol] 5 mg PO AC-BID #60 cap HYDROcodone/APAP 10-325MG [[place] 10-325] 1 each PO Q8H PRN #60 tab PRN Reason: Pain Pantoprazole [Protonix] 40 mg PO AC-BID tablet. Prochlorperazine [Compazine] 10 mg PO Q6HR PRN tab PRN Reason: Nausea And Vomiting Continue Acyclovir [Zovirax] 400 mg PO BID #60 tab HYDROcodone/APAP 10-325MG [[place] 10-325] 1 tab PO HS PRN PRN Reason: Pain Prochlorperazine [Compazine] 10 mg PO Q6H PRN PRN Reason: Nausea Sucralfate [Carafate] 1 gm PO ACHS Triderm 0.1% Cream 1 applic TOPICAL BID Levofloxacin [Levaquin] 500 mg PO DAILY #10 tab Ondansetron HCl [Zofran] 4 mg PO Q4H PRN #45 tablet PRN Reason: Nausea Sennosides-Docusate Sodium [Senokot-S] 2 tab PO HS #60 tab Discontinued Allopurinol [Zyloprim] 300 mg PO DAILY LORazepam [Ativan] 0.5 mg PO Q6H PRN PRN Reason: Anxiety Potassium Chloride [Klor-Con 20] 20 meq PO BID predniSONE 100 mg PO DIRECTED Discharge Medication List Acyclovir [Zovirax] 400 mg PO BID #60 tab 07/09/18 [Rx] HYDROcodone/APAP 10-325MG [[place] 10-325] 1 tab PO HS PRN 07/26/18 [History] Prochlorperazine [Compazine] 10 mg PO Q6H PRN 07/26/18 [History] Sucralfate [Carafate] 1 gm PO ACHS 07/26/18 [History] Triderm 0.1% Cream 1 applic TOPICAL BID 07/26/18 [History] ALPRAZolam [Xanax] 0.25 mg PO QID PRN #60 tab 07/30/18 [Rx] Dronabinol [Marinol] 5 mg PO AC-BID #60 cap 07/30/18 [Rx] HYDROcodone/APAP 10-325MG [[place] 10-325] 1 each PO Q8H PRN #60 tab 07/30/18 [Rx] Levofloxacin [Levaquin] 500 mg PO DAILY #10 tab 07/30/18 [Rx] Ondansetron HCl [Zofran] 4 mg PO Q4H PRN #45 tablet 07/30/18 [Rx] Pantoprazole [Protonix] 40 mg PO AC-BID tablet. 07/30/18 [Rx] Prochlorperazine [Compazine] 10 mg PO Q6HR PRN tab 07/30/18 [Rx] Sennosides-Docusate Sodium [Senokot-S] 2 tab PO HS #60 tab 07/30/18 [Rx] Follow up Appointment(s)/Referral(s): Arnie Olson MD [STAFF PHYSICIAN] - 08/01/18 11:00 am Activity/Diet/Wound Care/Special Instructions: Activity as tolerated Normal Diet Care Plan Goals (MU): Remain Afebrile Monitor for s/s bleeding or brusing Manage constipation and Nausea Discharge Disposition: HOME SELF-CARE
--- NOTE | 2018-07-30 12:13 | P.PN ---
Subjective Progress Note Date: 07/30/18 Principal diagnosis: Large B Cell Lymphoma - Timed Chemotherapy Tolerating cycle 3 well with exception of nausea, better controlled on xanax and marinol. Unable to control on Compazine and Zofran as outpatient. Ativan did help although he felt was causing headaches Patient needs to drink fluids prior to discharge Objective - Vital Signs Vital signs: Vital Signs Temp 96.4 F L 07/30/18 07:47 Pulse 59 L 07/30/18 08:00 Resp 22 07/30/18 08:00 BP 128/85 07/30/18 07:47 Pulse Ox 97 07/30/18 07:47 Intake & Output 07/29/18 07/30/18 07/30/18 18:59 06:59 18:59 Intake Total 1071.2 1486.4 Balance 1071.2 1486.4 Weight 94.5 kg Intake: IV 800 1200 Sodium Chloride 0.9% 1, 800 1200 000 ml @ 100 mls/hr IV . Q10H [facility] Rx#:[id number] Intake, IV Titration 271.2 286.4 Amount DOXOrubicin HCL 20 mg In 86.4 88.8 Sodium Chloride 0.9% 250 ml @ 10.833 mls/hr IV Q24H [facility] Rx#:[id number] Etoposide 100 mg In 168 179.2 Sodium Chloride 0.9% 500 ml @ 21.042 mls/hr IV Q24H [facility] Rx#:[id number] vinCRIStine SULFATE 0.8 16.8 18.4 mg In Sodium Chloride 0.9 % 50 ml @ 2.117 mls/hr IV Q24H [facility] Rx#:[id number] Other: Voiding Method Toilet Toilet Toilet - Exam Constitutional General appearance: Present: cooperative, no acute distress - EENT Eyes: Present: EOMI, dentition normal, normal appearance ENT: Present: NA/AT, normal oropharynx - Neck Details: supple, Trachea midline Neck: Present: normal ROM - Respiratory Details: No increased respiratory effort Respiratory: bilateral: CTA - Cardiovascular Rhythm: regular Heart sounds: normal: S1, S2 - Gastrointestinal General gastrointestinal: Present: normal bowel sounds, soft, tenderness - Integumentary Integumentary: Present: normal - Neurologic Neurologic Comment(s): no focal defects Neurologic: Present: CNII-XII intact - Musculoskeletal Musculoskeletal: Present: gait normal, generalized weakness, strength equal bilaterally - Psychiatric Psychiatric: Present: A&O x's 3, appropriate affect, intact judgment & insight - Labs CBC & Chem 7: 07/30/18 07:20 07/30/18 07:20 Labs: Abnormal Lab Results - Last 24 Hours (Table) 07/30/18 07/30/18 Range/Units 07:20 07:20 RBC 4.05 L (4.30-5.90) m/uL Hgb 11.8 L (13.0-17.5) gm/dL Hct 35.6 L (39.0-53.0) % RDW 16.2 H (11.5-15.5) % Lymphocytes # 0.2 L (1.0-4.8) k/uL Creatinine 0.62 L (0.66-1.25) mg/dL Glucose 101 H (74-99) mg/dL Calcium 8.3 L (8.4-10.2) mg/dL AST 14 L (17-59) U/L Alkaline Phosphatase 27 L (38-126) U/L Total Protein 5.2 L (6.3-8.2) g/dL Albumin 2.9 L (3.5-5.0) g/dL Assessment and Plan (1) Lymphoma Current Visit: Yes Status: Acute Code(s): C85.90 - NON-HODGKIN LYMPHOMA, UNSPECIFIED, UNSPECIFIED SITE SNOMED Code(s): 562272476 (2) Diffuse large B cell lymphoma Current Visit: No Status: Acute Code(s): C83.30 - DIFFUSE LARGE B-CELL LYMPHOMA, UNSPECIFIED SITE SNOMED Code(s): 307268345 Plan: Assessment and Plan (1) Diffuse large B cell lymphoma Narrative/Plan: Diagnostic and therapeutic circumstances so far have been described in the HPI. - The patient tolerated 2 cycles of RCHOP well, and did have some improvement in symptoms. However PET scan did not show the desired optimal response. Therefore his chemotherapy regimen has been changed to the high-dose infusional R - EPOCH. He is being admitted for cycle 3 of the same. - CBC and CMP Daily Current Visit: Yes Status: Acute Code(s): C83.30 - DIFFUSE LARGE B-CELL LYMPHOMA, UNSPECIFIED SITE SNOMED Code(s): 392050845 (2)Recent Small Bowel Intestinal Perforation and Repair: Resolved - Acute Abdominal Series - 06/01/18 - non specific for gastritis versus ileus. He was placed on bowel rest and PPI was added, GI Consult - 06/02/18 pain worsened and now with associated nausea - Surgery consult placed and STAT CT abdomen ordered, Chemo on hold - Small Bowel Obstruction with concern for perforation identified and patient taken to surgery on 06/02/18 - Cycle one of Chemotherapy Interrupted secondary to this, patient has now recovered and healed (3) New Onset Atrial Fibrillation with RVR Cycle one Admission - Likely was secondary to complicating perforation and surgery, will monitor with telemetry during chemotherapy (4)Chemotherapy induced Constipation - Add Senna-s every Night (5)Chemo Induced Nausea and Vomiting Last Cycle - Zofran PRN - Xanax PRN (seems to work best as much of his anxiety is related to anticipatory nausea) - Control Constipation (6) Situational Anxiety related to inpatient chemotherapy - Xanax PRN PPI and VTE Prophylaxis Plan for Neulasta after completion of chemotherapy in office Prescriptions for [place], Xanax and Marinol at discharge provided to patient. MAPS and Opioid agreement completed in office and will continue to managed in office by Dr. Olson He will continue on prophylaxis Senna-s, Acyclovir, Nystatin, Prilosec Physician Attest: I have completed the full history and physical of this patient and agree with above dictation by Delicia Fuentes NP dictated as a scribe
[2018-07-30 12:44] VITALS: TEMP 97.7
[2018-07-30] MEDS: ACETAMINOPHEN TAB 325 MG TAB PO PRN ×2 (14:20→17:21)
[2018-07-30] MEDS ORDERED: CYCLOPHOSPHAMIDE IV ONE (15:00)
[2018-07-30] MEDS ORDERED: SODIUM CHLORIDE 0.9% IV ONE (15:00)
[2018-07-30 16:20] VITALS: BP 139/88; PULSE 70
[2018-07-30] MEDS: ONDANSETRON 16 MG in SODIUM CHLORIDE 0.9% 50 ML IVPB SCH (19:02)
[2018-07-30] MEDS: FAMOTIDINE 20 MG/2 ML VIAL IV SCH (19:02)
== END 2018-07-30 20:53 | disposition home or self-care (01) | DRG 847 ==
LOC: 5ONC 08:20
PROVIDERS: ADMIT Internal Medicine Hematology & Oncology; ATTEND Internal Medicine Hematology & Oncology
DX: Z51.11 Encounter for antineoplastic chemotherapy (principal); C83.33 Diffuse large B-cell lymphoma, intra-abdominal lymph nodes; E87.8 Other disorders of electrolyte and fluid balance, not elsewhere classified; F06.4 Anxiety disorder due to known physiological condition; R51 Headache; K59.03 Drug induced constipation; R11.2 Nausea with vomiting, unspecified; D72.829 Elevated white blood cell count, unspecified; T45.1X5A Adverse effect of antineoplastic and immunosuppressive drugs, initial encounter; T38.0X5A Adverse effect of glucocorticoids and synthetic analogues, initial encounter; Z79.2 Long term (current) use of antibiotics; Z79.52 Long term (current) use of systemic steroids; Z79.899 Other long term (current) drug therapy; Z83.79 Family history of other diseases of the digestive system; Z80.51 Family history of malignant neoplasm of kidney
CPT/HCPCS: 80053; 85025

== ENCOUNTER → 2018-08-13 | Outpatient (CLI) | payer BC ==
--- NOTE | 2018-08-13 19:48 | PE ---
EXAMINATION TYPE: PET CT fusion skull to thigh DATE OF EXAM: 08/13/2018 COMPARISON: Prior PET/CT May 14, [address] abdomen pelvis June 08, [address] chest March 16, 2018. HISTORY: Lymphoma progress study completed chemotherapy July 30. TECHNIQUE: Following the intravenous administration of 11.67 mCi of F-18 FDG, whole body images are performed from the skull base to the midthigh. Images are reviewed on the computer in the coronal, a xial, and sagittal planes. Reconstructed rotating images are created on independent workstation and reviewed on the computer. A noncontrast CT is performed in conjunction with the PET scan. SCAN: Subsequent Scan FINDINGS: MEDIASTINUM MEAN SUV: 1.05s LIVER MEAN SUV: 1.84 SKULL BASE AND NECK: No new areas of suspicious hypermetabolic uptake are seen. CHEST, MEDIASTINUM, AND HILAR REGION: There is redemonstration of multiple abnormal thoracic lymph no maryjo involving mediastinum and bilateral hilar regions. No significant change in size is clearly seen, for reference right tracheobronchial lymph node measures 1.5 x 1.3 cm current study image 99 versus 1.6 x 1.2 cm prior study image 98. Max SUV is 5.73 current study versus 4.66 prior study. Additional prevascular lymph node axial image 93 is stable in size, max SUV is 3.24 current study chichi petty 3.45 prior study. Left hilar lymph nodes show max SUV current study 5.39 axial image 98 versus 6.45 prior study axial i mage 96. No definitive new supraclavicular bilateral axillary adenopathy. ABDOMEN AND PELVIS: Left adrenal mass is diminished in size measuring 2.1 x 1.5 cm axial image 148 wi thout abnormal hypermetabolic uptake on current study. No new areas of abnormal hypermetabolic uptake are present. OSSEOUS STRUCTURES: Mild diffuse osseous uptake is redemonstrated more prominent versus prior presume d posttreatment change. OTHER CT: There is right internal jugular Mediport catheter terminating in SVC redemonstrated. There is mild coronary artery calcification which is noted marker for coronary artery disease. Tiny p ericardial effusion anteriorly and inferiorly is stable. Spleen remains mildly enlarged in size at 14.3 cm long axis axial image 138. Liver is normal in size. Some scattered diverticula are seen throughout the colon most prominent in the left and sigmoid colon . Surgical sutures in the left mid to lower anterior bowel axial image 207 are now identified. There is facet arthropathy lower lumbar spine. Occasional pelvic phlebolith is seen. IMPRESSION: Improvement in left adrenal involvement. Stable hilar and mediastinal involvement felt pr esent. No new malignancy noted.
== END ==
LOC: RADPETMAIN 16:30
PROVIDERS: ATTEND Internal Medicine Hematology & Oncology
DX: C83.38 Diffuse large B-cell lymphoma, lymph nodes of multiple sites (principal)
CPT/HCPCS: 78815; A9552

== ENCOUNTER → 2018-08-31 | Outpatient (CLI) | payer BC ==
[2018-08-31 13:23] LABS: Anisocytosis Slight; Basophils # (A) 0.1 k/uL (0-0.2); Basophils % (A) 2 %; Eosinophils # (A) 0.3 k/uL (0-0.7); Eosinophils % (A) 8 %; HCT 43.5 % (39.0-53.0); Lymphocytes # (A) 0.7 k/uL (1.0-4.8); Lymphocytes % (A) 16 %; MCH 28.8 pg (25.0-35.0); MCHC 32.2 g/dL (31.0-37.0); MCV 89.2 fL (80.0-100.0); Mean Platelet Volume 7.4; Monocytes # (A) 0.5 k/uL (0-1.0); Monocytes % (A) 12 %; Neutrophils # (A) 2.6 k/uL (1.3-7.7); Neutrophils % (A) 59 %; Platelet Count 215 k/uL (150-450); RBC 4.88 m/uL (4.30-5.90); RDW 16.9 % (11.5-15.5); WBC 4.4 k/uL (3.8-10.6)
[2018-08-31 13:30] LABS: Anion Gap 8 mmol/L; Blood Urea Nitrogen 15 mg/dL (9-20); Carbon Dioxide 24 mmol/L (22-30); Chloride 106 mmol/L (98-107); Partial Thromboplastin Time 23.5 sec (22.0-30.0); Potassium 4.6 mmol/L (3.5-5.1); Prothrombin Time 9.6 sec (9.0-12.0); Sodium 138 mmol/L (137-145)
== END | disposition home or self-care (01) ==
LOC: LABPAT 11:59
PROVIDERS: ATTEND Thoracic Surgery (Cardiothoracic Vascular Surgery)
DX: Z01.812 Encounter for preprocedural laboratory examination (principal); C85.12 Unspecified B-cell lymphoma, intrathoracic lymph nodes
CPT/HCPCS: 36415; 80051; 82565; 84520; 85025; 85610; 85730

== ENCOUNTER 2018-09-01 05:49 | Day surgery (SDC) | payer BC ==
[2018-08-24 14:48] VITALS: BMI 28.8
[~2018-09-01 05:49] MED LIST changes: +ONDANSETRON 4 MG/2 ML VIAL IVP ONE; -Pre Op ABX Message 1 EACH MISC MISCELLANE ONE; +ceFAZolin IN SWFI 2 GM/20 ML SYRINGE IVP ONE; +fentaNYL (PF) 50 MCG/ML 2 ML AMP IV PRN
[2018-09-01 06:25] VITALS: RESP 16
[2018-09-01] MEDS ORDERED: fentaNYL (PF) 50 MCG/ML 2 ML AMP ONE (07:30)
[2018-09-01] MEDS ORDERED: GLYCOPYRROLATE 0.2 MG/ML 2 ML VIAL ONE (07:30)
[2018-09-01] MEDS ORDERED: VECURONIUM 10 MG VIAL IV ONE (07:30)
[2018-09-01] MEDS ORDERED: SUCCINYLCHOLINE CHLORIDE VIAL 200 MG/10 ML VIAL IV ONE (07:30)
[2018-09-01] MEDS ORDERED: MIDAZOLAM 2 MG/2 ML VIAL ONE (07:30)
[2018-09-01] MEDS ORDERED: PROPOFOL 10 MG/ML 20 ML VIAL IV ONE (07:30)
[2018-09-01] MEDS ORDERED: NEOSTIGMINE 1 MG/ML 10 ML VIAL ONE (07:30)
[2018-09-01] MEDS ORDERED: LIDOCAINE 1% INJ 10MG/ML (20 ML MDV) ONE (07:30)
--- NOTE | 2018-09-01 09:32 | P.OP ---
Date of Procedure: 09/01/18 Preoperative Diagnosis: History of lymphoma of adrenal gland, persistent mediastinal adenopathy. Postoperative Diagnosis: Same Procedure(s) Performed: Mediastinal endoscopy with biopsy of right paratracheal lymph nodes Anesthesia: DEEPTHIA Surgeon: Dorian Crisostomo Estimated Blood Loss (ml): 10 IV fluids (ml): 500 Urine output (ml): 0 Pathology: other (Right paratracheal lymph node initially sent for frozen section. This revealed granulomatous disease. Further specimens were sent fresh for permanent pathology as well as flow cytometry. A portion was also sent for culture including routine AFB and fungal cultures.) Condition: stable Disposition: PACU Indications for Procedure: 58-year-old male with recent diagnosis of lymphoma based on needle biopsy of an enlarged adrenal gland. This was treated with resolution of the adrenal enlargement. The patient had a pretreatment PET scan which demonstrated mediastinal adenopathy with significant uptake. This did not resolve with treatment of the adrenal gland with chemotherapy despite resolution of the mass and the adrenal gland. Question was raised whether the mediastinal adenopathy was related to the lymphoma or was a separate disease process. Mediastinoscopy was therefore requested. Operative Findings: Patient was brought to the operating room and placed supine on the operating table anesthetized and intubated. Patient was appropriately positioned for mediastinoscopy. The anterior neck and chest were sterilely prepped and draped. Transverse incision was made at the base of the neck and carried down through skin and subcutaneous tissue to the strap muscles. Incision was continued in the midline between the strap muscles to the thyroid isthmus. The thyroid isthmus was markedly enlarged. Careful dissection was carried out around the thyroid isthmus and it was ligated with 0 silk ties and then divided with electrocautery. This allowed easy dissection into the mediastinum. Pretracheal plane was followed deep into the mediastinum with a finger and then the mediastinoscope was introduced. The dissection was carried down to the level of the bradley. The right paratracheal lymph nodes were resected. A portion was sent for frozen section. This returned positive for granulomatous disease. The remaining specimen was portion and a small piece was sent for culture including routine AFB and fungal cultures. The remaining portion of the specimen was sent fresh. The specimen was discussed with the pathologist. Plan was for routine pathology as well as flow cytometry. Good hemostasis was obtained with packing. Thrombin and Gelfoam was used to control some mild oozing around the dissected region of the lymph nodes. Mediastinoscope was removed. Incision was closed with interrupted 3-0 Vicryl in the strap muscles. Subcutaneous tissue was closed with running 3-0 Vicryl. Skin was closed with a running 3-0 Vicryl stitch. Exofen dressing was applied. Patient was awakened and transferred to recovery in stable condition. Plan - Discharge Summary Discharge Rx Participant: No New Discharge Prescriptions: No Action ALPRAZolam [Xanax] 0.25 mg PO QID PRN #60 tab PRN Reason: nausea and anxiety Sennosides-Docusate Sodium [Senokot-S] 2 tab PO HS #60 tab Ondansetron [Zofran] 4 mg PO Q4HR PRN PRN Reason: Nausea Discharge Medication List ALPRAZolam [Xanax] 0.25 mg PO QID PRN #60 tab 07/30/18 [Rx] Sennosides-Docusate Sodium [Senokot-S] 2 tab PO HS #60 tab 07/30/18 [Rx] Ondansetron [Zofran] 4 mg PO Q4HR PRN 08/24/18 [History]
[2018-09-01 09:34] VITALS: TEMP 97
[2018-09-01] MEDS: HYDROmorphone 0.5 MG/0.5 ML SYRINGE IVP PRN ×2 (09:48→10:00)
[2018-09-01] MEDS ORDERED: HYDROcodone/APAP 10-325MG 1 EACH TAB PO ONE (11:04)
[2018-09-01 11:30] VITALS: BP 133/90; PULSE 79
== END 2018-09-01 12:00 | disposition home or self-care (01) ==
LOC: 2ORMAIN 05:49 → UNDOADMIN 05:49 → OR 05:49 → EDSTATUS 07:30 → UNDODISIN 12:00 → OR 12:00
PROVIDERS: ATTEND Thoracic Surgery (Cardiothoracic Vascular Surgery)
DX: R59.0 Localized enlarged lymph nodes (principal); Z85.72 Personal history of non-Hodgkin lymphomas; Z92.21 Personal history of antineoplastic chemotherapy; I48.91 Unspecified atrial fibrillation; Z79.899 Other long term (current) drug therapy; Z90.49 Acquired absence of other specified parts of digestive tract; Z90.81 Acquired absence of spleen
CPT/HCPCS: 88305; 88312; 88331; 87070; 87205; 87075; 87116; 87102; 87206; 39402; J2250; J0330; J2710; J2405; J2001; J3010; J2704; J1170; J0690

== ENCOUNTER 2018-09-14 08:15 | Inpatient (IN) | payer BC ==
[2018-09-14 09:39] LABS: Basophils # (A) 0.1 k/uL (0-0.2); Basophils % (A) 2 %; Eosinophils # (A) 0.3 k/uL (0-0.7); Eosinophils % (A) 7 %; HCT 44.1 % (39.0-53.0); HGB 14.5 gm/dL (13.0-17.5); Lymphocytes # (A) 0.6 k/uL (1.0-4.8); Lymphocytes % (A) 16 %; MCH 28.4 pg (25.0-35.0); MCHC 32.9 g/dL (31.0-37.0); MCV 86.3 fL (80.0-100.0); Mean Platelet Volume 6.9; Monocytes # (A) 0.4 k/uL (0-1.0); Monocytes % (A) 11 %; Neutrophils # (A) 2.2 k/uL (1.3-7.7); Neutrophils % (A) 62 %; Platelet Count 201 k/uL (150-450); Poikilocytosis Slight; RBC 5.11 m/uL (4.30-5.90); RDW 15.2 % (11.5-15.5); WBC 3.6 k/uL (3.8-10.6)
[2018-09-14 09:49] LABS: ALT 36 U/L (21-72); AST 22 U/L (17-59); Albumin 4.2 g/dL (3.5-5.0); Alkaline Phosphatase 38 U/L (38-126); Anion Gap 8 mmol/L; Blood Urea Nitrogen 16 mg/dL (9-20); Calcium 9.3 mg/dL (8.4-10.2); Carbon Dioxide 24 mmol/L (22-30); Chloride 106 mmol/L (98-107); Glucose 120 mg/dL (74-99); Potassium 4.1 mmol/L (3.5-5.1); Sodium 138 mmol/L (137-145); Total Bilirubin 0.8 mg/dL (0.2-1.3); Total Protein 6.8 g/dL (6.3-8.2)
[2018-09-14] MEDS: SODIUM CHLORIDE 0.9% 1,000 ML IV SCH ×2 (10:29→22:14)
[2018-09-14] MEDS ORDERED: DIPHENHYDRAMINE PO SCH (11:45)
[2018-09-14] MEDS ORDERED: ACETAMINOPHEN PO SCH (11:45)
[2018-09-14] MEDS ORDERED: SENNOSIDES 8.6 MG TAB PO SCH (11:45)
[2018-09-14] MEDS ORDERED: ALPRAZolam 0.25 MG TAB PO SCH (12:00)
[2018-09-14] MEDS ORDERED: methylPREDNISolone SOD SUCCI 125 MG/2 ML VIAL IV ONE (12:00)
[2018-09-14] MEDS ORDERED: riTUXimab 800 MG in SODIUM CHLORIDE 0.9% 500 ML 500 ML IV NR (12:00)
[2018-09-14] MEDS ORDERED: ACETAMINOPHEN TAB 325 MG TAB PO ONE (12:00)
[2018-09-14] MEDS ORDERED: diphenhydrAMINE 50 MG/ML 1 ML VIAL IVP ONE (12:00)
[2018-09-14] MEDS: ALPRAZolam 0.25 MG TAB PO PRN ×2 (12:16→22:16)
[2018-09-14] MEDS: predniSONE 50 MG TAB PO SCH ×2 (12:18→22:12)
[2018-09-14] MEDS: FAMOTIDINE 20 MG/2 ML VIAL IV SCH (12:22)
[2018-09-14] MEDS: ONDANSETRON 16 MG in SODIUM CHLORIDE 0.9% 50 ML IVPB SCH (16:00)
[2018-09-14] MEDS: ETOPOSIDE IV SCH (16:39)
[2018-09-14] MEDS: SODIUM CHLORIDE 0.9% IV SCH ×3 (16:39→16:40)
[2018-09-14] MEDS: DOXORUBICIN HCL IV SCH (16:40)
[2018-09-14] MEDS: VINCRISTINE SULFATE IV SCH (16:40)
--- NOTE | 2018-09-14 17:02 | P.HPIM ---
History of Present Illness H&P Date: 09/14/18 Chief Complaint: CIVI chemo for NHL,DLBCL Pt admitted today for cycle #3 (he did receive complete 2nd cycle) of CIVI R- [facility] chemotherapy for mixed NHL and DLBCL. On admit pt has no c/o on a 14 point ROS other then some anxiety and constipation, appetite is good, ambulates independently, no pain. Malignancy history: Pt initially seen in consult 03/15/18, he had come into the ER complaining of "chest pain" x 1 week, constant, progressive, worse when sitting, pain localized to LUQ and left lower rib cage with penetration straight through to the back, pt had a palpable left upper quadrant mass, CT AP showed an enlarged left adrenal mass, 10.3 x 5.1 cm, mild colon wall thickening proximal to the mid transverse colon, splenomegaly, CTA chest negative for PE but showed some borderline mediastinal and hilar adenopathy. 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 Staging PET on 03/26/18 revealed hypermetabolic uptake in shotty mediastinal and hilar nodes with SUV in the 5-7.4 range, 10 cm left adrenal mass had an SUV of 22, loop of bowel in the right lower quadrant with thickened wall with SUV of 20, possibility of a retroperitoneal node with SUV of 21, right proximal humerus shows uptake with SUV of 3.9. First office visit on 03/31/18. 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 Pt decided for R-CHOP, with a plan for reevaluation after 2 cycles. 1st cycle 04/14/18. Treatment f/u PET showed a partial, suboptimal response so, chemo regimen changed to CIVI R-EPOCH, first cycle (but 2nd chemo treatment) was complicated by a small bowel perforation which required surgical repair and recovery. As of note, medistinal adenopathy with sub-optimal response was biopsied and found to be sarcoid. Review of Systems 14 point ROS is negative except as stated in HPI Past Medical History Past Medical History: Atrial Fibrillation, Cancer Additional Past Medical History / Comment(s): 5/15/18 pt had chest pain/found L adrenal mass-work up showed diffuse large B cell lymphoma/high grade Bcell nonhodgkins lymphoma-started chemo 04/14/18-2 cycles/unsatifactory improvement- changed chemo regime, pt had new onset Afib RVR and bowel perforation with surgery, chemo causes nausea and vomiting but pt states recently appetite has improved and he is gaining weight, pt had mediastinoscopy and told he has sarcoidosis. History of Any Multi-Drug Resistant Organisms: None Reported Past Surgical History: Bowel Resection, Tonsillectomy Additional Past Surgical History / Comment(s): CAT SCAN GUIDED L ADRENAL GLAND BIOPSY/CORE BIOPSY, MEDIPORT INSERTION rt side chest , 06/21/18 BOWEL RESECTION D/T BOWEL PERFORATION, MEDIATINOSCOPY WITH LYMPH NODE BIOPSY. Past Anesthesia/Blood Transfusion Reactions: No Reported Reaction Past Psychological History: No Psychological Hx Reported Additional Psychological History / Comment(s): Pt resides with his spouse. He is independent. He works for [employer] but is currently on medical leave. Smoking Status: Never smoker Past Alcohol Use History: Daily Additional Past Alcohol Use History / Comment(s): Until cancer diagnosis pt had one whiskey drink daily Past Drug Use History: None Reported - Past Family History Father Additional Family Medical History / Comment(s): Father of liver disease at the age of 75yrs. Mother Family Medical History: Cancer, Renal Disease Additional Family Medical History / Comment(s): Mother had skin CA, kidney disease. Mother is 87yrs old. Medications and Allergies Home Medications Medication Instructions Recorded Confirmed Type Sennosides-Docusate Sodium 2 tab PO HS #60 tab 07/30/18 09/14/18 Rx [Senokot-S] Ondansetron [Zofran] 4 mg PO Q4HR PRN 08/24/18 09/14/18 History ALPRAZolam [Xanax] 0.25 mg PO Q8HR 09/14/18 09/14/18 History Acetaminophen/Diphenhydramine 2 tab PO Q8HR 09/14/18 09/14/18 History [Tylenol PM 500-25mg] Allergies Allergy/AdvReac Type Severity Reaction Status Date / Time No Known Allergies Allergy Verified 09/14/18 11:25 Physical Exam Vitals: Vital Signs Temp Pulse Resp BP Pulse Ox 09/14/18 16:00 97.5 F L 93 24 115/72 94 L 09/14/18 12:30 97.2 F L 94 22 125/80 96 09/14/18 08:45 97.4 F L 101 H 22 135/87 97 Intake and Output 09/14/18 09/14/18 09/14/18 06:59 14:59 22:59 Intake Total 739.2 Balance 739.2 Intake: Intake, IV Titration 739.2 Amount Sodium Chloride 0.9% 1, 600 000 ml @ 100 mls/hr IV CONTINUOUS [facility] Rx#: [id number] riTUXimab 800 mg In 139.2 Sodium Chloride 0.9% 500 ml 500 ml @ Titrate IV . Q0M NR Rx#:[id number] - Constitutional General appearance: average body habitus, cooperative, no acute distress - EENT Eyes: anicteric sclerae, EOMI, PERRLA, normal appearance ENT: hearing grossly normal, normal oropharynx - Neck Neck: no lymphadenopathy - Respiratory Respiratory: bilateral: CTA - Cardiovascular Rhythm: regular Heart sounds: normal: S1, S2 Abnormal Heart Sounds: no systolic murmur, no diastolic murmur, no rub, no S3 Gallop, no S4 Gallop, no click, no other leg Peripheral Edema: bilateral: None - Gastrointestinal General gastrointestinal: no absent bowel sounds, no decreased bowel sounds, no distended, no hepatomegaly, no hyperactive bowel sounds, normal bowel sounds, no organomegaly, no rigid, no scaphoid, soft, no splenomegaly, no tenderness, no umbilical hernia, no ventral hernia - Integumentary Integumentary: normal - Neurologic Neurologic: CNII-XII intact - Musculoskeletal Musculoskeletal: strength equal bilaterally - Psychiatric Psychiatric: A&O x's 3, appropriate affect, intact judgment & insight Results CBC & Chem 7: 09/14/18 09:27 09/14/18 09:27 Labs: Abnormal Lab Results - Last 24 Hours (Table) 09/14/18 09/14/18 Range/Units 09:27 09:27 WBC 3.6 L (3.8-10.6) k/uL Lymphocytes # 0.6 L (1.0-4.8) k/uL Glucose 120 H (74-99) mg/dL Thrombosis Risk Factor Assmnt - DVT/VTE Prophylaxis DVT/VTE Prophylaxis: Pharmacologic Prophylaxis ordered - Choose All That Apply Any of the Below Risk Factors Present?: Yes Each Factor Represents 1 point: Age 41-60 years, Obesity (BMI >25) Other Risk Factors: Yes Each Risk Factor Represents 2 Points: Malignancy Other congenital or acquired thrombophilia - If yes, enter type in comment: No Thrombosis Risk Factor Assessment Total Risk Factor Score: 4 Thrombosis Risk Factor Assessment Level: Moderate Risk Assessment and Plan (1) Diffuse large B cell lymphoma Narrative/Plan: Pt admitted for CIVI chemotherapy Labs daily Supportive meds ordered Home meds reconciled Current Visit: Yes Status: Acute Priority: High Code(s): C83.30 - DIFFUSE LARGE B-CELL LYMPHOMA, UNSPECIFIED SITE SNOMED Code(s): 134756109 (2) Constipation Narrative/Plan: Cont senna pt takes at home. Strict I&O Current Visit: Yes Status: Acute Priority: Medium Code(s): K59.00 - CONSTIPATION, UNSPECIFIED SNOMED Code(s): 99122827 (3) Anxiety about health Narrative/Plan: Cont xanax, home med Current Visit: Yes Status: Acute Priority: High Code(s): F41.8 - OTHER SPECIFIED ANXIETY DISORDERS SNOMED Code(s): 004309327 Plan: GI/DVT prophylaxis
[2018-09-14] MEDS: SENNOSIDES-DOCUSATE SODIUM 1 EACH TAB PO SCH (22:16)
[2018-09-15] MEDS: SALT AND SODA MOUTHWASH 1,000 ML PO SCH ×6 (01:53→20:01)
[2018-09-15] MEDS: SODIUM CHLORIDE 0.9% 1,000 ML IV SCH ×3 (04:25→15:30)
[2018-09-15 07:33] LABS: Basophils % (A) 0 %; Eosinophils % (A) 0 %; HCT 40.4 % (39.0-53.0); HGB 13.5 gm/dL (13.0-17.5); Lymphocytes # (A) 0.4 k/uL (1.0-4.8); Lymphocytes % (A) 4 %; MCHC 33.5 g/dL (31.0-37.0); MCV 86.5 fL (80.0-100.0); Mean Platelet Volume 7.1; Monocytes # (A) 0.1 k/uL (0-1.0); Monocytes % (A) 1 %; Neutrophils # (A) 8.8 k/uL (1.3-7.7); Neutrophils % (A) 95 %; Platelet Count 174 k/uL (150-450); RBC 4.67 m/uL (4.30-5.90); WBC 9.3 k/uL (3.8-10.6)
[2018-09-15 07:56] LABS: ALT 27 U/L (21-72); AST 18 U/L (17-59); Albumin 3.5 g/dL (3.5-5.0); Alkaline Phosphatase 32 U/L (38-126); Anion Gap 8 mmol/L; Blood Urea Nitrogen 11 mg/dL (9-20); Calcium 8.7 mg/dL (8.4-10.2); Carbon Dioxide 21 mmol/L (22-30); Chloride 111 mmol/L (98-107); Glucose 129 mg/dL (74-99); Potassium 4.1 mmol/L (3.5-5.1); Sodium 140 mmol/L (137-145); Total Bilirubin 0.5 mg/dL (0.2-1.3); Total Protein 5.9 g/dL (6.3-8.2)
[2018-09-15] MEDS: ACETAMINOPHEN TAB 325 MG TAB PO PRN (08:33)
[2018-09-15] MEDS: ENOXAPARIN 40 MG/0.4 ML SYRINGE SQ SCH (08:36)
[2018-09-15] MEDS: predniSONE 50 MG TAB PO SCH ×2 (08:36→20:01)
[2018-09-15] MEDS: ONDANSETRON 8 MG in SODIUM CHLORIDE 0.9% 50 ML IVPB PRN (09:57)
--- NOTE | 2018-09-15 10:25 | P.PN ---
Objective - Vital Signs Vital signs: Vital Signs Temp 98.4 F 09/15/18 03:59 Pulse 87 09/15/18 03:59 Resp 16 09/15/18 03:59 BP 99/59 09/15/18 03:59 Pulse Ox 95 09/15/18 03:59 Intake & Output 09/14/18 09/15/18 09/15/18 18:59 06:59 18:59 Intake Total 739.2 1679.5 Balance 739.2 1679.5 Weight 93.894 kg Intake: Intake, IV Titration 739.2 419.5 Amount Cyclophosphamide 1,500 mg 80.5 In Sodium Chloride 0.9% 500 ml 500 ml @ 1150 mls/ hr IV ONCE ONE Rx#: [id number] DOXOrubicin HCL 20 mg In 75.8 Sodium Chloride 0.9% 250 ml @ 10.833 mls/hr IV Q24H [facility] Rx#:[id number] Etoposide 100 mg In 147.3 Sodium Chloride 0.9% ( Dehp [place] 500 ml @ 21.042 mls/hr IV Q24H [facility] Rx#: [id number] Ondansetron 8 mg In 100 Sodium Chloride 0.9% 50 ml @ 100 mls/hr IVPB BID PRN Rx#:[id number] Sodium Chloride 0.9% 1, 600 000 ml @ 100 mls/hr IV CONTINUOUS [facility] Rx#: [id number] riTUXimab 800 mg In 139.2 Sodium Chloride 0.9% 500 ml 500 ml @ Titrate IV . Q0M NR Rx#:[id number] vinCRIStine SULFATE 0.8 15.9 mg In Sodium Chloride 0.9 % 50 ml @ 2.117 mls/hr IV Q24H [facility] Rx#:[id number] Oral 1260 - Labs CBC & Chem 7: 09/15/18 06:51 09/15/18 06:51 Labs: Abnormal Lab Results - Last 24 Hours (Table) 09/15/18 09/15/18 Range/Units 06:51 06:51 Neutrophils # 8.8 H (1.3-7.7) k/uL Lymphocytes # 0.4 L (1.0-4.8) k/uL Chloride 111 H (98-107) mmol/L Carbon Dioxide 21 L (22-30) mmol/L Glucose 129 H (74-99) mg/dL Alkaline Phosphatase 32 L (38-126) U/L Total Protein 5.9 L (6.3-8.2) g/dL Assessment and Plan (1) Diffuse large B cell lymphoma Narrative/Plan: Continue chemotherapy without adjustment Labs daily Supportive meds ordered Current Visit: Yes Status: Acute Priority: High Code(s): C83.30 - DIFFUSE LARGE B-CELL LYMPHOMA, UNSPECIFIED SITE SNOMED Code(s): 492518179 (2) Constipation Narrative/Plan: Patient states BM last night. Cont senna Strict I&O Current Visit: Yes Status: Acute Priority: Medium Code(s): K59.00 - CONSTIPATION, UNSPECIFIED SNOMED Code(s): 36882570 (3) Anxiety about health Narrative/Plan: Cont xanax, home med Current Visit: Yes Status: Acute Priority: High Code(s): F41.8 - OTHER SPECIFIED ANXIETY DISORDERS SNOMED Code(s): 959909919 (4) Nausea Narrative/Plan: From chemotherapy. Supportive medications for nausea ordered. Patient is requesting antiemetics as soon as feeling nauseated. He did have this problem with last cycle. Meds will be adjusted as needed. Current Visit: Yes Status: Acute Priority: High Code(s): R11.0 - NAUSEA SNOMED Code(s): 806876776 Plan: GI/DVT prophylaxis Doctor attests:I have seen and examined patient, performed H&P, developed assessment and plan, discussed with dictator, agree with plan as dictated, documented as a scribe
[2018-09-15] MEDS: ALPRAZolam 0.25 MG TAB PO PRN (15:30)
[2018-09-15] MEDS: FAMOTIDINE 20 MG/2 ML VIAL IV SCH (17:44)
[2018-09-15] MEDS: ONDANSETRON 16 MG in SODIUM CHLORIDE 0.9% 50 ML IVPB SCH (17:47)
[2018-09-15] MEDS: SODIUM CHLORIDE 0.9% IV SCH ×3 (18:55→18:56)
[2018-09-15] MEDS: DOXORUBICIN HCL IV SCH (18:55)
[2018-09-15] MEDS: VINCRISTINE SULFATE IV SCH (18:56)
[2018-09-15] MEDS: ETOPOSIDE IV SCH (18:56)
[2018-09-15] MEDS: SENNOSIDES-DOCUSATE SODIUM 1 EACH TAB PO SCH (20:02)
[2018-09-16] MEDS: ALPRAZolam 0.25 MG TAB PO PRN ×3 (00:04→22:44)
[2018-09-16] MEDS: SALT AND SODA MOUTHWASH 1,000 ML PO SCH ×5 (00:05→22:42)
[2018-09-16] MEDS: SODIUM CHLORIDE 0.9% 1,000 ML IV SCH ×2 (02:50→11:04)
[2018-09-16] MEDS: ONDANSETRON 8 MG in SODIUM CHLORIDE 0.9% 50 ML IVPB PRN (05:23)
[2018-09-16 07:50] LABS: Basophils % (A) 0 %; Eosinophils % (A) 0 %; HCT 38.5 % (39.0-53.0); HGB 13.1 gm/dL (13.0-17.5); Lymphocytes # (A) 0.3 k/uL (1.0-4.8); Lymphocytes % (A) 2 %; MCH 29.7 pg (25.0-35.0); MCV 87.1 fL (80.0-100.0); Mean Platelet Volume 6.9; Monocytes # (A) 0.2 k/uL (0-1.0); Monocytes % (A) 2 %; Neutrophils # (A) 10.5 k/uL (1.3-7.7); Neutrophils % (A) 95 %; Platelet Count 174 k/uL (150-450); RBC 4.42 m/uL (4.30-5.90); RDW 15.2 % (11.5-15.5)
[2018-09-16 08:03] LABS: ALT 25 U/L (21-72); AST 15 U/L (17-59); Albumin 3.2 g/dL (3.5-5.0); Alkaline Phosphatase 26 U/L (38-126); Anion Gap 7 mmol/L; Blood Urea Nitrogen 11 mg/dL (9-20); Calcium 8.6 mg/dL (8.4-10.2); Carbon Dioxide 24 mmol/L (22-30); Chloride 111 mmol/L (98-107); Glucose 113 mg/dL (74-99); Sodium 142 mmol/L (137-145); Total Bilirubin 0.4 mg/dL (0.2-1.3); Total Protein 5.5 g/dL (6.3-8.2)
[2018-09-16] MEDS: predniSONE 50 MG TAB PO SCH ×2 (08:31→21:16)
[2018-09-16] MEDS: ENOXAPARIN 40 MG/0.4 ML SYRINGE SQ SCH (08:31)
[2018-09-16] MEDS: LORazepam 2 MG/ML INJ IV PRN ×2 (11:03→21:17)
[2018-09-16] MEDS: PROCHLORPERAZINE 10 MG TAB PO PRN (13:15)
[2018-09-16] MEDS: FAMOTIDINE 20 MG/2 ML VIAL IV SCH (17:39)
[2018-09-16] MEDS: ONDANSETRON 16 MG in SODIUM CHLORIDE 0.9% 50 ML IVPB SCH (17:39)
[2018-09-16] MEDS: VINCRISTINE SULFATE IV SCH (20:41)
[2018-09-16] MEDS: SODIUM CHLORIDE 0.9% IV SCH ×3 (20:41→20:42)
[2018-09-16] MEDS: DOXORUBICIN HCL IV SCH (20:42)
[2018-09-16] MEDS: ETOPOSIDE IV SCH (20:42)
[2018-09-16] MEDS: SENNOSIDES-DOCUSATE SODIUM 1 EACH TAB PO SCH (21:17)
--- NOTE | 2018-09-16 22:32 | P.PN ---
Subjective Progress Note Date: 09/16/18 Principal diagnosis: timed chemo b cell lymphoma Experiencing nausea today, added ativan and compazine Objective - Vital Signs Vital signs: Vital Signs Temp 97.1 F L 09/16/18 20:00 Pulse 85 09/16/18 20:00 Resp 16 09/16/18 20:00 BP 130/86 09/16/18 20:00 Pulse Ox 95 09/16/18 20:00 Intake & Output 09/16/18 09/16/18 09/17/18 06:59 18:59 06:59 Intake Total 1960 1097 Balance 1960 1097 Intake: Intake, IV Titration 1200 1097 Amount DOXOrubicin HCL 20 mg In 88 Sodium Chloride 0.9% 250 ml @ 10.833 mls/hr IV Q24H [facility] Rx#:[id number] Etoposide 100 mg In 176 Sodium Chloride 0.9% ( Dehp Santiago 500 ml @ 21.042 mls/hr IV Q24H [facility] Rx#: [id number] Sodium Chloride 0.9% 1, 1200 800 000 ml @ 100 mls/hr IV CONTINUOUS [facility] Rx#: [id number] vinCRIStine SULFATE 0.8 33 mg In Sodium Chloride 0.9 % 50 ml @ 2.117 mls/hr IV Q24H [facility] Rx#:[id number] Oral 760 Other: # Voids 1 - Exam Constitutional General appearance: Present: cooperative, no acute distress - EENT Eyes: Present: EOMI, dentition normal, normal appearance ENT: Present: NA/AT, normal oropharynx - Neck Details: supple, Trachea midline Neck: Present: normal ROM - Respiratory Details: No increased respiratory effort Respiratory: bilateral: CTA - Cardiovascular Rhythm: regular Heart sounds: normal: S1, S2 - Gastrointestinal General gastrointestinal: Present: normal bowel sounds, soft, tenderness - Integumentary Integumentary: Present: normal - Neurologic Neurologic Comment(s): no focal defects Neurologic: Present: CNII-XII intact - Musculoskeletal Musculoskeletal: Present: gait normal, generalized weakness, strength equal bilaterally - Psychiatric Psychiatric: Present: A&O x's 3, appropriate affect, intact judgment & insight - Labs CBC & Chem 7: 09/16/18 06:35 09/16/18 06:35 Labs: Abnormal Lab Results - Last 24 Hours (Table) 09/16/18 09/16/18 Range/Units 06:35 06:35 WBC 11.0 H (3.8-10.6) k/uL Hct 38.5 L (39.0-53.0) % Neutrophils # 10.5 H (1.3-7.7) k/uL Lymphocytes # 0.3 L (1.0-4.8) k/uL Chloride 111 H (98-107) mmol/L Glucose 113 H (74-99) mg/dL AST 15 L (17-59) U/L Alkaline Phosphatase 26 L (38-126) U/L Total Protein 5.5 L (6.3-8.2) g/dL Albumin 3.2 L (3.5-5.0) g/dL Assessment and Plan Plan: Assessment and Plan (1) Diffuse large B cell lymphoma Narrative/Plan: Pt admitted for CIVI chemotherapy - Cycle 4, Day 3 Labs daily - CBC and CMP Supportive meds order Current Visit: Yes Status: Acute Priority: High Code(s): C83.30 - DIFFUSE LARGE B-CELL LYMPHOMA, UNSPECIFIED SITE SNOMED Code(s): 435852164 (2) Constipation Narrative/Plan: Cont senna pt takes at home. Strict I&O Current Visit: Yes Status: Acute Priority: Medium Code(s): K59.00 - CONSTIPATION, UNSPECIFIED SNOMED Code(s): 58259929 (3) Chemo Induced Nausea and VOmiting Narrative/Plan: - Ativan and COmpazine PRN Nausea and vomting - D/C Xanax - Add PPI (sinai with steroids)
[2018-09-17] MEDS: SALT AND SODA MOUTHWASH 1,000 ML PO SCH ×5 (01:47→20:44)
[2018-09-17] MEDS: SODIUM CHLORIDE 0.9% 1,000 ML IV SCH ×3 (04:03→17:51)
[2018-09-17] MEDS: PROCHLORPERAZINE 10 MG TAB PO PRN ×2 (04:03→13:35)
[2018-09-17] MEDS: LORazepam 2 MG/ML INJ IV PRN ×3 (06:26→22:44)
[2018-09-17 07:50] LABS: ALT 23 U/L (21-72); AST 15 U/L (17-59); Alkaline Phosphatase 22 U/L (38-126); Anion Gap 5 mmol/L; Blood Urea Nitrogen 10 mg/dL (9-20); Calcium 8.3 mg/dL (8.4-10.2); Carbon Dioxide 25 mmol/L (22-30); Chloride 110 mmol/L (98-107); Glucose 100 mg/dL (74-99); Potassium 3.9 mmol/L (3.5-5.1); Sodium 140 mmol/L (137-145); Total Bilirubin 0.6 mg/dL (0.2-1.3); Total Protein 5.3 g/dL (6.3-8.2)
[2018-09-17 07:51] LABS: Basophils % (A) 0 %; Eosinophils % (A) 0 %; HCT 38.3 % (39.0-53.0); HGB 12.8 gm/dL (13.0-17.5); Lymphocytes # (A) 0.3 k/uL (1.0-4.8); Lymphocytes % (A) 4 %; MCHC 33.4 g/dL (31.0-37.0); MCV 86.7 fL (80.0-100.0); Monocytes # (A) 0.2 k/uL (0-1.0); Monocytes % (A) 3 %; Neutrophils # (A) 6.8 k/uL (1.3-7.7); Neutrophils % (A) 93 %; Platelet Count 165 k/uL (150-450); RBC 4.42 m/uL (4.30-5.90); RDW 15.1 % (11.5-15.5); WBC 7.3 k/uL (3.8-10.6)
[2018-09-17] MEDS: ENOXAPARIN 40 MG/0.4 ML SYRINGE SQ SCH (08:35)
[2018-09-17] MEDS: POLYETHYLENE GLYCOL 3350 17 GM POWD.PACK PO SCH (08:35)
[2018-09-17] MEDS: predniSONE 50 MG TAB PO SCH ×2 (08:36→20:40)
[2018-09-17] MEDS: PANTOPRAZOLE 40 MG TABLET PO SCH ×2 (08:36→17:49)
[2018-09-17] MEDS: ACETAMINOPHEN TAB 325 MG TAB PO PRN (08:40)
[2018-09-17] MEDS: ONDANSETRON 8 MG in SODIUM CHLORIDE 0.9% 50 ML IVPB PRN (09:43)
[2018-09-17] MEDS: ALPRAZolam 0.25 MG TAB PO PRN ×2 (12:44→22:44)
[2018-09-17] MEDS: FAMOTIDINE 20 MG/2 ML VIAL IV SCH (19:13)
[2018-09-17] MEDS: ONDANSETRON 16 MG in SODIUM CHLORIDE 0.9% 50 ML IVPB SCH (19:13)
[2018-09-17] MEDS: SODIUM CHLORIDE 0.9% IV SCH ×3 (19:41→19:42)
[2018-09-17] MEDS: ETOPOSIDE IV SCH (19:41)
[2018-09-17] MEDS: VINCRISTINE SULFATE IV SCH (19:41)
[2018-09-17] MEDS: DOXORUBICIN HCL IV SCH (19:42)
[2018-09-17] MEDS: SENNOSIDES-DOCUSATE SODIUM 1 EACH TAB PO SCH (20:44)
--- NOTE | 2018-09-17 21:33 | P.PN ---
Subjective Progress Note Date: 09/17/18 Principal diagnosis: timed chemo b cell lymphoma Patient seen and evalauated today, still nauseated and more persistent today. He is a little sleepy from the antiemetics and ativan although easily awakens and alert Objective - Vital Signs Vital signs: Vital Signs Temp 96.7 F L 09/17/18 21:00 Pulse 56 L 09/17/18 21:00 Resp 16 09/17/18 21:00 BP 132/76 09/17/18 21:00 Pulse Ox 91 L 09/17/18 21:00 Intake & Output 09/17/18 09/17/18 09/18/18 06:59 18:59 06:59 Intake Total 306 Balance 306 Weight 93.894 kg Intake: Intake, IV Titration 306 Amount DOXOrubicin HCL 20 mg In 80 Sodium Chloride 0.9% 250 ml @ 10.833 mls/hr IV Q24H [facility] Rx#:[id number] Etoposide 100 mg In 160 Sodium Chloride 0.9% ( Dehp Santiago 500 ml @ 21.042 mls/hr IV Q24H [facility] Rx#: [id number] Ondansetron 8 mg In 50 Sodium Chloride 0.9% 50 ml @ 100 mls/hr IVPB BID PRN Rx#:[id number] vinCRIStine SULFATE 0.8 16 mg In Sodium Chloride 0.9 % 50 ml @ 2.117 mls/hr IV Q24H [facility] Rx#:[id number] Other: # Voids 1 2 - Exam Constitutional General appearance: Present: cooperative, no acute distress - EENT Eyes: Present: EOMI, dentition normal, normal appearance ENT: Present: NA/AT, normal oropharynx - Neck Details: supple, Trachea midline Neck: Present: normal ROM - Respiratory Details: No increased respiratory effort Respiratory: bilateral: CTA - Cardiovascular Rhythm: regular Heart sounds: normal: S1, S2 - Gastrointestinal General gastrointestinal: Present: normal bowel sounds, soft, tenderness - Integumentary Integumentary: Present: normal - Neurologic Neurologic Comment(s): no focal defects Neurologic: Present: CNII-XII intact - Musculoskeletal Musculoskeletal: Present: gait normal, generalized weakness, strength equal bilaterally - Psychiatric Psychiatric: Present: A&O x's 3, appropriate affect, intact judgment & insight - Labs CBC & Chem 7: 09/17/18 06:38 09/17/18 06:38 Labs: Abnormal Lab Results - Last 24 Hours (Table) 09/17/18 09/17/18 Range/Units 06:38 06:38 Hgb 12.8 L (13.0-17.5) gm/dL Hct 38.3 L (39.0-53.0) % Lymphocytes # 0.3 L (1.0-4.8) k/uL Chloride 110 H (98-107) mmol/L Glucose 100 H (74-99) mg/dL Calcium 8.3 L (8.4-10.2) mg/dL AST 15 L (17-59) U/L Alkaline Phosphatase 22 L (38-126) U/L Total Protein 5.3 L (6.3-8.2) g/dL Albumin 3.0 L (3.5-5.0) g/dL Assessment and Plan Plan: Assessment and Plan (1) Diffuse large B cell lymphoma Narrative/Plan: Pt admitted for CIVI chemotherapy - Cycle 4, Day 3 - COntinue with day 4 Labs daily - CBC and CMP Supportive meds order Current Visit: Yes Status: Acute Priority: High Code(s): C83.30 - DIFFUSE LARGE B-CELL LYMPHOMA, UNSPECIFIED SITE SNOMED Code(s): 350388324 (2) Constipation Narrative/Plan: Cont senna pt takes at home. Strict I&O Current Visit: Yes Status: Acute Priority: Medium Code(s): K59.00 - CONSTIPATION, UNSPECIFIED SNOMED Code(s): 16641768 (3) Chemo Induced Nausea and VOmiting Narrative/Plan: - Ativan and Compazine PRN Nausea and vomting - D/C Xanax - Add PPI (sinai with steroids) Plan for discharge after completion of chemo and follow-up for neulasta in office after 24 hours of completion Physician Attestation: I have completed the full history and physical of this patient and agree with above dictation by Delicia Fuentes NP. Dictated as a scribe
[2018-09-18] MEDS: SALT AND SODA MOUTHWASH 1,000 ML PO SCH ×5 (01:00→19:59)
[2018-09-18] MEDS: SODIUM CHLORIDE 0.9% 1,000 ML IV SCH ×2 (05:01→17:29)
[2018-09-18] MEDS: PROCHLORPERAZINE 10 MG TAB PO PRN ×2 (06:33→15:14)
[2018-09-18 07:37] LABS: Basophils % (A) 0 %; Eosinophils % (A) 1 %; HCT 36.8 % (39.0-53.0); HGB 12.4 gm/dL (13.0-17.5); Lymphocytes # (A) 0.2 k/uL (1.0-4.8); Lymphocytes % (A) 5 %; MCH 28.6 pg (25.0-35.0); MCHC 33.6 g/dL (31.0-37.0); Mean Platelet Volume 6.9; Monocytes # (A) 0.1 k/uL (0-1.0); Monocytes % (A) 3 %; Neutrophils # (A) 4.1 k/uL (1.3-7.7); Neutrophils % (A) 91 %; Platelet Count 152 k/uL (150-450); RBC 4.33 m/uL (4.30-5.90); RDW 14.5 % (11.5-15.5); WBC 4.6 k/uL (3.8-10.6)
[2018-09-18 07:50] LABS: ALT 28 U/L (21-72); AST 14 U/L (17-59); Alkaline Phosphatase 21 U/L (38-126); Anion Gap 4 mmol/L; Blood Urea Nitrogen 12 mg/dL (9-20); Calcium 8.3 mg/dL (8.4-10.2); Carbon Dioxide 27 mmol/L (22-30); Chloride 108 mmol/L (98-107); Glucose 99 mg/dL (74-99); Potassium 3.9 mmol/L (3.5-5.1); Sodium 139 mmol/L (137-145); Total Bilirubin 1.1 mg/dL (0.2-1.3); Total Protein 5.3 g/dL (6.3-8.2)
[2018-09-18] MEDS: ONDANSETRON 8 MG in SODIUM CHLORIDE 0.9% 50 ML IVPB PRN (08:42)
[2018-09-18] MEDS: ENOXAPARIN 40 MG/0.4 ML SYRINGE SQ SCH (08:43)
[2018-09-18] MEDS: predniSONE 50 MG TAB PO SCH ×2 (08:43→20:00)
[2018-09-18] MEDS: POLYETHYLENE GLYCOL 3350 17 GM POWD.PACK PO SCH (08:44)
[2018-09-18] MEDS: PANTOPRAZOLE 40 MG TABLET PO SCH ×2 (08:44→17:29)
--- NOTE | 2018-09-18 10:51 | P.DS ---
Providers Date of admission: 09/14/18 08:15 Expected date of discharge: 09/18/18 Attending physician: Arnie Olson Primary care physician: Stated None Hospital Course: Cycle 4 of Timed Chemotherapy with R-EPOCH Monitoring of CBC and CMP Symptom management with chemotherapy Patient Condition at Discharge: Fair Plan - Discharge Summary Discharge Rx Participant: No New Discharge Prescriptions: New Pantoprazole [Protonix] 40 mg PO AC-BID tablet. Polyethylene Glycol 3350 [Miralax] 17 gm PO DAILY powd.pack Prochlorperazine [Compazine] 10 mg PO Q6HR PRN tab PRN Reason: Nausea And Vomiting Continue Sennosides-Docusate Sodium [Senokot-S] 2 tab PO HS #60 tab Ondansetron [Zofran] 4 mg PO Q4HR PRN PRN Reason: Nausea ALPRAZolam [Xanax] 0.25 mg PO Q8HR Acetaminophen/Diphenhydramine [Tylenol PM 500-25mg] 2 tab PO Q8HR Discharge Medication List Sennosides-Docusate Sodium [Senokot-S] 2 tab PO HS #60 tab 07/30/18 [Rx] Ondansetron [Zofran] 4 mg PO Q4HR PRN 08/24/18 [History] ALPRAZolam [Xanax] 0.25 mg PO Q8HR 09/14/18 [History] Acetaminophen/Diphenhydramine [Tylenol PM 500-25mg] 2 tab PO Q8HR 09/14/18 [ History] Pantoprazole [Protonix] 40 mg PO AC-BID tablet. 09/18/18 [Rx] Polyethylene Glycol 3350 [Miralax] 17 gm PO DAILY powd.pack 09/18/18 [Rx] Prochlorperazine [Compazine] 10 mg PO Q6HR PRN tab 09/18/18 [Rx] Follow up Appointment(s)/Referral(s): Arnie Olson MD [STAFF PHYSICIAN] - 09/20/18 9:30 am Activity/Diet/Wound Care/Special Instructions: Hosp diet up ad linda Discharge Disposition: HOME SELF-CARE
--- NOTE | 2018-09-18 10:52 | P.PN ---
Subjective Progress Note Date: 09/18/18 Principal diagnosis: timed chemo b cell lymphoma Patient seen and evalauated today, Large BM overnight, planning to complete treatment this evening if stable and symptoms controlled may go home Objective - Vital Signs Vital signs: Vital Signs Temp 97.3 F L 09/18/18 05:00 Pulse 70 09/18/18 05:00 Resp 16 09/18/18 05:00 BP 116/72 09/18/18 05:00 Pulse Ox 94 L 09/18/18 05:00 Intake & Output 09/17/18 09/18/18 09/18/18 18:59 06:59 18:59 Intake Total 306 Balance 306 Weight 93.894 kg Intake: Intake, IV Titration 306 Amount DOXOrubicin HCL 20 mg In 80 Sodium Chloride 0.9% 250 ml @ 10.833 mls/hr IV Q24H ON LICENSE OF [facility] Rx#:[id number] Etoposide 100 mg In 160 Sodium Chloride 0.9% ( Dehp Santiago 500 ml @ 21.042 mls/hr IV Q24H [facility] Rx#: [id number] Ondansetron 8 mg In 50 Sodium Chloride 0.9% 50 ml @ 100 mls/hr IVPB BID PRN Rx#:[id number] vinCRIStine SULFATE 0.8 16 mg In Sodium Chloride 0.9 % 50 ml @ 2.117 mls/hr IV Q24H ON LICENSE OF [facility] Rx#:[id number] Other: # Voids 2 1 - Exam Constitutional General appearance: Present: cooperative, no acute distress - EENT Eyes: Present: EOMI, dentition normal, normal appearance ENT: Present: NA/AT, normal oropharynx - Neck Details: supple, Trachea midline Neck: Present: normal ROM - Respiratory Details: No increased respiratory effort Respiratory: bilateral: CTA - Cardiovascular Rhythm: regular Heart sounds: normal: S1, S2 - Gastrointestinal General gastrointestinal: Present: normal bowel sounds, soft, tenderness - Integumentary Integumentary: Present: normal - Neurologic Neurologic Comment(s): no focal defects Neurologic: Present: CNII-XII intact - Musculoskeletal Musculoskeletal: Present: gait normal, generalized weakness, strength equal bilaterally - Psychiatric Psychiatric: Present: A&O x's 3, appropriate affect, intact judgment & insight - Labs CBC & Chem 7: 09/18/18 07:13 09/18/18 07:13 Labs: Abnormal Lab Results - Last 24 Hours (Table) 09/18/18 09/18/18 Range/Units 07:13 07:13 Hgb 12.4 L (13.0-17.5) gm/dL Hct 36.8 L (39.0-53.0) % Lymphocytes # 0.2 L (1.0-4.8) k/uL Chloride 108 H (98-107) mmol/L Calcium 8.3 L (8.4-10.2) mg/dL AST 14 L (17-59) U/L Alkaline Phosphatase 21 L (38-126) U/L Total Protein 5.3 L (6.3-8.2) g/dL Albumin 3.0 L (3.5-5.0) g/dL Assessment and Plan Plan: Assessment and Plan (1) Diffuse large B cell lymphoma Narrative/Plan: Pt admitted for CIVI chemotherapy - Cycle 4, Day 3 - COntinue with day 4 Labs daily - CBC and CMP Supportive meds order Current Visit: Yes Status: Acute Priority: High Code(s): C83.30 - DIFFUSE LARGE B-CELL LYMPHOMA, UNSPECIFIED SITE SNOMED Code(s): 662357146 (2) Constipation Narrative/Plan: Cont senna pt takes at home. Strict I&O Current Visit: Yes Status: Acute Priority: Medium Code(s): K59.00 - CONSTIPATION, UNSPECIFIED SNOMED Code(s): 02831312 (3) Chemo Induced Nausea and VOmiting Narrative/Plan: - Ativan and Compazine PRN Nausea and vomting - D/C Xanax - Add PPI (sinai with steroids) Plan for discharge after completion of chemo and follow-up for neulasta in office after 24 hours of completion Physician Attestation: I have completed the full history and physical of this patient and agree with above dictation by Delicia Fuentes NP. Dictated as a scribe
[2018-09-18] MEDS: ALPRAZolam 0.25 MG TAB PO PRN ×2 (10:59→21:32)
[2018-09-18] MEDS ORDERED: SODIUM CHLORIDE 0.9% IV ONE (16:00)
[2018-09-18] MEDS ORDERED: CYCLOPHOSPHAMIDE IV ONE (16:00)
[2018-09-18] MEDS: ONDANSETRON 16 MG in SODIUM CHLORIDE 0.9% 50 ML IVPB SCH (19:18)
[2018-09-18] MEDS: FAMOTIDINE 20 MG/2 ML VIAL IV SCH (19:56)
[2018-09-18] MEDS: SENNOSIDES-DOCUSATE SODIUM 1 EACH TAB PO SCH (20:03)
[2018-09-19] MEDS: SODIUM CHLORIDE 0.9% 1,000 ML IV SCH (00:18)
[2018-09-19] MEDS: SALT AND SODA MOUTHWASH 1,000 ML PO SCH ×2 (00:18→06:28)
[2018-09-19 01:27] VITALS: RESP 18
[2018-09-19 05:13] VITALS: BP 115/72; PULSE 63; TEMP 97
[2018-09-19] MEDS: ONDANSETRON 8 MG in SODIUM CHLORIDE 0.9% 50 ML IVPB PRN (06:28)
[2018-09-19] MEDS: PANTOPRAZOLE 40 MG TABLET PO SCH (07:54)
[2018-09-19] MEDS: POLYETHYLENE GLYCOL 3350 17 GM POWD.PACK PO SCH (07:54)
[2018-09-19] MEDS: ENOXAPARIN 40 MG/0.4 ML SYRINGE SQ SCH (07:54)
[2018-09-19] MEDS: ACETAMINOPHEN TAB 325 MG TAB PO PRN (07:54)
[2018-09-19 08:21] LABS: ALT 29 U/L (21-72); AST 14 U/L (17-59); Albumin 2.8 g/dL (3.5-5.0); Alkaline Phosphatase <20 U/L (38-126); Anion Gap 5 mmol/L; Blood Urea Nitrogen 12 mg/dL (9-20); Carbon Dioxide 27 mmol/L (22-30); Chloride 106 mmol/L (98-107); Glucose 97 mg/dL (74-99); Potassium 2.9 mmol/L (3.5-5.1); Sodium 138 mmol/L (137-145); Total Bilirubin 1.7 mg/dL (0.2-1.3)
[2018-09-19 08:27] LABS: Basophils % (A) 0 %; Eosinophils # (A) 0.1 k/uL (0-0.7); Eosinophils % (A) 2 %; HCT 35.6 % (39.0-53.0); HGB 12.3 gm/dL (13.0-17.5); Lymphocytes # (A) 0.4 k/uL (1.0-4.8); Lymphocytes % (A) 12 %; MCH 28.9 pg (25.0-35.0); MCHC 34.4 g/dL (31.0-37.0); MCV 83.9 fL (80.0-100.0); Mean Platelet Volume 7.1; Monocytes # (A) 0.1 k/uL (0-1.0); Monocytes % (A) 2 %; Neutrophils # (A) 2.6 k/uL (1.3-7.7); Neutrophils % (A) 84 %; Platelet Count 135 k/uL (150-450); RBC 4.24 m/uL (4.30-5.90); RDW 14.2 % (11.5-15.5); WBC 3.1 k/uL (3.8-10.6)
--- NOTE | 2018-09-19 09:26 | P.PN ---
Subjective Progress Note Date: 09/19/18 Principal diagnosis: timed chemo b cell lymphoma Patient seen and evalauated today, Stayed to receive IV Hydration till am, Labs show decreased Potassium this am, will check magnesium and supp prior to discharge, then he may go home. Objective - Vital Signs Vital signs: Vital Signs Temp 97 F L 09/19/18 04:00 Pulse 63 09/19/18 04:00 Resp 18 09/19/18 04:00 BP 115/72 09/19/18 04:00 Pulse Ox 94 L 09/19/18 04:00 Intake & Output 09/18/18 09/19/18 09/19/18 18:59 06:59 18:59 Intake Total 1114 1085 Balance 1114 1085 Intake: Intake, IV Titration 1114 1025 Amount Cyclophosphamide 1,500 mg 575 In Sodium Chloride 0.9% 500 ml 500 ml @ 1150 mls/ hr IV ONCE ONE Rx#: [id number] DOXOrubicin HCL 20 mg In 80 Sodium Chloride 0.9% 250 ml @ 10.833 mls/hr IV Q24H [facility] Rx#:[id number] Etoposide 100 mg In 168 Sodium Chloride 0.9% ( Dehp Santiago 500 ml @ 21.042 mls/hr IV Q24H [facility] Rx#: [id number] Ondansetron 16 mg In 50 Sodium Chloride 0.9% 50 ml @ 100 mls/hr IVPB Q24H [facility] Rx#:[id number] Ondansetron 8 mg In 50 Sodium Chloride 0.9% 50 ml @ 100 mls/hr IVPB BID PRN Rx#:[id number] Sodium Chloride 0.9% 1, 800 400 000 ml @ 100 mls/hr IV CONTINUOUS [facility] Rx#: [id number] vinCRIStine SULFATE 0.8 16 mg In Sodium Chloride 0.9 % 50 ml @ 2.117 mls/hr IV Q24H [facility] Rx#:[id number] Oral 60 Other: Voiding Method Toilet Toilet # Voids 2 - Exam Constitutional General appearance: Present: cooperative, no acute distress - EENT Eyes: Present: EOMI, dentition normal, normal appearance ENT: Present: NA/AT, normal oropharynx - Neck Details: supple, Trachea midline Neck: Present: normal ROM - Respiratory Details: No increased respiratory effort Respiratory: bilateral: CTA - Cardiovascular Rhythm: regular Heart sounds: normal: S1, S2 - Gastrointestinal General gastrointestinal: Present: normal bowel sounds, soft, tenderness - Integumentary Integumentary: Present: normal - Neurologic Neurologic Comment(s): no focal defects Neurologic: Present: CNII-XII intact - Musculoskeletal Musculoskeletal: Present: gait normal, generalized weakness, strength equal bilaterally - Psychiatric Psychiatric: Present: A&O x's 3, appropriate affect, intact judgment & insight - Labs CBC & Chem 7: 09/19/18 07:36 09/19/18 07:36 Labs: Abnormal Lab Results - Last 24 Hours (Table) 09/19/18 09/19/18 Range/Units 07:36 07:36 WBC 3.1 L (3.8-10.6) k/uL RBC 4.24 L (4.30-5.90) m/uL Hgb 12.3 L (13.0-17.5) gm/dL Hct 35.6 L (39.0-53.0) % Plt Count 135 L (150-450) k/uL Lymphocytes # 0.4 L (1.0-4.8) k/uL Potassium 2.9 L (3.5-5.1) mmol/L Calcium 8.0 L (8.4-10.2) mg/dL Total Bilirubin 1.7 H (0.2-1.3) mg/dL AST 14 L (17-59) U/L Alkaline Phosphatase <20 L (38-126) U/L Total Protein 5.0 L (6.3-8.2) g/dL Albumin 2.8 L (3.5-5.0) g/dL Assessment and Plan Plan: Assessment and Plan (1) Diffuse large B cell lymphoma Narrative/Plan: Pt admitted for CIVI chemotherapy - Cycle 4, Day 3 - COntinue with day 4 Labs daily - CBC and CMP Supportive meds order Current Visit: Yes Status: Acute Priority: High Code(s): C83.30 - DIFFUSE LARGE B-CELL LYMPHOMA, UNSPECIFIED SITE SNOMED Code(s): 129698772 (2) Constipation Narrative/Plan: Cont senna pt takes at home. Strict I&O Current Visit: Yes Status: Acute Priority: Medium Code(s): K59.00 - CONSTIPATION, UNSPECIFIED SNOMED Code(s): 35395729 (3) Chemo Induced Nausea and Vomiting Narrative/Plan: - Ativan and Compazine PRN Nausea and vomting - D/C Xanax - Add PPI (sinai with steroids) (4) Hypokalemia secondary to dehydration: - Check Magnesium level prior to dicharge - SUpplement appropriately and then maybe discharged home Plan for discharge after today and follow-up for neulasta in office after 24 hours of completion
[2018-09-19] MEDS: POTASSIUM CHLORIDE 20 MEQ in WATER FOR INJECTION 1 100ML.BAG IVPB SCH ×3 (09:42→13:28)
[2018-09-19] MEDS: PROCHLORPERAZINE 10 MG TAB PO PRN (11:28)
== END 2018-09-19 16:10 | disposition home or self-care (01) | DRG 847 ==
LOC: 3NMEDONC 08:15
PROVIDERS: ADMIT Internal Medicine Hematology & Oncology; ATTEND Internal Medicine Hematology & Oncology
DX: Z51.11 Encounter for antineoplastic chemotherapy (principal); C83.39 Diffuse large B-cell lymphoma, extranodal and solid organ sites; E86.0 Dehydration; E87.6 Hypokalemia; F41.9 Anxiety disorder, unspecified; I48.91 Unspecified atrial fibrillation; K59.00 Constipation, unspecified; T45.1X5A Adverse effect of antineoplastic and immunosuppressive drugs, initial encounter; R11.2 Nausea with vomiting, unspecified; Z79.899 Other long term (current) drug therapy; Z90.49 Acquired absence of other specified parts of digestive tract
CPT/HCPCS: 80053; 83735; 85025

== ENCOUNTER 2018-10-05 08:13 | Inpatient (IN) | payer BC ==
[2018-10-05] MEDS ORDERED: ONDANSETRON 8 MG in SODIUM CHLORIDE 0.9% 50 ML IVPB PRN (09:00)
[2018-10-05 09:21] LABS: Anisocytosis Slight; Basophils # (A) 0.1 k/uL (0-0.2); Basophils % (A) 1 %; Eosinophils % (A) 0 %; HCT 39.2 % (39.0-53.0); HGB 13.4 gm/dL (13.0-17.5); Lymphocytes # (A) 0.5 k/uL (1.0-4.8); Lymphocytes % (A) 7 %; MCH 29.6 pg (25.0-35.0); MCHC 34.3 g/dL (31.0-37.0); MCV 86.4 fL (80.0-100.0); Mean Platelet Volume 7.2; Monocytes # (A) 0.6 k/uL (0-1.0); Monocytes % (A) 9 %; Neutrophils # (A) 5.7 k/uL (1.3-7.7); Neutrophils % (A) 80 %; Platelet Count 218 k/uL (150-450); RBC 4.54 m/uL (4.30-5.90); RDW 16.3 % (11.5-15.5); WBC 7.2 k/uL (3.8-10.6)
[2018-10-05 09:56] LABS: ALT 42 U/L (21-72); AST 26 U/L (17-59); Albumin 3.8 g/dL (3.5-5.0); Alkaline Phosphatase 38 U/L (38-126); Anion Gap 7 mmol/L; Blood Urea Nitrogen 12 mg/dL (9-20); Calcium 9.1 mg/dL (8.4-10.2); Carbon Dioxide 26 mmol/L (22-30); Chloride 107 mmol/L (98-107); Glucose 111 mg/dL (74-99); Sodium 140 mmol/L (137-145); Total Bilirubin 0.5 mg/dL (0.2-1.3); Total Protein 6.2 g/dL (6.3-8.2)
[2018-10-05] MEDS ORDERED: ACETAMINOPHEN TAB 325 MG TAB PO ONE (10:00)
[2018-10-05] MEDS ORDERED: diphenhydrAMINE 50 MG/ML 1 ML VIAL IVP ONE (10:00)
[2018-10-05] MEDS ORDERED: methylPREDNISolone SOD SUCCI 125 MG/2 ML VIAL IV ONE (10:00)
[2018-10-05] MEDS: SODIUM CHLORIDE 0.9% 1,000 ML IV SCH ×2 (10:38→19:43)
[2018-10-05] MEDS: FAMOTIDINE 20 MG/2 ML VIAL IV SCH ×2 (10:38→20:25)
[2018-10-05] MEDS: ONDANSETRON 16 MG in SODIUM CHLORIDE 0.9% 50 ML IVPB SCH (10:39)
[2018-10-05] MEDS: predniSONE 50 MG TAB PO SCH ×2 (10:57→20:24)
[2018-10-05] MEDS ORDERED: riTUXimab 800 MG in SODIUM CHLORIDE 0.9% 500 ML 500 ML IV NR (11:00)
[2018-10-05] MEDS ORDERED: ALPRAZolam 0.25 MG TAB PO PRN (11:03)
[2018-10-05] MEDS ORDERED: LORazepam 2 MG/ML INJ IV STA (11:04)
[2018-10-05 11:08] LABS: Glucose,Whole Blood 96 mg/dL (75-99)
[2018-10-05] MEDS ORDERED: ACETAMINOPHEN TAB 500 MG TAB PO PRN (12:42)
--- NOTE | 2018-10-05 12:42 | P.HPIM ---
History of Present Illness H&P Date: 10/05/18 Chief Complaint: Admitted for CIVI chemotherapy for diffuse large B-cell lymphoma Pt admitted today for cycle #4 R-EOPCH chemotherapy for mixed NHL and DLBCL. On admit pt had anxiety attack, stayed with pt and treated with resolution of symptoms. No c/o on a 14 point ROS. Appetite is good, ambulates independently , no pain. Malignancy history: Pt initially seen in consult 03/15/18, he had come into the ER complaining of "chest pain" x 1 week, constant, progressive, worse when sitting, pain localized to LUQ and left lower rib cage with penetration straight through to the back, pt had a palpable left upper quadrant mass, CT AP showed an enlarged left adrenal mass, 10.3 x 5.1 cm, mild colon wall thickening proximal to the mid transverse colon, splenomegaly, CTA chest negative for PE but showed some borderline mediastinal and hilar adenopathy. 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 Staging PET on 03/26/18 revealed hypermetabolic uptake in shotty mediastinal and hilar nodes with SUV in the 5-7.4 range, 10 cm left adrenal mass had an SUV of 22, loop of bowel in the right lower quadrant with thickened wall with SUV of 20, possibility of a retroperitoneal node with SUV of 21, right proximal humerus shows uptake with SUV of 3.9. First office visit on 03/31/18. 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 Pt decided for R-CHOP, with a plan for reevaluation after 2 cycles. 1st cycle 04/14/18. Treatment f/u PET showed a partial, suboptimal response so, chemo regimen changed to CIVI R-EPOCH, first cycle (but 2nd chemo treatment) was complicated by a small bowel perforation which required surgical repair and recovery. As of note, medistinal adenopathy with sub-optimal response was biopsied and found to be sarcoid. Review of Systems 14 point review of systems is as stated in HPI Past Medical History Past Medical History: Atrial Fibrillation, Cancer Additional Past Medical History / Comment(s): 03/15/18 pt had chest pain/found L adrenal mass-work up showed diffuse large B cell lymphoma/high grade Bcell nonhodgkins lymphoma-started chemo 04/14/18-2 cycles/unsatifactory improvement- changed chemo regime, pt had new onset Afib RVR and bowel perforation with surgery, chemo causes nausea and vomiting but pt states recently appetite has been okay, constipation, pt had mediastinoscopy and told he has sarcoidosis. History of Any Multi-Drug Resistant Organisms: None Reported Past Surgical History: Bowel Resection, Tonsillectomy Additional Past Surgical History / Comment(s): CAT SCAN GUIDED L ADRENAL GLAND BIOPSY/CORE BIOPSY, MEDIPORT INSERTION rt side chest , 06/21/18 BOWEL RESECTION D/T BOWEL PERFORATION, MEDIATINOSCOPY WITH LYMPH NODE BIOPSY. Past Anesthesia/Blood Transfusion Reactions: No Reported Reaction Past Psychological History: Anxiety, Panic Disorder Smoking Status: Never smoker Past Alcohol Use History: None Reported Past Drug Use History: None Reported - Past Family History Father Additional Family Medical History / Comment(s): Father of liver disease at the age of 75yrs. Mother Family Medical History: Cancer, Renal Disease Additional Family Medical History / Comment(s): Mother had skin CA, kidney disease. Mother is 87yrs old. Medications and Allergies Home Medications Medication Instructions Recorded Confirmed Type Ondansetron [Zofran] 4 mg PO Q4HR PRN 08/24/18 10/05/18 History ALPRAZolam [Xanax] 0.25 mg PO Q8HR 09/14/18 10/05/18 History Pantoprazole [Protonix] 40 mg PO AC-BID tablet. 09/18/18 10/05/18 Rx Acetaminophen Tab [Tylenol Tab] 1,000 mg PO Q6H PRN 10/05/18 10/05/18 History Allergies Allergy/AdvReac Type Severity Reaction Status Date / Time No Known Allergies Allergy Verified 10/05/18 09:42 Physical Exam Vitals: Vital Signs Temp Pulse Resp BP Pulse Ox 10/05/18 11:30 97.3 F L 79 20 128/87 99 Intake and Output 10/04/18 10/05/18 10/05/18 22:59 06:59 14:59 Intake Total 66 Balance 66 Intake: Intake, IV Titration 66 Amount riTUXimab 800 mg In 66 Sodium Chloride 0.9% 500 ml 500 ml @ Titrate IV . Q0M NR Rx#:[id number] Other: Weight 93.44 kg - Constitutional General appearance: average body habitus, severe distress - EENT Eyes: anicteric sclerae, EOMI ENT: hearing grossly normal, normal oropharynx - Neck Neck: no lymphadenopathy - Respiratory Respiratory: bilateral: CTA - Cardiovascular Heart sounds: normal: S1, S2 leg Peripheral Edema: bilateral: None - Gastrointestinal General gastrointestinal: no absent bowel sounds, no decreased bowel sounds, no distended, no hepatomegaly, no hyperactive bowel sounds, normal bowel sounds, no organomegaly, no rigid, no scaphoid, soft, no splenomegaly, no tenderness, no umbilical hernia, no ventral hernia - Integumentary Integumentary: normal - Neurologic Neurologic: CNII-XII intact - Musculoskeletal Musculoskeletal: strength equal bilaterally - Psychiatric Psychiatric: A&O x's 3, appropriate affect, intact judgment & insight Results CBC & Chem 7: 10/05/18 09:07 10/05/18 09:07 Labs: Abnormal Lab Results - Last 24 Hours (Table) 10/05/18 10/05/18 Range/Units 09:07 09:07 RDW 16.3 H (11.5-15.5) % Lymphocytes # 0.5 L (1.0-4.8) k/uL Glucose 111 H (74-99) mg/dL Total Protein 6.2 L (6.3-8.2) g/dL Thrombosis Risk Factor Assmnt - DVT/VTE Prophylaxis DVT/VTE Prophylaxis: Pharmacologic Prophylaxis ordered - Choose All That Apply Any of the Below Risk Factors Present?: Yes Each Factor Represents 1 point: Age 41-60 years, Obesity (BMI >25) Other Risk Factors: Yes Each Risk Factor Represents 2 Points: Central venous access, Malignancy Other congenital or acquired thrombophilia - If yes, enter type in comment: No Thrombosis Risk Factor Assessment Total Risk Factor Score: 6 Thrombosis Risk Factor Assessment Level: High Risk Assessment and Plan (1) Panic attack Narrative/Plan: Patient did have a panic attack on admission. He was severely hypertensive, tachycardic, diaphoresis and tachypnea, patient's only complaint was feeling like he couldn't breathe. Patient was examined, one-time dose of IV Ativan given, vital signs returned to normal, respirations returned to normal , diaphoresis ceased, patient stated feeling much better. Patient did forget to take his scheduled Xanax this morning prior to admission. Home medications reconciled, Xanax ATC. Current Visit: Yes Status: Acute Priority: High Code(s): F41.0 - PANIC DISORDER [EPISODIC PAROXYSMAL ANXIETY] SNOMED Code(s): 132113780 (2) Anxiety about health Current Visit: Yes Status: Acute Priority: High Code(s): F41.8 - OTHER SPECIFIED ANXIETY DISORDERS SNOMED Code(s): 607595069 (3) Diffuse large B cell lymphoma Narrative/Plan: Admit for continuous IV infusion chemotherapy with REPOCH regimen for diffuse large B-cell lymphoma. Orders reviewed. Antiemetics ordered scheduled. Supportive medications ordered Current Visit: Yes Status: Acute Priority: High Code(s): C83.30 - DIFFUSE LARGE B-CELL LYMPHOMA, UNSPECIFIED SITE SNOMED Code(s): 330526461 Plan: GI and DVT prophylaxis. CBC daily. Medications reconciled. Daily follow-up.
[2018-10-05] MEDS ORDERED: MAGNESIUM HYDROXIDE 2,400 MG/10 ML CUP PO PRN (12:45)
[2018-10-05] MEDS: DOXORUBICIN HCL IV SCH (14:54)
[2018-10-05] MEDS: SODIUM CHLORIDE 0.9% IV SCH ×3 (14:54→14:55)
[2018-10-05] MEDS: VINCRISTINE SULFATE IV SCH (14:55)
[2018-10-05] MEDS: ETOPOSIDE IV SCH (14:55)
[2018-10-05] MEDS: SENNOSIDES 8.6 MG TAB PO SCH ×2 (14:56→20:25)
[2018-10-05] MEDS: SALT AND SODA MOUTHWASH 1,000 ML PO SCH ×3 (14:56→19:44)
[2018-10-05] MEDS: ALPRAZolam 0.25 MG TAB PO SCH (16:18)
[2018-10-05] MEDS: ONDANSETRON 4 MG/2 ML VIAL IVP SCH (17:13)
[2018-10-05] MEDS: PROCHLORPERAZINE 10 MG TAB PO PRN (20:54)
[2018-10-06] MEDS: SALT AND SODA MOUTHWASH 1,000 ML PO SCH ×5 (01:02→20:43)
[2018-10-06] MEDS: ONDANSETRON 4 MG/2 ML VIAL IVP SCH ×4 (01:03→17:24)
[2018-10-06] MEDS: ALPRAZolam 0.25 MG TAB PO SCH ×3 (01:03→16:04)
[2018-10-06] MEDS: SODIUM CHLORIDE 0.9% 1,000 ML IV SCH ×2 (06:29→15:13)
[2018-10-06] MEDS: PROCHLORPERAZINE 10 MG TAB PO PRN ×2 (07:22→21:18)
[2018-10-06 07:27] LABS: Anisocytosis Slight; Basophils % (A) 0 %; Eosinophils % (A) 0 %; HGB 12.5 gm/dL (13.0-17.5); Lymphocytes # (A) 0.3 k/uL (1.0-4.8); Lymphocytes % (A) 2 %; MCH 29.1 pg (25.0-35.0); MCHC 33.7 g/dL (31.0-37.0); MCV 86.5 fL (80.0-100.0); Mean Platelet Volume 6.9; Monocytes # (A) 0.3 k/uL (0-1.0); Monocytes % (A) 2 %; Neutrophils # (A) 14.3 k/uL (1.3-7.7); Neutrophils % (A) 95 %; Platelet Count 237 k/uL (150-450); RBC 4.28 m/uL (4.30-5.90); RDW 16.2 % (11.5-15.5); WBC 15.1 k/uL (3.8-10.6)
[2018-10-06 07:50] LABS: ALT 39 U/L (21-72); AST 18 U/L (17-59); Albumin 3.4 g/dL (3.5-5.0); Alkaline Phosphatase 33 U/L (38-126); Anion Gap 7 mmol/L; Blood Urea Nitrogen 8 mg/dL (9-20); Calcium 8.8 mg/dL (8.4-10.2); Carbon Dioxide 23 mmol/L (22-30); Chloride 111 mmol/L (98-107); Glucose 123 mg/dL (74-99); Potassium 4.3 mmol/L (3.5-5.1); Sodium 141 mmol/L (137-145); Total Bilirubin 0.4 mg/dL (0.2-1.3); Total Protein 5.8 g/dL (6.3-8.2)
[2018-10-06] MEDS: SENNOSIDES 8.6 MG TAB PO SCH ×2 (09:50→20:39)
[2018-10-06] MEDS: ENOXAPARIN 40 MG/0.4 ML SYRINGE SQ SCH (09:50)
[2018-10-06] MEDS: predniSONE 50 MG TAB PO SCH ×2 (09:50→20:32)
[2018-10-06] MEDS: FAMOTIDINE 20 MG/2 ML VIAL IV SCH ×2 (09:50→20:39)
[2018-10-06] MEDS: ONDANSETRON 16 MG in SODIUM CHLORIDE 0.9% 50 ML IVPB SCH (10:04)
[2018-10-06] MEDS ORDERED: SCOPOLAMINE 1.5MG/72HR PATCH TRANSDERM SCH (10:45)
[2018-10-06] MEDS: DOXORUBICIN HCL IV SCH (15:14)
[2018-10-06] MEDS: SODIUM CHLORIDE 0.9% IV SCH ×3 (15:14→15:15)
[2018-10-06] MEDS: ETOPOSIDE IV SCH (15:15)
[2018-10-06] MEDS: VINCRISTINE SULFATE IV SCH (15:15)
--- NOTE | 2018-10-06 16:14 | P.PN ---
Subjective Progress Note Date: 10/06/18 Principal diagnosis: DLBCL, admit for CIVI chemotherapy Pt seen in f/u, he is having some nausea today, no vomiting oral irritation, SOB , cough, palpitations, abd pain, bloating, indigestion, changes in bowel or bladder, bleeding, swelling or pain. Objective - Vital Signs Vital signs: Vital Signs Temp 96.7 F L 10/06/18 12:00 Pulse 94 10/06/18 12:00 Resp 17 10/06/18 12:00 BP 113/76 10/06/18 12:00 Pulse Ox 95 10/06/18 12:00 Intake & Output 10/05/18 10/06/18 10/06/18 18:59 06:59 18:59 Intake Total 1117.6 1799.17 850 Balance 1117.6 1799.17 850 Weight 93.44 kg Intake: Intake, IV Titration 1117.6 739.17 850 Amount DOXOrubicin HCL 20 mg In 108 Sodium Chloride 0.9% 250 ml @ 10.833 mls/hr IV Q24H [facility] Rx#:[id number] Etoposide 100 mg In 210 Sodium Chloride 0.9% ( Dehp Santiago 500 ml @ 21.042 mls/hr IV Q24H [facility] Rx#: [id number] Ondansetron 16 mg In 50 50 Sodium Chloride 0.9% 50 ml @ 100 mls/hr IVPB Q24H [facility] Rx#:[id number] Sodium Chloride 0.9% 1, 500 400 800 000 ml @ 100 mls/hr IV . Q10H [facility] Rx#:[id number] riTUXimab 800 mg In 567.6 Sodium Chloride 0.9% 500 ml 500 ml @ Titrate IV . Q0M Rx#:[id number] vinCRIStine SULFATE 0.8 21.17 mg In Sodium Chloride 0.9 % 50 ml @ 2.117 mls/hr IV Q24H [facility] Rx#:[id number] Oral 1060 Other: Voiding Method Toilet # Voids 1 - Constitutional General appearance: Present: average body habitus, cooperative, no acute distress - EENT Eyes: Present: anicteric sclerae, EOMI ENT: Present: hearing grossly normal, normal oropharynx - Respiratory Respiratory: bilateral: CTA - Cardiovascular Rhythm: regular Heart sounds: normal: S1, S2 Abnormal Heart Sounds: Absent: systolic murmur, diastolic murmur, rub, S3 Gallop , S4 Gallop, click, other - Peripheral edema leg Peripheral Edema: bilateral: Trace - Gastrointestinal General gastrointestinal: Present: normal bowel sounds, soft - Integumentary Integumentary: Present: normal - Neurologic Neurologic: Present: CNII-XII intact - Musculoskeletal Musculoskeletal: Present: strength equal bilaterally - Psychiatric Psychiatric: Present: A&O x's 3, appropriate affect, intact judgment & insight - Labs CBC & Chem 7: 10/06/18 06:55 10/06/18 06:55 Labs: Abnormal Lab Results - Last 24 Hours (Table) 10/06/18 10/06/18 Range/Units 06:55 06:55 WBC 15.1 H (3.8-10.6) k/uL RBC 4.28 L (4.30-5.90) m/uL Hgb 12.5 L (13.0-17.5) gm/dL Hct 37.0 L (39.0-53.0) % RDW 16.2 H (11.5-15.5) % Neutrophils # 14.3 H (1.3-7.7) k/uL Lymphocytes # 0.3 L (1.0-4.8) k/uL Chloride 111 H (98-107) mmol/L BUN 8 L (9-20) mg/dL Glucose 123 H (74-99) mg/dL Alkaline Phosphatase 33 L (38-126) U/L Total Protein 5.8 L (6.3-8.2) g/dL Albumin 3.4 L (3.5-5.0) g/dL Assessment and Plan (1) Panic attack Narrative/Plan: Cont ATC benzodiazapine Current Visit: Yes Status: Acute Priority: High Code(s): F41.0 - PANIC DISORDER [EPISODIC PAROXYSMAL ANXIETY] SNOMED Code(s): 688556034 (2) Anxiety about health Narrative/Plan: All questions and concerns addressed Current Visit: Yes Status: Acute Priority: High Code(s): F41.8 - OTHER SPECIFIED ANXIETY DISORDERS SNOMED Code(s): 511955493 (3) Diffuse large B cell lymphoma Narrative/Plan: Cont chemo without adjustment Current Visit: Yes Status: Acute Priority: High Code(s): C83.30 - DIFFUSE LARGE B-CELL LYMPHOMA, UNSPECIFIED SITE SNOMED Code(s): 141473689 (4) Nausea Narrative/Plan: ATC and PRN meds, added scopolamine Current Visit: Yes Status: Acute Priority: High Code(s): R11.0 - NAUSEA SNOMED Code(s): 399076556 Plan: GI and DVT prophylaxis. CBC, CMP daily. Medications reconciled. Daily follow-up. Ambulation encouraged Winston fluids
[2018-10-07] MEDS: SALT AND SODA MOUTHWASH 1,000 ML PO SCH ×5 (00:37→23:42)
[2018-10-07] MEDS: ALPRAZolam 0.25 MG TAB PO SCH ×3 (00:37→16:43)
[2018-10-07] MEDS: ONDANSETRON 4 MG/2 ML VIAL IVP SCH ×5 (00:37→23:34)
[2018-10-07] MEDS: SODIUM CHLORIDE 0.9% 1,000 ML IV SCH ×3 (00:43→23:41)
[2018-10-07 07:50] LABS: Anisocytosis Slight; Basophils % (A) 0 %; Eosinophils % (A) 0 %; HCT 36.1 % (39.0-53.0); HGB 11.8 gm/dL (13.0-17.5); Lymphocytes # (A) 0.3 k/uL (1.0-4.8); Lymphocytes % (A) 2 %; MCH 28.2 pg (25.0-35.0); MCHC 32.9 g/dL (31.0-37.0); Mean Platelet Volume 8.6; Monocytes # (A) 0.5 k/uL (0-1.0); Monocytes % (A) 3 %; Neutrophils # (A) 14.7 k/uL (1.3-7.7); Neutrophils % (A) 94 %; Platelet Count 208 k/uL (150-450); WBC 15.6 k/uL (3.8-10.6)
[2018-10-07] MEDS: PROCHLORPERAZINE 10 MG TAB PO PRN ×2 (07:50→14:41)
[2018-10-07 08:12] LABS: ALT 33 U/L (21-72); AST 16 U/L (17-59); Albumin 3.1 g/dL (3.5-5.0); Alkaline Phosphatase 29 U/L (38-126); Anion Gap 4 mmol/L; Blood Urea Nitrogen 10 mg/dL (9-20); Calcium 8.6 mg/dL (8.4-10.2); Carbon Dioxide 26 mmol/L (22-30); Chloride 113 mmol/L (98-107); Glucose 111 mg/dL (74-99); Sodium 143 mmol/L (137-145); Total Bilirubin 0.4 mg/dL (0.2-1.3); Total Protein 5.5 g/dL (6.3-8.2)
[2018-10-07] MEDS: ENOXAPARIN 40 MG/0.4 ML SYRINGE SQ SCH (09:00)
[2018-10-07] MEDS: SENNOSIDES 8.6 MG TAB PO SCH (09:10)
[2018-10-07] MEDS: predniSONE 50 MG TAB PO SCH ×2 (09:10→23:36)
[2018-10-07] MEDS: ONDANSETRON 16 MG in SODIUM CHLORIDE 0.9% 50 ML IVPB SCH (16:21)
[2018-10-07] MEDS: FAMOTIDINE 20 MG/2 ML VIAL IV SCH ×3 (16:43→23:30)
[2018-10-07] MEDS ORDERED: LORazepam 0.5 MG TAB PO PRN (16:44)
[2018-10-07] MEDS ORDERED: LORazepam 2 MG/ML INJ IV PRN (17:29)
[2018-10-07] MEDS ORDERED: DRONABINOL 2.5 MG CAP PO SCH (17:30)
[2018-10-07] MEDS ORDERED: PANTOPRAZOLE 40 MG TABLET PO SCH (17:30)
[2018-10-07] MEDS: SODIUM CHLORIDE 0.9% IV SCH ×3 (17:46→17:48)
[2018-10-07] MEDS: DOXORUBICIN HCL IV SCH (17:46)
[2018-10-07] MEDS: VINCRISTINE SULFATE IV SCH (17:47)
[2018-10-07] MEDS: ETOPOSIDE IV SCH (17:48)
[2018-10-07] MEDS ORDERED: PROCHLORPERAZINE 10 MG TAB PO SCH (18:00)
[2018-10-07] MEDS ORDERED: ACETAMINOPHEN TAB 500 MG TAB PO PRN (18:07)
--- NOTE | 2018-10-07 18:21 | P.PN ---
Subjective Progress Note Date: 10/07/18 Principal diagnosis: Timed Chemotherapy Severe nausea starting sooner than previous cycles, Pat seems to be very uncomfortable despite the ATC antiemetics. Will alter schedule to increase comfort: - Stop Compazine and scopalamine - Add Protonix IV BID - Increase Bowel Regimen to Senna -S (Colace and Laxative) 2 tabs BID and Miralax every am - Ativan 0.5mg IV q6 hours, give with tylenol as sometimes triggerds headache - Continue Zofran ATC - VS q4 - Reglan ATC Consider Zyprexa at discharge May restart Marinol however have not noted great response. Objective - Vital Signs Vital signs: Vital Signs Temp 96.7 F L 10/07/18 12:00 Pulse 80 10/07/18 15:17 Resp 16 10/07/18 15:17 BP 125/80 10/07/18 12:00 Pulse Ox 92 L 10/07/18 12:00 Intake & Output 10/06/18 10/07/18 10/07/18 18:59 06:59 18:59 Intake Total 850 950 240 Balance 850 950 240 Intake: Intake, IV Titration 850 500 Amount Ondansetron 16 mg In 50 Sodium Chloride 0.9% 50 ml @ 100 mls/hr IVPB Q24H [facility] Rx#:[id number] Sodium Chloride 0.9% 1, 800 500 000 ml @ 100 mls/hr IV . Q10H [facility] Rx#:[id number] Oral 450 240 Other: Voiding Method Toilet Toilet # Voids 1 3 - Exam - Constitutional General appearance: Present: average body habitus, cooperative, no acute distress - EENT Eyes: Present: anicteric sclerae, EOMI ENT: Present: hearing grossly normal, normal oropharynx - Respiratory Respiratory: bilateral: CTA - Cardiovascular Rhythm: regular Heart sounds: normal: S1, S2 Abnormal Heart Sounds: Absent: systolic murmur, diastolic murmur, rub, S3 Gallop , S4 Gallop, click, other - Peripheral edema leg Peripheral Edema: bilateral: Trace - Gastrointestinal General gastrointestinal: Present: normal bowel sounds, soft - Integumentary Integumentary: Present: normal - Neurologic Neurologic: Present: CNII-XII intact - Musculoskeletal Musculoskeletal: Present: strength equal bilaterally - Psychiatric Psychiatric: Present: A&O x's 3, appropriate affect, intact judgment & insight - Labs CBC & Chem 7: 10/07/18 07:35 10/07/18 07:35 Labs: Abnormal Lab Results - Last 24 Hours (Table) 10/07/18 10/07/18 Range/Units 07:35 07:35 WBC 15.6 H (3.8-10.6) k/uL RBC 4.20 L (4.30-5.90) m/uL Hgb 11.8 L (13.0-17.5) gm/dL Hct 36.1 L (39.0-53.0) % RDW 16.0 H (11.5-15.5) % Neutrophils # 14.7 H (1.3-7.7) k/uL Lymphocytes # 0.3 L (1.0-4.8) k/uL Chloride 113 H (98-107) mmol/L Glucose 111 H (74-99) mg/dL AST 16 L (17-59) U/L Alkaline Phosphatase 29 L (38-126) U/L Total Protein 5.5 L (6.3-8.2) g/dL Albumin 3.1 L (3.5-5.0) g/dL Assessment and Plan Plan: Assessment and Plan (1) Diffuse large B cell lymphoma Narrative/Plan: - Pt admitted for CIVI chemotherapy - Cycle 4 (Cycle 1 not counted as only received partial infusion), Day 2 - Continue with day 4 - Labs daily - CBC and CMP - Supportive meds order - PPI (despite H2 jayne) has been added with high dose steroids. Current Visit: Yes Status: Acute Priority: High Code(s): C83.30 - DIFFUSE LARGE B-CELL LYMPHOMA, UNSPECIFIED SITE SNOMED Code(s): 604795945 (2) Constipation Narrative/Plan: - Cont senna pt takes at home. - Strict I&O Current Visit: Yes Status: Acute Priority: Medium Code(s): K59.00 - CONSTIPATION, UNSPECIFIED SNOMED Code(s): 66869916 (3) Chemo Induced Nausea and Vomiting Narrative/Plan: - Stop Compazine and scopalamine (Feels too Dry) - Add Protonix IV BID - Increase Bowel Regimen to Senna -S (Colace and Laxative) 2 tabs BID and Miralax every am - Ativan 0.5mg IV q6 hours, give with tylenol as sometimes triggerds headache - Continue Zofran ATC - VS q4 - Reglan ATC Consider Zyprexa at discharge May restart Marinol however have not noted great response. Consider changing steroids to IV Delicia Fuentes
[2018-10-07] MEDS: LORazepam 2 MG/ML INJ IV SCH ×2 (18:31→23:28)
[2018-10-07] MEDS: METOCLOPRAMIDE 5 MG/ML 2 ML VIAL IVP SCH ×2 (18:48→23:32)
[2018-10-07] MEDS ORDERED: OLANZapine 5 MG TAB PO SCH (21:00)
[2018-10-07] MEDS ORDERED: PANTOPRAZOLE 40 MG/10 ML VIAL IVP SCH (21:00)
[2018-10-07] MEDS: SENNOSIDES-DOCUSATE SODIUM 1 EACH TAB PO SCH (23:39)
[2018-10-08] MEDS ORDERED: ONDANSETRON 4 MG/2 ML VIAL IVP SCH
[2018-10-08] MEDS: SALT AND SODA MOUTHWASH 1,000 ML PO SCH ×5 (00:40→20:44)
[2018-10-08] MEDS: ONDANSETRON 4 MG/2 ML VIAL IVP SCH ×3 (05:41→17:58)
[2018-10-08] MEDS: METOCLOPRAMIDE 5 MG/ML 2 ML VIAL IVP SCH ×3 (05:41→17:58)
[2018-10-08] MEDS: SODIUM CHLORIDE 0.9% 1,000 ML IV SCH ×2 (05:48→15:42)
[2018-10-08 07:21] LABS: Anisocytosis Slight; Basophils % (A) 0 %; Eosinophils % (A) 0 %; HCT 35.5 % (39.0-53.0); HGB 11.6 gm/dL (13.0-17.5); Lymphocytes # (A) 0.2 k/uL (1.0-4.8); Lymphocytes % (A) 3 %; MCH 28.9 pg (25.0-35.0); MCHC 32.6 g/dL (31.0-37.0); MCV 88.6 fL (80.0-100.0); Mean Platelet Volume 7.4; Monocytes # (A) 0.2 k/uL (0-1.0); Monocytes % (A) 3 %; Neutrophils # (A) 6.7 k/uL (1.3-7.7); Neutrophils % (A) 94 %; Platelet Count 186 k/uL (150-450); RDW 16.1 % (11.5-15.5); WBC 7.2 k/uL (3.8-10.6)
[2018-10-08 07:34] LABS: ALT 31 U/L (21-72); AST 18 U/L (17-59); Albumin 3.1 g/dL (3.5-5.0); Alkaline Phosphatase 26 U/L (38-126); Anion Gap 6 mmol/L; Blood Urea Nitrogen 10 mg/dL (9-20); Calcium 8.4 mg/dL (8.4-10.2); Carbon Dioxide 24 mmol/L (22-30); Chloride 110 mmol/L (98-107); Glucose 132 mg/dL (74-99); Magnesium 2.1 mg/dL (1.6-2.3); Potassium 3.7 mmol/L (3.5-5.1); Sodium 140 mmol/L (137-145); Total Bilirubin 0.6 mg/dL (0.2-1.3); Total Protein 5.4 g/dL (6.3-8.2); Uric Acid 6.4 mg/dL (3.5-8.5)
[2018-10-08] MEDS: PANTOPRAZOLE 40 MG/10 ML VIAL IVP SCH ×2 (08:31→20:41)
[2018-10-08] MEDS: ENOXAPARIN 40 MG/0.4 ML SYRINGE SQ SCH (08:31)
[2018-10-08] MEDS: LORazepam 2 MG/ML INJ IV SCH ×3 (08:32→22:43)
[2018-10-08] MEDS: FAMOTIDINE 20 MG/2 ML VIAL IV SCH ×2 (09:57→20:41)
[2018-10-08] MEDS: POLYETHYLENE GLYCOL 3350 17 GM POWD.PACK PO SCH (09:58)
[2018-10-08] MEDS: ONDANSETRON 16 MG in SODIUM CHLORIDE 0.9% 50 ML IVPB SCH (09:58)
[2018-10-08] MEDS: predniSONE 50 MG TAB PO SCH ×2 (09:59→20:40)
[2018-10-08] MEDS: SENNOSIDES-DOCUSATE SODIUM 1 EACH TAB PO SCH ×2 (10:03→20:41)
[2018-10-08] MEDS: DOXORUBICIN HCL IV SCH (18:13)
[2018-10-08] MEDS: VINCRISTINE SULFATE IV SCH (18:13)
[2018-10-08] MEDS: SODIUM CHLORIDE 0.9% IV SCH ×3 (18:13→18:14)
[2018-10-08] MEDS: ETOPOSIDE IV SCH (18:14)
--- NOTE | 2018-10-08 19:14 | P.PN ---
Subjective Progress Note Date: 10/08/18 Principal diagnosis: DLBCL Chemotherapy Nausea, controlled with antiemetic regimen. Better than with prior cycles of chemotherapy. Minimal vomiting. No fevers or diarrhea. Objective - Vital Signs Vital signs: Vital Signs Temp 97 F L 10/08/18 12:00 Pulse 61 10/08/18 12:00 Resp 18 10/08/18 12:00 BP 128/80 10/08/18 12:00 Pulse Ox 95 10/08/18 12:00 Intake & Output 10/07/18 10/08/18 10/08/18 18:59 06:59 18:59 Intake Total 240 240 850 Balance 240 240 850 Weight 93.44 kg Intake: Intake, IV Titration 850 Amount Ondansetron 16 mg In 50 Sodium Chloride 0.9% 50 ml @ 100 mls/hr IVPB Q24H [facility] Rx#:[id number] Sodium Chloride 0.9% 1, 800 000 ml @ 100 mls/hr IV . Q10H [facility] Rx#:[id number] Oral 240 240 Other: Voiding Method Toilet Toilet # Voids 3 1 - Exam General: In no acute distress. HEENT: Mucosa moist. Neck: Neck supple. Lymph: No cervical/supraclavicular LAD. Lungs: CTA-B without wheezing or rhonchi. Heart: RRR. No LE edema. Abdomen: Soft, nontender, nondistended, with positive bowel sounds. MSK: 4/4 strength in all 4 extremities. Neuro: Alert and oriented 3. No obvious gross neurologic deficits. Skin: No jaundice or rash. Psych: Appropriate affect. - Labs CBC & Chem 7: 10/08/18 06:19 10/08/18 06:19 Labs: Abnormal Lab Results - Last 24 Hours (Table) 10/08/18 10/08/18 Range/Units 06:19 06:19 RBC 4.00 L (4.30-5.90) m/uL Hgb 11.6 L (13.0-17.5) gm/dL Hct 35.5 L (39.0-53.0) % RDW 16.1 H (11.5-15.5) % Lymphocytes # 0.2 L (1.0-4.8) k/uL Chloride 110 H (98-107) mmol/L Glucose 132 H (74-99) mg/dL Alkaline Phosphatase 26 L (38-126) U/L Total Protein 5.4 L (6.3-8.2) g/dL Albumin 3.1 L (3.5-5.0) g/dL Assessment and Plan Assessment: 1. DLBCL Plan: Mr. Alaniz Is a very pleasant 58-year-old gentleman with history of DLBCL, here for cycle 4 of REPOCH. Currently day 3/5 of chemotherapy. Tolerating relatively well with some nausea, overall controlled on his antiasthmatic regimen. Plan on continuing chemo as scheduled. Monitor CBC and electrolytes. Continue hydration as per chemo protocol. Discharge once chemotherapy is complete. Discussed with patient needs agreeable to the plan. All of his questions were answered.
[2018-10-09] MEDS: METOCLOPRAMIDE 5 MG/ML 2 ML VIAL IVP SCH ×4 (00:54→17:40)
[2018-10-09] MEDS: ONDANSETRON 4 MG/2 ML VIAL IVP SCH ×4 (00:54→17:39)
[2018-10-09] MEDS: SALT AND SODA MOUTHWASH 1,000 ML PO SCH ×5 (00:55→20:48)
[2018-10-09] MEDS: SODIUM CHLORIDE 0.9% 1,000 ML IV SCH ×2 (06:08→11:19)
[2018-10-09 07:32] LABS: Basophils % (A) 0 %; Eosinophils % (A) 1 %; HCT 34.3 % (39.0-53.0); HGB 12.1 gm/dL (13.0-17.5); Lymphocytes # (A) 0.2 k/uL (1.0-4.8); Lymphocytes % (A) 4 %; MCH 29.5 pg (25.0-35.0); MCHC 35.2 g/dL (31.0-37.0); Mean Platelet Volume 7.2; Monocytes # (A) 0.2 k/uL (0-1.0); Monocytes % (A) 3 %; Neutrophils # (A) 4.4 k/uL (1.3-7.7); Neutrophils % (A) 91 %; Platelet Count 213 k/uL (150-450); RBC 4.09 m/uL (4.30-5.90); RDW 15.3 % (11.5-15.5); WBC 4.8 k/uL (3.8-10.6)
[2018-10-09 07:43] LABS: MCV 83.7 fL (80.0-100.0)
[2018-10-09 07:51] LABS: ALT 27 U/L (21-72); AST 16 U/L (17-59); Albumin 3.1 g/dL (3.5-5.0); Alkaline Phosphatase 23 U/L (38-126); Anion Gap 6 mmol/L; Blood Urea Nitrogen 12 mg/dL (9-20); Calcium 8.4 mg/dL (8.4-10.2); Carbon Dioxide 27 mmol/L (22-30); Chloride 107 mmol/L (98-107); Glucose 111 mg/dL (74-99); Magnesium 2.3 mg/dL (1.6-2.3); Potassium 3.7 mmol/L (3.5-5.1); Sodium 140 mmol/L (137-145); Total Bilirubin 0.9 mg/dL (0.2-1.3); Total Protein 5.5 g/dL (6.3-8.2); Uric Acid 6.2 mg/dL (3.5-8.5)
[2018-10-09] MEDS: POLYETHYLENE GLYCOL 3350 17 GM POWD.PACK PO SCH (08:44)
[2018-10-09] MEDS: LORazepam 2 MG/ML INJ IV SCH ×2 (08:53→16:12)
[2018-10-09] MEDS: SENNOSIDES-DOCUSATE SODIUM 1 EACH TAB PO SCH ×2 (08:54→22:17)
[2018-10-09] MEDS: predniSONE 50 MG TAB PO SCH ×2 (08:54→22:18)
[2018-10-09] MEDS: ENOXAPARIN 40 MG/0.4 ML SYRINGE SQ SCH (08:55)
[2018-10-09] MEDS: PANTOPRAZOLE 40 MG/10 ML VIAL IVP SCH ×2 (08:55→22:17)
--- NOTE | 2018-10-09 11:55 | P.PN ---
Subjective Progress Note Date: 10/09/18 Principal diagnosis: DLBCL Chemotherapy Nausea, controlled with antiemetic regimen. Better with this regimen than with prior cycles of chemotherapy. Minimal vomiting. No fevers or diarrhea. Did have increased nausea this am prior to receiving his medications, now improved. Objective - Vital Signs Vital signs: Vital Signs Temp 97.4 F L 10/09/18 04:00 Pulse 61 10/09/18 04:00 Resp 16 10/09/18 04:00 BP 142/87 10/09/18 04:00 Pulse Ox 95 10/09/18 04:00 Intake & Output 10/08/18 10/09/18 10/09/18 18:59 06:59 18:59 Intake Total 850 Balance 850 Weight 93.44 kg Intake: Intake, IV Titration 850 Amount Ondansetron 16 mg In 50 Sodium Chloride 0.9% 50 ml @ 100 mls/hr IVPB Q24H [facility] Rx#:[id number] Sodium Chloride 0.9% 1, 800 000 ml @ 100 mls/hr IV . Q10H [facility] Rx#:[id number] Other: Voiding Method Toilet Toilet # Voids 2 - Exam General: In no acute distress. HEENT: Mucosa moist. Neck: Neck supple. Lymph: No cervical/supraclavicular LAD. Lungs: CTA-B without wheezing or rhonchi. Heart: RRR. No LE edema. Abdomen: Soft, nontender, nondistended, with positive bowel sounds. MSK: 4/4 strength in all 4 extremities. Neuro: Alert and oriented 3. No obvious gross neurologic deficits. Skin: No jaundice or rash. Psych: Appropriate affect. - Labs CBC & Chem 7: 10/09/18 07:00 10/09/18 07:00 Labs: Abnormal Lab Results - Last 24 Hours (Table) 10/09/18 10/09/18 Range/Units 07:00 07:00 RBC 4.09 L (4.30-5.90) m/uL Hgb 12.1 L (13.0-17.5) gm/dL Hct 34.3 L (39.0-53.0) % Lymphocytes # 0.2 L (1.0-4.8) k/uL Glucose 111 H (74-99) mg/dL AST 16 L (17-59) U/L Alkaline Phosphatase 23 L (38-126) U/L Total Protein 5.5 L (6.3-8.2) g/dL Albumin 3.1 L (3.5-5.0) g/dL Assessment and Plan Assessment: 1. DLBCL 2. Nausea/vomiting due to chemotherapy 3. Anxiety Plan: Mr. Alaniz Is a very pleasant 58-year-old gentleman with history of DLBCL, here for cycle 4 of REPOCH. Currently day 4/4 of chemotherapy, to be completed later tonight. Tolerating relatively well with some nausea, overall controlled on his antiemetic regimen. Plan on continuing chemo as scheduled. Monitor CBC and electrolytes. Continue hydration as per chemo protocol. Will supplement potassium for K 3.7, 20mEq today, and if K remains normal on repeat with post- chemo BMP, plan on another 20mEq overnight. Continue hydration overnight to help with nausea and fatigue, and plan on discharge in am. Discussed with patient needs agreeable to the plan. All of his questions were answered.
[2018-10-09] MEDS ORDERED: POTASSIUM CHLORIDE 20 MEQ in WATER FOR INJECTION 1 100ML.BAG IVPB STA (11:56)
[2018-10-09] MEDS: ONDANSETRON 16 MG in SODIUM CHLORIDE 0.9% 50 ML IVPB SCH (17:40)
[2018-10-09] MEDS: FAMOTIDINE 20 MG/2 ML VIAL IV SCH ×2 (17:40→22:17)
[2018-10-09] MEDS ORDERED: SODIUM CHLORIDE 0.9% IV ONE (18:00)
[2018-10-09] MEDS ORDERED: CYCLOPHOSPHAMIDE IV ONE (18:00)
[2018-10-09 18:56] LABS: ALT 33 U/L (21-72); AST 19 U/L (17-59); Albumin 3.4 g/dL (3.5-5.0); Alkaline Phosphatase 24 U/L (38-126); Anion Gap 5 mmol/L; Blood Urea Nitrogen 13 mg/dL (9-20); Calcium 8.7 mg/dL (8.4-10.2); Carbon Dioxide 27 mmol/L (22-30); Chloride 105 mmol/L (98-107); Glucose 104 mg/dL (74-99); Magnesium 2.4 mg/dL (1.6-2.3); Sodium 137 mmol/L (137-145); Total Bilirubin 1.2 mg/dL (0.2-1.3); Total Protein 5.7 g/dL (6.3-8.2)
[2018-10-09 22:10] VITALS: RESP 16
[2018-10-09] MEDS ORDERED: POTASSIUM CHLORIDE 20 MEQ in WATER FOR INJECTION 1 100ML.BAG IVPB PRN (23:00)
[2018-10-10] MEDS: SALT AND SODA MOUTHWASH 1,000 ML PO SCH ×2 (00:07→06:12)
[2018-10-10] MEDS: LORazepam 2 MG/ML INJ IV SCH ×2 (00:07→09:13)
[2018-10-10] MEDS: METOCLOPRAMIDE 5 MG/ML 2 ML VIAL IVP SCH ×2 (00:08→06:12)
[2018-10-10] MEDS: ONDANSETRON 4 MG/2 ML VIAL IVP SCH ×2 (00:08→06:12)
[2018-10-10] MEDS: SODIUM CHLORIDE 0.9% 1,000 ML IV SCH (00:23)
[2018-10-10 05:40] VITALS: BP 126/81; PULSE 67; TEMP 96.3
[2018-10-10 08:23] LABS: Basophils % (A) 0 %; Eosinophils % (A) 1 %; HCT 35.8 % (39.0-53.0); HGB 12.3 gm/dL (13.0-17.5); Lymphocytes # (A) 0.3 k/uL (1.0-4.8); Lymphocytes % (A) 10 %; MCH 28.5 pg (25.0-35.0); MCHC 34.4 g/dL (31.0-37.0); MCV 82.8 fL (80.0-100.0); Mean Platelet Volume 7.7; Monocytes # (A) 0.1 k/uL (0-1.0); Monocytes % (A) 2 %; Neutrophils # (A) 2.6 k/uL (1.3-7.7); Neutrophils % (A) 87 %; Platelet Count 191 k/uL (150-450); RBC 4.32 m/uL (4.30-5.90); RDW 14.8 % (11.5-15.5)
[2018-10-10 08:38] LABS: ALT 36 U/L (21-72); AST 20 U/L (17-59); Albumin 3.2 g/dL (3.5-5.0); Alkaline Phosphatase 23 U/L (38-126); Anion Gap 4 mmol/L; Blood Urea Nitrogen 14 mg/dL (9-20); Calcium 8.1 mg/dL (8.4-10.2); Carbon Dioxide 27 mmol/L (22-30); Chloride 105 mmol/L (98-107); Glucose 96 mg/dL (74-99); Magnesium 2.3 mg/dL (1.6-2.3); Sodium 136 mmol/L (137-145); Total Bilirubin 1.5 mg/dL (0.2-1.3); Total Protein 5.4 g/dL (6.3-8.2); Uric Acid 6.1 mg/dL (3.5-8.5)
[2018-10-10] MEDS: SENNOSIDES-DOCUSATE SODIUM 1 EACH TAB PO SCH (09:05)
[2018-10-10] MEDS: POLYETHYLENE GLYCOL 3350 17 GM POWD.PACK PO SCH (09:05)
[2018-10-10] MEDS: ENOXAPARIN 40 MG/0.4 ML SYRINGE SQ SCH (09:13)
[2018-10-10] MEDS: PANTOPRAZOLE 40 MG/10 ML VIAL IVP SCH (09:20)
[2018-10-10] MEDS ORDERED: POTASSIUM CHLORIDE 20 MEQ in WATER FOR INJECTION 1 100ML.BAG IVPB ONE (10:00)
--- NOTE | 2018-10-10 17:03 | P.DS ---
Providers Date of admission: 10/05/18 08:13 Expected date of discharge: 10/10/18 Attending physician: Arnie Olson Primary care physician: Stated None - Discharge Diagnosis(es) (1) Panic attack continue antianxiety meds, mayconsider increasing dose next cycle Status: Acute Priority: High (2) Anxiety about health Status: Acute Priority: High (3) Diffuse large B cell lymphoma Admit for cycle 4 will add potassium to IVF. Status: Acute Priority: High (4) Nausea Cont to try medications for nausea. Status: Acute Priority: High Hospital Course: Pt admitted for 4th cycle of R-EPOCH for DLBCL. He had panic attack on admit requiring additional anoxolytic support, his nausea was persistent days 2 though today despite multiple treatments, he has required K+ supplementation. He is feeling ok today, feels he will eat when he gets home. No fever, oral irritation, cough, palpitations, abd pain, vomiting, 1 episode of diarrhea today , no bloody or black stool, swelling or pain. Pertinent Studies: none Procedures: none Patient Condition at Discharge: Stable Plan - Discharge Summary Discharge Rx Participant: No New Discharge Prescriptions: New Potassium Chloride [Klor-Con 20] 20 meq PO DAILY #3 tab No Action Ondansetron [Zofran] 4 mg PO Q4HR PRN PRN Reason: Nausea ALPRAZolam [Xanax] 0.25 mg PO Q8HR Pantoprazole [Protonix] 40 mg PO AC-BID tablet. Acetaminophen Tab [Tylenol Tab] 1,000 mg PO Q6H PRN PRN Reason: Headache Discharge Medication List Ondansetron [Zofran] 4 mg PO Q4HR PRN 08/24/18 [History] ALPRAZolam [Xanax] 0.25 mg PO Q8HR 09/14/18 [History] Pantoprazole [Protonix] 40 mg PO AC-BID tablet. 09/18/18 [Rx] Acetaminophen Tab [Tylenol Tab] 1,000 mg PO Q6H PRN 10/05/18 [History] Potassium Chloride [Klor-Con 20] 20 meq PO DAILY #3 tab 10/10/18 [Rx] Follow up Appointment(s)/Referral(s): Arnie Olson MD [STAFF PHYSICIAN] - 10/11/18 9:30 am (This appt is at the [address] location for CBC and GCSF injection) Patient Instructions/Handouts: Potassium Chloride (By mouth), Non-Hodgkin Lymphoma (DC), Hypokalemia (DC), Neutropenia (DC), Oral Mucositis (DC), Anemia ( DC), Thrombocytopenia (DC), Chemo Induced Nausea and Vomiting (DC) Discharge Disposition: HOME SELF-CARE Pending Studies Pending Results: none
== END 2018-10-10 12:10 | disposition home or self-care (01) | DRG 847 ==
LOC: 3NMEDONC 08:13
PROVIDERS: ADMIT Internal Medicine Hematology & Oncology; ATTEND Internal Medicine Hematology & Oncology
DX: Z51.11 Encounter for antineoplastic chemotherapy (principal); C83.30 Diffuse large B-cell lymphoma, unspecified site; D86.1 Sarcoidosis of lymph nodes; F41.0 Panic disorder [episodic paroxysmal anxiety]; F41.1 Generalized anxiety disorder; I48.91 Unspecified atrial fibrillation; K59.00 Constipation, unspecified; T45.1X5A Adverse effect of antineoplastic and immunosuppressive drugs, initial encounter; R11.0 Nausea
CPT/HCPCS: 80053; 83735; 84550; 85025

== ENCOUNTER 2018-10-26 08:19 | Inpatient (IN) | payer BC ==
[2018-10-26] MEDS ORDERED: ALPRAZolam 0.25 MG TAB PO SCH (09:00)
[2018-10-26] MEDS ORDERED: ALPRAZolam 0.25 MG TAB PO PRN (09:02)
[2018-10-26] MEDS ORDERED: ACETAMINOPHEN TAB 325 MG TAB PO ONE (10:00)
[2018-10-26] MEDS ORDERED: methylPREDNISolone SOD SUCCI 125 MG/2 ML VIAL IV ONE (10:00)
[2018-10-26] MEDS ORDERED: diphenhydrAMINE 50 MG/ML 1 ML VIAL IVP ONE (10:00)
[2018-10-26] MEDS ORDERED: APREPITANT 130 MG/18 ML VIAL IV ONE (10:00)
[2018-10-26 10:47] LABS: Anisocytosis Slight; Basophils # (A) 0.1 k/uL (0-0.2); Basophils % (A) 1 %; Eosinophils # (A) 0.1 k/uL (0-0.7); Eosinophils % (A) 1 %; HCT 38.3 % (39.0-53.0); HGB 12.5 gm/dL (13.0-17.5); Lymphocytes # (A) 0.4 k/uL (1.0-4.8); Lymphocytes % (A) 5 %; MCH 28.8 pg (25.0-35.0); MCHC 32.7 g/dL (31.0-37.0); Mean Platelet Volume 7.2; Monocytes # (A) 0.8 k/uL (0-1.0); Monocytes % (A) 9 %; Neutrophils # (A) 6.8 k/uL (1.3-7.7); Neutrophils % (A) 80 %; Platelet Count 189 k/uL (150-450); Poikilocytosis Slight; RBC 4.35 m/uL (4.30-5.90); RDW 17.6 % (11.5-15.5); WBC 8.6 k/uL (3.8-10.6)
[2018-10-26] MEDS ORDERED: MAGNESIUM HYDROXIDE 2,400 MG/10 ML CUP PO PRN (10:55)
[2018-10-26 10:57] LABS: MCV 87.9 fL (80.0-100.0)
[2018-10-26 10:59] LABS: ALT 46 U/L (21-72); AST 23 U/L (17-59); Alkaline Phosphatase 56 U/L (38-126); Anion Gap 7 mmol/L; Blood Urea Nitrogen 15 mg/dL (9-20); Carbon Dioxide 24 mmol/L (22-30); Chloride 110 mmol/L (98-107); Glucose 106 mg/dL (74-99); Potassium 4.5 mmol/L (3.5-5.1); Sodium 141 mmol/L (137-145); Total Bilirubin 0.3 mg/dL (0.2-1.3); Total Protein 6.3 g/dL (6.3-8.2); Uric Acid 7.3 mg/dL (3.5-8.5)
[2018-10-26] MEDS ORDERED: riTUXimab 800 MG in SODIUM CHLORIDE 0.9% 500 ML 500 ML IV NR (11:00)
[2018-10-26] MEDS: 0.9% NACL WITH KCL 20 MEQ/L 1,000 ML IV SCH ×2 (12:46→20:10)
[2018-10-26] MEDS: predniSONE 50 MG TAB PO SCH ×2 (14:41→22:02)
[2018-10-26] MEDS: ONDANSETRON 16 MG in SODIUM CHLORIDE 0.9% 50 ML IVPB SCH (14:43)
[2018-10-26 15:01] VITALS: BMI 30.7
[2018-10-26] MEDS: FAMOTIDINE 20 MG/2 ML VIAL IV SCH (15:09)
--- NOTE | 2018-10-26 18:13 | P.HPIM ---
History of Present Illness H&P Date: 10/26/18 Chief Complaint: Admit for cycle #5 of R-EPOCH for DLBCL Pt admitted today for cycle #5 R-EOPCH chemotherapy for mixed NHL and DLBCL. No c/o on a 14 point ROS today on admit. Appetite is good, ambulates independently, no pain. Multiple changes to admitting orders for side effects and electrolyte replacement History: Pt initially seen in consult 03/15/18, presented to the ER with c/o "chest pain" x 1 week, constant, progressive, worse when sitting, pain localized to LUQ and left lower rib cage with penetration straight through to the back, pt had a palpable left upper quadrant mass, CT AP showed an enlarged left adrenal mass, 10.3 x 5.1 cm, mild colon wall thickening proximal to the mid transverse colon , splenomegaly, CTA chest negative for PE but showed some borderline mediastinal and hilar adenopathy. CT-guided core bx and FNA of adrenal on , showed severely atypical cells consistent with diffuse large B-cell lymphoma , core biopsy was consistent with high-grade B-cell non-Hodgkin lymphoma consistent with diffuse large B-cell lymphoma, "double hit" testing was not possible, QNS. Staging PET on 03/26/18 revealed hypermetabolic uptake in shotty mediastinal and hilar nodes with SUV in the 5-7.4 range, 10 cm left adrenal mass had an SUV of 22, loop of bowel in the right lower quadrant with thickened wall with SUV of 20, possibility of a retroperitoneal node with SUV of 21, right proximal humerus shows uptake with SUV of 3.9. First office visit on 03/31. 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 Pt decided for R-CHOP, with a plan for reevaluation after 2 cycles. 1st cycle 04/14/18. Treatment f/u PET showed a partial but suboptimal response so, chemo regimen changed to CIVI R-EPOCH, first cycle (but 2nd chemo treatment) was complicated by a small bowel perforation which required surgical repair and recovery. As of note, medistinal adenopathy with sub-optimal response was biopsied and found to be sarcoid. Review of Systems 14 pint ROS is negative Past Medical History Past Medical History: Atrial Fibrillation, Cancer Additional Past Medical History / Comment(s): 03/15/18 pt had chest pain/found L adrenal mass-work up showed diffuse large B cell lymphoma/high grade Bcell nonhodgkins lymphoma-started chemo 04/14/18-2 cycles/unsatifactory improvement- changed chemo regime, pt had new onset Afib RVR and bowel perforation with surgery, chemo causes nausea and vomiting but pt states recently appetite has been okay, constipation, pt had mediastinoscopy and told he has sarcoidosis. History of Any Multi-Drug Resistant Organisms: None Reported Past Surgical History: Bowel Resection, Tonsillectomy Additional Past Surgical History / Comment(s): CAT SCAN GUIDED L ADRENAL GLAND BIOPSY/CORE BIOPSY, MEDIPORT INSERTION rt side chest , 06/21/18 BOWEL RESECTION D/T BOWEL PERFORATION, MEDIATINOSCOPY WITH LYMPH NODE BIOPSY. Past Anesthesia/Blood Transfusion Reactions: No Reported Reaction Smoking Status: Never smoker - Past Family History Father Additional Family Medical History / Comment(s): Father of liver disease at the age of 75yrs. Mother Family Medical History: Cancer, Renal Disease Additional Family Medical History / Comment(s): Mother had skin CA, kidney disease. Mother is 87yrs old. Medications and Allergies Home Medications Medication Instructions Recorded Confirmed Type Acetaminophen Tab [Tylenol Tab] 1,000 mg PO Q6H PRN 10/05/18 10/26/18 History Pantoprazole [Protonix] 40 mg PO DAILY 10/26/18 10/26/18 History Allergies Allergy/AdvReac Type Severity Reaction Status Date / Time No Known Allergies Allergy Verified 10/26/18 09:15 Physical Exam Vitals: Vital Signs Temp Pulse Resp BP Pulse Ox 10/26/18 15:58 97.5 F L 96 16 127/87 95 10/26/18 11:48 97.3 F L 85 16 122/89 96 Intake and Output 10/26/18 10/26/18 10/26/18 06:59 14:59 22:59 Intake Total 200 195.6 Balance 200 195.6 Intake: Intake, IV Titration 200 195.6 Amount 0.9% NaCl with KCl 20 Meq 200 /l 1,000 ml @ 100 mls/hr IV .Q10H [facility] Rx#: [id number] riTUXimab 800 mg In 195.6 Sodium Chloride 0.9% 500 ml 500 ml @ Titrate IV . Q0M NR Rx#:[id number] Other: Voiding Method Toilet Weight 94.2 kg - Constitutional General appearance: average body habitus, cooperative, no acute distress - EENT Eyes: anicteric sclerae, EOMI, normal appearance ENT: normal oropharynx - Neck Neck: no lymphadenopathy - Respiratory Respiratory: bilateral: CTA - Cardiovascular Rhythm: regular Heart sounds: normal: S1, S2 Abnormal Heart Sounds: no systolic murmur, no diastolic murmur, no rub, no S3 Gallop, no S4 Gallop, no click, no other leg Peripheral Edema: bilateral: None - Gastrointestinal General gastrointestinal: no absent bowel sounds, no decreased bowel sounds, no distended, no hepatomegaly, no hyperactive bowel sounds, normal bowel sounds, no organomegaly, no rigid, no scaphoid, soft, no splenomegaly, no tenderness, no umbilical hernia, no ventral hernia - Integumentary Integumentary: normal - Neurologic Neurologic: CNII-XII intact - Musculoskeletal Musculoskeletal: strength equal bilaterally - Psychiatric Psychiatric: A&O x's 3, appropriate affect, intact judgment & insight Results CBC & Chem 7: 10/26/18 10:29 10/26/18 10:29 Labs: Abnormal Lab Results - Last 24 Hours (Table) 10/26/18 10/26/18 Range/Units 10:29 10:29 Hgb 12.5 L (13.0-17.5) gm/dL Hct 38.3 L (39.0-53.0) % RDW 17.6 H (11.5-15.5) % Lymphocytes # 0.4 L (1.0-4.8) k/uL Chloride 110 H (98-107) mmol/L Glucose 106 H (74-99) mg/dL Thrombosis Risk Factor Assmnt - DVT/VTE Prophylaxis DVT/VTE Prophylaxis: Pharmacologic Prophylaxis ordered - Choose All That Apply Any of the Below Risk Factors Present?: Yes Each Factor Represents 1 point: Age 41-60 years Other Risk Factors: Yes Each Risk Factor Represents 2 Points: Malignancy Thrombosis Risk Factor Assessment Total Risk Factor Score: 3 Thrombosis Risk Factor Assessment Level: Moderate Risk Assessment and Plan (1) Diffuse large B cell lymphoma Narrative/Plan: Admit for CIVI R-EPOCH Supportive meds ordered Potassium added to IVF as pt becomes hypokalemic as he progresses through treatment Emend added to antiemetic regimen Current Visit: Yes Status: Acute Priority: High Code(s): C83.30 - DIFFUSE LARGE B-CELL LYMPHOMA, UNSPECIFIED SITE SNOMED Code(s): 787610765 (2) Anxiety about health Narrative/Plan: Cont xanax while inpatient Current Visit: Yes Status: Acute Priority: High Code(s): F41.8 - OTHER SPECIFIED ANXIETY DISORDERS SNOMED Code(s): 886246316 (3) Constipation Narrative/Plan: Meds ordered for prevention and acute treatment of Current Visit: Yes Status: Chronic Priority: Medium Code(s): K59.00 - CONSTIPATION, UNSPECIFIED SNOMED Code(s): 93273963
[2018-10-26] MEDS: ETOPOSIDE IV SCH (20:29)
[2018-10-26] MEDS: VINCRISTINE SULFATE IV SCH (20:29)
[2018-10-26] MEDS: SODIUM CHLORIDE 0.9% IV SCH ×3 (20:29→20:30)
[2018-10-26] MEDS: DOXORUBICIN HCL IV SCH (20:30)
[2018-10-26] MEDS ORDERED: FAMOTIDINE 20 MG TAB PO SCH (21:00)
[2018-10-26] MEDS: ALPRAZolam 0.25 MG TAB PO PRN (21:04)
[2018-10-26] MEDS: ONDANSETRON 8 MG in SODIUM CHLORIDE 0.9% 50 ML IVPB PRN (21:08)
[2018-10-26] MEDS: DOCUSATE 100 MG CAP PO SCH (22:01)
[2018-10-26] MEDS: SALT AND SODA MOUTHWASH 1,000 ML PO SCH (22:05)
[2018-10-27] MEDS: LORazepam 2 MG/ML INJ IV PRN ×4 (00:14→18:24)
[2018-10-27] MEDS: SALT AND SODA MOUTHWASH 1,000 ML PO SCH ×5 (00:35→21:43)
[2018-10-27] MEDS: ALPRAZolam 0.25 MG TAB PO PRN ×3 (03:23→15:18)
[2018-10-27] MEDS: 0.9% NACL WITH KCL 20 MEQ/L 1,000 ML IV SCH ×2 (05:19→15:00)
[2018-10-27] MEDS: DOCUSATE 100 MG CAP PO SCH ×2 (08:37→21:41)
[2018-10-27] MEDS: predniSONE 50 MG TAB PO SCH ×2 (08:38→21:41)
[2018-10-27] MEDS: ONDANSETRON 8 MG in SODIUM CHLORIDE 0.9% 50 ML IVPB PRN (09:26)
[2018-10-27 09:28] LABS: Anisocytosis Slight; Basophils % (A) 0 %; Eosinophils # (A) 0.1 k/uL (0-0.7); Eosinophils % (A) 0 %; HCT 38.7 % (39.0-53.0); HGB 12.4 gm/dL (13.0-17.5); Lymphocytes # (A) 0.4 k/uL (1.0-4.8); Lymphocytes % (A) 2 %; MCH 28.6 pg (25.0-35.0); MCHC 32.1 g/dL (31.0-37.0); Mean Platelet Volume 7.2; Monocytes # (A) 0.3 k/uL (0-1.0); Monocytes % (A) 2 %; Neutrophils % (A) 96 %; Platelet Count 200 k/uL (150-450); Poikilocytosis Slight; RBC 4.35 m/uL (4.30-5.90); RDW 17.3 % (11.5-15.5); WBC 16.7 k/uL (3.8-10.6)
[2018-10-27 09:43] LABS: ALT 37 U/L (21-72); AST 23 U/L (17-59); Albumin 3.6 g/dL (3.5-5.0); Alkaline Phosphatase 35 U/L (38-126); Anion Gap 9 mmol/L; Blood Urea Nitrogen 10 mg/dL (9-20); Calcium 8.9 mg/dL (8.4-10.2); Carbon Dioxide 20 mmol/L (22-30); Chloride 111 mmol/L (98-107); Glucose 133 mg/dL (74-99); Sodium 140 mmol/L (137-145); Total Bilirubin 0.5 mg/dL (0.2-1.3); Uric Acid 6.9 mg/dL (3.5-8.5)
[2018-10-27] MEDS: PANTOPRAZOLE 40 MG TABLET PO SCH (20:24)
[2018-10-27] MEDS: FAMOTIDINE 20 MG/2 ML VIAL IV SCH (20:24)
[2018-10-27] MEDS: ONDANSETRON 16 MG in SODIUM CHLORIDE 0.9% 50 ML IVPB SCH (20:24)
[2018-10-27] MEDS: VINCRISTINE SULFATE IV SCH (20:32)
[2018-10-27] MEDS: SODIUM CHLORIDE 0.9% IV SCH ×3 (20:32)
[2018-10-27] MEDS: DOXORUBICIN HCL IV SCH (20:32)
[2018-10-27] MEDS: ETOPOSIDE IV SCH (20:32)
--- NOTE | 2018-10-27 21:42 | P.PN ---
Subjective Progress Note Date: 10/27/18 Principal diagnosis: NHL - In for timed chemotherapy Day 2 nausea is controlled, he is moving bowels and tolerating treatment thus far Objective - Vital Signs Vital signs: Vital Signs Temp 97.3 F L 10/27/18 11:40 Pulse 107 H 10/27/18 11:40 Resp 18 10/27/18 11:40 BP 114/78 10/27/18 11:40 Pulse Ox 96 10/27/18 11:40 Intake & Output 10/26/18 10/27/18 10/27/18 18:59 06:59 18:59 Intake Total 395.6 2169.26 Balance 395.6 2169.26 Weight 94.2 kg 94 kg Intake: Intake, IV Titration 395.6 1719.26 Amount 0.9% NaCl with KCl 20 Meq 200 1200 /l 1,000 ml @ 100 mls/hr IV .Q10H [facility] Rx#: [id number] DOXOrubicin HCL 20 mg In 111.0 Sodium Chloride 0.9% 250 ml @ 10.833 mls/hr IV Q24H [facility] Rx#:[id number] Etoposide 100 mg In 223 Sodium Chloride 0.9% ( Dehp [place] 500 ml @ 21.042 mls/hr IV Q24H [facility] Rx#: [id number] Ondansetron 8 mg In 100 Sodium Chloride 0.9% 50 ml @ 100 mls/hr IVPB BID PRN Rx#:[id number] riTUXimab 800 mg In 195.6 Sodium Chloride 0.9% 500 ml 500 ml @ Titrate IV . Q0M NR Rx#:[id number] vinCRIStine SULFATE 0.8 85.26 mg In Sodium Chloride 0.9 % 50 ml @ 2.117 mls/hr IV Q24H [facility] Rx#:[id number] Oral 450 Other: Voiding Method Toilet Toilet # Voids 2 - Exam - Constitutional General appearance: average body habitus, cooperative, no acute distress - EENT Eyes: anicteric sclerae, EOMI, normal appearance ENT: normal oropharynx - Neck Neck: no lymphadenopathy - Respiratory Respiratory: bilateral: CTA - Cardiovascular Rhythm: regular Heart sounds: normal: S1, S2 Abnormal Heart Sounds: no systolic murmur, no diastolic murmur, no rub, no S3 Gallop, no S4 Gallop, no click, no other leg Peripheral Edema: bilateral: None - Gastrointestinal General gastrointestinal: no absent bowel sounds, no decreased bowel sounds, no distended, no hepatomegaly, no hyperactive bowel sounds, normal bowel sounds, no organomegaly, no rigid, no scaphoid, soft, no splenomegaly, no tenderness, no umbilical hernia, no ventral hernia - Integumentary Integumentary: normal - Neurologic Neurologic: CNII-XII intact - Musculoskeletal Musculoskeletal: strength equal bilaterally - Psychiatric Psychiatric: A&O x's 3, appropriate affect, intact judgment & insight - Labs CBC & Chem 7: 10/27/18 08:50 10/27/18 08:50 Labs: Abnormal Lab Results - Last 24 Hours (Table) 10/27/18 10/27/18 Range/Units 08:50 08:50 WBC 16.7 H (3.8-10.6) k/uL Hgb 12.4 L (13.0-17.5) gm/dL Hct 38.7 L (39.0-53.0) % RDW 17.3 H (11.5-15.5) % Neutrophils # 16.0 H (1.3-7.7) k/uL Lymphocytes # 0.4 L (1.0-4.8) k/uL Chloride 111 H (98-107) mmol/L Carbon Dioxide 20 L (22-30) mmol/L Glucose 133 H (74-99) mg/dL Alkaline Phosphatase 35 L (38-126) U/L Total Protein 6.0 L (6.3-8.2) g/dL Assessment and Plan Plan: Assessment and Plan (1) Diffuse large B cell lymphoma Narrative/Plan: - Continue Day 2 R-EPOCH - Supportive meds ordered - Potassium added to IVF as pt becomes hypokalemic as he progresses through treatment, monitor magnesium as well Emend added to antiemetic regimen Current Visit: Yes Status: Acute Priority: High Code(s): C83.30 - DIFFUSE LARGE B-CELL LYMPHOMA, UNSPECIFIED SITE SNOMED Code(s): 803181930 (2) Anxiety about health Narrative/Plan: - Cont xanax ATC while inpatient - PRN Ativan if cannot take PO Xanax Current Visit: Yes Status: Acute Priority: High Code(s): F41.8 - OTHER SPECIFIED ANXIETY DISORDERS SNOMED Code(s): 559211779 (3) Constipation Narrative/Plan: - Meds ordered for prevention and acute treatment of constipation - Currently stable - BM today Current Visit: Yes Status: Chronic Priority: Medium Code(s): K59.00 - CONSTIPATION, UNSPECIFIED SNOMED Code(s): 69339252 (4) Persistent Nausea and vomiting with Chemotherapy, High Anticipatory Nausea effects - Emend added this cycle - Monitr closely, and continue with plan extra hydration prior to discharge and IV hydration with neulasta
[2018-10-28] MEDS: SALT AND SODA MOUTHWASH 1,000 ML PO SCH ×5 (00:13→22:44)
[2018-10-28] MEDS: LORazepam 2 MG/ML INJ IV PRN ×3 (00:28→21:35)
[2018-10-28] MEDS: 0.9% NACL WITH KCL 20 MEQ/L 1,000 ML IV SCH ×3 (00:28→23:02)
[2018-10-28] MEDS ORDERED: ACETAMINOPHEN TAB 325 MG TAB PO PRN (01:41)
[2018-10-28] MEDS: PANTOPRAZOLE 40 MG TABLET PO SCH ×2 (08:02→17:27)
[2018-10-28] MEDS: ALPRAZolam 0.25 MG TAB PO PRN ×2 (08:03→17:29)
[2018-10-28] MEDS: predniSONE 50 MG TAB PO SCH ×2 (08:03→21:32)
[2018-10-28] MEDS: DOCUSATE 100 MG CAP PO SCH ×2 (08:03→21:32)
[2018-10-28] MEDS: ONDANSETRON 8 MG in SODIUM CHLORIDE 0.9% 50 ML IVPB PRN (08:44)
[2018-10-28 11:07] LABS: Anisocytosis Slight; Basophils % (A) 0 %; Eosinophils # (A) 0.2 k/uL (0-0.7); Eosinophils % (A) 1 %; HCT 36.6 % (39.0-53.0); HGB 11.8 gm/dL (13.0-17.5); Lymphocytes # (A) 0.3 k/uL (1.0-4.8); Lymphocytes % (A) 2 %; MCH 28.5 pg (25.0-35.0); MCHC 32.3 g/dL (31.0-37.0); MCV 88.3 fL (80.0-100.0); Mean Platelet Volume 7.1; Monocytes # (A) 0.6 k/uL (0-1.0); Monocytes % (A) 3 %; Neutrophils # (A) 20.8 k/uL (1.3-7.7); Neutrophils % (A) 95 %; Platelet Count 220 k/uL (150-450); RBC 4.15 m/uL (4.30-5.90); RDW 17.9 % (11.5-15.5)
[2018-10-28 11:17] LABS: ALT 37 U/L (21-72); AST 21 U/L (17-59); Albumin 3.5 g/dL (3.5-5.0); Alkaline Phosphatase 31 U/L (38-126); Anion Gap 6 mmol/L; Blood Urea Nitrogen 10 mg/dL (9-20); Calcium 8.7 mg/dL (8.4-10.2); Carbon Dioxide 24 mmol/L (22-30); Chloride 111 mmol/L (98-107); Glucose 112 mg/dL (74-99); Sodium 141 mmol/L (137-145); Total Bilirubin 0.5 mg/dL (0.2-1.3); Total Protein 5.8 g/dL (6.3-8.2)
--- NOTE | 2018-10-28 11:22 | P.PN ---
Subjective Progress Note Date: 10/28/18 Principal diagnosis: NHL - In for timed chemotherapy Day 3 complaints of nausea but no emesis. Objective - Vital Signs Vital signs: Vital Signs Temp 97.8 F 10/28/18 08:00 Pulse 84 10/28/18 08:00 Resp 18 10/28/18 08:00 BP 132/86 10/28/18 08:00 Pulse Ox 94 L 10/28/18 08:00 Intake & Output 10/27/18 10/28/18 10/28/18 18:59 06:59 18:59 Intake Total 1072.0 640 Balance 1072.0 640 Weight 85 kg Intake: Intake, IV Titration 1072.0 Amount 0.9% NaCl with KCl 20 Meq 750 /l 1,000 ml @ 100 mls/hr IV .Q10H [facility] Rx#: [id number] DOXOrubicin HCL 20 mg In 86.4 Sodium Chloride 0.9% 250 ml @ 10.833 mls/hr IV Q24H [facility] Rx#:[id number] Etoposide 100 mg In 168 Sodium Chloride 0.9% ( Dehp [place] 500 ml @ 21.042 mls/hr IV Q24H [facility] Rx#: [id number] Ondansetron 8 mg In 50 Sodium Chloride 0.9% 50 ml @ 100 mls/hr IVPB BID PRN Rx#:[id number] vinCRIStine SULFATE 0.8 17.6 mg In Sodium Chloride 0.9 % 50 ml @ 2.117 mls/hr IV Q24H [facility] Rx#:[id number] Oral 640 Other: Voiding Method Toilet Toilet Toilet # Voids 2 - Exam - Constitutional General appearance: average body habitus, cooperative, no acute distress - EENT Eyes: anicteric sclerae, EOMI, normal appearance ENT: normal oropharynx - Neck Neck: no lymphadenopathy - Respiratory Respiratory: bilateral: CTA - Cardiovascular Rhythm: regular Heart sounds: normal: S1, S2 Abnormal Heart Sounds: no systolic murmur, no diastolic murmur, no rub, no S3 Gallop, no S4 Gallop, no click, no other leg Peripheral Edema: bilateral: None - Gastrointestinal General gastrointestinal: no absent bowel sounds, no decreased bowel sounds, no distended, no hepatomegaly, no hyperactive bowel sounds, normal bowel sounds, no organomegaly, no rigid, no scaphoid, soft, no splenomegaly, no tenderness, no umbilical hernia, no ventral hernia - Integumentary Integumentary: normal - Neurologic Neurologic: CNII-XII intact - Musculoskeletal Musculoskeletal: strength equal bilaterally - Psychiatric Psychiatric: A&O x's 3, appropriate affect, intact judgment & insight - Labs CBC & Chem 7: 10/28/18 10:35 10/27/18 08:50 Labs: Abnormal Lab Results - Last 24 Hours (Table) 10/28/18 Range/Units 10:35 WBC 22.0 H (3.8-10.6) k/uL RBC 4.15 L (4.30-5.90) m/uL Hgb 11.8 L (13.0-17.5) gm/dL Hct 36.6 L (39.0-53.0) % RDW 17.9 H (11.5-15.5) % Neutrophils # 20.8 H (1.3-7.7) k/uL Lymphocytes # 0.3 L (1.0-4.8) k/uL Assessment and Plan Plan: Assessment and Plan (1) Diffuse large B cell lymphoma Narrative/Plan: - Continue Day 3 R-EPOCH - Supportive meds ordered - Potassium added to IVF as pt becomes hypokalemic as he progresses through treatment, monitor magnesium as well Emend added to antiemetic regimen Current Visit: Yes Status: Acute Priority: High Code(s): C83.30 - DIFFUSE LARGE B-CELL LYMPHOMA, UNSPECIFIED SITE SNOMED Code(s): 228076887 (2) Anxiety about health Narrative/Plan: - Cont xanax ATC while inpatient - PRN Ativan if cannot take PO Xanax Current Visit: Yes Status: Acute Priority: High Code(s): F41.8 - OTHER SPECIFIED ANXIETY DISORDERS SNOMED Code(s): 387243252 (3) Constipation Narrative/Plan: - Meds ordered for prevention and acute treatment of constipation - Currently stable - BM today Current Visit: Yes Status: Chronic Priority: Medium Code(s): K59.00 - CONSTIPATION, UNSPECIFIED SNOMED Code(s): 59091274 (4) Persistent Nausea and vomiting with Chemotherapy, High Anticipatory Nausea effects - Emend added this cycle - Monitr closely, and continue with plan extra hydration prior to discharge and IV hydration with neulasta Awaiting electrolytes from today Leukocytosis related to steroids.
[2018-10-28 12:47] LABS: Magnesium 2.1 mg/dL (1.6-2.3); Phosphorus 3.1 mg/dL (2.5-4.5)
[2018-10-28] MEDS: ENOXAPARIN 40 MG/0.4 ML SYRINGE SQ SCH (18:06)
[2018-10-28] MEDS: FAMOTIDINE 20 MG/2 ML VIAL IV SCH (19:35)
[2018-10-28] MEDS: ONDANSETRON 16 MG in SODIUM CHLORIDE 0.9% 50 ML IVPB SCH (19:35)
[2018-10-28] MEDS: VINCRISTINE SULFATE IV SCH (20:31)
[2018-10-28] MEDS: SODIUM CHLORIDE 0.9% IV SCH ×3 (20:31→20:35)
[2018-10-28] MEDS: DOXORUBICIN HCL IV SCH (20:32)
[2018-10-28] MEDS: ETOPOSIDE IV SCH (20:35)
[2018-10-29] MEDS: SALT AND SODA MOUTHWASH 1,000 ML PO SCH ×4 (00:56→17:00)
[2018-10-29] MEDS: ONDANSETRON 8 MG in SODIUM CHLORIDE 0.9% 50 ML IVPB PRN ×2 (02:55→15:53)
[2018-10-29 07:54] LABS: Anisocytosis Slight; Basophils % (A) 0 %; Eosinophils % (A) 0 %; HCT 34.3 % (39.0-53.0); HGB 11.4 gm/dL (13.0-17.5); Lymphocytes # (A) 0.2 k/uL (1.0-4.8); Lymphocytes % (A) 2 %; MCH 28.9 pg (25.0-35.0); MCHC 33.3 g/dL (31.0-37.0); MCV 86.8 fL (80.0-100.0); Mean Platelet Volume 7.8; Monocytes # (A) 0.4 k/uL (0-1.0); Monocytes % (A) 4 %; Neutrophils # (A) 11.1 k/uL (1.3-7.7); Neutrophils % (A) 94 %; Platelet Count 172 k/uL (150-450); RBC 3.95 m/uL (4.30-5.90); WBC 11.7 k/uL (3.8-10.6)
[2018-10-29 08:02] LABS: ALT 30 U/L (21-72); AST 18 U/L (17-59); Albumin 3.1 g/dL (3.5-5.0); Alkaline Phosphatase 26 U/L (38-126); Anion Gap 6 mmol/L; Blood Urea Nitrogen 10 mg/dL (9-20); Calcium 8.4 mg/dL (8.4-10.2); Carbon Dioxide 25 mmol/L (22-30); Chloride 109 mmol/L (98-107); Glucose 123 mg/dL (74-99); Magnesium 2.2 mg/dL (1.6-2.3); Phosphorus 4.1 mg/dL (2.5-4.5); Potassium 4.1 mmol/L (3.5-5.1); Sodium 140 mmol/L (137-145); Total Bilirubin 0.6 mg/dL (0.2-1.3); Total Protein 5.4 g/dL (6.3-8.2)
[2018-10-29] MEDS: LORazepam 2 MG/ML INJ IV PRN ×3 (08:21→21:51)
[2018-10-29] MEDS: PANTOPRAZOLE 40 MG TABLET PO SCH ×2 (08:22→15:53)
[2018-10-29] MEDS: DOCUSATE 100 MG CAP PO SCH ×2 (08:22→21:46)
[2018-10-29] MEDS: predniSONE 50 MG TAB PO SCH ×2 (08:22→21:45)
[2018-10-29] MEDS: ENOXAPARIN 40 MG/0.4 ML SYRINGE SQ SCH (08:23)
[2018-10-29] MEDS: 0.9% NACL WITH KCL 20 MEQ/L 1,000 ML IV SCH ×2 (09:14→19:19)
[2018-10-29] MEDS: ALPRAZolam 0.25 MG TAB PO PRN ×2 (10:22→17:00)
--- NOTE | 2018-10-29 19:36 | P.PN ---
Subjective Progress Note Date: 10/29/18 Principal diagnosis: NHL - In for timed chemotherapy Day 4 Still with nausea and lethargic although no emesis or constipation this cycle. COntinue on Day 4 Objective - Vital Signs Vital signs: Vital Signs Temp 98.9 F 10/29/18 12:35 Pulse 65 10/29/18 12:35 Resp 16 10/29/18 12:35 BP 119/76 10/29/18 12:35 Pulse Ox 98 10/29/18 12:35 Intake & Output 10/28/18 10/29/18 10/29/18 18:59 06:59 18:59 Intake Total 1121.2 Balance 1121.2 Intake: Intake, IV Titration 1121.2 Amount 0.9% NaCl with KCl 20 Meq 800 /l 1,000 ml @ 100 mls/hr IV .Q10H [facility] Rx#: [id number] DOXOrubicin HCL 20 mg In 86.4 Sodium Chloride 0.9% 250 ml @ 10.833 mls/hr IV Q24H [facility] Rx#:[id number] Etoposide 100 mg In 168 Sodium Chloride 0.9% ( Dehp [place] 500 ml @ 21.042 mls/hr IV Q24H [facility] Rx#: [id number] Ondansetron 8 mg In 50 Sodium Chloride 0.9% 50 ml @ 100 mls/hr IVPB BID PRN Rx#:[id number] vinCRIStine SULFATE 0.8 16.8 mg In Sodium Chloride 0.9 % 50 ml @ 2.117 mls/hr IV Q24H [facility] Rx#:[id number] Other: Voiding Method Toilet Toilet Toilet # Voids 1 - Exam - Constitutional General appearance: average body habitus, cooperative, no acute distress - EENT Eyes: anicteric sclerae, EOMI, normal appearance ENT: normal oropharynx - Neck Neck: no lymphadenopathy - Respiratory Respiratory: bilateral: CTA - Cardiovascular Rhythm: regular Heart sounds: normal: S1, S2 Abnormal Heart Sounds: no systolic murmur, no diastolic murmur, no rub, no S3 Gallop, no S4 Gallop, no click, no other leg Peripheral Edema: bilateral: None - Gastrointestinal General gastrointestinal: no absent bowel sounds, no decreased bowel sounds, no distended, no hepatomegaly, no hyperactive bowel sounds, normal bowel sounds, no organomegaly, no rigid, no scaphoid, soft, no splenomegaly, no tenderness, no umbilical hernia, no ventral hernia - Integumentary Integumentary: normal - Neurologic Neurologic: CNII-XII intact - Musculoskeletal Musculoskeletal: strength equal bilaterally - Psychiatric Psychiatric: A&O x's 3, appropriate affect, intact judgment & insight - Labs CBC & Chem 7: 10/29/18 07:38 10/29/18 07:38 Labs: Abnormal Lab Results - Last 24 Hours (Table) 10/29/18 10/29/18 Range/Units 07:38 07:38 WBC 11.7 H (3.8-10.6) k/uL RBC 3.95 L (4.30-5.90) m/uL Hgb 11.4 L (13.0-17.5) gm/dL Hct 34.3 L (39.0-53.0) % RDW 17.0 H (11.5-15.5) % Neutrophils # 11.1 H (1.3-7.7) k/uL Lymphocytes # 0.2 L (1.0-4.8) k/uL Chloride 109 H (98-107) mmol/L Glucose 123 H (74-99) mg/dL Alkaline Phosphatase 26 L (38-126) U/L Total Protein 5.4 L (6.3-8.2) g/dL Albumin 3.1 L (3.5-5.0) g/dL Assessment and Plan Plan: Assessment and Plan (1) Diffuse large B cell lymphoma Narrative/Plan: - Continue Day 3 R-EPOCH - Supportive meds ordered - Potassium added to IVF as pt becomes hypokalemic as he progresses through treatment, monitor magnesium as well Emend added to antiemetic regimen - Echocardiogram to re-evaluate EF on Chemotherapy Current Visit: Yes Status: Acute Priority: High Code(s): C83.30 - DIFFUSE LARGE B-CELL LYMPHOMA, UNSPECIFIED SITE SNOMED Code(s): 696963164 (2) Anxiety about health Narrative/Plan: - Cont xanax ATC while inpatient - PRN Ativan if cannot take PO Xanax Current Visit: Yes Status: Acute Priority: High Code(s): F41.8 - OTHER SPECIFIED ANXIETY DISORDERS SNOMED Code(s): 216885410 (3) Constipation Narrative/Plan: - Meds ordered for prevention and acute treatment of constipation - Currently stable - BM today Current Visit: Yes Status: Chronic Priority: Medium Code(s): K59.00 - CONSTIPATION, UNSPECIFIED SNOMED Code(s): 43064434 (4) Persistent Nausea and vomiting with Chemotherapy, High Anticipatory Nausea effects - Emend added this cycle - Monitr closely, and continue with plan extra hydration prior to discharge and IV hydration with neulasta - No VOmiting and nausea relatively controlled this cycle compared to previous cycles improved Leukocytosis related to steroids. Encourage patient to get up and ambulate halls and in chair out of bed while inpatient Physician Attestation: I have completed the full history and physical of this patient and agree with above dictation by Delicia Fuentes NP Dictated as a scribe
[2018-10-29] MEDS: ONDANSETRON 16 MG in SODIUM CHLORIDE 0.9% 50 ML IVPB SCH (20:33)
[2018-10-29] MEDS: FAMOTIDINE 20 MG/2 ML VIAL IV SCH (21:45)
[2018-10-29] MEDS: SODIUM CHLORIDE 0.9% IV SCH ×3 (22:18→22:19)
[2018-10-29] MEDS: DOXORUBICIN HCL IV SCH (22:18)
[2018-10-29] MEDS: VINCRISTINE SULFATE IV SCH (22:18)
[2018-10-29] MEDS: ETOPOSIDE IV SCH (22:19)
[2018-10-30] MEDS: SALT AND SODA MOUTHWASH 1,000 ML PO SCH ×7 (01:12→23:28)
[2018-10-30] MEDS: ALPRAZolam 0.25 MG TAB PO PRN ×3 (01:47→19:57)
[2018-10-30] MEDS: ONDANSETRON 8 MG in SODIUM CHLORIDE 0.9% 50 ML IVPB PRN ×2 (02:19→15:12)
[2018-10-30] MEDS: 0.9% NACL WITH KCL 20 MEQ/L 1,000 ML IV SCH ×2 (07:40→16:26)
[2018-10-30] MEDS: DOCUSATE 100 MG CAP PO SCH ×2 (07:41→20:01)
[2018-10-30] MEDS: PANTOPRAZOLE 40 MG TABLET PO SCH ×2 (07:41→16:27)
[2018-10-30] MEDS: ENOXAPARIN 40 MG/0.4 ML SYRINGE SQ SCH (07:41)
[2018-10-30] MEDS: predniSONE 50 MG TAB PO SCH ×2 (07:41→20:01)
[2018-10-30] MEDS: LORazepam 2 MG/ML INJ IV PRN ×3 (07:41→23:28)
[2018-10-30 08:27] LABS: Anisocytosis Slight; Basophils % (A) 0 %; Eosinophils % (A) 0 %; HCT 33.2 % (39.0-53.0); HGB 11.5 gm/dL (13.0-17.5); Lymphocytes # (A) 0.2 k/uL (1.0-4.8); Lymphocytes % (A) 2 %; MCH 29.8 pg (25.0-35.0); MCHC 34.7 g/dL (31.0-37.0); MCV 85.9 fL (80.0-100.0); Mean Platelet Volume 7.6; Monocytes # (A) 0.2 k/uL (0-1.0); Monocytes % (A) 3 %; Neutrophils # (A) 5.8 k/uL (1.3-7.7); Neutrophils % (A) 94 %; Platelet Count 167 k/uL (150-450); RBC 3.87 m/uL (4.30-5.90); RDW 16.7 % (11.5-15.5); WBC 6.2 k/uL (3.8-10.6)
[2018-10-30 08:33] LABS: ALT 32 U/L (21-72); AST 16 U/L (17-59); Albumin 3.1 g/dL (3.5-5.0); Alkaline Phosphatase 23 U/L (38-126); Anion Gap 6 mmol/L; Blood Urea Nitrogen 11 mg/dL (9-20); Calcium 8.2 mg/dL (8.4-10.2); Carbon Dioxide 26 mmol/L (22-30); Chloride 107 mmol/L (98-107); Glucose 103 mg/dL (74-99); Magnesium 2.2 mg/dL (1.6-2.3); Sodium 139 mmol/L (137-145); Total Bilirubin 0.8 mg/dL (0.2-1.3); Total Protein 5.3 g/dL (6.3-8.2)
--- NOTE | 2018-10-30 14:24 | P.PN ---
Subjective Progress Note Date: 10/30/18 Principal diagnosis: NHL - In for timed chemotherapy Day 5 Still with nausea and lethargic although no emesis or constipation this cycle. He benefits from IV Hydration as outpatient in office although with this being a holiday week unable to obtain chair for hydration and further antiemetics. may hold discharge if he wishes to obtain fluids through Wednesday to Wednesday am. Objective - Vital Signs Vital signs: Vital Signs Temp 98.1 F 10/30/18 12:00 Pulse 83 10/30/18 12:00 Resp 18 10/30/18 12:00 BP 129/84 10/30/18 12:00 Pulse Ox 94 L 10/30/18 12:00 Intake & Output 10/29/18 10/30/18 10/30/18 18:59 06:59 18:59 Intake Total 1074 1071.44 Balance 1074 1071.44 Weight 85 kg Intake: Intake, IV Titration 1074 1071.44 Amount 0.9% NaCl with KCl 20 Meq 800 800 /l 1,000 ml @ 100 mls/hr IV .Q10H [facility] Rx#: [id number] DOXOrubicin HCL 20 mg In 90 86.64 Sodium Chloride 0.9% 250 ml @ 10.833 mls/hr IV Q24H [facility] Rx#:[id number] Etoposide 100 mg In 168 168 Sodium Chloride 0.9% ( Dehp Santiago 500 ml @ 21.042 mls/hr IV Q24H [facility] Rx#: [id number] vinCRIStine SULFATE 0.8 16 16.8 mg In Sodium Chloride 0.9 % 50 ml @ 2.117 mls/hr IV Q24H [facility] Rx#:[id number] Other: Voiding Method Toilet Toilet Toilet # Voids 2 - Exam - Constitutional General appearance: average body habitus, cooperative, no acute distress - EENT Eyes: anicteric sclerae, EOMI, normal appearance ENT: normal oropharynx + thrush - Neck Neck: no lymphadenopathy - Respiratory Respiratory: bilateral: CTA - Cardiovascular Rhythm: regular Heart sounds: normal: S1, S2 Abnormal Heart Sounds: no systolic murmur, no diastolic murmur, no rub, no S3 Gallop, no S4 Gallop, no click, no other leg Peripheral Edema: bilateral: None - Gastrointestinal General gastrointestinal: no absent bowel sounds, no decreased bowel sounds, no distended, no hepatomegaly, no hyperactive bowel sounds, normal bowel sounds, no organomegaly, no rigid, no scaphoid, soft, no splenomegaly, no tenderness, no umbilical hernia, no ventral hernia - Integumentary Integumentary: normal - Neurologic Neurologic: CNII-XII intact - Musculoskeletal Musculoskeletal: strength equal bilaterally - Psychiatric Psychiatric: A&O x's 3, appropriate affect, intact judgment & insight - Labs CBC & Chem 7: 10/30/18 07:00 10/30/18 07:00 Labs: Abnormal Lab Results - Last 24 Hours (Table) 10/30/18 10/30/18 Range/Units 07:00 07:00 RBC 3.87 L (4.30-5.90) m/uL Hgb 11.5 L (13.0-17.5) gm/dL Hct 33.2 L (39.0-53.0) % RDW 16.7 H (11.5-15.5) % Lymphocytes # 0.2 L (1.0-4.8) k/uL Glucose 103 H (74-99) mg/dL Calcium 8.2 L (8.4-10.2) mg/dL AST 16 L (17-59) U/L Alkaline Phosphatase 23 L (38-126) U/L Total Protein 5.3 L (6.3-8.2) g/dL Albumin 3.1 L (3.5-5.0) g/dL Assessment and Plan Plan: Assessment and Plan (1) Diffuse large B cell lymphoma Narrative/Plan: - Continue Day 3 R-EPOCH - Supportive meds ordered - Potassium added to IVF as pt becomes hypokalemic as he progresses through treatment, monitor magnesium as well Emend added to antiemetic regimen - Echocardiogram to re-evaluate EF on Chemotherapy Current Visit: Yes Status: Acute Priority: High Code(s): C83.30 - DIFFUSE LARGE B-CELL LYMPHOMA, UNSPECIFIED SITE SNOMED Code(s): 819582348 (2) Anxiety about health Narrative/Plan: - Cont xanax ATC while inpatient - PRN Ativan if cannot take PO Xanax Current Visit: Yes Status: Acute Priority: High Code(s): F41.8 - OTHER SPECIFIED ANXIETY DISORDERS SNOMED Code(s): 465645454 (3) Constipation Narrative/Plan: - Meds ordered for prevention and acute treatment of constipation - Currently stable - BM today Current Visit: Yes Status: Chronic Priority: Medium Code(s): K59.00 - CONSTIPATION, UNSPECIFIED SNOMED Code(s): 55465882 (4) Persistent Nausea and vomiting with Chemotherapy, High Anticipatory Nausea effects - Emend added this cycle - Monitr closely, and continue with plan extra hydration prior to discharge and IV hydration with neulasta - No VOmiting and nausea relatively controlled this cycle compared to previous cycles improved Leukocytosis related to steroids. Encourage patient to get up and ambulate halls and in chair out of bed while inpatient Echocardiogram Wednesday or will provide script after discharge Unable to provide a scheduled IV Hydration on same day as neulasta (Wednesday), therefore will provide him option of further hydration and antiemetics through wednesday and discharge Wednesday morning. If he feels ok and stable, Wednesday after chemotherapy hydration and antiemetics, he may be discharged Plan: - 2 Liters IV Hydration after chemo ends - Replace any Electrolytes - Discharge in am after above - Add nystatin thrush
[2018-10-30] MEDS: NYSTATIN 100,000 UNIT/ML SUSP 500,000 UNIT/5 ML CUP PO SCH ×2 (17:48→21:29)
[2018-10-30] MEDS ORDERED: CYCLOPHOSPHAMIDE IV ONE (21:00)
[2018-10-30] MEDS ORDERED: SODIUM CHLORIDE 0.9% IV ONE (21:00)
[2018-10-30 21:23] VITALS: TEMP 97.4
[2018-10-30] MEDS: FAMOTIDINE 20 MG/2 ML VIAL IV SCH (21:29)
[2018-10-30] MEDS: ONDANSETRON 16 MG in SODIUM CHLORIDE 0.9% 50 ML IVPB SCH (21:29)
[2018-10-31] MEDS: SODIUM CHLORIDE 0.9% 1,000 ML IV SCH ×2 (02:09→05:44)
[2018-10-31] MEDS: 0.9% NACL WITH KCL 20 MEQ/L 1,000 ML IV SCH ×2 (02:10→08:23)
[2018-10-31 05:18] VITALS: BP 119/77; PULSE 78; RESP 18
[2018-10-31] MEDS: LORazepam 2 MG/ML INJ IV PRN (05:44)
[2018-10-31] MEDS: SALT AND SODA MOUTHWASH 1,000 ML PO SCH (05:44)
[2018-10-31 07:52] LABS: Anisocytosis Slight; Basophils % (A) 0 %; Eosinophils % (A) 1 %; HCT 33.3 % (39.0-53.0); HGB 11.5 gm/dL (13.0-17.5); Lymphocytes # (A) 0.2 k/uL (1.0-4.8); Lymphocytes % (A) 4 %; MCH 29.3 pg (25.0-35.0); MCHC 34.5 g/dL (31.0-37.0); Mean Platelet Volume 7.3; Monocytes # (A) 0.1 k/uL (0-1.0); Monocytes % (A) 3 %; Neutrophils # (A) 3.9 k/uL (1.3-7.7); Neutrophils % (A) 92 %; Platelet Count 165 k/uL (150-450); RBC 3.92 m/uL (4.30-5.90); RDW 16.2 % (11.5-15.5); WBC 4.2 k/uL (3.8-10.6)
[2018-10-31 08:22] LABS: ALT 26 U/L (21-72); AST 15 U/L (17-59); Alkaline Phosphatase 20 U/L (38-126); Anion Gap 8 mmol/L; Blood Urea Nitrogen 13 mg/dL (9-20); Calcium 8.1 mg/dL (8.4-10.2); Carbon Dioxide 24 mmol/L (22-30); Chloride 106 mmol/L (98-107); Glucose 108 mg/dL (74-99); Magnesium 2.3 mg/dL (1.6-2.3); Potassium 3.9 mmol/L (3.5-5.1); Sodium 138 mmol/L (137-145); Total Protein 5.2 g/dL (6.3-8.2)
[2018-10-31] MEDS: PANTOPRAZOLE 40 MG TABLET PO SCH (08:37)
[2018-10-31] MEDS: DOCUSATE 100 MG CAP PO SCH (08:37)
[2018-10-31] MEDS: ENOXAPARIN 40 MG/0.4 ML SYRINGE SQ SCH (08:37)
[2018-10-31] MEDS: NYSTATIN 100,000 UNIT/ML SUSP 500,000 UNIT/5 ML CUP PO SCH (08:37)
--- NOTE | 2018-10-31 14:36 | P.DS ---
Providers Date of admission: 10/26/18 08:19 Expected date of discharge: 10/31/18 Attending physician: Arnie Olson Consults: Medical Management Primary care physician: Stated None Hospital Course: Timed Chemotherapy with cycle 5 of R-EPOCH Pertinent Studies: Blood counts monitored and vitals stable Procedures: Echocardiogram to evaluate EF during treatment Patient Condition at Discharge: Good Plan - Discharge Summary New Discharge Prescriptions: New Docusate [Colace] 100 mg PO BID cap Nystatin 100,000 Unit/ml Susp [Mycostatin Oral Susp] 500,000 unit PO QID cup Continue Acetaminophen Tab [Tylenol] 1,000 mg PO Q6H PRN PRN Reason: Headache Pantoprazole [Protonix] 40 mg PO DAILY Discharge Medication List Acetaminophen Tab [Tylenol] 1,000 mg PO Q6H PRN 10/05/18 [History] Pantoprazole [Protonix] 40 mg PO DAILY 10/26/18 [History] Docusate [Colace] 100 mg PO BID cap 10/30/18 [Rx] Nystatin 100,000 Unit/ml Susp [Mycostatin Oral Susp] 500,000 unit PO QID cup [Rx] Follow up Appointment(s)/Referral(s): Arnie Olson MD [STAFF PHYSICIAN] - 11/02/18 (Office closed at time of discharge. Message left with Dr. Kearney office to call patient with appt. time for Wednesday. ) Patient Instructions/Handouts: Nystatin (By mouth), Non-Hodgkin Lymphoma (DC), Intravenous Chemotherapy (DC) Activity/Diet/Wound Care/Special Instructions: Normal Diet Discharge Disposition: HOME SELF-CARE
--- NOTE | 2018-10-31 15:00 | ECHOF ---
Referral Reason:Wednesday Morning if poss evaluate EF on Chemo MEASUREMENTS -------- HEIGHT: 175.3 cm WEIGHT: 81.7 kg BP: IVSd: 1.4 cm (0.6 - 1.1) LVIDd: 4.7 cm (3.9 - 5.3) LVPWd: 1.2 cm (0.6 - 1.1) IVSs: 1.7 cm LVIDs: 3.5 cm LVPWs: 1.9 cm LA Diam: 4.1 cm (2.7 - 3.8) RVIDd: 3.3 cm (< 3.3) LAESV Index (A-L): 29.45 ml/m Ao Diam: 3.9 cm (2.0 - 3.7) LA Diam: 3.4 cm (2.7 - 3.8) AV Cusp: 1.4 cm (1.5 - 2.6) EPSS: 1.2 cm MV E Corky: 0.57 m/s MV DecT: 219 ms MV A Corky: 0.69 m/s MV E/A Ratio: 0.83 RAP: 5.00 mmHg RVSP: 27.81 mmHg MV EF SLOPE: 98.45 mm/s (70 - 150) MV EXCURSION: 21.08 mm (> 18.000) FINDINGS -------- Sinus rhythm. This was a technically good study. LV size, wall thickness and systolic function are normal, with an EF greater than 55%. The left ariadna tricular size is normal. The right ventricle is normal in size. The left atrial size is normal. LA is midly dilated 29-33ml/m2. The right atrial size is normal. The aortic valve is trileaflet, and appears structurally normal. No aortic stenosis or regurgitation. Mild mitral regurgitation is present. Mild tricuspid regurgitation present. There is no evidence of pulmonary hypertension. The right v entricular systolic pressure, as measured by Doppler, is 27.81mmHg. There is no pulmonic regurgitation present. The aortic root size is normal. There is no pericardial effusion. CONCLUSIONS -------- 1. LV size, wall thickness and systolic function are normal, with an EF greater than 55%. 2. The left ventricular size is normal. 3. The right ventricle is normal in size. 4. The left atrial size is normal. 5. LA is midly dilated 29-33ml/m2. 6. The right atrial size is normal. 7. The aortic valve is trileaflet, and appears structurally normal. No aortic stenosis or regurgitati on. 8. Mild mitral regurgitation is present. 9. Mild tricuspid regurgitation present. 10. There is no evidence of pulmonary hypertension. 11. The right ventricular systolic pressure, as measured by Doppler, is 27.81mmHg. 12. There is no pulmonic regurgitation present. 13. The aortic root size is normal. 14. There is no pericardial effusion. LAMINATOR: Oriana Leon RDCS
== END 2018-10-31 09:45 | disposition home or self-care (01) | DRG 847 ==
LOC: 3NMEDONC 08:19
PROVIDERS: ADMIT Internal Medicine Hematology & Oncology; ATTEND Internal Medicine Hematology & Oncology
DX: Z51.11 Encounter for antineoplastic chemotherapy (principal); C83.30 Diffuse large B-cell lymphoma, unspecified site; K59.00 Constipation, unspecified; F41.9 Anxiety disorder, unspecified; D86.9 Sarcoidosis, unspecified; I48.91 Unspecified atrial fibrillation; T38.0X5A Adverse effect of glucocorticoids and synthetic analogues, initial encounter; D72.829 Elevated white blood cell count, unspecified; Z80.8 Family history of malignant neoplasm of other organs or systems; Z79.899 Other long term (current) drug therapy
CPT/HCPCS: 80053; 83735; 84100; 84550; 85025; 93306

== ENCOUNTER 2018-11-11 15:23 | Inpatient (IN) | payer BC ==
[2018-11-16 08:50] LABS: Anisocytosis Slight; Basophils # (A) 0.1 k/uL (0-0.2); Basophils % (A) 1 %; Eosinophils % (A) 1 %; HCT 38.2 % (39.0-53.0); HGB 12.3 gm/dL (13.0-17.5); Lymphocytes # (A) 0.6 k/uL (1.0-4.8); Lymphocytes % (A) 6 %; MCH 28.6 pg (25.0-35.0); MCHC 32.1 g/dL (31.0-37.0); Mean Platelet Volume 8.1; Monocytes # (A) 0.7 k/uL (0-1.0); Monocytes % (A) 8 %; Neutrophils # (A) 7.2 k/uL (1.3-7.7); Neutrophils % (A) 82 %; Platelet Count 170 k/uL (150-450); Poikilocytosis Slight; RBC 4.29 m/uL (4.30-5.90); WBC 8.8 k/uL (3.8-10.6)
[2018-11-16] MEDS ORDERED: ONDANSETRON 8 MG in SODIUM CHLORIDE 0.9% 50 ML IVPB PRN (09:00)
[2018-11-16] MEDS ORDERED: methylPREDNISolone SOD SUCCI 125 MG/2 ML VIAL IV ONE (09:00)
[2018-11-16] MEDS ORDERED: APREPITANT 130 MG/18 ML VIAL IV ONE (09:00)
[2018-11-16] MEDS ORDERED: diphenhydrAMINE 50 MG/ML 1 ML VIAL IVP ONE (09:00)
[2018-11-16] MEDS ORDERED: ACETAMINOPHEN TAB 325 MG TAB PO ONE (09:00)
[2018-11-16 09:04] LABS: ALT 44 U/L (21-72); AST 22 U/L (17-59); Albumin 3.9 g/dL (3.5-5.0); Alkaline Phosphatase 66 U/L (38-126); Anion Gap 6 mmol/L; Blood Urea Nitrogen 13 mg/dL (9-20); Carbon Dioxide 25 mmol/L (22-30); Chloride 110 mmol/L (98-107); Glucose 104 mg/dL (74-99); Potassium 4.4 mmol/L (3.5-5.1); Sodium 141 mmol/L (137-145); Total Bilirubin 0.4 mg/dL (0.2-1.3)
[2018-11-16] MEDS ORDERED: LORazepam 2 MG/ML INJ IV PRN (10:37)
[2018-11-16] MEDS ORDERED: SODIUM CHLORIDE 0.9% 1,000 ML with POTASSIUM CHLORIDE 20 MEQ IV SCH ×2 (11:00)
[2018-11-16 11:30] LABS: Uric Acid 7.7 mg/dL (3.5-8.5)
[2018-11-16] MEDS ORDERED: riTUXimab 800 MG in SODIUM CHLORIDE 0.9% 500 ML 500 ML IV NR (12:00)
[2018-11-16] MEDS: LORazepam 2 MG/ML INJ IV SCH ×3 (12:23→18:19)
[2018-11-16] MEDS: 0.9% NACL WITH KCL 20 MEQ/L 1,000 ML IV SCH (12:27)
[2018-11-16] MEDS: predniSONE 50 MG TAB PO SCH ×2 (12:29→20:06)
[2018-11-16] MEDS: FAMOTIDINE 20 MG/2 ML VIAL IV SCH (12:30)
[2018-11-16] MEDS: SODIUM CHLORIDE 0.9% 1,000 ML IV SCH ×2 (12:30→17:22)
[2018-11-16] MEDS: ALPRAZolam 0.5 MG TAB PO PRN (12:30)
[2018-11-16] MEDS: PROCHLORPERAZINE 10 MG TAB PO SCH ×2 (12:31→17:21)
[2018-11-16] MEDS: ONDANSETRON 4 MG/2 ML VIAL IVP SCH ×2 (12:31→17:30)
[2018-11-16] MEDS: METOCLOPRAMIDE 5 MG/ML 2 ML VIAL IVP SCH ×2 (12:31→17:21)
[2018-11-16] MEDS: PANTOPRAZOLE 40 MG/10 ML VIAL IVP SCH ×2 (12:36→20:06)
[2018-11-16] MEDS: ONDANSETRON 16 MG in SODIUM CHLORIDE 0.9% 50 ML IVPB SCH (13:11)
--- NOTE | 2018-11-16 16:38 | P.HPIM ---
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 History of Any Multi-Drug Resistant Organisms: None Reported Past Surgical History: Bowel Resection, Tonsillectomy Additional Past Surgical History / Comment(s): CAT SCAN GUIDED L ADRENAL GLAND BIOPSY/CORE BIOPSY, MEDIPORT INSERTION rt side chest , 06/21/18 BOWEL RESECTION D/T BOWEL PERFORATION, MEDIATINOSCOPY WITH LYMPH NODE BIOPSY. Past Anesthesia/Blood Transfusion Reactions: No Reported Reaction Smoking Status: Never smoker - Past Family History Father Additional Family Medical History / Comment(s): Father of liver disease at the age of 75yrs. Mother Family Medical History: Cancer, Renal Disease Additional Family Medical History / Comment(s): Mother had skin CA, kidney disease. Mother is 87yrs old. Medications and Allergies Home Medications Medication Instructions Recorded Confirmed Type Acetaminophen Tab [Tylenol] 1,000 mg PO Q6H PRN 10/05/18 11/16/18 History Pantoprazole [Protonix] 40 mg PO DAILY 10/26/18 11/16/18 History Docusate [Colace] 100 mg PO BID cap 10/30/18 11/16/18 Rx Nystatin 100,000 Unit/ml Susp 500,000 unit PO QID cup 10/30/18 11/16/18 Rx [Mycostatin Oral Susp] Allergies Allergy/AdvReac Type Severity Reaction Status Date / Time No Known Allergies Allergy Verified 11/16/18 09:36 Physical Exam Vitals: Vital Signs Temp Pulse Pulse Resp BP Pulse Ox 11/16/18 12:00 97.4 F L 86 16 114/85 94 L 11/16/18 08:30 97.4 F L 92 20 125/75 97 Intake and Output 11/16/18 11/16/18 11/16/18 06:59 14:59 22:59 Intake Total 350 230.4 Balance 350 230.4 Intake: Intake, IV Titration 350 230.4 Amount 0.9% NaCl with KCl 20 Meq 300 /l 1,000 ml @ 100 mls/hr IV .Q10H [facility] Rx#: [id number] Ondansetron 16 mg In 50 Sodium Chloride 0.9% 50 ml @ 100 mls/hr IVPB Q24H [facility] Rx#:[id number] riTUXimab 800 mg In 230.4 Sodium Chloride 0.9% 500 ml 500 ml @ Titrate IV . Q0M NR Rx#:[id number] Other: Voiding Method Toilet Weight 90.718 kg Gen: Alert and Oriented, NAD Head: NC, NT, Neck SUpple No Palpable Cervicle, Supraclavicular, or axillary adenopathy Lungs: CTA bilateral HEart: Tachy, Reg Abdomen Soft, ND, NT Extremity: No edema POsitive pulses Results CBC & Chem 7: 11/16/18 08:36 11/16/18 08:36 Labs: Abnormal Lab Results - Last 24 Hours (Table) 11/16/18 11/16/18 Range/Units 08:36 08:36 RBC 4.29 L (4.30-5.90) m/uL Hgb 12.3 L (13.0-17.5) gm/dL Hct 38.2 L (39.0-53.0) % RDW 18.0 H (11.5-15.5) % Lymphocytes # 0.6 L (1.0-4.8) k/uL Chloride 110 H (98-107) mmol/L Glucose 104 H (74-99) mg/dL Total Protein 6.0 L (6.3-8.2) g/dL Thrombosis Risk Factor Assmnt - DVT/VTE Prophylaxis DVT/VTE Prophylaxis: Pharmacologic Prophylaxis ordered - Choose All That Apply Any of the Below Risk Factors Present?: Yes Each Factor Represents 1 point: Age 41-60 years, Obesity (BMI >25) Other Risk Factors: Yes Each Risk Factor Represents 2 Points: Malignancy Other congenital or acquired thrombophilia - If yes, enter type in comment: No Thrombosis Risk Factor Assessment Total Risk Factor Score: 4 Thrombosis Risk Factor Assessment Level: Moderate Risk Assessment and Plan Plan: Assessment and Recommendations: 1. Large B Cell Lymphoma: - Admitted for CYcle 7 of R-EPOCH - Daily CBC, CMP - Supportive Care - Neulasta in office after completeion of chemo 2. Anticipatory Nausea and Vomiting with Previous cycles: - His last chemotherapy regimen he tolerated well in comparison to his prior chemos as we adjusted his supportive medications quit extensively - We will continue with the same ATC regimen as last visit 3. Anxiety with treatments: - Xanax atc, if vomiting utilizing ativan 4. Constipation induced with chemotherapy: - Intense Bowel regimen to begin on day one 5. Hypokalemia with previous cycles and dehydration: - IV FLuids with KCL added, monitor labs. He will stay after completion of chemotherapy and receive two liters of fluids and electrolyte check prior to discharge Encourage up out of bed Lovenox VTE prophy and protonix PPI
[2018-11-16] MEDS: ETOPOSIDE IV SCH (17:27)
[2018-11-16] MEDS: SODIUM CHLORIDE 0.9% IV SCH ×3 (17:27→17:29)
[2018-11-16] MEDS: VINCRISTINE SULFATE IV SCH (17:28)
[2018-11-16] MEDS: DOXORUBICIN HCL IV SCH (17:29)
[2018-11-16] MEDS: DRONABINOL 2.5 MG CAP PO SCH (17:30)
[2018-11-16] MEDS: SENNOSIDES-DOCUSATE SODIUM 1 EACH TAB PO SCH (20:05)
[2018-11-16] MEDS ORDERED: SENNOSIDES-DOCUSATE SODIUM 1 EACH TAB PO SCH (21:00)
[2018-11-17] MEDS: 0.9% NACL WITH KCL 20 MEQ/L 1,000 ML IV SCH ×3 (00:08→19:55)
[2018-11-17] MEDS: LORazepam 2 MG/ML INJ IV SCH ×3 (00:21→14:03)
[2018-11-17] MEDS: ONDANSETRON 4 MG/2 ML VIAL IVP SCH ×4 (00:32→18:39)
[2018-11-17] MEDS: METOCLOPRAMIDE 5 MG/ML 2 ML VIAL IVP SCH ×3 (03:19→13:55)
[2018-11-17] MEDS: PROCHLORPERAZINE 10 MG TAB PO SCH ×3 (03:19→13:58)
[2018-11-17 07:21] LABS: Anisocytosis Slight; Basophils % (A) 0 %; Eosinophils % (A) 0 %; HCT 36.7 % (39.0-53.0); HGB 11.7 gm/dL (13.0-17.5); Lymphocytes # (A) 0.4 k/uL (1.0-4.8); Lymphocytes % (A) 2 %; MCHC 31.9 g/dL (31.0-37.0); MCV 91.1 fL (80.0-100.0); Monocytes # (A) 0.3 k/uL (0-1.0); Monocytes % (A) 1 %; Neutrophils # (A) 16.4 k/uL (1.3-7.7); Neutrophils % (A) 96 %; Platelet Count 174 k/uL (150-450); RBC 4.03 m/uL (4.30-5.90); RDW 18.2 % (11.5-15.5); WBC 17.1 k/uL (3.8-10.6)
[2018-11-17 07:35] LABS: ALT 41 U/L (21-72); AST 22 U/L (17-59); Albumin 3.6 g/dL (3.5-5.0); Alkaline Phosphatase 40 U/L (38-126); Anion Gap 8 mmol/L; Blood Urea Nitrogen 8 mg/dL (9-20); Calcium 8.9 mg/dL (8.4-10.2); Carbon Dioxide 20 mmol/L (22-30); Chloride 111 mmol/L (98-107); Glucose 125 mg/dL (74-99); Magnesium 1.9 mg/dL (1.6-2.3); Phosphorus 3.4 mg/dL (2.5-4.5); Potassium 4.5 mmol/L (3.5-5.1); Sodium 139 mmol/L (137-145); Total Bilirubin 0.4 mg/dL (0.2-1.3); Total Protein 5.8 g/dL (6.3-8.2)
[2018-11-17] MEDS: SODIUM CHLORIDE 0.9% 1,000 ML IV SCH ×2 (07:52→13:56)
[2018-11-17] MEDS: predniSONE 50 MG TAB PO SCH ×2 (08:03→20:51)
[2018-11-17] MEDS: SENNOSIDES-DOCUSATE SODIUM 1 EACH TAB PO SCH ×2 (08:05→20:52)
[2018-11-17] MEDS: DRONABINOL 2.5 MG CAP PO SCH ×2 (08:07→18:39)
[2018-11-17] MEDS: ENOXAPARIN 40 MG/0.4 ML SYRINGE SQ SCH (08:09)
[2018-11-17] MEDS: PANTOPRAZOLE 40 MG/10 ML VIAL IVP SCH ×2 (08:09→21:05)
[2018-11-17] MEDS: POLYETHYLENE GLYCOL 3350 17 GM POWD.PACK PO SCH (08:12)
[2018-11-17] MEDS: ALPRAZolam 0.5 MG TAB PO PRN (11:40)
[2018-11-17] MEDS ORDERED: METOCLOPRAMIDE 5 MG/ML 2 ML VIAL IVP PRN (14:01)
[2018-11-17] MEDS ORDERED: PROCHLORPERAZINE 10 MG TAB PO PRN (14:02)
--- NOTE | 2018-11-17 17:01 | P.PN ---
Subjective Progress Note Date: 11/17/18 Principal diagnosis: Lymphoma Day Two of R-EPOCH. Sitting in chair, feels ok, no vomting, moving bowels. in good spitritis Objective - Vital Signs Vital signs: Vital Signs Temp 97.8 F 11/17/18 07:50 Pulse 87 11/17/18 07:50 Resp 17 11/17/18 07:50 BP 133/79 11/17/18 07:50 Pulse Ox 91 L 11/17/18 07:50 Intake & Output 11/16/18 11/17/18 11/17/18 18:59 06:59 18:59 Intake Total 580.4 1100 Balance 580.4 1100 Weight 90.718 kg 96 kg Intake: Intake, IV Titration 580.4 1100 Amount 0.9% NaCl with KCl 20 Meq 300 1100 /l 1,000 ml @ 100 mls/hr IV .Q10H [facility] Rx#: [id number] Ondansetron 16 mg In 50 Sodium Chloride 0.9% 50 ml @ 100 mls/hr IVPB Q24H [facility] Rx#:[id number] riTUXimab 800 mg In 230.4 Sodium Chloride 0.9% 500 ml 500 ml @ Titrate IV . Q0M NR Rx#:[id number] Other: Voiding Method Toilet Toilet Toilet # Voids 1 - Exam en: Alert and Oriented, NAD Head: NC, NT, Neck SUpple No Palpable Cervicle, Supraclavicular, or axillary adenopathy Lungs: CTA bilateral HEart: Tachy, Reg Abdomen Soft, ND, NT Extremity: No edema POsitive pulses - Labs CBC & Chem 7: 11/17/18 06:39 11/17/18 06:39 Labs: Abnormal Lab Results - Last 24 Hours (Table) 11/17/18 11/17/18 Range/Units 06:39 06:39 WBC 17.1 H (3.8-10.6) k/uL RBC 4.03 L (4.30-5.90) m/uL Hgb 11.7 L (13.0-17.5) gm/dL Hct 36.7 L (39.0-53.0) % RDW 18.2 H (11.5-15.5) % Neutrophils # 16.4 H (1.3-7.7) k/uL Lymphocytes # 0.4 L (1.0-4.8) k/uL Chloride 111 H (98-107) mmol/L Carbon Dioxide 20 L (22-30) mmol/L BUN 8 L (9-20) mg/dL Glucose 125 H (74-99) mg/dL Total Protein 5.8 L (6.3-8.2) g/dL Assessment and Plan Plan: Assessment and Recommendations: 1. Large B Cell Lymphoma: - Admitted for CYcle 7 of R-EPOCH - Daily CBC, CMP - Supportive Care - Neurocta in office after completeion of chemo 2. Anticipatory Nausea and Vomiting with Previous cycles: - His last chemotherapy regimen he tolerated well in comparison to his prior chemos as we adjusted his supportive medications quit extensively - We will continue with the same ATC regimen as last visit 3. Anxiety with treatments: - Xanax atc, if vomiting utilizing ativan 4. Constipation induced with chemotherapy: - Intense Bowel regimen to begin on day one 5. Hypokalemia with previous cycles and dehydration: - IV FLuids with KCL added, monitor labs. He will stay after completion of chemotherapy and receive two liters of fluids and electrolyte check prior to discharge Encourage up out of bed Lovenox VTE prophy and protonix PPI Plan: Day 2 to ontinue.
[2018-11-17] MEDS ORDERED: ACETAMINOPHEN TAB 325 MG TAB PO PRN (18:13)
[2018-11-17] MEDS ORDERED: ONDANSETRON 4 MG/2 ML VIAL IVP PRN (18:41)
[2018-11-17] MEDS: ONDANSETRON 16 MG in SODIUM CHLORIDE 0.9% 50 ML IVPB SCH (19:55)
[2018-11-17] MEDS: FAMOTIDINE 20 MG/2 ML VIAL IV SCH (19:55)
[2018-11-17] MEDS: VINCRISTINE SULFATE IV SCH (20:43)
[2018-11-17] MEDS: SODIUM CHLORIDE 0.9% IV SCH ×3 (20:43→20:44)
[2018-11-17] MEDS: DOXORUBICIN HCL IV SCH (20:43)
[2018-11-17] MEDS: ETOPOSIDE IV SCH (20:44)
[2018-11-17] MEDS: LORazepam 2 MG/ML INJ IV PRN (20:52)
[2018-11-18] MEDS: ALPRAZolam 0.5 MG TAB PO PRN ×3 (03:47→21:49)
[2018-11-18] MEDS: 0.9% NACL WITH KCL 20 MEQ/L 1,000 ML IV SCH ×2 (06:01→15:42)
[2018-11-18] MEDS: DRONABINOL 2.5 MG CAP PO SCH ×2 (08:46→20:07)
[2018-11-18] MEDS: ENOXAPARIN 40 MG/0.4 ML SYRINGE SQ SCH (08:46)
[2018-11-18] MEDS: predniSONE 50 MG TAB PO SCH ×2 (08:47→21:25)
[2018-11-18] MEDS: PANTOPRAZOLE 40 MG/10 ML VIAL IVP SCH ×2 (08:48→20:13)
[2018-11-18] MEDS: SALT AND SODA MOUTHWASH 1,000 ML PO SCH ×3 (08:49→21:23)
[2018-11-18] MEDS: SENNOSIDES-DOCUSATE SODIUM 1 EACH TAB PO SCH ×2 (08:49→21:25)
[2018-11-18] MEDS: POLYETHYLENE GLYCOL 3350 17 GM POWD.PACK PO SCH (08:49)
[2018-11-18] MEDS: LORazepam 2 MG/ML INJ IV PRN ×2 (08:59→18:19)
[2018-11-18 09:15] LABS: Anisocytosis Slight; Basophils % (A) 0 %; Eosinophils % (A) 0 %; HCT 35.5 % (39.0-53.0); HGB 11.5 gm/dL (13.0-17.5); Lymphocytes # (A) 0.2 k/uL (1.0-4.8); Lymphocytes % (A) 1 %; MCHC 32.4 g/dL (31.0-37.0); MCV 92.5 fL (80.0-100.0); Mean Platelet Volume 7.9; Monocytes # (A) 0.5 k/uL (0-1.0); Monocytes % (A) 3 %; Neutrophils # (A) 17.4 k/uL (1.3-7.7); Neutrophils % (A) 96 %; Platelet Count 156 k/uL (150-450); RBC 3.84 m/uL (4.30-5.90); RDW 17.7 % (11.5-15.5); WBC 18.1 k/uL (3.8-10.6)
[2018-11-18 09:54] LABS: ALT 36 U/L (21-72); AST 22 U/L (17-59); Albumin 3.3 g/dL (3.5-5.0); Alkaline Phosphatase 33 U/L (38-126); Anion Gap 9 mmol/L; Blood Urea Nitrogen 10 mg/dL (9-20); Calcium 8.4 mg/dL (8.4-10.2); Carbon Dioxide 20 mmol/L (22-30); Chloride 113 mmol/L (98-107); Glucose 116 mg/dL (74-99); Magnesium 2.1 mg/dL (1.6-2.3); Phosphorus 3.6 mg/dL (2.5-4.5); Potassium 4.1 mmol/L (3.5-5.1); Sodium 142 mmol/L (137-145); Total Bilirubin 0.4 mg/dL (0.2-1.3); Total Protein 5.4 g/dL (6.3-8.2)
--- NOTE | 2018-11-18 16:40 | P.PN ---
Subjective Progress Note Date: 11/18/18 Principal diagnosis: Lymphoma Day Three of R-EPOCH. at bedside he is tolerating this cycle very well this far Objective - Vital Signs Vital signs: Vital Signs Temp 97.6 F 11/18/18 16:15 Pulse 78 11/18/18 16:15 Resp 17 11/18/18 16:15 BP 146/90 11/18/18 16:15 Pulse Ox 95 11/18/18 16:15 Intake & Output 11/17/18 11/18/18 11/18/18 18:59 06:59 18:59 Intake Total 1071.2 1100 Balance 1071.2 1100 Weight 97.5 kg Intake: Intake, IV Titration 1071.2 1100 Amount 0.9% NaCl with KCl 20 Meq 800 1100 /l 1,000 ml @ 100 mls/hr IV .Q10H [facility] Rx#: [id number] DOXOrubicin HCL 20 mg In 86.4 Sodium Chloride 0.9% 250 ml @ 10.833 mls/hr IV Q24H [facility] Rx#:[id number] Etoposide 100 mg In 168 Sodium Chloride 0.9% ( Dehp Santiago 500 ml @ 21.042 mls/hr IV Q24H [facility] Rx#: [id number] vinCRIStine SULFATE 0.8 16.8 mg In Sodium Chloride 0.9 % 50 ml @ 2.117 mls/hr IV Q24H [facility] Rx#:[id number] Other: Voiding Method Toilet Toilet # Voids 3 2 3 - Exam en: Alert and Oriented, NAD Head: NC, NT, Neck SUpple No Palpable Cervicle, Supraclavicular, or axillary adenopathy Lungs: CTA bilateral HEart: Tachy, Reg Abdomen Soft, ND, NT Extremity: No edema POsitive pulses - Labs CBC & Chem 7: 11/18/18 08:35 11/18/18 08:35 Labs: Abnormal Lab Results - Last 24 Hours (Table) 11/18/18 11/18/18 Range/Units 08:35 08:35 WBC 18.1 H (3.8-10.6) k/uL RBC 3.84 L (4.30-5.90) m/uL Hgb 11.5 L (13.0-17.5) gm/dL Hct 35.5 L (39.0-53.0) % RDW 17.7 H (11.5-15.5) % Neutrophils # 17.4 H (1.3-7.7) k/uL Lymphocytes # 0.2 L (1.0-4.8) k/uL Chloride 113 H (98-107) mmol/L Carbon Dioxide 20 L (22-30) mmol/L Glucose 116 H (74-99) mg/dL Alkaline Phosphatase 33 L (38-126) U/L Total Protein 5.4 L (6.3-8.2) g/dL Albumin 3.3 L (3.5-5.0) g/dL Assessment and Plan Plan: Assessment and Recommendations: 1. Large B Cell Lymphoma: - Admitted for CYcle 7 of R-EPOCH - Daily CBC, CMP - Supportive Care - Neulasta in office after completeion of chemo 2. Anticipatory Nausea and Vomiting with Previous cycles: - His last chemotherapy regimen he tolerated well in comparison to his prior chemos as we adjusted his supportive medications quit extensively - We will continue with the same ATC regimen as last visit 3. Anxiety with treatments: - Xanax atc, if vomiting utilizing ativan 4. Constipation induced with chemotherapy: - Intense Bowel regimen to begin on day one 5. Hypokalemia with previous cycles and dehydration: - IV FLuids with KCL added, monitor labs. He will stay after completion of chemotherapy and receive two liters of fluids and electrolyte check prior to discharge Encourage up out of bed Lovenox VTE prophy and protonix PPI Plan: Day 3 to continue.
[2018-11-18] MEDS: ONDANSETRON 16 MG in SODIUM CHLORIDE 0.9% 50 ML IVPB SCH (20:13)
[2018-11-18] MEDS: FAMOTIDINE 20 MG/2 ML VIAL IV SCH (20:13)
[2018-11-18] MEDS: ETOPOSIDE IV SCH (20:46)
[2018-11-18] MEDS: SODIUM CHLORIDE 0.9% IV SCH ×3 (20:46→20:47)
[2018-11-18] MEDS: VINCRISTINE SULFATE IV SCH (20:47)
[2018-11-18] MEDS: DOXORUBICIN HCL IV SCH (20:47)
[2018-11-19] MEDS: SALT AND SODA MOUTHWASH 1,000 ML PO SCH ×4 (01:38→16:58)
[2018-11-19] MEDS: LORazepam 2 MG/ML INJ IV PRN ×3 (02:50→16:19)
[2018-11-19] MEDS: 0.9% NACL WITH KCL 20 MEQ/L 1,000 ML IV SCH ×2 (06:11→15:59)
[2018-11-19 07:24] LABS: Anisocytosis Slight; Basophils % (A) 0 %; Eosinophils % (A) 0 %; HGB 11.4 gm/dL (13.0-17.5); Lymphocytes # (A) 0.3 k/uL (1.0-4.8); Lymphocytes % (A) 2 %; MCH 29.8 pg (25.0-35.0); MCHC 33.4 g/dL (31.0-37.0); MCV 89.3 fL (80.0-100.0); Mean Platelet Volume 7.8; Monocytes # (A) 0.3 k/uL (0-1.0); Monocytes % (A) 3 %; Neutrophils % (A) 95 %; Platelet Count 148 k/uL (150-450); RBC 3.81 m/uL (4.30-5.90); RDW 17.7 % (11.5-15.5); WBC 12.7 k/uL (3.8-10.6)
[2018-11-19 07:35] LABS: ALT 34 U/L (21-72); AST 17 U/L (17-59); Albumin 3.1 g/dL (3.5-5.0); Alkaline Phosphatase 29 U/L (38-126); Anion Gap 5 mmol/L; Blood Urea Nitrogen 10 mg/dL (9-20); Calcium 8.5 mg/dL (8.4-10.2); Carbon Dioxide 26 mmol/L (22-30); Chloride 109 mmol/L (98-107); Glucose 107 mg/dL (74-99); Magnesium 2.1 mg/dL (1.6-2.3); Sodium 140 mmol/L (137-145); Total Bilirubin 0.6 mg/dL (0.2-1.3); Total Protein 5.2 g/dL (6.3-8.2)
[2018-11-19] MEDS: ENOXAPARIN 40 MG/0.4 ML SYRINGE SQ SCH (08:22)
[2018-11-19] MEDS: SENNOSIDES-DOCUSATE SODIUM 1 EACH TAB PO SCH ×2 (08:22→20:05)
[2018-11-19] MEDS: DRONABINOL 2.5 MG CAP PO SCH ×2 (08:22→16:57)
[2018-11-19] MEDS: predniSONE 50 MG TAB PO SCH ×2 (08:22→20:05)
[2018-11-19] MEDS: POLYETHYLENE GLYCOL 3350 17 GM POWD.PACK PO SCH (08:23)
[2018-11-19] MEDS: PANTOPRAZOLE 40 MG/10 ML VIAL IVP SCH ×2 (08:23→20:05)
[2018-11-19] MEDS: ONDANSETRON 16 MG in SODIUM CHLORIDE 0.9% 50 ML IVPB SCH ×2 (12:15→19:30)
[2018-11-19] MEDS: FAMOTIDINE 20 MG/2 ML VIAL IV SCH ×2 (12:15→20:05)
[2018-11-19] MEDS: ALPRAZolam 0.5 MG TAB PO PRN ×2 (13:08→20:52)
[2018-11-19] MEDS: ONDANSETRON 4 MG/2 ML VIAL IVP PRN (13:09)
--- NOTE | 2018-11-19 13:26 | P.PN ---
Subjective Progress Note Date: 11/19/18 Principal diagnosis: Lymphoma Day 4 of R-EPOCH. some nausea but controlled, walking in halls, eating, denies diarrhea or constipation. Objective - Vital Signs Vital signs: Vital Signs Temp 97.4 F L 11/19/18 12:00 Pulse 69 11/19/18 12:00 Resp 16 11/19/18 12:00 BP 127/76 11/19/18 12:00 Pulse Ox 94 L 11/19/18 12:00 Intake & Output 11/18/18 11/19/18 11/19/18 18:59 06:59 18:59 Weight 96.5 kg Other: Voiding Method Toilet Toilet # Voids 3 2 - Exam en: Alert and Oriented, NAD Head: NC, NT, Neck SUpple No Palpable Cervicle, Supraclavicular, or axillary adenopathy Lungs: CTA bilateral HEart: Tachy, Reg Abdomen Soft, ND, NT Extremity: No edema POsitive pulses - Labs CBC & Chem 7: 11/19/18 06:38 11/19/18 06:38 Labs: Abnormal Lab Results - Last 24 Hours (Table) 11/19/18 11/19/18 Range/Units 06:38 06:38 WBC 12.7 H (3.8-10.6) k/uL RBC 3.81 L (4.30-5.90) m/uL Hgb 11.4 L (13.0-17.5) gm/dL Hct 34.0 L (39.0-53.0) % RDW 17.7 H (11.5-15.5) % Plt Count 148 L (150-450) k/uL Neutrophils # 12.0 H (1.3-7.7) k/uL Lymphocytes # 0.3 L (1.0-4.8) k/uL Chloride 109 H (98-107) mmol/L Glucose 107 H (74-99) mg/dL Alkaline Phosphatase 29 L (38-126) U/L Total Protein 5.2 L (6.3-8.2) g/dL Albumin 3.1 L (3.5-5.0) g/dL Assessment and Plan Plan: Assessment and Recommendations: 1. Large B Cell Lymphoma: - Admitted for CYcle 7 of R-EPOCH - Daily CBC, CMP - Supportive Care - Neulasta in office after completeion of chemo 2. Anticipatory Nausea and Vomiting with Previous cycles: - His last chemotherapy regimen he tolerated well in comparison to his prior chemos as we adjusted his supportive medications quit extensively - We will continue with the same ATC regimen as last visit 3. Anxiety with treatments: - Xanax atc, if vomiting utilizing ativan 4. Constipation induced with chemotherapy: - Intense Bowel regimen to begin on day one 5. Hypokalemia with previous cycles and dehydration: - IV FLuids with KCL added, monitor labs. He will stay after completion of chemotherapy and receive two liters of fluids and electrolyte check prior to discharge Encourage up out of bed Lovenox VTE prophy and protonix PPI Plan: Day 4 to continue.
[2018-11-19] MEDS: SODIUM CHLORIDE 0.9% IV SCH ×3 (20:40→20:41)
[2018-11-19] MEDS: DOXORUBICIN HCL IV SCH (20:40)
[2018-11-19] MEDS: ETOPOSIDE IV SCH (20:40)
[2018-11-19] MEDS: VINCRISTINE SULFATE IV SCH (20:41)
[2018-11-20] MEDS: SALT AND SODA MOUTHWASH 1,000 ML PO SCH ×5 (01:55→20:56)
[2018-11-20] MEDS: LORazepam 2 MG/ML INJ IV PRN ×3 (02:29→20:52)
[2018-11-20] MEDS: 0.9% NACL WITH KCL 20 MEQ/L 1,000 ML IV SCH ×3 (07:28→17:21)
[2018-11-20] MEDS: ALPRAZolam 0.5 MG TAB PO PRN ×2 (07:33→17:14)
[2018-11-20] MEDS: predniSONE 50 MG TAB PO SCH ×2 (07:33→20:53)
[2018-11-20] MEDS: DRONABINOL 2.5 MG CAP PO SCH ×2 (07:33→17:14)
[2018-11-20] MEDS: SENNOSIDES-DOCUSATE SODIUM 1 EACH TAB PO SCH ×2 (07:33→20:53)
[2018-11-20] MEDS: POLYETHYLENE GLYCOL 3350 17 GM POWD.PACK PO SCH (07:33)
[2018-11-20] MEDS: ONDANSETRON 4 MG/2 ML VIAL IVP PRN ×2 (07:34→17:14)
[2018-11-20] MEDS: ENOXAPARIN 40 MG/0.4 ML SYRINGE SQ SCH (07:34)
[2018-11-20] MEDS: PANTOPRAZOLE 40 MG/10 ML VIAL IVP SCH ×2 (07:34→20:52)
[2018-11-20 09:04] LABS: Anisocytosis Slight; Basophils % (A) 0 %; Eosinophils % (A) 0 %; HCT 35.6 % (39.0-53.0); HGB 11.7 gm/dL (13.0-17.5); Lymphocytes # (A) 0.2 k/uL (1.0-4.8); Lymphocytes % (A) 2 %; MCH 29.1 pg (25.0-35.0); MCHC 32.8 g/dL (31.0-37.0); MCV 88.5 fL (80.0-100.0); Mean Platelet Volume 6.9; Monocytes # (A) 0.2 k/uL (0-1.0); Monocytes % (A) 2 %; Neutrophils # (A) 7.5 k/uL (1.3-7.7); Neutrophils % (A) 95 %; Platelet Count 156 k/uL (150-450); RBC 4.03 m/uL (4.30-5.90); RDW 17.5 % (11.5-15.5); WBC 7.9 k/uL (3.8-10.6)
[2018-11-20 09:17] LABS: ALT 33 U/L (21-72); AST 18 U/L (17-59); Albumin 3.4 g/dL (3.5-5.0); Alkaline Phosphatase 30 U/L (38-126); Anion Gap 6 mmol/L; Blood Urea Nitrogen 13 mg/dL (9-20); Calcium 8.5 mg/dL (8.4-10.2); Carbon Dioxide 25 mmol/L (22-30); Chloride 108 mmol/L (98-107); Glucose 114 mg/dL (74-99); Magnesium 2.3 mg/dL (1.6-2.3); Phosphorus 4.2 mg/dL (2.5-4.5); Potassium 4.3 mmol/L (3.5-5.1); Sodium 139 mmol/L (137-145); Total Protein 5.4 g/dL (6.3-8.2)
--- NOTE | 2018-11-20 14:48 | P.PN ---
Subjective Progress Note Date: 11/20/18 Principal diagnosis: Lymphoma Day 5 of R-EPOCH. Mild thrush restarting and RUE edema Objective - Vital Signs Vital signs: Vital Signs Temp 97.3 F L 11/20/18 12:00 Pulse 79 11/20/18 12:00 Resp 16 11/20/18 12:00 BP 131/82 11/20/18 12:00 Pulse Ox 94 L 11/20/18 12:00 Intake & Output 11/19/18 11/20/18 11/20/18 18:59 06:59 18:59 Intake Total 1072.8 800 Balance 1072.8 800 Weight 96.7 kg Intake: Intake, IV Titration 1072.8 800 Amount 0.9% NaCl with KCl 20 Meq 800 800 /l 1,000 ml @ 100 mls/hr IV .Q10H [facility] Rx#: [id number] DOXOrubicin HCL 20 mg In 88 Sodium Chloride 0.9% 250 ml @ 10.833 mls/hr IV Q24H [facility] Rx#:[id number] Etoposide 100 mg In 168 Sodium Chloride 0.9% ( Dehp Santiago 500 ml @ 21.042 mls/hr IV Q24H [facility] Rx#: [id number] vinCRIStine SULFATE 0.8 16.8 mg In Sodium Chloride 0.9 % 50 ml @ 2.117 mls/hr IV Q24H [facility] Rx#:[id number] Other: Voiding Method Toilet Toilet Toilet # Voids 2 - Exam en: Alert and Oriented, NAD Head: NC, NT, Neck SUpple No Palpable Cervicle, Supraclavicular, or axillary adenopathy Lungs: CTA bilateral HEart: Tachy, Reg Abdomen Soft, ND, NT Extremity: No edema LE POsitive pulses RUE edema mild - Labs CBC & Chem 7: 11/20/18 08:28 11/20/18 08:28 Labs: Abnormal Lab Results - Last 24 Hours (Table) 11/20/18 11/20/18 Range/Units 08:28 08:28 RBC 4.03 L (4.30-5.90) m/uL Hgb 11.7 L (13.0-17.5) gm/dL Hct 35.6 L (39.0-53.0) % RDW 17.5 H (11.5-15.5) % Lymphocytes # 0.2 L (1.0-4.8) k/uL Chloride 108 H (98-107) mmol/L Glucose 114 H (74-99) mg/dL Alkaline Phosphatase 30 L (38-126) U/L Total Protein 5.4 L (6.3-8.2) g/dL Albumin 3.4 L (3.5-5.0) g/dL Assessment and Plan Plan: Assessment and Recommendations: 1. Large B Cell Lymphoma: - Admitted for CYcle 7 of R-EPOCH - Daily CBC, CMP - Supportive Care - Neulasta in office after completeion of chemo 2. Anticipatory Nausea and Vomiting with Previous cycles: - His last chemotherapy regimen he tolerated well in comparison to his prior chemos as we adjusted his supportive medications quit extensively - We will continue with the same ATC regimen as last visit 3. Anxiety with treatments: - Xanax atc, if vomiting utilizing ativan 4. Constipation induced with chemotherapy: - Intense Bowel regimen to begin on day one 5. Hypokalemia with previous cycles and dehydration: - IV FLuids with KCL added, monitor labs. He will stay after completion of chemotherapy and receive two liters of fluids and electrolyte check prior to discharge Encourage up out of bed Lovenox VTE prophy and protonix PPI Plan: Day 5 to continue. - Plan Zofran, reglan, xanax, and 2 liters of IV fluids post chemo and then once labs result in am patient can be discharged - Office on Wednesday for Neulasta Nystatin Swish and Normal saline gentle bolus like last cycle
--- NOTE | 2018-11-20 15:38 | US ---
EXAMINATION TYPE: US venous doppler duplex UE RT DATE OF EXAM: 11/20/2018 COMPARISON: NONE CLINICAL HISTORY: edema, hypercoaguale. No swelling or redness. No pain. No hx of blood clots. Ivon mo. On heparin. IJV port SIDE PERFORMED: Right Right Arm: Negative for DVT. IJV compressions deferred due to port IMPRESSION: No evidence of deep venous thrombosis in the right arm.
[2018-11-20] MEDS: NYSTATIN 100,000 UNIT/ML SUSP 500,000 UNIT/5 ML CUP PO SCH ×3 (17:09→20:56)
[2018-11-20] MEDS ORDERED: SODIUM CHLORIDE 0.9% IV ONE (18:00)
[2018-11-20] MEDS ORDERED: CYCLOPHOSPHAMIDE IV ONE (18:00)
[2018-11-20] MEDS: ONDANSETRON 16 MG in SODIUM CHLORIDE 0.9% 50 ML IVPB SCH (19:48)
[2018-11-20] MEDS: FAMOTIDINE 20 MG/2 ML VIAL IV SCH (19:49)
[2018-11-20] MEDS: SODIUM CHLORIDE 0.9% 1,000 ML IV SCH (21:29)
[2018-11-20 22:52] VITALS: RESP 16
[2018-11-21] MEDS: 0.9% NACL WITH KCL 20 MEQ/L 1,000 ML IV SCH (02:01)
[2018-11-21] MEDS: SODIUM CHLORIDE 0.9% 1,000 ML IV SCH (02:01)
[2018-11-21 05:46] VITALS: BP 131/89; PULSE 84; TEMP 97.5
[2018-11-21 07:55] LABS: Anisocytosis Slight; Basophils % (A) 0 %; Eosinophils # (A) 0.1 k/uL (0-0.7); Eosinophils % (A) 1 %; HCT 34.1 % (39.0-53.0); HGB 11.6 gm/dL (13.0-17.5); Lymphocytes # (A) 0.2 k/uL (1.0-4.8); Lymphocytes % (A) 3 %; MCH 29.9 pg (25.0-35.0); MCHC 34.1 g/dL (31.0-37.0); MCV 87.5 fL (80.0-100.0); Mean Platelet Volume 7.4; Monocytes # (A) 0.1 k/uL (0-1.0); Monocytes % (A) 1 %; Neutrophils # (A) 5.6 k/uL (1.3-7.7); Neutrophils % (A) 95 %; Platelet Count 151 k/uL (150-450); RBC 3.89 m/uL (4.30-5.90); RDW 16.8 % (11.5-15.5); WBC 5.9 k/uL (3.8-10.6)
[2018-11-21 08:15] LABS: ALT 34 U/L (21-72); AST 16 U/L (17-59); Albumin 3.3 g/dL (3.5-5.0); Alkaline Phosphatase 25 U/L (38-126); Anion Gap 5 mmol/L; Blood Urea Nitrogen 13 mg/dL (9-20); Calcium 8.3 mg/dL (8.4-10.2); Carbon Dioxide 27 mmol/L (22-30); Chloride 107 mmol/L (98-107); Glucose 100 mg/dL (74-99); Magnesium 2.3 mg/dL (1.6-2.3); Phosphorus 4.2 mg/dL (2.5-4.5); Potassium 4.2 mmol/L (3.5-5.1); Sodium 139 mmol/L (137-145); Total Bilirubin 1.2 mg/dL (0.2-1.3); Total Protein 5.2 g/dL (6.3-8.2)
[2018-11-21] MEDS: SALT AND SODA MOUTHWASH 1,000 ML PO SCH (08:40)
[2018-11-21] MEDS: POLYETHYLENE GLYCOL 3350 17 GM POWD.PACK PO SCH (08:40)
[2018-11-21] MEDS: DRONABINOL 2.5 MG CAP PO SCH (08:40)
[2018-11-21] MEDS: NYSTATIN 100,000 UNIT/ML SUSP 500,000 UNIT/5 ML CUP PO SCH (08:40)
[2018-11-21] MEDS: PANTOPRAZOLE 40 MG/10 ML VIAL IVP SCH (08:40)
[2018-11-21] MEDS: SENNOSIDES-DOCUSATE SODIUM 1 EACH TAB PO SCH (08:40)
[2018-11-21] MEDS: ENOXAPARIN 40 MG/0.4 ML SYRINGE SQ SCH (08:40)
--- NOTE | 2018-11-21 22:22 | P.DS ---
Providers Date of admission: 11/16/18 08:08 Expected date of discharge: 11/21/18 Attending physician: Arnie Olson Primary care physician: Arnie Olson Hospital Course: Timed chemotherapy, Daily blood monitoring, and supportive care Patient Condition at Discharge: Good Plan - Discharge Summary Discharge Rx Participant: No New Discharge Prescriptions: New Dronabinol [Marinol] 5 mg PO AC-BID cap Nystatin 100,000 Unit/ml Susp [Mycostatin Oral Susp] 500,000 unit PO QID cup Polyethylene Glycol 3350 [Miralax] 17 gm PO DAILY powd.pack predniSONE 125 mg PO BID tab Prochlorperazine [Compazine] 10 mg PO Q6HR PRN tab PRN Reason: Nausea Sennosides-Docusate Sodium [Senokot-S] 2 each PO BID tab Continue Acetaminophen Tab [Tylenol] 1,000 mg PO Q6H PRN PRN Reason: Headache Pantoprazole [Protonix] 40 mg PO DAILY Docusate [Colace] 100 mg PO BID cap Nystatin 100,000 Unit/ml Susp [Mycostatin Oral Susp] 500,000 unit PO QID cup Discharge Medication List Acetaminophen Tab [Tylenol] 1,000 mg PO Q6H PRN 10/05/18 [History] Pantoprazole [Protonix] 40 mg PO DAILY 10/26/18 [History] Docusate [Colace] 100 mg PO BID cap 10/30/18 [Rx] Nystatin 100,000 Unit/ml Susp [Mycostatin Oral Susp] 500,000 unit PO QID cup [Rx] Dronabinol [Marinol] 5 mg PO AC-BID cap 11/20/18 [Rx] Nystatin 100,000 Unit/ml Susp [Mycostatin Oral Susp] 500,000 unit PO QID cup [Rx] Polyethylene Glycol 3350 [Miralax] 17 gm PO DAILY powd.pack 11/20/18 [Rx] Prochlorperazine [Compazine] 10 mg PO Q6HR PRN tab 11/20/18 [Rx] Sennosides-Docusate Sodium [Senokot-S] 2 each PO BID tab 11/20/18 [Rx] predniSONE 125 mg PO BID tab 11/20/18 [Rx] Follow up Appointment(s)/Referral(s): Arnie Olson MD [Primary Care Provider] - 11/22/18 Patient Instructions/Handouts: Preventing Infections (GEN), Neutropenia (DC), Chemo Induced Nausea and Vomiting (DC), Intravenous Chemotherapy (DC) Activity/Diet/Wound Care/Special Instructions: Same Discharge Disposition: HOME SELF-CARE
== END 2018-11-21 09:20 | disposition home or self-care (01) | DRG 847 ==
LOC: 3NMEDONC 11-16 08:08
PROVIDERS: ADMIT Internal Medicine Hematology & Oncology; ATTEND Internal Medicine Hematology & Oncology
DX: Z51.11 Encounter for antineoplastic chemotherapy (principal); C83.30 Diffuse large B-cell lymphoma, unspecified site; B37.0 Candidal stomatitis; D86.9 Sarcoidosis, unspecified; E87.6 Hypokalemia; E86.0 Dehydration; F41.9 Anxiety disorder, unspecified; I48.91 Unspecified atrial fibrillation; Z79.899 Other long term (current) drug therapy; K59.03 Drug induced constipation; T45.1X5A Adverse effect of antineoplastic and immunosuppressive drugs, initial encounter
CPT/HCPCS: 80053; 83615; 83735; 84100; 84550; 85025

== ENCOUNTER → 2018-11-28 | Outpatient (CLI) | payer BC ==
[2018-11-28 11:12] LABS: Blood Urea Nitrogen 13 mg/dL (9-20)
--- NOTE | 2018-11-28 13:31 | CT ---
EXAMINATION TYPE: CT ChestAbdPelvis w con DATE OF EXAM: 11/28/2018 COMPARISON: 08/13/2018 HISTORY: 58-year-old male follow-up diffuse large cell lymphoma TECHNIQUE: Contiguous axial scanning of the chest, abdomen, and pelvis performed with IV Contrast, pa tient injected with 100 mL of Isovue 300. Delayed images through the kidneys were obtained. Coronal/s agittal reconstructions performed. CT DLP: 1928 mGycm Automated exposure control for dose reduction was used. FINDINGS: Chest: Heart normal size without pericardial effusion. Minimal LAD calcifications are noted. Aorta normal caliber with bovine configuration to the aortic arch. Right anterior chest wall injection port with catheter tip at the mid SVC level. Redemonstrated scattered nonenlarged and mildly enlarged mediastinal lymphadenopathy measuring up to 1.0 cm in the right tracheobronchial angle, 8 mm high right paratracheal, 6 mm AP window, 1.2 cm subc arinal, 1.3 cm right hilar, and 1.2 cm left hilar. Allowing for noncontrast technique on patient's PET/CT, overall size of these lymph nodes stable. No consolidation or pleural effusion. ABDOMEN: Liver mildly enlarged at 18.2 cm. Tiny subcentimeter hypodensity right hepatic dome to small fracture d CT characterization, probable tiny cyst. Portal venous system is patent. No biliary ductal dilatati on. Gallbladder, right adrenal gland, kidneys, and pancreas appear within normal limits. Spleen remains mildly enlarged at 14.5 cm. There is also stable mild diffuse thickening of the left a drenal gland which did not demonstrate any increased uptake on the patient's prior PET/CT. Borderline to mildly distended mid and left-sided small bowel loops measuring up to 3.0 cm. There is a small bowel anastomosis in the left paramedian anterior lower abdomen, axial image 97. Small bowel immediately following the anastomosis is narrowed and torqued anteriorly though oral contrast has pro gressed beyond this point. No free air or free fluid. Normal appendix. Oral contrast progressed to the hepatic flexure. There is moderate stool burden and diverticulosis at the junction of the descending and sigmoid colon. No pericolonic inflammatory change. No mesenteric or retroperitoneal lymphadenopathy. Pelvis: Bladder is urine distended. Central prostatic calcifications. Heterogeneous prostate gland measuring 4.5 cm wide. Pelvic fluids. No abnormal fluid collection in the pelvis or pelvic lymphadenopathy. Bones: Degenerative changes lower lumbar spine. No osseous destructive process. Additional degenerative disc disease midthoracic spine. IMPRESSION: 1. COMPARED TO PATIENT'S 08/13/2018 PET/CT, THE OVERALL MEDIASTINAL AND HILAR LYMPHADENOPATHY IS S TABLE IN SIZE MEASURING UP TO 1.3 CM SHORT AXIS. 2. STABLE MILD THICKENING OF THE LEFT ADRENAL GLAND. 3. STABLE MILD SPLENOMEGALY (14.5 CM). 4. NO NEW OR PROGRESSIVE LYMPHADENOPATHY. 5. SMALL BOWEL ANASTOMOSIS IN THE LEFT PARAMEDIAN LOWER ABDOMEN. MORE PROXIMAL SMALL BOWEL LOOPS ARE BORDERLINE TO MILDLY DISTENDED AT 3.0 CM AND SMALL BOWEL IMMEDIATELY FOLLOWING THE ANASTOMOSIS APPEAR S NARROWED AND TORQUED (AXIAL IMAGE 97). CORRELATE FOR POSSIBLE CHRONIC LOW-GRADE PARTIAL OBSTRUCTION . 6. MODERATE STOOL BURDEN WITH DISTAL COLONIC DIVERTICULOSIS.
== END | disposition home or self-care (01) ==
LOC: RADPROMAIN 10:24
PROVIDERS: ATTEND Internal Medicine Hematology & Oncology
DX: C83.38 Diffuse large B-cell lymphoma, lymph nodes of multiple sites (principal); E27.8 Other specified disorders of adrenal gland; R16.1 Splenomegaly, not elsewhere classified; K57.30 Diverticulosis of large intestine without perforation or abscess without bleeding; Z98.0 Intestinal bypass and anastomosis status; Z95.828 Presence of other vascular implants and grafts
CPT/HCPCS: 82565; 84520; 71260; 74177; J1642; Q9967

== ENCOUNTER 2018-12-15 10:13 | Day surgery (SDC) | payer BC ==
[2018-12-13 15:12] VITALS: BMI 29.5
--- NOTE | 2018-12-15 08:33 | P.GSHP ---
History of Present Illness H&P Date: 12/15/18 CHIEF COMPLAINT: Lymphoma HISTORY OF PRESENT ILLNESS: The patient is a 58-year-old male diagnosed with lymphoma. He had a Mediport placement. He presents for Port-A-Cath removal upon completion of his chemotherapy. PAST MEDICAL HISTORY: Breast cancer. PAST SURGICAL HISTORY: Breast biopsy. CURRENT MEDICATIONS: See list. ALLERGIES: See list. SOCIAL HISTORY: No active tobacco or alcohol use. FAMILY HISTORY: Noncontributory. REVIEW OF ORGAN SYSTEMS: CONSTITUTIONAL: Denies any fever or chills. Denies recent weight loss or weight gain. HEENT: Denies any trouble with vision, hearing or nosebleeds. No difficulty swallowing. BREASTS: Please see above. PHYSICAL EXAMINATION: Vital signs: Stable GENERAL: Well developed female and in no acute distress. Pleasant. HEENT: No sclera icterus. Extraocular movements grossly intact. Moist buccal mucosa. Head is atraumatic, normocephalic. Hears conversational speech. No nasal drainage. NECK: Supple without lymphadenopathy. No JV distention. CHEST: Non-labored respirations and equal bilateral excursions. CARDIOVASCULAR: Regular rate and rhythm. Palpable 2+ radial pulses. ABDOMEN: Nontender. MUSCULOSKELETAL: No clubbing, cyanosis or edema. NEUROLOGIC: No focal or lateralizing signs. PSYCH: Appropriate affect. Alert and oriented to person, place and time. ASSESSMENT: 1. Lymphoma 2. Need for chemotherapeutic access. PLAN: 1. Agree with Port-A-Cath removal per patient's request. Past Medical History Past Medical History: Atrial Fibrillation, Cancer Additional Past Medical History / Comment(s): L adrenal mass-work up showed diffuse large B cell lymphoma/high grade Bcell nonhodgkins lymphoma-had chemo -11/21/18. had episode of Afib prior to surgery for bowel perforation. got hole in bowel from chemo per pt. sarcoidosis. constipation History of Any Multi-Drug Resistant Organisms: None Reported Past Surgical History: Bowel Resection, Tonsillectomy Additional Past Surgical History / Comment(s): ADRENAL GLAND BIOPSY/CORE BIOPSY , MEDIPORT INSERTION rt side chest, MEDIATINOSCOPY WITH LYMPH NODE BIOPSY. bowel resection from perforation Past Anesthesia/Blood Transfusion Reactions: No Reported Reaction Smoking Status: Never smoker - Past Family History Father Additional Family Medical History / Comment(s): Father of liver disease at the age of 75yrs. Mother Family Medical History: Cancer Additional Family Medical History / Comment(s): Mother had skin CA, Sister(s) Family Medical History: Cancer Medications and Allergies Home Medications Medication Instructions Recorded Confirmed Type Sennosides-Docusate Sodium 2 each PO BID PRN 12/13/18 12/13/18 History [Senokot-S] Allergies Allergy/AdvReac Type Severity Reaction Status Date / Time No Known Allergies Allergy Verified 12/13/18 15:03
[~2018-12-15 10:13] MED LIST changes: +DEXAMETHASONE SOD PHOSPHATE 10 MG/ML 1 ML VIAL IV ONE; +HYDROmorphone 0.5 MG/0.5 ML SYRINGE IVP PRN; +LIDOCAINE 1% 20 ML VIAL (10MG/ML) FOR IV START INTRADERMA PRN; +MIDAZOLAM (PF) 2 MG/2 ML VIAL IV PRN
[2018-12-15 10:33] VITALS: TEMP 96.4
[2018-12-15] MEDS ORDERED: MIDAZOLAM 2 MG/2 ML VIAL ONE (13:10)
[2018-12-15] MEDS ORDERED: PROPOFOL 10 MG/ML 20 ML VIAL IV ONE (13:10)
[2018-12-15] MEDS ORDERED: fentaNYL (PF) 50 MCG/ML 2 ML AMP ONE (13:10)
--- NOTE | 2018-12-15 13:47 | P.PCN ---
Date of Procedure: 12/15/18 Description of Procedure: SURGEON: ASHIA PRADO MD TALENT REP: None. PREOPERATIVE DIAGNOSIS: 1. Lymphoma 2. Chemotherapeutic venous access. POSTOPERATIVE DIAGNOSIS: 1. Lymphoma 2. Chemotherapeutic venous access. OPERATION: Removal of right internal jugular vein Port-A-Cath. ANESTHESIA: MAC with 30 mL local. ESTIMATED BLOOD LOSS: 5 mL SPECIMENS REMOVED: Port-A-Cath COMPLICATIONS: None. INDICATIONS: The patient is [id number] male who completed chemotherapy. He now has elected for removal. Benefits and risks were described. Informed consent was obtained. DESCRIPTION OF PROCEDURE: Patient was brought to the operating room, laid in supine position. After IV sedation the chest wall was prepped and draped in standard sterile fashion. Prior to incision, a timeout protocol was confirmed with surgical team regarding the patient's name including procedures to be performed. As this was a clean case, no further antibiotics were required. Additionally, early ambulation was encouraged for DVT prophylaxis. Attention was brought to the area of the port site, whereby a total of 30 mL of local was infiltrated into the skin for a field block. A #15 blade was used to incise along the previous cicatrix. Electro- Bovie cautery was used to control for hemostasis. Adhesions were lysed around the Mediport. The port was extracted without sequelae. Pressure for 2 minutes was placed along the internal jugular vein. Hemostasis was checked along the pocket of the Port-A-Cath site. The wound was closed in layers using 3-0 Vicryl for the deep subcutaneous tissues followed by 4-0 Monocryl in a running subcuticular fashion. The skin was cleansed with dilute hydrogen peroxide. Exofin was applied. Optifoam was applied to the skin. At the end of the procedure needle, sponge and instrument counts were verified correct by the neurosurgical physician assistant. The patient had tolerated the procedure well and was taken to postanesthesia care in stable condition. FINDINGS: 1. Unremarkable Port-a-cath extraction. Plan - Discharge Summary New Discharge Prescriptions: No Action Sennosides-Docusate Sodium [Senokot-S] 2 each PO BID PRN PRN Reason: Constipation Discharge Medication List Sennosides-Docusate Sodium [Senokot-S] 2 each PO BID PRN 12/13/18 [History] Follow up Appointment(s)/Referral(s): Ashia Prado MD [STAFF PHYSICIAN] - As Needed Patient Instructions/Handouts: Care After Central Line Removal (DC) Activity/Diet/Wound Care/Special Instructions: May shower. No bathtub soaks for 1 week. Remove dressing 12/19/18. Sleep on elevated pillows at least 3 for 3 days. Bruising is normal and subsides in 2 weeks. Discharge Disposition: HOME SELF-CARE
[2018-12-15] MEDS ORDERED: IV FLUID CONTINUATION 600 ML IV ONE (13:52)
[2018-12-15 14:03] VITALS: BP 125/82; PULSE 91; RESP 18
== END 2018-12-15 14:19 | disposition home or self-care (01) ==
LOC: OR 10:13
PROVIDERS: ATTEND Surgery Plastic and Reconstructive Surgery
DX: Z45.2 Encounter for adjustment and management of vascular access device (principal); C83.38 Diffuse large B-cell lymphoma, lymph nodes of multiple sites; I48.91 Unspecified atrial fibrillation; D86.9 Sarcoidosis, unspecified
CPT/HCPCS: 36590; J2250; J1100; J2405; J3010; J2704

== ENCOUNTER → 2018-12-28 | Outpatient (CLI) | payer BC | LOC: LABWHC1 11:56 | PROVIDERS: ATTEND Internal Medicine Critical Care Medicine | DX: D86.9 Sarcoidosis, unspecified (principal) | CPT/HCPCS: 36415; 82164; 82310; 85652; 86141 ==

== ENCOUNTER → 2019-02-27 | Outpatient (CLI) | payer BC ==
[2019-02-27 09:24] LABS: Blood Urea Nitrogen 16 mg/dL (9-20)
--- NOTE | 2019-02-27 10:51 | CT ---
EXAMINATION TYPE: CT ChestAbdPelvis w con DATE OF EXAM: 02/27/2019 COMPARISON: 11/28/2018 and PET/CT dated 08/13/2018 HISTORY: Diffuse large b cell lymphoma CT DLP: 1969 mGycm. Automated Exposure Control for Dose Reduction was Utilized. CONTRAST: CT scan of the thorax, abdomen and pelvis is performed with IV Contrast, patient injected with 100 ml mL of Isovue 300. FINDINGS: LUNGS: The lungs are grossly clear other than a punctate right middle lobe area of scarring unchanged from the prior on series 4 image 37. No focal consolidation. There is no pleural effusion or pneum othorax seen. The tracheobronchial tree is patent. MEDIASTINUM: There is redemonstration of mediastinal adenopathy. Right infrahilar lymph node measures up to 1.6 cm in short axis, mildly enlarged from the prior (1.3 mm) and left infrahilar lymph node m easures up to 1.4 cm in short axis also mildly enlarged from the prior (1.2 cm). Paraesophageal lymp h node previously measured 1.2 cm and now measures 1.3 cm. Other scattered prominent and nonenlarged mediastinal lymph nodes are seen the most cranial right paratracheal lymph node measuring 9 mm and pr eviously measuring 8 mm on series 3 image 11 at the sternoclavicular notch. Few coronary calcificatio ns are seen. Cardia mediastinal silhouette is nonenlarged. No pericardial effusion. Bovine aortic arc h is again incidentally seen. OTHER: Right-sided Mediport has been removed in the interim. LIVER/GB: Punctate hypodensity measuring 2 mm on series 3 image 47 is unchanged as well as other too small to accurately characterize hypoattenuated lesions on series 3 image 49 and 50. No new hepatic l esions. No intrahepatic biliary ductal dilatation. No radiopaque cholelithiasis. PANCREAS: No significant abnormality is seen. SPLEEN: No splenomegaly. The spleen currently measures 13.3 cm and previously measured 14.5 cm. This measurement is a longitudinal dimension and the spleen measures only 11.17 mm in craniocaudal dimensi on. ADRENALS: Again there is mild diffuse thickening of the left adrenal gland that may relate to adrenal gland hyperplasia without discrete nodule. Right adrenal gland is unremarkable. KIDNEYS: Kidneys enhance and excrete symmetrically. No hydronephrosis. BOWEL: There are numerous sigmoid diverticula without pericolonic fat stranding. Mild fecal stasis is present. Contrast extends to the level of cecum and there is limited evaluation of the colon. Append ix is air-filled and nondilated. No dilated large or small bowel. Small bowel anastomosis is again se en without appearing anastomotic stricture. GENITAL ORGANS: There is nodular impression on the posterior urinary bladder by a heterogenous and no dular prostate gland. Prostate gland containing central zone calcifications. LYMPH NODES: Upper limits of normal. Portal lymph node measures 1.2 cm on series 3 image 64, mildly e nlarged from the prior where this measured 1.0 cm. Stable celiac axis lymph nodes are nonenlarged. No enlarged adenopathy in the pelvis by size criteria. OSSEOUS STRUCTURES: Mild degenerative changes of the spine. IMPRESSION: 1. Very minimal enlargement of the mediastinal and periportal adenopathy (multiple lymph nodes enlarg ed by only 1 to 3 mm each). 2. Splenomegaly has resolved in the interim.
== END | disposition home or self-care (01) ==
LOC: RADCTMAIN 08:09
PROVIDERS: ATTEND Internal Medicine Hematology & Oncology
DX: Z03.89 Encounter for observation for other suspected diseases and conditions ruled out (principal); R59.0 Localized enlarged lymph nodes; C83.38 Diffuse large B-cell lymphoma, lymph nodes of multiple sites
CPT/HCPCS: 82565; 84520; 71260; 74177; 36415; Q9967

== ENCOUNTER → 2019-06-05 | Outpatient (CLI) | payer BC ==
--- NOTE | 2019-06-06 11:15 | CT ---
EXAMINATION TYPE: CT ChestAbdPelvis w con DATE OF EXAM: 06/05/2019 INDICATION: FOLLOW UP FOR LYMPHOMA COMPARISON: 02/27/2019 CT DLP: 1496.9 mGycm CONTRAST: Performed with Oral Contrast and with IV Contrast, patient injected with 100 mL of Isovue 300. TECHNIQUE: Axial images at 5 mm thick sections. Reconstructed images in the coronal plane. Delayed images through the kidneys. FINDINGS: CT CHEST: Portion of the thyroid visualized is normal. No suspicious lung nodules or focal infiltrates are present. There is a 1.0 cm superior mediastinal lymph node adjacent to the aorta. There is a 1.2 cm pretrachea l lymph node above the level the bradley. Multiple subcentimeter lymph nodes are present within the me diastinum and within the hilar regions bilaterally. The ascending aorta diameter at the level of the main pulmonary artery is 2.8 cm. The main pulmonary artery diameter at the bifurcation is 3.0 cm. Coronary artery calcifications present. CT ABDOMEN: Liver: Normal Spleen: Normal Pancreas: Normal Adrenal glands: The adrenal glands are normal. Gallbladder: Normal Kidneys: No masses are evident. No hydronephrosis is present. No cysts are present. Delayed images were obtained through the kidneys, which remain unremarkable. Aorta: Vascular calcification is within the aorta. Inferior vena cava: Normal. CT PELVIS: Diverticulosis without evidence of acute diverticulitis is through the sigmoid colon. Small bowel loo ps distended with oral contrast appear normal. There are loops of bowel which are incompletely disten ded or lack oral contrast limiting their evaluation. Appendix: Normal as visualized. Urinary bladder: Normal. Genitourinary structures: A stent is prominent and contains calcification. Osseous structures: No suspicious lytic or sclerotic lesions. Lymphadenopathy: No periaortic or retrocaval adenopathy is evident. No significant mesenteric adenopa thy is evident. Obturator canals and iliac chains appear normal. No inguinal adenopathy is evident. S ee above for abnormal adenopathy within the mediastinum. IMPRESSIONS: 1. Increasing adenopathy within the mediastinum. Consider follow-up PET CT for reevaluation of patien t's trauma.
== END | disposition home or self-care (01) ==
LOC: RADCTMAIN 15:57
PROVIDERS: ATTEND Internal Medicine Hematology & Oncology
DX: Z03.89 Encounter for observation for other suspected diseases and conditions ruled out (principal); C83.38 Diffuse large B-cell lymphoma, lymph nodes of multiple sites
CPT/HCPCS: 71260; 74177; Q9967

== ENCOUNTER → 2019-09-06 | Outpatient (CLI) | payer BC ==
--- NOTE | 2019-09-06 12:07 | CT ---
EXAMINATION TYPE: CT ChestAbdPelvis w con DATE OF EXAM: 09/06/2019 COMPARISON: June 05, 2019 HISTORY: LYMPHOMA F/U CT DLP: 1908 mGycm CONTRAST: CT scan of the chest, abdomen and pelvis is performed with Oral Contrast and with IV Contrast, patien t injected with 100 mL of Isovue 300. CT Chest: LUNGS: The lungs are clear and free of infiltrate or atelectasis. No pulmonary nodule or mass is det ected. No pleural effusion or CT evidence of interstitial lung disease. MEDIASTINUM: Thoracic aorta is of normal caliber. The heart is not enlarged. Multiple subcentimeter lymph nodes are seen within the mediastinum. Low right paratracheal lymph node that currently measur es 8 mm versus 1.2 cm previously short axis. AP window lymph node measures 8 mm short axis versus 1.1 cm. HILAR STRUCTURES: Left hilar adenopathy currently measures 1.4 cm in axis versus a 1.7 cm previously. Right hilar adenopathy measures 1.4 cm short axis versus 1.7 cm previously. OTHER: No significant abnormality. CONTRAST CT ABDOMEN AND PELVIS FINDINGS: LIVER/GB: No calcified gallstones. Mild hepatic steatosis suggested. No space occupying hepatic les ion. Biliary tree is of normal caliber. PANCREAS: No inflammation. No distinct mass. SPLEEN: No splenic enlargement. No lesion seen. ADRENALS: No nodule. No thickening. KIDNEYS/BLADDER: No hydronephrosis. No nephrolithiasis. No disctinct renal mass. BOWEL: Normal appendix. Normal bowel caliber. No inflammation. GENITAL ORGANS: No gross abnormality. LYMPH NODES: No greater than 1cm abdominal or pelvic lymph nodes are appreciated. AORTA: No significant abnormality. OSSEOUS STRUCTURES: No significant abnormality is seen. OTHER: No significant additional abnormality is seen. IMPRESSION: 1. Persistent but improved mediastinal and hilar adenopathy. 2. mild fatty liver.
== END | disposition home or self-care (01) ==
LOC: RADCTMAIN 08:54
PROVIDERS: ATTEND Internal Medicine Hematology & Oncology
DX: R59.0 Localized enlarged lymph nodes (principal); K76.0 Fatty (change of) liver, not elsewhere classified; C83.38 Diffuse large B-cell lymphoma, lymph nodes of multiple sites
CPT/HCPCS: 71260; 74177; Q9967

== ENCOUNTER → 2019-09-06 | Outpatient (CLI) | payer BC ==
[2019-09-06 08:43] LABS: HCT 48.1 % (39.0-53.0); HGB 16.7 gm/dL (13.0-17.5); MCH 30.2 pg (25.0-35.0); MCHC 34.7 g/dL (31.0-37.0); MCV 87.1 fL (80.0-100.0); Mean Platelet Volume 6.9; Platelet Count 173 k/uL (150-450); RBC 5.52 m/uL (4.30-5.90); RDW 12.9 % (11.5-15.5); WBC 2.7 k/uL (3.8-10.6)
[2019-09-06 09:06] LABS: Appearance,Urine Clear (Clear); Bilirubin,Urine Negative (Negative); Blood,Urine Negative (Negative); Color,Urine Yellow; Glucose,Urine (UA) Negative (Negative); Ketones,Urine Negative (Negative); Leukocyte Esterase,Urine Negative (Negative); Nitrite,Urine Negative (Negative); Protein,Urine Trace (Negative); Specific Gravity,Urine 1.026 (1.001-1.035); Urobilinogen,Urine <2.0 mg/dL (<2.0)
[2019-09-06 18:03] LABS: African American GFR (CKD) 96.4 (60.0-200.0); Albumin 4.5 g/dL (3.80-4.90); Albumin/Globulin Ratio 2.81 (1.60-3.17); Anion Gap 9.1 mmol/L (4.00-12.00); Calcium 8.8 mg/dL (8.7-10.3); Carbon Dioxide 25.9 mmol/L (21.6-31.8); Chol/HDL Ratio 3.78; Globulin 1.6 g/dL (1.6-3.3); LDL Cholesterol,Calculated 86.4 mg/dL (0.0-131.0); Potassium 4.8 mmol/L (3.5-5.5); Total Bilirubin 0.9 mg/dL (0.3-1.2); Total Protein 6.1 g/dL (6.2-8.2); VLDL Calculation 27.6 mg/dL (5.00-40.00)
== END | disposition home or self-care (01) ==
LOC: LABWHC1 08:21
PROVIDERS: ATTEND Family Medicine
DX: Z00.00 Encounter for general adult medical examination without abnormal findings (principal); C85.90 Non-Hodgkin lymphoma, unspecified, unspecified site; Z12.5 Encounter for screening for malignant neoplasm of prostate
CPT/HCPCS: 36415; 80053; 80061; 81003; 84153; 85027

== ENCOUNTER → 2020-01-03 | Outpatient (CLI) | payer BC ==
--- NOTE | 2020-01-03 13:17 | CT ---
EXAMINATION TYPE: CT ChestAbdPelvis w con DATE OF EXAM: 01/03/2020 COMPARISON: CT September 06, 2019 and older CTs. PET/CT August 13, 2018 and older studies. HISTORY: Lymphoma CT DLP: 1982 mGycm. Automated Exposure Control for Dose Reduction was Utilized. CONTRAST: CT scan of the thorax, abdomen and pelvis is performed with oral and with IV Contrast, patient inject ed with 100 mL of Isovue 300. FINDINGS: LUNGS: The lungs are grossly clear, there is no concerning parenchymal mass or nodule identified. T here is no pleural effusion or pneumothorax seen. The tracheobronchial tree is patent. MEDIASTINUM: There are persistent abnormal thoracic lymph nodes. Prominent abnormal adenopathy is see n in the prevascular space, AP window, paratracheal, subcarinal, and bilateral hilar regions. For ref erence left hilar lymph node measures 2.6 x 1.7 cm axial image 31 not significantly changed in size f rom most recent CT. For reference right infrahilar lymph node measures 2.8 x 1.6 cm prior study axial image 33 not significantly changed from prior study image 38. Stable prominent borderline enlarged a nterior superior mediastinal lymph nodes image 15 noted. LIVER/GB: No significant abnormality is appreciated. PANCREAS: No significant abnormality is seen. SPLEEN: No significant abnormality is seen. ADRENALS: No significant abnormality is seen. KIDNEYS: No significant abnormality is seen. BOWEL: Some contrast extends into the right colon. No suspicious small or large bowel dilatation. Himanshu endix small in length otherwise unremarkable for medial aspect of cecum. Few diverticula in the proxi mal mid sigmoid colon redemonstrated. GENITAL ORGANS: Prostate gland upper limits of normal in size with central calcifications. Few scatte red adjacent pelvic phleboliths redemonstrated. LYMPH NODES: No new greater than 1cm abdominal or pelvic lymph nodes are appreciated. Stable subcenti meter nodule left retroperitoneum upper abdomen there celiac artery axial image 59 at site of prior h ypermetabolic enlarged adenopathy. OSSEOUS STRUCTURES: Moderate disc space narrowing lower lumbar levels with [id number] spurring additional [id number] disc space narrowing mid to lower thoracic spine and mild to moderate spu rring. OTHER: No significant additional abnormality is seen. IMPRESSION: Stable prominent and slightly enlarged thoracic adenopathy. No new or enlarging adenopath y identified.
== END | disposition home or self-care (01) ==
LOC: RADCTMAIN 10:28
PROVIDERS: ATTEND Internal Medicine Hematology & Oncology
DX: R59.9 Enlarged lymph nodes, unspecified (principal); C83.38 Diffuse large B-cell lymphoma, lymph nodes of multiple sites
CPT/HCPCS: 71260; 74177; Q9967

== ENCOUNTER → 2020-05-11 | Outpatient (CLI) | payer BC ==
--- NOTE | 2020-05-12 07:55 | CT ---
EXAMINATION TYPE: CT ChestAbdPelvis w con DATE OF EXAM: 05/11/2020 COMPARISON: Prior CT 01/03/2020 HISTORY: Diffuse large b cell lymphoma. CT DLP: 1417.9 mGycm Automated exposure control for dose reduction was used. CONTRAST: CT scan of the chest, abdomen and pelvis is performed with Oral Contrast and with IV Contrast, patien t injected with 100 mL of Isovue M300. FINDINGS: LUNGS: The lungs are grossly clear, there is no concerning parenchymal mass or nodule identified. T here is no pleural effusion or pneumothorax seen. The tracheobronchial tree is patent. MEDIASTINUM: There are no interval change in the mediastinal lymph nodes. Bilateral hilar adenopathy is again noted and is stable. No pericardial effusion is seen. There are some scattered coronary a rtery calcifications. AORTA: No significant abnormality is seen. OTHER: No additional significant abnormality is seen. LIVER/GB: No significant abnormality is appreciated. PANCREAS: No significant abnormality is seen. SPLEEN: No significant abnormality is seen. ADRENALS: No significant abnormality is seen. KIDNEYS: No significant abnormality is seen. REPRODUCTIVE ORGANS: Prostate is enlarged.. BOWEL: Diverticular changes associated with the sigmoid colon, colon shows large amount of retained fecal debris. FREE AIR: No Free Air visible. ASCITES: None seen. RETROPERITONEAL ADENOPATHY: No retroperitoneal adenopathy is seen. LYMPH NODES: No greater than 1 cm abdominal or pelvic lymph nodes are appreciated. URINARY BLADDER: No significant abnormality is seen. PELVIC ADENOPATHY: None visualized. OSSEOUS STRUCTURES: No significant interval change is seen. IMPRESSION: There is no significant interval change.
== END | disposition home or self-care (01) ==
LOC: RADCTMAIN 12:02
PROVIDERS: ATTEND Internal Medicine Hematology & Oncology
DX: C83.38 Diffuse large B-cell lymphoma, lymph nodes of multiple sites (principal)
CPT/HCPCS: 71260; 74177; Q9967 ×2

== ENCOUNTER → 2020-09-05 | Outpatient (CLI) | payer BC ==
[2020-09-05 11:07] LABS: African American GFR (CKD) >90 (>60 ml/min/1.73 sqM); Blood Urea Nitrogen 16 mg/dL (9-20); Non-African American GFR(CKD) >90 (>60 ml/min/1.73 sqM)
--- NOTE | 2020-09-05 12:57 | CT ---
EXAMINATION TYPE: CT ChestAbdPelvis w con DATE OF EXAM: 09/05/2020 COMPARISON: 05/11/2020 and 01/03/2020 HISTORY: 60-year-old male C83.38, Lymphoma, obsv. for mets TECHNIQUE: Contiguous axial scanning of the chest, abdomen, and pelvis performed with IV Contrast, pa tient injected with 100 mL of Isovue 300. Delayed images through the kidneys were obtained. Coronal/s agittal reconstructions performed. CT DLP: 1719.3 mGycm Automated exposure control for dose reduction was used. FINDINGS: CHEST: Are normal size without pericardial effusion. Mild LAD coronary calcifications are present. Aorta normal caliber with bovine configuration to the aortic arch. Scattered nonenlarged mild to moderately enlarged mediastinal and bilateral hilar lymph nodes. Left h ilar lymph node measures up to 2.5 x 1.6 cm and on the right measures up to 1.9 cm thick, both unchan ged when remeasured. No progressive lymphadenopathy identified. No consolidation or pleural effusion. ABDOMEN: Liver mildly enlarged at 18.3 cm. No focal liver lesion or biliary ductal dilatation. Portal venous s ystem is seen. Gallbladder, adrenal glands, and pancreas appear within normal limits. Spleen borderline in size at 13.4 cm, unchanged. No dilated small bowel, free fluid, or free air. No mesenteric or retroperitoneal lymphadenopathy. Mild to moderate scattered stool within the colon. Oral contrast has reached the ascending colon. Left-sided colonic diverticulosis, more extensive within the proximal to mid sigmoid colon. No chelsea lonic inflammatory change. PELVIS: Bladder distended. Prostate gland with central calcifications mildly prominent at 4.2 cm wide. Pelvic fluid was. No abnormal fluid collection in the pelvis or pelvic lymphadenopathy. BONES: Degenerative disc disease L5-S1. Facet arthropathy lower lumbar spine. Moderate degenerative disc dis ease midthoracic spine. No osseous destructive process. IMPRESSION: 1. STABLE MILD TO MODERATE HILAR LYMPHADENOPATHY COMPARED BACK TO 01/03/2020. NO NEW OR PROGRESSIVE LYM PHADENOPATHY TO SUGGEST PROGRESSION. 2. LEFT-SIDED COLONIC DIVERTICULOSIS WITHOUT ACUTE DIVERTICULITIS.
== END | disposition home or self-care (01) ==
LOC: RADCTMAIN 09:29
PROVIDERS: ATTEND Internal Medicine Hematology & Oncology
DX: K57.30 Diverticulosis of large intestine without perforation or abscess without bleeding (principal); R59.0 Localized enlarged lymph nodes; C83.38 Diffuse large B-cell lymphoma, lymph nodes of multiple sites
CPT/HCPCS: 82565; 84520; 71260; 74177; 36415; Q9967 ×2

== ENCOUNTER → 2020-10-07 | Outpatient (CLI) | payer BC | END | disposition home or self-care (01) | LOC: LABWHC1 16:06 | PROVIDERS: ATTEND Family Medicine | DX: J06.9 Acute upper respiratory infection, unspecified (principal) | CPT/HCPCS: U0003; C9803 ==

== ENCOUNTER → 2021-03-14 | Outpatient (CLI) | payer BC ==
[2021-03-14 11:45] LABS: African American GFR (CKD) >90 (>60 ml/min/1.73 sqM); Blood Urea Nitrogen 19 mg/dL (9-20); Non-African American GFR(CKD) >90 (>60 ml/min/1.73 sqM)
--- NOTE | 2021-03-14 15:03 | CT ---
EXAMINATION TYPE: CT ChestAbdPelvis w con DATE OF EXAM: 03/14/2021 COMPARISON: 09/05/2020 HISTORY: Lymphoma. CT DLP: 1242.8 mGycm Automated exposure control for dose reduction was used. CONTRAST: Performed with IV Contrast, patient injected with 100 mL of Isovue M300. Images obtained from the thoracic inlet to the floor the pelvis with oral and IV contrast. The lungs are clear of infiltrate. There is no pleural effusion. Heart size is normal. There is no pe ricardial effusion. The axilla appear intact. There are a few paratracheal lymph nodes that measure l ess than 1 cm. There are bilateral bronchial lymph nodes. The largest on the right side measures 2.4 x 1.5 cm. Largest on the left side measures 2 x 1.3 cm. Heart size is normal. There is no pericardial effusion. Thoracic aorta is intact. There is no aneurysm or dissection. I see no filling defects in the pulmonary arteries. Liver spleen stomach pancreas appear intact. The bile ducts are not dilated. Gallbladder appears norm al. Spleen is measuring 14 x 6 cm with normal density. Unchanged. There is no adrenal mass. Kidneys show satisfactory contrast opacification. There is no hydronephrosi s. Delayed images show normal renal excretion. The ureters are not dilated. There is no retroperitone al adenopathy. Bladder distends smoothly. There is no inguinal hernia. There is no inguinal adenopath y. There are a few sigmoid diverticula. I see no diverticulitis. There is no mesenteric edema. There is no ascites or free air. There is no bowel obstruction. There is normal oral contrast opacification of the small bowel. There is no intestinal wall thickening. There are no dilated loops. Appendix is not seen. There is no sign of thickened appendix. The thoracic and lumbar vertebra appear intact. There is no compression fracture. There is mild multi level spondylotic changes in the thoracic and lumbar spine. Sternum is intact. The hip joints are int act. There is no evidence of hip dysplasia. The ribs appear intact. IMPRESSION: There are enlarged bilateral bronchial lymph nodes which appear the same or slightly smaller than the previous CT scan. No other significant adenopathy in the abdomen chest and pelvis.
== END | disposition home or self-care (01) ==
LOC: RADCTMAIN 10:53
PROVIDERS: ATTEND Internal Medicine Hematology & Oncology
DX: R59.0 Localized enlarged lymph nodes (principal); C85.90 Non-Hodgkin lymphoma, unspecified, unspecified site
CPT/HCPCS: 82565; 84520; 71260; 74177; 36415; Q9967 ×2

== ENCOUNTER → 2021-09-15 | Outpatient (CLI) | payer BC ==
--- NOTE | 2021-09-15 17:51 | CT ---
EXAMINATION TYPE: CT ChestAbdPelvis w con DATE OF EXAM: 09/15/2021 INDICATION: follow up diffuse large b cell lymphoma COMPARISON: 03/14/2021 CT DLP: 1393.7 mGycm CONTRAST: Performed with Oral Contrast and with IV Contrast, patient injected with 100 mL of Isovue 300. TECHNIQUE: Axial images at 5 mm thick sections. Reconstructed images in the coronal plane. Delayed images through the kidneys. FINDINGS: CT CHEST: Portion of the thyroid visualized is normal. No suspicious lung nodules or focal infiltrates are present. No enlarged mediastinal or hilar adenopathy is evident. The ascending aorta diameter at the level of the main pulmonary artery is 3.9 cm. The main pulmonary artery diameter at the bifurcation is 2.8 cm. Minimal Coronary artery calcifications present CT ABDOMEN: Liver: Normal Spleen: Normal Pancreas: Normal Adrenal glands: The adrenal glands are normal. Gallbladder: Normal Kidneys: No masses are evident. No hydronephrosis is present. No cysts are present. Delayed images were obtained through the kidneys, which remain unremarkable. Aorta: Mild Vascular calcification is within the aorta. Inferior vena cava: Normal. CT PELVIS: Loops of bowel within the abdomen and pelvis are normal. Diverticular changes are within the sigmoid colon. No acute diverticulitis is evident. There are loops of bowel which are incompletely distend ed or lack oral contrast limiting their evaluation. Appendix: Normal as visualized. Urinary bladder: Normal. Genitourinary structures: Prostate is prominent. Osseous structures: No suspicious lytic or sclerotic lesions are evident. Degenerative disc changes p resent L5-S1 with vacuum phenomenon. Some facet degenerative changes in the lower lumbar spine. Lymphadenopathy: Small lymph nodes are within the left axillary region. There are scattered shotty ly mph nodes within the mediastinum. There is a prominent right hilar lymph node measuring 1.7 cm. Seri es 3 image 35. This was present previously no retrocrural adenopathy is evident. No suspicious periao rtic or retrocaval adenopathy. [employer] canals and iliac chains appear normal. Few small inguinal lym ph nodes are present greater on the right. IMPRESSIONS: 1. Prominent right perihilar lymph node, present previously. 2. Scattered small lymph nodes present discussed above. No enlarging adenopathy is identified. Follow -up as clinically indicated.
== END | disposition home or self-care (01) ==
LOC: RADCTMAIN 10:21
PROVIDERS: ATTEND Internal Medicine Hematology & Oncology
DX: C83.38 Diffuse large B-cell lymphoma, lymph nodes of multiple sites (principal)
CPT/HCPCS: 71260; 74177; Q9967

== ENCOUNTER → 2022-04-09 | Outpatient (CLI) | payer BC ==
--- NOTE | 2022-04-09 15:19 | CT ---
EXAMINATION TYPE: CT ChestAbdPelvis w con DATE OF EXAM: 04/09/2022 COMPARISON: CT dated 09/15/2021 HISTORY: lymphoma CT DLP: 1847.7 mGycm Automated exposure control for dose reduction was used. CONTRAST: CT scan of the chest, abdomen and pelvis is performed with Oral Contrast and with IV Contrast, patien t injected with 70 mL of Isovue 300. FINDINGS: LUNGS: Stable minimal infiltration/scarring in the left lung apex. No new suspicious or progressive l cristopher lesion. Patent trachea and bronchi. No pleural effusion. MEDIASTINUM: Stable 17 mm right hilar lymph node as well as the smaller scattered hilar and mediastin al lymph nodes without interval progression. No cardiomegaly. Arterial atherosclerotic calcifications . No pericardial effusion. OTHER: No aggressive bone lesion. LIVER/GB: No significant abnormality is appreciated. PANCREAS: No significant abnormality is seen. SPLEEN: No significant abnormality is seen. ADRENALS: No significant abnormality is seen. KIDNEYS: No significant abnormality is seen. BOWEL: Scattered uncomplicated colonic diverticulosis. REPRODUCTIVE ORGANS: Slightly enlarged prostate, please correlate with PSA level. Unremarkable semina l vesicles and urinary bladder. LYMPH NODES: No greater than 1 cm abdominal or pelvic lymph nodes are appreciated. OSSEOUS STRUCTURES: Marked degenerative changes at L5-S1 level. No aggressive bone lesion. OTHER: Scattered arterial atherosclerotic calcifications. No sizable ascites. Small left fat-containi ng inguinal hernia. IMPRESSION: Stable hilar and mediastinal lymph nodes without interval progression. No progressive lymphadenopathy in the chest, abdomen or the pelvis. Incidental findings as described above.
== END | disposition home or self-care (01) ==
LOC: RADCTMAIN 10:06
PROVIDERS: ATTEND Internal Medicine Hematology & Oncology
DX: C85.90 Non-Hodgkin lymphoma, unspecified, unspecified site (principal)
CPT/HCPCS: 71260; 74177; Q9967

== ENCOUNTER → 2022-10-12 | Outpatient (CLI) | payer BC ==
--- NOTE | 2022-10-12 12:39 | CT ---
EXAMINATION TYPE: CT ChestAbdPelvis w con DATE OF EXAM: 10/12/2022 COMPARISON: 04/09/2022 HISTORY: obs for mets. hx of non hodgkin's lymphoma. CT DLP: 2102 mGycm CONTRAST: CT scan of the chest, abdomen and pelvis is performed with Oral Contrast and with IV Contrast, patien t injected with 70 mL of Isovue 300. CT Chest: LUNGS: The lungs are clear and free of infiltrate or atelectasis. No pulmonary nodule or mass is det ected. No pleural effusion or CT evidence of interstitial lung disease. MEDIASTINUM: Thoracic aorta is of normal caliber. The heart is not enlarged. No evidence for media stinal mass or adenopathy. HILAR STRUCTURES: No evidence for mass. Stable left hilar adenopathy 0.3 cm. Stable right hilar adeno mars at 1.7 cm. OTHER: No axillary adenopathy present. CONTRAST CT ABDOMEN AND PELVIS FINDINGS: LIVER/GB: No calcified gallstones. No space occupying hepatic lesion. Biliary tree is of normal ca liber. PANCREAS: No inflammation. No distinct mass. SPLEEN: No splenic enlargement. No lesion seen. ADRENALS: No nodule. No thickening. KIDNEYS/BLADDER: No hydronephrosis. No nephrolithiasis. No disctinct renal mass. BOWEL: Normal appendix. Normal bowel caliber. No inflammation. GENITAL ORGANS: No gross abnormality. LYMPH NODES: No greater than 1cm abdominal or pelvic lymph nodes are appreciated. AORTA: No significant abnormality. OSSEOUS STRUCTURES: Mild degenerative changes lumbar spine. OTHER: No significant additional abnormality is seen. IMPRESSION: 1. Stable mild hilar adenopathy.
== END | disposition home or self-care (01) ==
LOC: RADCTMAIN 10:20
PROVIDERS: ATTEND Internal Medicine Hematology & Oncology
DX: C83.38 Diffuse large B-cell lymphoma, lymph nodes of multiple sites (principal); Z03.89 Encounter for observation for other suspected diseases and conditions ruled out
CPT/HCPCS: 71260; 74177; Q9967

== ENCOUNTER → 2023-04-06 | Outpatient (CLI) | payer BC ==
--- NOTE | 2023-04-06 12:09 | CT ---
EXAMINATION TYPE: CT ChestAbdPelvis w con DATE OF EXAM: 04/06/2023 COMPARISON: 10/12/2022 HISTORY: Lymphoma CT DLP: 1259.1 mGycm CONTRAST: CT scan of the chest, abdomen and pelvis is performed with Oral Contrast and with IV Contrast, patien t injected with 100 mL of Isovue 300. CT Chest: LUNGS: The lungs are clear and free of infiltrate or atelectasis. No pulmonary nodule or mass is det ected. No pleural effusion or CT evidence of interstitial lung disease. MEDIASTINUM: Thoracic aorta is of normal caliber. The heart is not enlarged. Small subcentimeter m ediastinal lymph nodes noted. HILAR STRUCTURES: No evidence for mass. Right hilar adenopathy measures 1.6 cm versus up to 1.6 cm pr eviously. Left hilar adenopathy with largest lymph node measuring 1.3 cm versus 1.3 cm previously. Sm all subcentimeter mediastinal lymph nodes noted. OTHER: No significant abnormality. CONTRAST CT ABDOMEN AND PELVIS FINDINGS: LIVER/GB: No calcified gallstones. No space occupying hepatic lesion. Biliary tree is of normal ca liber. PANCREAS: No inflammation. No distinct mass. SPLEEN: No splenic enlargement. No lesion seen. ADRENALS: No nodule. No thickening. KIDNEYS/BLADDER: No hydronephrosis. No nephrolithiasis. No distinct renal mass. BOWEL: Normal appendix. Normal bowel caliber. No inflammation. Colonic diverticulosis. GENITAL ORGANS: No gross abnormality. LYMPH NODES: No greater than 1cm abdominal or pelvic lymph nodes are appreciated. AORTA: No significant abnormality. OSSEOUS STRUCTURES: No significant abnormality is seen. OTHER: No significant additional abnormality is seen. IMPRESSION: 1. Interval hilar adenopathy. Otherwise unremarkable study.
== END | disposition home or self-care (01) ==
LOC: RADCTMAIN 09:48
PROVIDERS: ATTEND Internal Medicine Hematology & Oncology
DX: C83.38 Diffuse large B-cell lymphoma, lymph nodes of multiple sites (principal); R59.0 Localized enlarged lymph nodes
CPT/HCPCS: 71260; 74177; Q9967

== ENCOUNTER → 2023-10-06 | Outpatient (CLI) | payer BC ==
--- NOTE | 2023-10-06 12:04 | CT ---
EXAMINATION TYPE: CT ChestAbdPelvis w con DATE OF EXAM: 10/06/2023 COMPARISON: Most recent prior CT April 06, 2023 and older studies. HISTORY: Six month follow up for lymphoma. B-cell lymphoma diagnosed 2018. CT DLP: 1416.80 mGycm. Automated Exposure Control for Dose Reduction was Utilized. CONTRAST: CT scan of the thorax, abdomen and pelvis is performed with oral and with IV Contrast, patient inject ed with 100 mL of Isovue 300. FINDINGS: LUNGS: The lungs are grossly clear, there is no concerning new parenchymal mass or nodule identified. There is no pleural effusion or pneumothorax seen. The tracheobronchial tree is patent. MEDIASTINUM: Prominent but subcentimeter lymph nodes throughout the mediastinum are redemonstrated. S lightly more prominent lymph nodes in the left hilar region are again seen. For reference there is an terior superior 1.7 x 1.2 cm lymph node axial image 26 redemonstrated similar to most recent prior. E nlarged right hilar lymph node axial image 35 redemonstrated similar to prior. No cardiomegaly or per icardial effusion is seen. LIVER/GB: No liver remains diffusely low dense consistent with fatty infiltrative hepatocellular dise ase.. PANCREAS: No significant abnormality is seen. SPLEEN: No significant abnormality is seen. ADRENALS: No significant abnormality is seen. KIDNEYS: No significant abnormality is seen. BOWEL: Oral contrast nearly reaches the level of the hepatic flexure on current study. No suspicious small or large bowel dilatation. Distal colonic diverticulosis is redemonstrated. Mild fat stranding in the left upper pelvis is not entirely excluded.. Correlate clinically. GENITAL ORGANS: Prostate gland is mildly enlarged with central calcifications. Few scattered adjacent pelvic phleboliths redemonstrated. LYMPH NODES: No new greater than 1cm abdominal or pelvic lymph nodes are appreciated. Stable subcenti meter lymph node left retroperitoneum upper abdomen at the level of the celiac artery axial image 60 on current study at site of prior hypermetabolic enlarged adenopathy. OSSEOUS STRUCTURES: Moderate disc space narrowing lower lumbar levels with [id number] spurring. Additional [id number] disc space narrowing mid to lower thoracic spine and mild to moderate sp urring. OTHER: No significant additional abnormality is seen. IMPRESSION: 1. Stable prominent and slightly enlarged thoracic adenopathy particularly bilateral hilar region. No new or enlarging adenopathy identified. 2. Distal colonic diverticulosis redemonstrated. A mild or early uncomplicated acute diverticulitis i s not entirely excluded. Correlate clinically.
== END | disposition home or self-care (01) ==
LOC: RADCTMAIN 09:23
PROVIDERS: ATTEND Internal Medicine Hematology & Oncology
DX: C83.38 Diffuse large B-cell lymphoma, lymph nodes of multiple sites (principal); D75.1 Secondary polycythemia; R59.0 Localized enlarged lymph nodes; K57.30 Diverticulosis of large intestine without perforation or abscess without bleeding; Z71.3 Dietary counseling and surveillance
CPT/HCPCS: 71260; 74177; Q9967

== ENCOUNTER → 2024-02-07 | Outpatient (CLI) | payer BC ==
[2024-02-07 16:51] LABS: ALT 40 U/L (10-49); AST 21 U/L (14-35); Albumin 4.5 g/dL (3.8-4.9); Albumin/Globulin Ratio 1.96 Ratio (1.60-3.17); Alkaline Phosphatase 66 U/L (41-126); Calcium 8.8 mg/dL (8.7-10.3); Carbon Dioxide 25.6 mmol/L (21.6-31.8); Chloride 104 mmol/L (96-109); Chol/HDL Ratio 4.97 Ratio; Globulin 2.3 g/dL (1.6-3.3); Glucose 96 mg/dL (70-110); LDL Cholesterol,Calculated 73.8 mg/dL (0.0-131.0); Potassium 4.3 mmol/L (3.5-5.5); Sodium 140 mmol/L (135-145); Total Bilirubin 0.5 mg/dL (0.3-1.2); Total Protein 6.8 g/dL (6.2-8.2)
[2024-02-07 17:06] LABS: Basophils # (A) 0.03 X 10*3/uL (0.00-0.10); Basophils % (A) 0.9 %; Eosinophils # (A) 0.09 X 10*3/uL (0.04-0.35); Eosinophils % (A) 2.6 %; HCT 47.2 % (39.6-50.0); HGB 15.8 g/dL (13.0-17.0); Lymphocytes # (A) 0.89 X 10*3/uL (0.90-5.00); Lymphocytes % (A) 25.6 %; MCH 30.2 pg (27.0-32.0); MCHC 33.5 g/dL (32.0-37.0); MCV 90.2 FL (80.0-97.0); Mean Platelet Volume 11.5 FL (9.5-12.2); Monocytes # (A) 0.42 X 10*3/uL (0.20-1.00); Monocytes % (A) 12.1 %; NRBC Per 100 WBC 0 X 10*3/uL (0.00-0.01); Neutrophils # (A) 2.01 X 10*3/uL (1.80-7.70); Neutrophils % (A) 57.9 %; Platelet Count 122 X 10*3/uL (140-440); RBC 5.23 X 10*6/uL (4.40-5.60); RDW 12.9 % (11.5-14.5); WBC 3.47 X 10*3/uL (4.50-10.00)
[2024-02-07 17:12] LABS: Prostate Specific Antigen 0.68 ng/mL (0.000-4.500)
== END | disposition home or self-care (01) ==
LOC: LABWHC1 09:24
PROVIDERS: ATTEND Family Medicine
DX: Z00.00 Encounter for general adult medical examination without abnormal findings (principal); Z12.5 Encounter for screening for malignant neoplasm of prostate; E55.9 Vitamin D deficiency, unspecified; D72.819 Decreased white blood cell count, unspecified
CPT/HCPCS: 36415; 80053; 80061; 82306; 84153; 84443; 85025